=== PATIENT | female | born 1945 | race Caucasian/White ===

== ENCOUNTER 2020-07-14 11:47 | Observation (INO) | payer MEDICARE, OTHER, SELFPAY ==
[2020-07-14] VITALS (12 sets, daily range): BP systolic 158–188; BP diastolic 80–106; PULSE 64–98; RESP 14–18; TEMP 36.4–37.4; O2SAT 98–100; BMI 22.6; BMI 22.5
--- NOTE | 2020-07-14 12:06 | EKG12_ITS ---
Test Reason : CP Blood Pressure : / mmHG Vent. Rate : 086 BPM Atrial Rate : 086 BPM P-R Int : 150 ms QRS Dur : 068 ms QT Int : 360 ms P-R-T Axes : -04 066 047 degrees QTc Int : 430 ms Normal sinus rhythm Normal ECG Confirmed by RAMESH CORTES, TODD ([id number]), staff editor CAM NORWOOD ([id number]) on 07/17/2020 10:00:07 AM Referred By: RU Confirmed By:TODD CHANDLER MD
--- NOTE | 2020-07-14 12:07 | ED.VISSUMM ---
- ER Visit Summary Date of Service: 07/14/20 Chief Complaint: [Racing heart, exertional dyspnea] History of Present Illness: The patient is a 74 F [presents to the emergency department with symptoms for several weeks. Patient has noticed that she is unable to work like she used to and gets short of breath with activity. Patient has had some chest discomfort and pressure associated with this. 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 Patient has history of hypertension. She complains of feeling lightheaded when she stands up from stooping. Patient feels like her heart races at times but has not taken her pulse. She denies recent travel or surgery. Patient had her Covid vaccine 3 weeks ago. Patient does feel anxious at times. She denies fever or recent illness.] Physical Examination: [HEENT-PERRLA, EOMI. Cranial nerves II through XII grossly intact. TMs clear. Mucous membranes moist. No adenopathy. Cardiovascular-regular rate and rhythm without murmur or ectopy Lungs-clear to auscultation, chest wall stable without crepitus or subcu emphysema Abdomen-normoactive bowel sounds, soft, nontender, no rebound or rigidity, no peritoneal signs. Extremities-intact ?4, normal range of motion, normal pulses, atraumatic] Test Results: [EKG obtained arrival shows sinus rhythm with a ventricular rate of 86 bpm with no acute ST segment changes. CBC with differential was normal. Chemistries unremarkable. BUN 34 and creatinine 1.5. Troponin is less than 0.015. D-dimer was 0.81. CT of the chest showed no evidence of PE or dissection however she had some incidental pleural thickening of the right lower lobe.] Emergency Department Course and Treatment: [IV line established on arrival. Patient was given 2 baby aspirin.] Treatment Plan: [Admit] Disposition: [Admit] Impression: [Chest pain-rule out acute coronary syndrome Exertional dyspnea] This note was generated with [employer] software. It may contain incorrect words, spelling, and punctuation that were not noted in review of the chart prior to signing ED Disposition - Plan for ED Patient: Referrals: Care Physician,No Primary [NON-STAFF] -
[2020-07-14 12:17] LABS: Absolute Lymphocyte Count 1.34 X10^3/uL (0.83-4.51); Absolute Neutrophil Count 5.7 X10^3/uL (2.0-7.7); Basophil# 0.04 X10^3/uL; Basophil% 0.5 % (0-1); Eosinophil# 0.09 X10^3/uL; Eosinophils% 1.2 % (0-5); Hematocrit 39.8 % (37-47); Hemoglobin 13.2 g/dL (12.0-15.0); Lymphocyte # 1.34 X10^3/ul (4.0); Lymphocyte % 17.4 % (19-41); Mean Corp Hgb Conc 33.2 g/dL (32-36); Mean Corpuscular Hgb 32.2 pg (27.0-32.0); Mean Corpuscular Volume 97.1 fL (81-99); Mean Platelet Vol. 8.8 fl (6.2-12.0); Monocyte% 6.5 % (0-10); NRBC Flagged by Analyzer 0 % (0-5); Neutrophil # 5.71 X10^3/uL (2.7-7.7); Neutrophil % 74.1 % (47-70); Platelet Count 319 K/mm3 (150-450); RBC Distribution Width CV 13.5 % (11.6-14.6); RBC Distribution Width SD 48.3 fl (35.1-43.9); White Blood Count 7.7 K/mm3 (4.4-11.0)
[2020-07-14] MEDS: 0.9% Normal Saline 1,000 ML 150 ML IV ×3 (12:24→21:10)
[2020-07-14] MEDS: Aspirin 81 MG TAB.CHEW 162 MG PO (12:24)
[2020-07-14 12:33] LABS: D-Dimer Quantitative (DVT/PE) 0.81 FEU/ug/m (0.27-0.49)
--- NOTE | 2020-07-14 12:33 | CT_ITS ---
STUDY: CTA CHEST REASON FOR EXAM: Female, 74 years old. Dyspnea. RADIATION DOSAGE (If Supplied By Facility): CTDIvol = ( 4.7 ) mGy, DLP = ( 163.75 ) mGycm TECHNIQUE: The examination was performed with the intravenous administration of 100 mL of ISOVUE-370. Post-processing of the angiographic images was performed, with multiplanar reformation and MIP (maximum intensity projection) reconstruction. Individualized dose optimization techniques were used for this CT. COMPARISON: None. FINDINGS: Normal enhancement of the main pulmonary artery and right and left pulmonary arteries. Normal enhancement of the bilateral peripheral pulmonary arteries. There is no demonstrated pulmonary embolism. Normal thoracic aorta and visualized great vessels. There is no demonstrated aortic dissection. Normal heart and pericardium. Normal mediastinum. Normal hilar regions. Normal visualized trachea and bronchi. The lungs are well expanded. Minimal subsegmental atelectases in the lateral segment of right middle lobe. No suspicious pulmonary nodules or infiltrates. Small posterior pleural thickening (series 2, image 97; series 602, image 95). Normal chest wall structures. No acute osseous abnormality. Normal visualized upper abdomen. CT/CTA Chest W/WO Contrast IMPRESSION: 1. No CTA evidence of pulmonary thromboemboli, thoracic aortic aneurysm or dissection. 2. Minimal subsegmental atelectases in the lateral segment of the right middle lobe. 3. Small focal posterior pleural thickening in the posterior aspect of the right lower lobe (series 2, image 97; series 602, image 95). Electronically Signed: Jean Verduzco MD at 13:35 EDT , Service support ,
[2020-07-14 12:36] LABS: Anion Gap 9 (5-15); BUN 34 mg/dL (7-18); BUN/Creat Ratio 22.7 RATIO (10-20); Calcium,Total 9.2 mg/dL (8.5-10.1); Chloride 102 mmol/L (98-107); EST Glomerular Filtration Rate 36 mL/min (>60); Est Glom Filt Rate - Afr Amer 44 mL/min (>60); Estimated Creatinine Clearance 32.48 ml/min; Glucose 163 mg/dL (74-106); Potassium 4.1 mmol/L (3.5-5.1); Sodium Level 137 mmol/L (136-145)
--- NOTE | 2020-07-14 13:54 | ECHOCS_ITS ---
Reason For Study: Dyspnea/SOB Procedure This was a 2D Doppler, Color Flow transthoracic echocardiogram. Contrast injection was performed. Exam performed in department. Left Ventricle Normal LV size. Left ventricular systolic function is normal. The estimated ejection fraction is 70 %. Stage 1 diastolic dysfunction. No regional wall motion abnormalities noted. Right Ventricle Normal RV size. Normal systolic function. Atria Normal left atrium. Normal right atrium. Mitral Valve Normal mitral valve. Tricuspid Valve Normal tricuspid valve. Mild tricuspid valve insufficiency. Pulmonary artery systolic pressure is 36 mmHg. Aortic Valve Trisinus/trileaflet aortic valve. Pulmonic Valve Normal pulmonic valve. Great Vessels Normal aortic root. The pulmonary artery is normal size. Normal inferior vena cava. Pericardium/Pleural No pericardial effusion. Medication Diluted definity 2ml given slow IV push to enhance endocardial definition. MMode/2D Measurements & Calculations LVIDd: 4.1 cm IVSd: 0.81 cm Ao root diam: 2.8 cm LVIDs: 2.0 cm LVPWd: 0.99 cm RVDd: 2.9 cm FS: 52.0 % LAV(MOD-bp): 32.4 ml LVAd ap4: 17.7 cm2 SV(MOD-sp4): 25.9 ml LAV(MOD-bp) Indexed: 18.4 ml/m2 EDV(MOD-sp4): 37.4 ml LAV(MOD-sp2): 30.4 ml EDV(sp4-el): 38.2 ml LAV(MOD-sp4): 32.6 ml LVAs ap4: 8.4 cm2 ESV(MOD-sp4): 11.4 ml ESV(sp4-el): 10.5 ml EF(MOD-sp4): 69.4 % EF(sp4-el): 72.4 % SV(sp4-el): 27.7 ml LA A4 area: 14.0 cm2 LA dimension(2D): 3.2 cm RA A4 area: 9.5 cm2 Doppler Measurements & Calculations MV E max mike: 100.8 cm/sec Lat Peak E' Mike: 8.4 cm/sec Med Peak E' Mike: 5.0 cm/sec MV A max mike: 102.3 cm/sec E/E' lat: 12.0 E/E' med: 20.0 MV E/A: 0.99 Ao V2 max: 146.1 cm/sec LV V1 max: 141.5 cm/sec PA V2 max: 91.3 cm/sec Ao max P.5 mmHg LV V1 max P.0 mmHg Ao V2 mean: 104.5 cm/sec Ao mean P.7 mmHg Ao V2 VTI: 32.6 cm TR max mike: 283.6 cm/sec TR max P.2 mmHg Interpretation Summary Normal LV size. Left ventricular systolic function is normal. The estimated ejection fraction is 70 %. Stage 1 diastolic dysfunction. Contrast injection was performed. Ordering Physician: Christo Mercado Referring Physician: Teo Sagastume Performed By: Sandra Martínez, YENNY, RVT
--- NOTE | 2020-07-14 13:54 | NURSING ---
DR LEATHA MARCUS
--- NOTE | 2020-07-14 13:55 | EKG12_ITS ---
Test Reason : Blood Pressure : / mmHG Vent. Rate : 083 BPM Atrial Rate : 083 BPM P-R Int : 142 ms QRS Dur : 072 ms QT Int : 374 ms P-R-T Axes : 009 067 047 degrees QTc Int : 439 ms Normal sinus rhythm Normal ECG No previous ECGs available Confirmed by RAMESH CORTES, TODD ([id number]), website/blog editor CAM NORWOOD ([id number]) on 07/17/2020 10:22:27 AM Referred By: HARPAL Confirmed By:TODD CHANDLER MD
--- NOTE | 2020-07-14 14:01 | PCM.HP.STD ---
Problem List (1) Chest pain Status: Acute (2) Essential (primary) hypertension Status: Chronic History of Present Illness Date of Admission: 07/14/20 Chief Complaint: Chest discomfort The patient is a 74 year old F with past medical history segment for essential hypertension who presented with chest discomfort. Patient reports days of intermittent chest discomfort with associated palpitations. Chest discomfort was located in the retrosternal region. Patient denied any radiation. Denied any association with activity nor rest. Patient stated she felt anxious as well. Presented to the emergency department as a result. Patient was found to have a slightly elevated D-dimer CTA of the chest obtained was negative for PE subsequently admitted to a monitored bed for further inpatient evaluation and management Past Medical History Past Medical History (Chronic Problems): Chronic Problems (Last Updated 05/07/17 @ 09:21 by Vianca Longo) Essential (primary) hypertension (Chronic) Medical History: Medical History (Last Reviewed 07/14/20 @ 14:[address] Christo Mercado MD) C. difficile diarrhea A04.72 Dermatitis L30.9 Allergies Penicillins Allergy (Verified 07/14/20 11:50) Swelling Home Medications: Ambulatory Orders Medication Instructions Recorded multivitamin 1 cap PO QDAY 05/07/17 Lisinopril 40 mg PO DAILY 07/14/20 hydroCHLOROthiazide 12.5 mg PO DAILY 07/14/20 [Hydrochlorothiazide] Surgical History: Surgical History (Last Reviewed 07/14/20 @ 14:[address] Christo Mercado MD) History of colonoscopy Onset Date: ~11/20/14 Z98.890 History of tubal ligation Z98.51 Smoking Status: Never smoker - *Family History Maternal Family History: Family History (Last Reviewed 07/14/20 @ 14:[address] Christo Mercado MD) Father Heart disease Grandmother CVA (cerebral vascular accident) Grandfather CVA (cerebral vascular accident) Review of Systems Constitutional: Denies: Anorexia, Chills, Fever, Night Sweats, Weight Change HEENT: Denies: Head Aches, Sinus Congestion, Sinus Drainage Cardiovascular: Reports: Chest Pressure, Palpitations. Denies: Chest Pain, Orthopnea, Paroxysmal Noc. Dyspnea Respiratory: Denies: Cough, Shortness of breath at rest, Shortness of breath upon exertion, Sputum production Gastrointestinal: Denies: Abdominal Pain, Hematemesis, Hematochezia, Nausea, Melena, Vomiting Genitourinary: Denies: Dysuria, Frequency, Hematuria, Urgency Musculoskeletal: Denies: Joint Pain, Joint Tenderness Skin: Denies: Rash Neurological: Denies: Focal weakness, Numbness, Tingling Psychiatric: Reports: Anxiety. Denies: Homicidal Ideations, Suicidal Ideations Hematologic/ Lymphatic: Denies: Easy Bruising, Easy Bleeding VTE Information - Inpt Only VTE Present on Admission: No VTE Mechan Device Prophylaxis: None VTE Pharm Prophylaxis ordered?: Yes Objective: GENERAL: cooperative HEENT: Atraumatic; EYES; Anicteric, Normal Conjunctiva NECK; supple, normal thyroid, RESPIRATORY: Diminished to auscultation CARDIOVASCULAR: Regular S1 S2, GI: soft, normoactive bowel sounds, : No Renal angle tenderness; EXTREMITIES: No edema, no clubbing, MUSCULOSKELETAL: no muscle waisting NEURO: Awake; no lateralizing signs. SKIN: No Rash PSYCH; Flat affect - Physical Exam Vitals/I&O's: Vital Signs Temp Pulse Resp BP Pulse Ox 97.5 F L 88 17 174/80 H 100 07/14/20 11:47 07/14/20 13:00 07/14/20 13:00 07/14/20 13:00 07/14/20 13:00 Oxygen Delivery Method Room Air Weight: 65.6 kg Body Mass Index (BMI) 22.6 Laboratory Results 07/14/20 12:10: WBC 7.7, RBC 4.10 L, Hgb 13.2, Hct 39.8, MCV 97.1, MCH 32.2 H, MCHC 33.2, RDW Std Deviation 48.3 H, RDW Coeff of Peri 13.5, Plt Count 319, MPV 8.8, Immature Gran % (Auto) 0.300, Neut % (Auto) 74.1 H, Lymph % (Auto) 17.4 L, [place] % (Auto) 6.5, Eos % (Auto) 1.2, Baso % (Auto) 0.5, Absolute Neuts (auto) 5.7, Absolute Lymphs (auto) 1.34, Nucleated RBC % 0 07/14/20 12:10: D-Dimer Quant (PE/DVT) 0.81 H* 07/14/20 12:10: Sodium 137, Potassium 4.1, Chloride 102, Carbon Dioxide 26.0, Anion Gap 9, BUN 34 H, Creatinine 1.50 H, Estim Creat Clear Calc 32.48, Est GFR (MDRD) Af Amer 44 L, Est GFR (MDRD) Non-Af 36 L, BUN/Creatinine Ratio 22.7 H, Glucose 163 H, Calcium 9.2, Troponin I < 0.015 Current Medications Acetaminophen (Acetaminophen 325 Mg Tablet) 650 mg PO Q6H PRN PRN PRN Reason: Pain Score 1-10/Temp > 100.7 F Al Hydroxide/Mg Hydroxide (Mag Hydrox/Al Hydrox/Simeth 30 Ml Udc) 30 ml PO Q6H PRN PRN PRN Reason: Gastric Burning Albuterol Sulfate (Albuterol 2.5 Mg/3 Ml Vial.Neb.) 2.5 mg INHALATION Q2H PRN PRN PRN Reason: SOB/Wheezing Aspirin (Aspirin E.C. 81 Mg Tablet) 81 mg PO DAILY@0800 [facility] Enoxaparin Sodium (Enoxaparin 40 Mg/0.4 Ml Syringe) 40 mg SC DAILY [facility] Hydrochlorothiazide (Hydrochlorothiazide 12.5mg) 12.5 mg PO DAILY [facility] Sodium Chloride () 1,000 mls @ 150 mls/hr IV .Q6H40M [facility] Last Admin: 07/14/20 12:24 Dose: 150 mls/hr Documented by: Lisinopril (Lisinopril 40 Mg Tablet) 40 mg PO DAILY [facility] Melatonin (Melatonin 3 Mg Tablet) 3 mg PO QHS PRN PRN PRN Reason: INSOMNIA Nitroglycerin (Nitroglycerin (Inpatient Use) 0.4 Mg Tab.Subl) 0.4 mg SL Q5M PRN PRN Reason: CARDIAC/CHEST PAIN Oxycodone HCl (Oxycodone 5 Mg Tablet) 5 mg PO Q4H PRN PRN PRN Reason: Pain Score 4-5 Senna/Docusate Sodium (Senna/Docusate Sodium 1 Tablet) 2 tablet PO BID PRN PRN PRN Reason: Constipation Assessment/Plan All Active Problems (Last Updated 05/07/17 @ 09:21 by Vianca Longo) Chest pain (Acute) Patient is a 74-year-old lady presenting with chest discomfort 1. Chest discomfort ?Admitted to monitored bed. Patient initial set of cardiac enzymes and EKG so far unremarkable. Subsequent serial enzymes ordered and if PA is ruled out patient can undergo a treadmill nuclear stress test. Also did order a 2D echo 2. Essential hypertension -patient's blood pressure not well controlled ?Systolic blood pressure was around 160 on admission did continue with home meds and added as needed hydralazine 3. Palpitations ?EKG demonstrated sinus tachycardia, patient had elevated D-dimer CTA of the chest was negative for PE 4. DVT prophylaxis ?Lovenox OBSV E&M: 14599 Initial observation care L3
--- NOTE | 2020-07-14 14:04 | NURSING ---
NO OLD EKGS
--- NOTE | 2020-07-14 14:05 | NURSING ---
121 KITTOE CP, EXERTIONAL DYSPNEA OBS
[2020-07-14] MEDS: Metoprolol Tartrate 25 MG Tablet PO (18:22)
[2020-07-14] MEDS: hydrALAZINE 20 MG/ML Vial 10 MG IV (21:10)
[2020-07-15] VITALS (7 sets, daily range): BP systolic 140–153; BP diastolic 70–80; PULSE 70–87; RESP 16–18; TEMP 35.9–36.8; O2SAT 98–100
[2020-07-15 06:01] LABS: Absolute Lymphocyte Count 1.62 X10^3/uL (0.83-4.51); Absolute Neutrophil Count 4.7 X10^3/uL (2.0-7.7); Basophil# 0.04 X10^3/uL; Basophil% 0.6 % (0-1); Eosinophil# 0.11 X10^3/uL; Eosinophils% 1.6 % (0-5); Hematocrit 38.2 % (37-47); Hemoglobin 12.4 g/dL (12.0-15.0); Lymphocyte # 1.62 X10^3/ul (4.0); Lymphocyte % 23.4 % (19-41); Mean Corp Hgb Conc 32.5 g/dL (32-36); Mean Corpuscular Hgb 31.6 pg (27.0-32.0); Mean Corpuscular Volume 97.2 fL (81-99); Mean Platelet Vol. 8.8 fl (6.2-12.0); Monocyte% 5.8 % (0-10); NRBC Flagged by Analyzer 0 % (0-5); Neutrophil # 4.74 X10^3/uL (2.7-7.7); Neutrophil % 68.5 % (47-70); Platelet Count 304 K/mm3 (150-450); RBC Distribution Width CV 13.6 % (11.6-14.6); RBC Distribution Width SD 48.3 fl (35.1-43.9); Red Blood Count 3.93 M/mm3 (4.2-5.4); White Blood Count 6.9 K/mm3 (4.4-11.0)
[2020-07-15] MEDS: Lisinopril 40 MG Tablet PO (06:16)
[2020-07-15 06:34] LABS: Anion Gap 4 (5-15); BUN 23 mg/dL (7-18); BUN/Creat Ratio 21.9 RATIO (10-20); Calcium,Total 9.1 mg/dL (8.5-10.1); Chloride 108 mmol/L (98-107); Creatinine, Serum 1.05 mg/dL (0.55-1.02); EST Glomerular Filtration Rate 55 mL/min (>60); Est Glom Filt Rate - Afr Amer 66 mL/min (>60); Glucose 114 mg/dL (74-106); Magnesium 2.3 mg/dL (1.6-2.6); Potassium 4.2 mmol/L (3.5-5.1); Sodium Level 140 mmol/L (136-145); Thyroid Stim Hormone (TSH) 2.84 uIU/mL (0.358-3.74)
[2020-07-15] MEDS: Aspirin E.C. 81 MG Tablet PO (08:23)
--- NOTE | 2020-07-15 10:58 | STRESSREP ---
Stress Test Report Exercise myocardial perfusion stress test. 74-year-old lady with a history of chest pain. Stress protocol: Resting EKG demonstrates normal sinus rhythm with a rate of 86 bpm normal intervals are noted resting blood pressure is 156/90 mmHg. The patient exercised according to regular Korey protocol for a total duration of 4 minutes. The maximum heart rate attained was 139 bpm which was 92% of maximum predicted heart rate the maximum workload was 5.7 metabolic equivalents. At rest there were no ST or T wave changes noted suggest ischemia peak exercise upsloping ST changes were noted which did not meet the criteria for ischemia. The peak blood pressure was 162/88 mmHg the test was terminated due to fatigue. Rate-pressure product was 20,500. Myocardial perfusion protocol. 11.6 mCi of technetium 99m sestamibi was injected at rest. Patient exercised according to regular Korey protocol. At peak exercise 33.3 mCi of technetium 99m sestamibi was injected stress images were obtained stress and rest images were reconstructed and compared in the short axis vertical long horizontal long axis. Gated images were also obtained Perfusion SPECT analysis: Review of the stress images demonstrate normal uptake of tracer noted in all areas of the myocardium the resting images similarly demonstrate normal uptake of tracer noted in all areas of the myocardium. No reversibility is noted suggest ischemia no previous infarct is noted. Gated SPECT analysis: The gated ejection fraction is 90%. Conclusion: Normal exercise myocardial perfusion stress test at a low to moderate workload. Preserved ejection fraction.
[2020-07-15] MEDS: hydroCHLOROthiazide 25 MG Tablet PO (11:15)
[2020-07-15] MEDS: Metoprolol Tartrate 25 MG Tablet PO (11:15)
--- NOTE | 2020-07-15 12:26 | DCINST_ITS ---
- Discharge Diagnoses Current Active Problems: Current Active and Chronic Problems (Last Reviewed 07/14/20 @ 14:[address] Christo Mercado MD) Essential (primary) hypertension (Chronic) Chest pain (Acute) You will use the following diet at home:: No restrictions - drink more fluids Your food should be the consistency of: Regular Your liquids should be the consistency of: Regular/Thin Additional Instructions: Check blood pressure daily and keep record. Allergies/Adverse Reactions: Allergies Penicillins Allergy (Verified 07/14/20 11:50) Swelling Medications to take at Discharge multivitamin 1 cap PO QDAY 05/07/17 Lisinopril 40 mg PO DAILY 07/14/20 hydroCHLOROthiazide [Hydrochlorothiazide] 12.5 mg PO DAILY 07/14/20 Albuterol IH (ProAir) [Proair Hfa] 1 - 2 puff INHALATION Q4H PRN PRN #1 inhaler 07/15/20 The following prescriptions were given: Albuterol IH (ProAir) [Proair Hfa] 1 - 2 puff INHALATION Q4H PRN PRN #1 inhaler PRN Reason: Shortness Of Breath Transmission Status: Pending to [facility] Primary Care Physician: Care Physician,No Primary [NON-STAFF] - Test Results: Test results from this visit will be discussed in further detail at your follow- up appointment, if applicable. Please Follow Up With: Teo Sagastume MD When: 1-2 weeks Please Follow Up With: Korey Eubanks MD - Pulmonology When: 2-4 weeks Proposed Discharge Date: 07/15/20
--- NOTE | 2020-07-15 12:28 | PCM.DC.SUM ---
Discharge Date and Diagnosis - Problem List Patient Problems: Active and Suspected Problems (Last Reviewed 07/14/20 @ 14:[address] Christo Mercado MD) Chest pain (Acute) Date of Admission: 07/14/20 Date of Discharge: 07/15/20 - Primary Discharge Diagnosis Acute Problems: Active Problems (Last Reviewed 07/14/20 @ 14:[address] Christo Mercado MD) Chest pain (Acute) - Secondary Discharge Diagnosis Chronic Problems: Chronic Problems (Last Reviewed 07/14/20 @ 14:[address] Christo Mercado MD) Essential (primary) hypertension (Chronic) Hospital Course and Treatment Imaging Results: 07/15/20 05:55 Nuclear Stress Test - Treadmil [NM] AM (NON MEDS) Operations: None Procedures: Stress test Summary of Care Provided: The patient is a 74 year old F dyspnea on exertion. Patient also noting dizziness particular when she bends over and stands up. Patient had elevated creatinine at 1.5 which did improve to 1.05. Patient underwent a CT angiogram of the chest as well as a stress test which were both negative. In regards to patient's dyspnea on exertion told her it is unclear as to what is causing it but I did have concern for may be some underlying undiagnosed asthma. Patient states that she does not have nocturnal symptoms. Patient would receive a prescription for an albuterol metered-dose inhaler if she were to have dyspnea on exertion again but also advised that she follow-up pulmonology for formal evaluation with pulmonary function test as outpatient. On regards the patient's blood pressure it has been elevated, however am not going to change anything in regards to her medications. Patient will continue with same dosing of HCTZ as well as lisinopril. Patient was having palpitations but when she initially presented did not have been started on beta-blockers. Would hold off on those. Patient does have some underlying asthma. [] Patient Problems: Active and Suspected Problems (Last Reviewed 07/14/20 @ 14:[address] Christo Mercado MD) Chest pain (Acute) - Physical Exam Vitals/I&O's: Vital Signs Temp Pulse Resp BP Pulse Ox 36.8 C 87 18 153/70 H 100 07/15/20 11:11 07/15/20 11:15 07/15/20 11:11 07/15/20 11:15 07/15/20 11:11 Oxygen Delivery Method Room Air Weight: 65.317 kg Body Mass Index (BMI) 22.5 Intake and Output for Last 24 Hours 07/13/20 07/14/20 07/15/20 22:59 23:59 23:59 Intake Total 500 / 500 Balance 500 / 500 General: Alert, No apparent distress HEENT: Atraumatic, Normocephalic Lungs: Clear to auscultation, Normal air movement, No rhonchi, No wheeze Cardiovascular: Regular rate, Regular Rhythm, Normal S1, Normal S2, No murmurs Laboratory Results 07/14/20 12:10: D-Dimer Quant (PE/DVT) 0.81 H* 07/14/20 12:10: Sodium 137, Potassium 4.1, Chloride 102, Carbon Dioxide 26.0, Anion Gap 9, BUN 34 H, Creatinine 1.50 H, Estim Creat Clear Calc 32.48, Est GFR (MDRD) Af Amer 44 L, Est GFR (MDRD) Non-Af 36 L, BUN/Creatinine Ratio 22.7 H, Glucose 163 H, Calcium 9.2, Troponin I < 0.015 07/14/20 14:40: Troponin I < 0.015 07/14/20 18:32: Troponin I < 0.015 07/15/20 05:50: WBC 6.9, RBC 3.93 L, Hgb 12.4, Hct 38.2, MCV 97.2, MCH 31.6, MCHC 32.5, RDW Std Deviation 48.3 H, RDW Coeff of Peri 13.6, Plt Count 304, MPV 8.8, Immature Gran % (Auto) 0.100, Neut % (Auto) 68.5, Lymph % (Auto) 23.4, [place] % (Auto) 5.8, Eos % (Auto) 1.6, Baso % (Auto) 0.6, Absolute Neuts (auto) 4.7, Absolute Lymphs (auto) 1.62, Nucleated RBC % 0 07/15/20 05:50: Sodium 140, Potassium 4.2, Chloride 108 H, Carbon Dioxide 28.0, Anion Gap 4 L, BUN 23 H, Creatinine 1.05 H, Estim Creat Clear Calc 46.40, Est GFR (MDRD) Af Amer 66, Est GFR (MDRD) Non-Af 55 L, BUN/Creatinine Ratio 21.9 H, Glucose 114 H, Calcium 9.1, Magnesium 2.3, TSH 2.84 Current Medications Acetaminophen (Acetaminophen 325 Mg Tablet) 650 mg PO Q6H PRN PRN PRN Reason: Pain Score 1-10/Temp > 100.7 F Al Hydroxide/Mg Hydroxide (Mag Hydrox/Al Hydrox/Simeth 30 Ml Udc) 30 ml PO Q6H PRN PRN PRN Reason: Gastric Burning Albuterol Sulfate (Albuterol 2.5 Mg/3 Ml Vial.Neb.) 2.5 mg INHALATION Q2H PRN PRN PRN Reason: SOB/Wheezing Aspirin (Aspirin E.C. 81 Mg Tablet) 81 mg PO DAILY@0800 [facility] Last Admin: 07/15/20 08:23 Dose: 81 mg Documented by: Enoxaparin Sodium (Enoxaparin 40 Mg/0.4 Ml Syringe) 40 mg SC DAILY [facility] Last Admin: 07/15/20 11:16 Dose: Not Given Documented by: Hydralazine HCl (Hydralazine 20 Mg/Ml Vial) 10 mg IV Q4H PRN PRN PRN Reason: SBP >160 Last Admin: 07/14/20 21:10 Dose: 10 mg Documented by: Hydrochlorothiazide (Hydrochlorothiazide 25 Mg Tablet) 25 mg PO DAILY [facility] Last Admin: 07/15/20 11:15 Dose: 25 mg Documented by: Lisinopril (Lisinopril 40 Mg Tablet) 40 mg PO DAILY [facility] Last Admin: 07/15/20 06:16 Dose: 40 mg Documented by: Melatonin (Melatonin 3 Mg Tablet) 3 mg PO QHS PRN PRN PRN Reason: INSOMNIA Metoprolol Tartrate (Metoprolol Tartrate 25 Mg Tablet) 25 mg PO BID [facility] Last Admin: 07/15/20 11:15 Dose: 25 mg Documented by: Nitroglycerin (Nitroglycerin (Inpatient Use) 0.4 Mg Tab.Subl) 0.4 mg SL Q5M PRN PRN Reason: CARDIAC/CHEST PAIN Oxycodone HCl (Oxycodone 5 Mg Tablet) 5 mg PO Q4H PRN PRN PRN Reason: Pain Score 4-5 Senna/Docusate Sodium (Senna/Docusate Sodium 1 Tablet) 2 tablet PO BID PRN PRN PRN Reason: Constipation Sodium Chloride (0.9% Saline Lock 10 Ml Syringe) 10 - 40 ml IV UD PRN PRN Reason: SALINE FLUSH Discharge Diet: No Restrictions Home Medications: Medications to take at Discharge multivitamin 1 cap PO QDAY 05/07/17 Lisinopril 40 mg PO DAILY 07/14/20 hydroCHLOROthiazide [Hydrochlorothiazide] 12.5 mg PO DAILY 07/14/20 Albuterol IH (ProAir) [Proair Hfa] 1 - 2 puff INHALATION Q4H PRN PRN #1 inhaler 07/15/20 Following Prescriptions Were Given to Patient: Albuterol IH (ProAir) [Proair Hfa] 1 - 2 puff INHALATION Q4H PRN PRN #1 inhaler PRN Reason: Shortness Of Breath Transmission Status: Pending to [facility] Primary Care Physician: Care Physician,No Primary [NON-STAFF] - Please Follow Up With: Teo Sagastume MD When: 1-2 weeks Please Follow Up With: Korey Eubanks MD - Pulmonology When: 2-4 weeks Disposition: Home Minutes spent on discharge:: 32 Patient Condition:: Good Medical Necessity - Tobacco Use Smoking Status: Smoker, status unknown Meaningful Use Info Meaningful Use Diagnoses (Choose all that apply): None applicable OBSV E&M: 75196 Observation care discharge
--- NOTE | 2020-07-15 13:39 | PHA.DC.MC ---
Pharmacy Service has performed discharge medication reconciliation and counseling for this patient. 1. ALBUTEROL INHALER 1-2 PUFFS Q4H PRN SOB The patient's discharge medication list was reviewed for discrepancies and discrepancies were resolved. Home Medications multivitamin 1 cap PO QDAY 05/07/17 Lisinopril 40 mg PO DAILY 07/14/20 hydroCHLOROthiazide [Hydrochlorothiazide] 12.5 mg PO DAILY 07/14/20 Albuterol IH (ProAir) [Proair Hfa] 1 - 2 puff INHALATION Q4H PRN PRN #1 inhaler 07/15/20 The patient was counseled on the following discharge medications and changes in medications for homegoing were reviewed. The Reason for Use, instructions for use, and potential side effects were reviewed for all new medications. The patient's questions regarding all of their medications were answered. The patient was able to verbally demonstrate an understanding of their discharge medications.
--- NOTE | 2020-07-15 13:51 | NURSING ---
pt did not want to have her bp taken at dc.
== END 2020-07-15 12:28 | disposition home or self-care (01) ==
LOC: ED 13:14 → PCU 14:24
PROVIDERS: Admitting Provider Internal Medicine; Emergency Provider Emergency Medicine; PCP Family Medicine
DX: R07.89 Other chest pain (principal); I10 Essential (primary) hypertension; R06.09 Other forms of dyspnea; R00.0 Tachycardia, unspecified; R06.02 Shortness of breath; R42 Dizziness and giddiness; R00.2 Palpitations; Z79.899 Other long term (current) drug therapy
CPT/HCPCS: 36415; 71275; 78452; 80048; 83735; 84443; 84484; 85025; 85379; 93005; 93017; 93306; 96360; 96361; 96374; 99218; 99285; A9500; J7030; Q9957; Q9967; A4216; C8929; G0378

== ENCOUNTER 2020-07-25 12:32 | Emergency (ER) | payer MEDICARE, OTHER, SELFPAY ==
[2020-07-14 14:40] VITALS: BMI 22.5
[2020-07-25 12:33] VITALS: BP 170/113; PULSE 100; RESP 18; TEMP 36.7; O2SAT 100; BMI 22.4
[2020-07-25 13:32] LABS: Absolute Lymphocyte Count 1.07 X10^3/uL (0.83-4.51); Absolute Neutrophil Count 7.2 X10^3/uL (2.0-7.7); Basophil# 0.04 X10^3/uL; Basophil% 0.5 % (0-1); Eosinophil# 0.03 X10^3/uL; Eosinophils% 0.3 % (0-5); Hematocrit 40.2 % (37-47); Hemoglobin 13.5 g/dL (12.0-15.0); Lymphocyte # 1.07 X10^3/ul (4.0); Lymphocyte % 12.2 % (19-41); Mean Corp Hgb Conc 33.6 g/dL (32-36); Mean Corpuscular Hgb 31.8 pg (27.0-32.0); Mean Corpuscular Volume 94.8 fL (81-99); Mean Platelet Vol. 8.8 fl (6.2-12.0); Monocyte# 0.38 X10^3/uL; Monocyte% 4.3 % (0-10); NRBC Flagged by Analyzer 0 % (0-5); Neutrophil # 7.23 X10^3/uL (2.7-7.7); Neutrophil % 82.5 % (47-70); Platelet Count 404 K/mm3 (150-450); RBC Distribution Width CV 12.7 % (11.6-14.6); RBC Distribution Width SD 44.3 fl (35.1-43.9); Red Blood Count 4.24 M/mm3 (4.2-5.4); White Blood Count 8.8 K/mm3 (4.4-11.0)
[2020-07-25 13:39] LABS: Prothrombin Time (Protime)PT. 12.1 SECONDS (11.7-14.9)
[2020-07-25 13:40] LABS: Partial Thromboplast Time 24.1 Seconds (24.1-36.2)
--- NOTE | 2020-07-25 13:44 | ED.DCSUM_ITS ---
History of Present Illness Chief Complaint: GI Bleed Informant: Patient Narrative: 74-year-old female presents with black stools. Patient states she has had diarrhea for 2 years. She has not had a colonoscopy. She was recently admitted for chest pain had a negative stress test and echocardiogram. On Wednesday patient had some Pepto-Bismol Wednesday had black stools Wednesday she tells me her stool is normal but she again had black stools today and she also had Pepto-Bismol yesterday. She tells me she called her doctor and was sent to emergency. Patient denies any syncope or near syncope. She denies any prior history of GI bleeds. - Past Medical History (1) Essential (primary) hypertension Status: Chronic Past Medical History - Allergies and Home Meds Allergies/Adverse Reactions: Allergies Penicillins Allergy (Verified 07/25/20 12:34) Swelling Primary Care Physician: Teo Sagastume MD [Primary Care Provider] - Surgical History: noncontributory Lives: Spouse/ Significant Other Smoking Status: Smoker, status unknown Drugs: None Review of Systems General: Denies: Chills, Fever, Sweats Eyes: Denies: Visual changes - bilaterally, Diplopia ENT: Denies: Rhinorrhea, Sore throat Cardiovascular: Reports: Chest pain. Denies: Palpitations Respiratory: Denies: Dyspnea, Cough, Dyspnea on exertion Gastrointestinal: Reports: Diarrhea. Denies: Abdominal pain, Nausea, Vomiting, Melena, Hematochezia Genitourinary: Denies: Dysuria, Hematuria, Frequency Musculoskeletal: Denies: Back pain, Extremity Pain Skin: Denies: Rash, Wounds Neurological: Denies: Headache, Weakness, Numbness Physical Exam Vital Signs/Narrative: Vital Signs Temp Pulse Resp BP Pulse Ox 07/25/20 12:33 98.1 F 100 18 170/113 H 100 Inital Vital Signs reviewed: Yes General: Well nourished, Well developed, No Acute Distress Head: Normocephalic, Atraumatic Eyes: Perrl, EOMI ENT: Moist mucous membranes, No rhinorrhea Neck: Supple, Nontender Cardiovascular: Regular rate, Regular rhythm, No murmurs Respiratory: No distress, CTA bilaterally, Chest nontender Abdomen: Soft, Nontender, Nondistended, Normal bowel sounds Back: Nontender, Normal Inspection Extremities: Nontender, No edema Skin: Normal color, No rash Neurological: Alert, Oriented x3, Cranial nerves II-XII grossly intact, Normal Strength, Normal Sensation Psychological: Normal affect, Normal Mood Diagnostic/Tx/Re-eval Laboratory Last Values WBC 8.8 K/mm3 (4.4-11.0) 07/25/20 13:20 RBC 4.24 M/mm3 (4.2-5.4) 07/25/20 13:20 Hgb 13.5 g/dL (12.0-15.0) 07/25/20 13:20 Hct 40.2 % (37-47) 07/25/20 13:20 MCV 94.8 fL (81-99) 07/25/20 13:20 MCH 31.8 pg (27.0-32.0) 07/25/20 13:20 MCHC 33.6 g/dL (32-36) 07/25/20 13:20 RDW Std Deviation 44.3 fl (35.1-43.9) H 07/25/20 13:20 RDW Coeff of Peri 12.7 % (11.6-14.6) 07/25/20 13:20 Plt Count 404 K/mm3 (150-450) 07/25/20 13:20 MPV 8.8 fl (6.2-12.0) 07/25/20 13:20 Immature Gran % (Auto) 0.200 % (0.0-0.9) 07/25/20 13:20 Neut % (Auto) 82.5 % (47-70) H 07/25/20 13:20 Lymph % (Auto) 12.2 % (19-41) L 07/25/20 13:20 [place] % (Auto) 4.3 % (0-10) 07/25/20 13:20 Eos % (Auto) 0.3 % (0-5) 07/25/20 13:20 Baso % (Auto) 0.5 % (0-1) 07/25/20 13:20 Absolute Neuts (auto) 7.2 X10^3/uL (2.0-7.7) 07/25/20 13:20 Absolute Lymphs (auto) 1.07 X10^3/uL (0.83-4.51) 07/25/20 13:20 Nucleated RBC % 0 % (0-5) 07/25/20 13:20 PT 12.1 SECONDS (11.7-14.9) 07/25/20 13:20 INR 1.0 07/25/20 13:20 APTT 24.1 Seconds (24.1-36.2) 07/25/20 13:20 Sodium 136 mmol/L (136-145) 07/25/20 13:20 Potassium 4.0 mmol/L (3.5-5.1) 07/25/20 13:20 Chloride 99 mmol/L (98-107) 07/25/20 13:20 Carbon Dioxide 26.0 mmol/L (21.0-32.0) 07/25/20 13:20 Anion Gap 11 (5-15) 07/25/20 13:20 BUN 35 mg/dL (7-18) H 07/25/20 13:20 Creatinine 1.61 mg/dL (0.55-1.02) H 07/25/20 13:20 Estim Creat Clear Calc 30.26 ml/min 07/25/20 13:20 Est GFR (MDRD) Af Amer 40 mL/min (>60) L 07/25/20 13:20 Est GFR (MDRD) Non-Af 33 mL/min (>60) L 07/25/20 13:20 BUN/Creatinine Ratio 21.7 RATIO (10-20) H 07/25/20 13:20 Glucose 136 mg/dL (74-106) H 07/25/20 13:20 Calcium 9.3 mg/dL (8.5-10.1) 07/25/20 13:20 Total Bilirubin 0.30 mg/dL (0.20-1.00) 07/25/20 13:20 AST 21 U/L (15-37) 07/25/20 13:20 ALT 17 U/L (13-56) 07/25/20 13:20 Alkaline Phosphatase 74 U/L (45-117) 07/25/20 13:20 Total Protein 7.9 g/dL (6.4-8.2) 07/25/20 13:20 Albumin 4.1 g/dL (3.2-5.0) 07/25/20 13:20 Globulin 3.8 g/dL (2.2-4.2) 07/25/20 13:20 Albumin/Globulin Ratio 1.1 RATIO (0.9-2.4) 07/25/20 13:20 Lipase 214 U/L (73-393) 07/25/20 13:20 - Medical Decision Making Patient's Hemoccult is negative. Her hemoglobin is stable. Stable vital signs. She has chronic diarrhea and I think it turned black due to her use of Pepto- Bismol. Follow-up with primary care. Would recommend her seeing gastroenterology for EGD and colonoscopy in the future. ED Disposition - Plan for ED Patient: Disposition: Home or Assisted Living Diagnosis: Diarrhea Instructions: ED Diarrhea, Unknown Cause Referrals: Teo Sagastume MD [Primary Care Provider] - 5-7 Days
[2020-07-25 14:07] LABS: ALB/GLOB Ratio 1.1 RATIO (0.9-2.4); AST(SGOT) 21 U/L (15-37); Alanine Aminotransfer ALT/SGPT 17 U/L (13-56); Albumin, Serum 4.1 g/dL (3.2-5.0); Alkaline Phosphatase 74 U/L (45-117); Anion Gap 11 (5-15); BUN 35 mg/dL (7-18); BUN/Creat Ratio 21.7 RATIO (10-20); Calcium,Total 9.3 mg/dL (8.5-10.1); Chloride 99 mmol/L (98-107); Creatinine, Serum 1.61 mg/dL (0.55-1.02); EST Glomerular Filtration Rate 33 mL/min (>60); Est Glom Filt Rate - Afr Amer 40 mL/min (>60); Estimated Creatinine Clearance 30.26 ml/min; Globulin 3.8 g/dL (2.2-4.2); Glucose 136 mg/dL (74-106); Lipase 214 U/L (73-393); Protein, Total 7.9 g/dL (6.4-8.2); Sodium Level 136 mmol/L (136-145)
== END 2020-07-25 15:21 | disposition home or self-care (01) ==
PROVIDERS: Emergency Provider Emergency Medicine; PCP Family Medicine
DX: R19.7 Diarrhea, unspecified (principal); I10 Essential (primary) hypertension; Z79.899 Other long term (current) drug therapy
CPT/HCPCS: 80053; 82274; 83690; 85025; 85610; 85730; 99283

== ENCOUNTER → 2020-11-29 14:07 | Outpatient (CLI) | payer MEDICARE, OTHER, SELFPAY ==
[2020-10-30 08:37] VITALS: BMI 22.1
[2020-11-29 15:23] LABS: Anion Gap 5 (5-15); BUN 28 mg/dL (7-18); BUN/Creat Ratio 23.5 RATIO (10-20); Calcium,Total 8.3 mg/dL (8.5-10.1); Chloride 108 mmol/L (98-107); Creatinine, Serum 1.19 mg/dL (0.55-1.02); EST Glomerular Filtration Rate 47 mL/min (>60); Est Glom Filt Rate - Afr Amer 57 mL/min (>60); Glucose 112 mg/dL (74-106); Potassium 4.2 mmol/L (3.5-5.1); Sodium Level 142 mmol/L (136-145)
== END ==
PROVIDERS: PCP Family Medicine; Referring Provider Internal Medicine Cardiovascular Disease; Visit Provider Internal Medicine Cardiovascular Disease
DX: Z01.810 Encounter for preprocedural cardiovascular examination (principal)
CPT/HCPCS: 36415; 80048

== ENCOUNTER 2021-08-13 14:01 | Outpatient (CLI) | payer MEDICARE, OTHER, SELFPAY ==
[2021-08-13 15:32] LABS: CRP 4.06 mg/L (0.0-3.0)
[2021-08-15 17:10] LABS: Endomysial Antibody IgA Negative (Negative)
[2021-08-15 21:11] LABS: Immunoglobulin A 121 mg/dL (64-422); t-Transglutaminase IgA <2 U/mL (0-3)
== END 2021-08-13 23:59 | disposition home or self-care (01) ==
LOC: MTLAB 14:03
PROVIDERS: PCP Family Medicine; Referring Provider Internal Medicine Gastroenterology; Visit Provider Internal Medicine Gastroenterology
DX: R19.7 Diarrhea, unspecified (principal)
CPT/HCPCS: 36415; 82784; 83516; 86140; 86255

== ENCOUNTER → 2022-06-02 | Outpatient (CLI) | payer MEDICARE, OTHER, SELFPAY ==
[2022-06-02 12:57] LABS: Anion Gap 6 (5-15); BUN 29 mg/dL (7-18); BUN/Creat Ratio 26.4 RATIO (10-20); Chloride 107 mmol/L (98-107); Cholesterol 276 mg/dL (200); EST Glomerular Filtration Rate 51 mL/min (>60); Est Glom Filt Rate - Afr Amer 62 mL/min (>60); Glucose 110 mg/dL (74-106); High Density Lipoprotein 90 mg/dL; Potassium 4.4 mmol/L (3.5-5.1); Sodium Level 141 mmol/L (136-145); Triglycerides 133 mg/dL; Very Low Density Lipoprotein 27 mg/dL (5-40)
== END | disposition home or self-care (01) ==
LOC: LAB 11:02
PROVIDERS: PCP Family Medicine; Visit Provider Internal Medicine Cardiovascular Disease
DX: E78.5 Hyperlipidemia, unspecified (principal); I10 Essential (primary) hypertension
CPT/HCPCS: 36415; 80048; 80061

== ENCOUNTER → 2024-10-16 | Outpatient (CLI) | payer MEDICARE, SELFPAY ==
[2024-10-16 10:33] LABS: Erythrocyte Sedimentation Rate 4 mm/hr (0-30)
[2024-10-16 10:37] LABS: Absolute Lymphocyte Count 1.11 X10^3/uL (0.83-4.51); Absolute Neutrophil Count 4.3 X10^3/uL (2.0-7.7); Basophil# 0.04 X10^3/uL; Basophil% 0.7 % (0-1); Eosinophil# 0.15 X10^3/uL; Eosinophils% 2.5 % (0-5); Hematocrit 37.2 % (37-47); Hemoglobin 12.6 g/dL (12.0-15.0); Lymphocyte # 1.11 X10^3/ul (0.83-4.51); Lymphocyte % 18.7 % (19-41); Mean Corp Hgb Conc 33.9 g/dL (32-36); Mean Corpuscular Hgb 32.3 pg (27.0-32.0); Mean Corpuscular Volume 95.4 fL (81-99); Mean Platelet Vol. 9.3 fl (6.2-12.0); Monocyte# 0.38 X10^3/uL; Monocyte% 6.4 % (0-10); NRBC Flagged by Analyzer 0 % (0-5); Neutrophil # 4.25 X10^3/uL (2.7-7.7); Neutrophil % 71.5 % (47-70); Platelet Count 276 K/mm3 (150-450); RBC Distribution Width CV 12.7 % (11.6-14.6); RBC Distribution Width SD 44.7 fl (35.1-43.9); White Blood Count 5.9 K/mm3 (4.4-11.0)
--- OUTSIDE RECORDS SUMMARY | 2024-10-16 21:40 | XMS RPT_ITS | CCD ---
Author Organization [facility] CliniSyfl Care Team Providers Care Exhibits Curator Name Role Phone Dr. Teo Sagastume Primary Care Provider Tanika, Dr. Bruce Referring Provider Steven ROJO, HUGOC Haley Attending Provider Teo Sagastume MD Primary Care Provider Teo Sagastume MD Primary Care Provider Teo Sagastume MD Primary Care Provider Dr. Teo Sagastume Primary Care Provider Tanika, Dr. Bruce Referring Provider Dr. Ildefonso Pulido Attending Provider Teo Sagastume MD Primary Care Provider Elvira AGRICULTURAL ENGINEER.Raisa CARO Unavailable Juve AGRICULTURAL ENGINEER.GORDO, Anneliese Lowe Unavailable [phone] Teo Sagastume Referring Unavailable Teo Sagastume Primary Care Unavailable Ildefonso Pulido Attending Unavailable TEO SAGASTUME Referring Unavailable TEO SAGASTUME Primary Care Unavailable TEO SAGASTUME Attending Unavailable TEO SAGASTUME Primary Care Unavailable OCTOBER, HANNAH Attending Unavailable TEO SAGASTUME Primary Care Unavailable TEO SAGASTUME Referring Unavailable TEO SAGASTUME Primary Care Unavailable ANNELIESE AN Attending Unavailable TEO SAGASTUME Primary Care Unavailable Dr. Teo Sagastume MD Primary Care Provider Dr. Teo Sagastume MD Referring Provider Dr. Ildefonso Pulido MD Attending Provider Sofia Chu Attending Provider Allergies Allergy Classification Reported Allergen(s) Allergy Type Date of Onset Reaction(s) Facility (1 source) Lisinopril Drug Allergy 2 [facility] Work Phone: (20 sources) Penicillins; Translations: [Penicillins] Allergy to substance 6 Swelling [facility] Work Phone: (20 sources) POISON VICENTA EXTRACT Drug Allergy 6 [facility] Work Phone: (1 source) poison vicenta extract Drug allergy (disorder) 5 [facility] Repository (1 source) POISON VICENTA; Translations: [POISON VICENTA] Propensity to adverse reactions (disorder) 6 [facility] Repository Medications Current Medications Medication Drug Class(es) Dates Sig (Normalized) Sig (Original) amLODIPine 10 mg oral tablet (20 sources) Dihydropyridine Calcium Channel Kaya Start: 05-27-2021 End: 06-15-2024 take 1 tablet by mouth once daily Amlodipine 10 mg tablet Active 10 mg PO DAILY June 15, 2024 10:25am Start: 10-31-2020 End: 07-04-2025 take 1 tablet by mouth once daily Amlodipine 5 mg tablet Discontinued 5 mg PO DAILY April 17, 2021 5:08pm May 27, 2021 3:56pm Comment on above: Take 5 mg by mouth o nce daily. fluorouracil 50 mg/ml topical cream (5 sources) Nucleoside Metabolic Inhibitor Start: 07-28-2024 Fluorouracil (EFUDEX) 5 % cream Indications: Actinic keratosis Apply to nose twice daily for 2 weeks 40 g 07/28/2024 Active Vitamin B Complex (8 sources) vitamin B comple x (B COMPLEX ORAL) Take by mouth. Active Vitamin B Complex tablet (1 source) Start: 07-25-2024 Vitamin B Complex tablet Active 1 {tbl} PO daily July 25, 2024 12:00am Completed/Discontinued Medications Medication Drug Class(es) Dates Sig (Normalized) Sig (Original) [id number] 200 actuat albuterol 0.09 mg/actuat metered dose inhaler (3 sources) beta2-Adrenergic Agonist Start: 07-15-2020 End: 10-23-2020 Albuterol Sulfate 1 PUFF inhaler Discontinued 1 - 2 NMA INHALATION EVERY 4 HOURS NEEDED as needed for Shortness Of Breath July 15, 2020 12:00am October 23, 2020 2:42pm Start: 07-15-2020 End: 10-23-2020 take 1 puff(s) by inhalation every four hours as needed Albuterol Sulfate Discontinued 1 - 2 PUFF INHALATION EVERY 4 HOURS NEEDED July 15, 2020 12:25pm October 23, 2020 2:42pm ascorbic acid 500 mg oral tablet (2 sources) Vitamin C Start: 06-02-2022 End: 06-01-2023 take 1 tablet by mouth once daily as needed Ascorbic Acid (Vitamin C) 500 mg tablet Discontinued 500 mg PO DAILY as needed June 02, 2022 1:00am June 01, 2023 11:10am aspirin 81 mg delayed release oral tablet (4 sources) Platelet Aggregation Inhibitor, Nonsteroidal Anti-inflammatory Drug Start: 10-23-2020 End: 05-27-2021 Aspirin (Adult Low Dose Aspirin) 81 mg tablet,delayed release (DR/EC) Discontinued 81 mg PO DAILY October 23, 2020 12:00am May 27, 2021 3:27pm End: 10-17-2021 BABY ASPIRIN ORAL Take by [facility] once daily. Not routine 0 10/17/2021 Discontinued (Course of therapy completed) Comment on above: Take by mouth once d aily. Not routine budesonide 3 mg delayed release oral capsule (6 sources) Corticosteroid Start : 09-16 take 1 capsule by mouth every twenty-four hours budesonide, enteric coated (ENTOCORT EC) 3 mg 24 hr capsule take 3 capsules by mouth TOGETHER once daily for 8 to 10 WEEKS 0 09/16/2021 Active Comment on above: take 3 capsules by m out TOGETHER once daily for 8 to 10 WEEKS carBAMazepine 200 mg oral tablet (3 sources) Mood Stabilizer Start : 01-29 End: 05-07 Carbamazepine 200 MG tablet Discontinued 200 mg PO 3 TIMES DAILY WITH MEALS January 30, 2016 12:00am May 07, 2017 10:30am Take one half tablet 3 times a day for 3 days then increase to 1 tablet 3 times a day dicyclomine hydrochloride 10 mg oral capsule (3 sources) Anticholinergic Start : 10-23 End: 10-30 take 1 capsule by mouth at bedtime Dicyclomine 10 mg capsule Discontinued 10 mg PO before meals and at bedtime October 23, 2020 12:00am October 30, 2020 9:03am hydroCHLOROthiazide 12.5 mg oral capsule (3 sources) Thiazide Diuretic Start : 07-14 End: 10-23 take 1 capsule by mouth once daily Hydrochlorothiazide 12.5 MG capsule Discontinued 12.5 mg PO DAILY July 14, 2020 1:00am October 23, 2020 2:46pm lactobacillus rhamnosus gg [id number] unt oral capsule (3 sources) Start : 10-30 End: 06-01 Lactobacillus Rhamnosus Gg (Probiotic Digestive Care) 20 billion cell capsule Discontinued NMA PO October 30, 2020 12:00am June 01, 2023 11:10am lisinopril 20 mg oral tablet (20 sources) Angiotensin Converting Enzyme Inhibitor Start : 10-31 End: 07-04 take 1 tablet by mouth once daily Lisinopril 20 mg tablet Discontinued 20 mg PO DAILY September 24, 2023 10:10am June 15, 2024 10:26am Start: 07-14-2020 End: 10-31-2020 take 1 tablet by mouth once daily Lisinopril 40 MG tablet Discontinued 40 mg PO DAILY July 14, 2020 1:00am October 31, 2020 10:26am Comment on above: Take 1 tablet by bree th once daily. multivitamin capsule (2 sources) Start: 05-07-2017 End: 10-23-2020 take 1 capsule by mouth once daily multivitamin capsule Discontinued 1 CAP PO daily May 07, 2017 10:28am October 23, 2020 2:43pm Start: 05-07-2017 End: 10-23-2020 take 1 capsule by mouth once daily multivitamin capsule Discontinued 1 CAP PO daily May 07, 2017 12:00am October 23, 2020 1:43pm Multivitamin capsule (1 source) Start: 05-07-2017 End: 10-23-2020 Multivitamin capsule Discont inued 1 NMA PO daily May 07, 2017 1:00am Iveth 23rd, 2021 2:43pm psyllium 400 mg oral capsule (3 sources) Start: 07-08-2021 End: 06-01-2023 Psyllium Husk 0.4 gram capsu le Discontinued 0.4 g PO DAILY July 08, 2021 1:00am June 01, 2023 11:10am Psyllium Seed (With Dextrose ) (2 sources) Start: 10-30-2020 End: 05-27-2021 Psyllium Seed (With Dextrose ) Discontinued PO October 30, 2020 9:05am May 27, 2021 3:43pm Start: 10-30-2020 End: 05-27-2021 Psyllium Seed (With Dextrose ) Discontinued PO October 29, 2020 11:00pm May 27, 2021 2:43pm Psyllium Seed (With Dextrose) powder (1 source) Start: 10-30-2020 End: 05-27-2021 Psyllium Seed (With Dextrose) powder Discontinued PO October 30, 2020 12:00am May 27, 2021 3:43pm sertraline 50 mg oral tablet (20 sources) Serotonin Reuptake Inhibitor Start: 12-24-2022 End: 07-04-2024 sertraline (ZOLOFT) 50 mg tablet Indications: Anxiety Every other day for one week and then stop. 3 tablet 12/24/2022 07/04/2024 Discontinued (Discontinued by another Health Care Provider) Start: 06-02-2022 End: 06-01-2023 Sertraline 50 mg tablet Disc ontinued 25 mg PO DAILY June 02, 2022 11:29am June 01, 2023 11:10am Start: 06-02-2022 take 25 mg by mouth once daily Sertraline Active 25 MG PO DAILY June 02, 2022 10:29am Start: 10-23-2020 End: 10-17-2022 take 1 tablet by mouth once daily Sertraline 50 mg tablet Discontinued 50 mg PO DAILY October 23, 2020 12:00am June 02, 2022 11:29am Comment on above: Take 1 tablet by bree th once daily. Every other day for one week and then stop. Problems Active Problems Problem Classification Problem Date Documented Da te Episodic/Chronic Anxiety disorders (20 sources) Anxiety; Translations: [Anxiety disorder, unspecified] Onset: 06-16-202 1 Chronic Cardiac dysrhythmias (20 sources) Paroxysmal supraventricular tachycardia; Translations: [Supraventricular tachycardia] Onset: 3 Chronic Chronic kidney disease (20 sources) Chronic kidney disease stage 3; Translations: [Stage 3 chronic kidney disease] Onset: 1 Chronic Chronic kidney disease (1 source) Chronic kidney disease; Translations: [Stage 3 chronic kidney disease, unspecified whether stage 3a or 3b CKD (HCC)] Onset: 1 Disorders of lipid metabolism (20 sources) Hyperlipidemia; Translations: [Hyperlipidemia, unspecified] Onset: 9 Chronic Essential hypertension (20 sources) Essential hypertension; Translations: [Essential (primary) hypertension] Onset: 9 Chronic Neoplasms of unspecified nature or uncertain behavior (1 source) Neoplasm of uncertain behavior of skin; Translations: [Neoplasm of uncertain behavior of skin] 07-28-2024 Episodic Noninfectious gastroenteritis (18 sources) Colitis; Translations: [Noninfective gastroenteritis and colitis, unspecified] Onset: 3 Episodic Nonspecific chest pain (16 sources) Chest pain; Translations: [Chest pain, unspecified] Onset: 3 Resolved: 3 10-23-2020 Episodic Other and unspecified benign neoplasm (1 source) Skin lesion; Translations: [Hemangioma of skin and subcutaneous tissue] 07-28-2024 Episodic Other and unspecified benign neoplasm (1 source) Multiple benign melanocytic nevi ; Translations: [Melanocytic nevi, unspecified] 07-28-2024 Episodic Other diseases of bladder and urethra (1 source) Urethral diverticulum; Translations: [Urethral diverticulum] Episodic Other female genital disorders (1 source) Burning sensation of vagina; Translations: [Unspecified condition associated with female genital organs and menstrual cycle] Episodic Other gastrointestinal disorders (17 sources) Diarrhea; Translations: [Diarrhea, unspecified] Onset: 2 Resolved: 3 07-26-2020 Episodic Other gastrointestinal disorders (2 sources) Urgent desire for stool; Translations: [Fecal urgency] 10-16-2024 Episodic Other screening for suspected conditions (not mental disorders or infectious disease) (7 sources) Patient encounter status; Translations: [Encounter for screening mammogram for malignant neoplasm of breast] Onset: Episodic Other skin disorders (1 source) Actinic keratosis; Translations: [Actinic keratosis] 07-28-2024 Episodic Other skin disorders (1 source) Lentiginosis; Translations: [Other melanin hyperpigmentation] 07-28-2024 Episodic Other skin disorders (1 source) Seborrheic keratosis; Translations: [Other seborrheic keratosis] 07-28-2024 Episodic Other skin disorders (1 source) Asteatosis cutis; Translations: [Xerosis cutis] 07-28-2024 Episodic Past or Other Problems Problem Classification Problem Date Documented Da te Episodic/Chronic Diabetes mellitus without complication (20 sources) Hyperglycemia; Translations: [Hyperglycemia, unspecified] Onset: 01-10-2019 Episodic Unclassified (2 sources) Patient encounter status 06-29-2024 Results Test Name Value Interpretation Reference Range Facility [facility] 08-22-2024 CNPN Telephone (DERMIN) JENNIFER VASQUEZ ([id number]) 1945 F Date Time Provider Department 08/22/24October, HANNAH Ingram DERMVIVI During your visit today, we recorded the following information about you: Amber Mccullough 08/22/2024 9:08 AM Signed Pts done with applying efudex cream to her nose the area is scabby pt asking how to care for it now # [phone] Kerrie Bolaños RN 08/22/2024 11:08 AM Signed Called and spoke with patient. She has used the cream for 3 weeks before stopping. Advised patient to just apply Vaseline or Aquaphor to area until healed and not to pick at any scabs. Patient verbalizes understanding and has no further questions. Kerrie Bolaños RN Allergies As of Date: 08/22/2024 Noted Allergy Reaction PENICILLINS 08/19/2005 POISON VICENTA 08/20/2005 2 - Rash Date Reviewed: 07/28/2024 Reviewed by: Gabby Dailey LPN - Fully Assessed Reason for Visit: Patient Question [2787] Prescriptions as of 08/22/2024 - Fluorouracil (EFUDEX) 5 % cream Apply to nose twice daily for 2 weeks - vitamin B complex (B COMPLEX ORAL) Take by mouth. - amLODIPine (NORVASC) 5 mg tablet Take 1 tablet by mouth once daily. - lisinopril (ZESTRIL) 20 mg tablet Take 1 tablet by mouth once daily. Problem List As Of Date 08/22/2024 Noted Resolved Hyperglycemia [R73.9] 01/10/2019 Hyperlipidemia, mixed [E78.2] 01/10/2019 Essential hypertension [I10] 01/10/2019 Stage 3 chronic kidney disease (HCC) [N18.30] 10/16/2020 Anxiety [F41.9] 10/16/2020 Chest pain [R07.9] 12/18/2022 12/18/2022 Diagnosed: 12/18/2022 Diarrhea [R19.7] 08/19/2021 12/18/2022 Diagnosed: 12/18/2022 Paroxysmal supraventricular tachycardia (HCC) [*06/25/2022 Diagnosed: 12/18/2022 Colitis [K52.9] 12/18/2022 Encounter Status:Closed by KERRIE BOLAÑOS on 08/22/24 [facility] CNOVon 07-28-2024 CNOV Office Visit (DERMIN ) JENNIFER VASQUEZ ([id number]) 1945 F Date Time Provider Department 07/28/24 11:30 AM HANNAH LAZARO During your visit today, we recorded the following information about you: Hannah Lazaro APRN.CNP 07/28/2024 12:23 PM Signed NEW PATIENT Chief Complaint: full body skin check History of Present Ilness: Jennifer Vasquez is a 78 year old female presents today for a full body skin check Location: nose Duration: months Symptoms: dry Inciting factors: none Current treatment: none Previous treatment: none No other concerns today /planning or : no Pertinent Past Medical History: -Personal history of skin cancer: No -Personal history of skin disease: No -History of organ transplant/immunosupp ressed: No -History of atypical moles: No -Pacemaker or defibrillator: No Specialty Problems None Pertinent Family medical history: History of melanoma: No Review of Systems: Constitutional: Denies fever, chills, night sweats, unintentional weight loss. Skin per HPI. No other new/concerning skin growth. Physical Exam: General: well appearing, of stated age, in no acute distress Neurology: alert and oriented times three Psychiatry: normal affect and speech Hester skin type: II A skin exam was done of the scalp, face including eyelids and lips, ears, neck, chest, back, abdomen, bilateral upper extremities including digits, bilateral lower extremities and digits, buttocks, nails, except genitals Skin exam normal with the exception of: Scaling of the extremities [employer] scaly papules of the nose Few scattered brown stuck on papules and plaques on the head, trunk and extremities Regular and symmetric brown macules and papules on the head, trunk and extremities Scattered reticulated light richardson macules in sun distribution Scattered small lovett red papules throughout 0.2 x 0.2 CM brown irregular macule of the left 3rd toe Assessment and Plan: 1. Skin Neoplasm- UNIVERSAL PROTOCOL / SAFETY CHECKLIST Procedure to be Performed: Shave biopsy of lesion Sign In: A Moment of CARE was completed. Personnel directly involved with the procedure wore the appropriate PPE (Personal Protective Equipment). Patient/Surrogate Stated/Verified: PATIENT VERIFIED(optional for EMERGENT procedures): Patient name, Date of , Relevant allergies, and The intended procedure Time Out Communication: Intended patient and procedure match the source documents. Consent documented and matches the intended procedure. Sign Out: SIGN OUT (optional for EMERGENT procedures): All specimen containers correctly labeled. Post-procedure follow-up management communicated and Plan of Care Visit completed when applicable. Photo taken: Yes SHAVE BIOPSY OF LESION TO ESTABLISH AND CONFIRM DIAGNOSIS: Site: left 3rd toe Rule out: ATN Risks, benefits, alternatives and personnel required for shave biopsy reviewed with patient. Patient and provider agree as to site(s) to be biopsied. Patient verbalizes understanding and wishes to proceed.Site(s) prepped with alcohol and anesthetized with 1% lidocaine with epinephrine. Shave biopsy of lesion(s) performed to the level of the dermis/epidermis The following was sent for histologic evaluation: EBL: scant Hemostasis with aluminum chloride and direct pressure, and a bandage is applied Written and verbal wound care instructions provided to patient, understanding verbalized. 2. Lovett angiomas Reassurance on benign nature of lesions and recommend routine self-examinations. Recommend observation and encouraged to notify office of changes. 3. Solar lentigines, Multiple benign nevi, Seborrheic Keratoses, Reassurance on benign nature of lesions and recommend routine self-examinations. Recommend observation and encouraged to notify office of changes. 4. Actinic keratoses - Premalignant nature and relationship to sun exposure were discussed with the patient - Discussed the chronicity of actinic keratoses Efudex: - Apply efudex 5% twice per day for 2 weeks to the nose. Advised to stop if/when when open sores develop. - Patient aware to expect redness, irritation, crusting, oozing, and an open sore to develop. Will call if severe pain or other symptoms occur. - Patient will return to clinic in 3 months for re-evaluation of the sites. - Recommend sun protection with spf 30 or higher, sun protective clothing such as wide brimmed hats and long sleeves. Recommend avoiding midday sun (10 am- 3 pm). 5. Xerosis cutis - Recommend liberal use of emollients (Aquaphor, Hydrolatum, Vaseline, Eucerin) multiple times throughout the day. - Recommend a mild soap and avoidance of antibacterial soaps, which may be too irritating. - Recommend lukewarm showers, 5 minutes or less. - The patient should also use fragr (more content not included)... Normal [facility] Pathology biopsy report Luther (Tiss)on 07-28-2024 AP DISCLAIMER Normal [facility] Comment on above: Order Comment: Speci men Type: TISSUE SPECIMENOrdering Facility: [facility] Address: [address] [place] [address] Result Comment: Katherine edmonds Developed Test (LDT) Disclaimer: Performance characteristics of immunohistochemical, immunofluorescent, and chromogenic in-situ hybridization tests have been determined by the performing laboratory within [facility]'s [facility] Pathology and Laboratory Medicine Department ([facility], [facility], [facility], [facility], [facility], [facility], or [facility]) in a manner consistent with CLIA requirements. One or more of these tests may not have been cleared or approved by the FDA. RT[facility]PLM is regulated under CLIA as qualified to perform high-complexity testing. These tests are used for clinical purposes. These should not be regarded as investigational or for research. Positive and negative controls stain appropriately. Performed By: #### 6 6121-5 ####[facility] LABIA [id number] [place] [address] [place] CASE REPORT Normal [facility] Comment on above: Order Comment: Speci men Type: TISSUE SPECIMENOrdering Facility: [facility] Address: [address] [place] [address] Result Comment: Surg [facility] Pathology Report Case: [id number] Authorizing Provider: Hannah Lazaro APRN.RADIO OPERATOR GROUND Collected: 07/28/2024 11:44 AM Ordering Location: Dermatology Received: 07/28/2024 01:25 PM Pathologist: Emile Rossi MD, PhD Specimen: Skin, Shave Biopsy, A) left 3rd dorsal toe Performed By: #### 6 6121-5 ####[facility] LABIA [id number] [place] [address] [place] CLINICAL HISTORY r/o ATN Normal [facility] Comment on above: Order Comment: Speci men Type: TISSUE SPECIMENOrdering Facility: [facility] Address: [address] [place] [address] Performed By: #### 6 6121-5 ####[facility] LABCLIA [id number] [place] [address] [place] FINAL DIAGNOSIS Normal [facility] Comment on above: Order Comment: Speci men Type: TISSUE SPECIMENOrdering Facility: [facility] Address: [address] [place] [address] Result Comment: A. Gabriel kin, left third dorsal toe, shave biopsy: - Compound nevus. AF/SA/mm/08/01/2024 at 1609 EDT Performed By: #### 6 6121-5 ####[facility] LABCLIA [id number] [place] [address] [place] FINAL PERFORMING LAB Normal [facility] Comment on above: Order Comment: Speci men Type: TISSUE SPECIMENOrdering Facility: [facility] Address: [address] [place] [address] Result Comment: Diag nostic interpretation performed at: [facility], [address] [place] [address] CLIA# [id number] Rn Examiner: Ash Lima MD Performed By: #### 6 6121-5 ####[facility] LABCLIA [id number] [address] [place] GROSS DESCRIPTION Normal [facility] Comment on above: Order Comment: Speci men Type: TISSUE SPECIMENOrdering Facility: [facility] Address: [address] [place] [address] Result Comment: A. S kin, Shave Biopsy Received in formalin is a 0.5 x 0.5 x 0.1 cm shave of skin. On the skin surface there is a 0.3 cm richardson-brown and slightly elevated area. The specimen is bisected. Totally submitted in one cassette. DL July 28, 2024 7:38 PM Gross examination performed at [facility], [address] [place] [address] Performed By: #### 6 6121-5 ####[facility] LABCLIA [id number] [place] [address] [place] Cardiology Visit Reporton Cardiology Visit Report [facility] [address] [place], [place] [address] [place] [address] OFFICE VISIT Date of Service: 07/25/24 MR#: [id number] Acct: [id number] Name: JENNIFER VASQUEZ Rep #: [id number] : 1945 Provider: Dr. Ildefonso Pulido MD Age/Sex: 78/F Location: [facility] Status: Signed HPI HPI History of Present Illness Details: This is a 78-year-old lady who presents to the office today for a cardiovascular visit. She has a history of hypertension, hyperlipidemia, palpitations. In 2020 she presented to the emergency room with dyspnea on exertion as well as chest discomfort. She was evaluated in the hospital troponins were negative she had a stress test which was also noted to be negative. An echocardiogram performed demonstrated preserved ejection fraction of 70%, stage I diastolic dysfunction, no wall motion abnormalities were noted. A CT scan demonstrated no evidence of pulmonary emboli. From a cardiac standpoint, the patient is doing well. She denies any palpitations, chest pain, pressure or heaviness. She denies SOB, Orthopnea, and PND. She does not have bleeding issues; no blood in urine, stool or nosebleeds. She denies any decrease in energy level, myalgias, or claudication. She does not have edema, or sudden weight gain. She denies dizziness, lightheadedness, syncopal or near syncopal episodes, and headaches. Intake Vital Signs 06/01/23 10:08 07/25/24 08:55 Height 5 ft 7 in 5 ft 7 in Weight: 136 lb BMI 21.2 BP 124/75 H Blood Pressure Location Lt brachial Position Sitting Respiration 16 Pulse 76 Pulse Source Monitor Intake Visit Reasons: 1 Y FU Web Marketing Intern Required: No Accompanied by: Self Is patient in pain?: No Allergies poison vicenta extract Allergy (Unknown, Verified 07/25/24 08:56) unknown Penicillins Allergy (Verified 07/25/24 08:56) Swelling Medications ???Medication ???Instructions ???Recorded ???Confirmed ???Type amlodipine 10 mg tablet 10 mg PO DAILY #90 TABLETS 5 07/25/24 Rx lisinopril 20 mg tablet 20 mg PO DAILY dose has been 06/1507/25/24 Rx decreased #90 tabs vitamin B complex 1 tab PO QDAY 07/25/24 07/25/24 Hi story Have you fallen in the past year?: No PFSH Medical History Preop cardiovascular exam Paroxysmal SVT (supraventricular tachycardia) Irritable bowel syndrome with diarrhea CKD (chronic kidney disease) stage 3, GFR 30-59 ml/min Hyperglycemia Anxiety Hyperlipidemia Essential (primary) hypertension Dermatitis Surgical History History of tonsillectomy History of colonoscopy (11/20/14) History of tubal ligation Family History Father Heart disease Grandmother CVA (cerebral vascular accident) Grandfather CVA (cerebral vascular accident) Mother Heart disease Social History Smoking Status: Former smoker how long ago did patient quit smokin years ago alcohol intake: current alcohol intake frequency: a few times a week Alcohol type: wine and hard liquor substance use type: does not use caffeine: Yes Type: coffee Number of servings: 2 ROS Const Const: Negative for fatigue, weakness, headache(s), daytime sleepiness or difficulty sleeping ENT ENT: Negative for headache(s), dizziness or Nosebleed/epistaxis Cardio Chest Pain: No Palpitations: No Edema: Left Resp Respiratory: Negative for SOB with activity, SOB at rest, SOB orthopnea SOB lying down or Cough GI GI: Negative nausea, vomiting or heartburn Neuro Neuro: Negative for dizziness, lightheadedness, near syncope, headache(s) or weakness Endo Endo: Negative for fatigue Cardiology Exam Const Appearance: cooperative and no acute distress Orientation: alert and oriented x3 Head Head: normal to inspection Ears: hearing grossly normal bilaterally Nose: external nose normal Face and Sinus: face symmetric Eyes General: appearance normal, both eyes and all related structures Eyelids: eyelids normal Conjunctivae: conjunctivae normal Pupils: PERRL and pupil size EOM: EOM intact bilaterally Neck Neck: normal visual inspection Carotids: Negative bruit Chest Chest inspection: normal inspection of the chest and normal respiratory effort Auscultation: Bilateral: Clear to Auscultation Cardio Palpation: normal PMI Rate: regular rate Rhythm: regular rhythm Heart sounds: S1 normal and S2 normal; Negative rub, gallop or murmur GI GI: normal to inspection and soft Neuro General: patient alert, patient oriented x3 and CN's II-XI intact bilaterally Skin Skin: no rashes or lesions noted Extremities Pulses: Normal: Right Posterior Tibial Pulse, L (more content not included)... Normal [facility] DBT Breast - bilateral scree chaitanya 07-06-2024 IMPRESSION: There is no mammographic evidence of malignancy in either breast. Routine screening mammogram is recommended. Annual mammogram will be due in 1 year. BI-RADS Category 1: Negative RISK: Based on the Tyrer-Cuzick (TC) risk assessment model, this patient has a 1.3% lifetime risk of developing breast cancer, meaning they are at average risk for developing breast cancer. However, this is only an estimate based on available history provided on the patient's questionnaire. We encourage all patients to talk with their providers about these results, further recommendations for managing breast health, and appropriate supplemental screening options if the patient has dense breast tissue. Interpreting Radiologist: Adeline Mcneil M.D. Electronically signed on: 07/06/2024 [employer] Supervisor: SAQIB [employer]cridenise Date/Time: Jul 06 2024 7:21A Dictated by: ADELINE MCNEIL MD This examination was interpreted and the report reviewed and electronically signed by: ADELINE MCNEIL MD on Jul 06 2024 1:46PM [facility] DIVISION OF RADIOLOGY * * *Final Report* * * DATE OF EXAM: Jul 06 2024 8:09AM [facility] 0582 - RADHA SCREENING W MICA / PROCEDURE REASON: Encounter for screening mammogram for malignant neoplasm of breast * * * * Physician Interpretation * * * * RESULT: [facility] [address] [place] [address] #[id number] - [facility] SCREENING W MICA HISTORY: 78 year-old patient seen for screening. Patient is asymptomatic in both breasts. Patient states no personal history of breast cancer. COMPARISON STUDIES: The present examination has been compared to prior imaging studies dated 01/24/2019 (mammogram), 03/07/2019 (mammogram), 09/10/2020 (mammogram) and 12/08/2021 (mammogram). MAMMOGRAM TECHNIQUE: The study was acquired using full field digital technology and interpreted from soft copy. Digital Breast Tomosynthesis (DBT) images were obtained and used to assist in the interpretation of this examination. MAMMOGRAM FINDINGS: There are scattered areas of fibroglandular density. No suspicious masses, calcifications or other abnormalities are seen in either breast. There are no significant interval changes. DIVISION OF RADIOLOGY Provider, [facility] - 07/06/2024 * * *Final Report* * * DATE OF EXAM: Jul 06 2024 8:09AM [facility] [id number] - [facility] SCREENING W MICA / PROCEDURE REASON: Encounter for screening mammogram for malignant neoplasm of breast * * * * Physician Interpretation * * * * RESULT: [place] [address] #[id number] - [facility] SCREENING W MICA HISTORY: 78 year-old patient seen for screening. Patient is asymptomatic in both breasts. Patient states no personal history of breast cancer. COMPARISON STUDIES: The present examination has been compared to prior imaging studies dated 01/24/2019 (mammogram), 03/07/2019 (mammogram), 09/10/2020 (mammogram) and 12/08/2021 (mammogram). MAMMOGRAM TECHNIQUE: The study was acquired using full field digital technology and interpreted from soft copy. Digital Breast Tomosynthesis (DBT) images were obtained and used to assist in the interpretation of this examination. MAMMOGRAM FINDINGS: There are scattered areas of fibroglandular density. No suspicious masses, calcifications or other abnormalities are seen in either breast. There are no significant interval changes. IMPRESSION IMPRESSION: There is no mammographic evidence of malignancy in either breast. Routine screening mammogram is recommended. Annual mammogram will be due in 1 year. BI-RADS Category 1: Negative RISK: Based on the Tyrer-Cuzick (TC) risk assessment model, this patient has a 1.3% lifetime risk of developing breast cancer, meaning they are at average risk for developing breast cancer. However, this is only an estimate based on available history provided on the patient's questionnaire. We encourage all patients to talk with their providers about these results, further recommendations for managing breast health, and appropriate supplemental screening options if the patient has dense breast tissue. Interpreting Radiologist: Adeline Mcneil M.D. Electronically signed on: 07/06/2024 [employer] Supervisor: SAQIB Transcribe Date/Time: Jul 06 2024 7:21A Dictated by: ADELINE MCNEIL MD This examination was interpreted and the report reviewed and electronically signed by: ADELINE MCNEIL MD on Jul 06 2024 1:46PM EST [facility] Radiology Study observation (narrative) [facility] DBT Breast - bilateral scree ningOrdered By: [facility] Provider on 07-06-2024 [facility] RADHA SCREENING W TOMOon 07-06 RADHA SCREENING W MICA * * *Final Report* * * DATE OF EXAM: Jul 06 2024 8:09AM [facility] 0582 - RADHA SCREENING W MICA / PROCEDURE REASON: Encounter for screening mammogram for malignant neoplasm of breast * * * * Physician Interpretation * * * * RESULT: [place] [address] #[id number] - [facility] SCREENING W MICA HISTORY: 78 year-old patient seen for screening. Patient is asymptomatic in both breasts. Patient states no personal history of breast cancer. COMPARISON STUDIES: The present examination has been compared to prior imaging studies dated 01/24/2019 (mammogram), 03/07/2019 (mammogram), 09/10/2020 (mammogram) and 12/08/2021 (mammogram). MAMMOGRAM TECHNIQUE: The study was acquired using full field digital technology and interpreted from soft copy. Digital Breast Tomosynthesis (DBT) images were obtained and used to assist in the interpretation of this examination. MAMMOGRAM FINDINGS: There are scattered areas of fibroglandular density. No suspicious masses, calcifications or other abnormalities are seen in either breast. There are no significant interval changes. IMPRESSION: There is no mammographic evidence of malignancy in either breast. Routine screening mammogram is recommended. Annual mammogram will be due in 1 year. BI-RADS Category 1: Negative RISK: Based on the Tyrer-Cuzick (TC) risk assessment model, this patient has a 1.3% lifetime risk of developing breast cancer, meaning they are at average risk for developing breast cancer. However, this is only an estimate based on available history provided on the patient's questionnaire. We encourage all patients to talk with their providers about these results, further recommendations for managing breast health, and appropriate supplemental screening options if the patient has dense breast tissue. Interpreting Radiologist: Adeline Mcneil M.D. Electronically signed on: 07/06/2024 [employer] Supervisor: SAQIB Transcribe Date/Time: Jul 06 2024 7:21A Dictated by: ADELINE MCNEIL MD This examination was interpreted and the report reviewed and electronically signed by: ADELINE MCNEIL MD on Jul 06 2024 1:46PM EST [id number] Normal [facility] CNOVon 07-04-2024 CNOV Office Visit (FAMPWS ) JENNIFER VASQUEZ ([id number]) 1945 F Date Time Provider Department 07/04/24 10:20 AM ANNELIESE AN FAMPWS During your visit today, we recorded the following information about you: Temperature Pulse Blood pressure Weight 97.1 degrees 78/minute 120/60 61.7 kg Anneliese An APRN.[facility] 07/04/2024 11:06 AM Signed This is a 78 year old female who presents today with: Patient presents with: 6 Month Exam HISTORY OF PRESENT ILLNESS: Jennifer Pugh Ricki is a 78 year old female. Patient presents with: 6 Month Exam Diarrhea with very fibrous foods. PAST MEDICAL HISTORY: PAST MEDICAL HISTORY Diagnosis Date C. difficile colitis 2018 resolved PMH - PAST MEDICAL HISTORY OF dermatitis PAST SURGICAL HISTORY Procedure Laterality Date LIG/TRNSXJ FLP TUBE ABDL/VAG APPR UNI/BI TONSILLECTOMY PRIMARY/SECONDARY ALLERGIES Penicillins and Poison Vicenta MEDICATIONS Current Outpatient Medications Medication Sig vitamin B complex (B COMPLEX ORAL) Take by mouth. amLODIPine (NORVASC) 5 mg tablet Take 5 mg by mouth once daily. lisinopril (ZESTRIL, PRINIVIL) 20 mg tablet Take 1 tablet by mouth once daily. sertraline (ZOLOFT) 50 mg tablet Every other day for one week and then stop. No current facility-administered medications for this visit. FAMILY HISTORY Problem Relation Age of Onset Heart Mother Heart Father Stroke Maternal Grandmother Stroke Maternal Grandfather Social History Tobacco Use Smoking status: Former Smokeless tobacco: Never Tobacco comments: 35 YRS AGO, QUIT Substance Use Topics Alcohol use: Yes Comment: occasionally Drug use: No REVIEW OF SYSTEMS GENERAL: + weight loss- not eating as much, no malaise- sleeping ok, no fevers/chills HEENT: Negative for frequent or significant headaches, No changes in hearing or vision. NECK: Negative for lumps, goiter, pain and significant neck swelling RESPIRATORY: Negative for cough, hemoptysis, wheezing, dyspnea or shortness of breath CARDIOVASCULAR: Negative for chest pain, + leg swelling left leg from lymphedema, no orthopnea, + palpitations with anxiety GI: No nausea, vomiting, + diarrhea/ no constipation. No hematochezia/melena. No heartburn or reflux symptoms. : No history of dysuria, frequency or incontinence MUSCULOSKELETAL: Negative for joint pain or swelling. SKIN: Negative for lesions, rash, and itching ENDOCRINE: Negative for cold or heat intolerance, polyuria, polydipsia and goiter NEURO: No history of headaches, syncope, paralysis, seizures or tremors MOOD: Negative for depression, anxiety, or suicidal ideation. 124/70 sitting, 120/60 standing EXAM: BP 130/78 Pulse 78 Temp 36.2 ?C (97.1 ?F) (Left Tympanic) Wt 61.7 kg (136 lb) SpO2 98% BMI 21.35 kg/m? PHYSICAL EXAM: Physical Exam Vitals reviewed. Constitutional: Appearance: Normal appearance. HENT: Head: Normocephalic. Cardiovascular: Rate and Rhythm: Normal rate and regular rhythm. Pulses: Normal pulses. Heart sounds: Normal heart sounds. Pulmonary: Effort: Pulmonary effort is normal. Breath sounds: Normal breath sounds. Abdominal: General: Bowel sounds are normal. Palpations: Abdomen is soft. Tenderness: There is no abdominal tenderness. There is no guarding or rebound. Musculoskeletal: Right lower leg: No edema. Left lower leg: Edema present. Comments: Left leg with lymphedema- very well maintained Skin: General: Skin is warm and dry. Neurological: Mental Status: She is alert and oriented to person, place, and time. Psychiatric: Mood and Affect: Mood normal. Behavior: Behavior normal. LABS: ASSESSMENT/PLAN: 1. Hypertension, essential - ICD9: 401.9, ICD10: I10 - Controlled - Recommend home blood pressure monitoring, to bring results to next visit - Encouraged sodium restriction, DASH or Mediterranean diet - Recommend regular aerobic exercise - AMLODIPINE 5 MG TABLET renewed - LISINOPRIL 20 MG TABLET renewed Discussed treatment plan and patient voices understanding. Patient's questions answered appropriately. Medications and potential side effects were discussed and patient voices understanding. Return to the office as scheduled or as needed for worsening/no improvement. NINFA Fuentes Jacqueline A, APRN.CNP 07/04/2024 11:03 AM Signed 1) No change in medications 2) Labs before next appt. Allergies As of Date: 07/04/2024 Noted Allergy Reaction PENICILLINS 08/19/2005 POISON VICENTA 08/20/2005 2 - Rash Date Reviewed: 07/04/2024 Reviewed by: Tana Garsia MA - Fully Assessed Reason for Visit: 6 Month Exam [189] Primary Visit Diagnosis:Dyslipidemi a [E78.5] Other Visit Diagnoses:Hypertensio n, essential [I10] Screening for diabetes mellitus [Z13.1] Wellness examination [Z00.00] Stage 3a chronic kidney disease (HCC) [N18.3 (more content not included)... Normal [facility] 11-25-2023 GORDON Telephone (FAMEdwardWS) JENNIFER VASQUEZ ([id number]) 1945 F Date Time Provider Department 11/25/23 TEO SAGASTUMEWS During your visit today, we recorded the following information about you: Teo Sagastume MD 11/25/2023 8:19 AM Signed Let her know her kidney function is actually a little better. Her ldl or bad cholesterol is much higher. Based on new guidelines, the recommendation would be to consider a statin drug to lower heart disease and stroke risk. I don't think she wants meds but check if willing to consider. If not watch diet and will follow next time. Aby Gonzalez LPN 11/25/2023 9:37 AM Signed Patient notified of results, verbalizes understanding of instructions. Aby Gonzalez LPN Allergies As of Date: 11/25/2023 Noted Allergy Reaction PENICILLINS 08/19/2005 POISON VICENTA 08/20/2005 2 - Rash Date Reviewed: 11/24/2023 Reviewed by: Cecilia Walker LPN - Fully Assessed Reason for Visit: Results [95] Prescriptions as of 11/25/2023 - sertraline (ZOLOFT) 50 mg tablet Every other day for one week and then stop. - amLODIPine (NORVASC) 5 mg tablet Take 5 mg by mouth once daily. - lisinopril (ZESTRIL, PRINIVIL) 20 mg tablet Take 1 tablet by mouth once daily. Problem List As Of Date 11/25/2023 Noted Resolved Hyperglycemia [R73.9] 01/10/2019 Hyperlipidemia, mixed [E78.2] 01/10/2019 Essential hypertension [I10] 01/10/2019 Stage 3 chronic kidney disease (HCC) [N18.30] 10/16/2020 Anxiety [F41.9] 10/16/2020 Chest pain [R07.9] 12/18/2022 12/18/2022 Diarrhea [R19.7] 08/19/2021 12/18/2022 Paroxysmal supraventricular tachycardia (HCC) [*06/25/2022 Colitis [K52.9] 12/18/2022 Encounter Status:Closed by AYB GONZALEZ on 11/25/[address] [facility] CBC W Auto Differential pane l (Bld)on 11-24-2023 Basophils (Bld) [#/Vol] 0.03 10*3/uL Normal <0.[address] [facility] Comment on above: Order Comment: Speci men Type: BLOOD SPECIMENOrdering Facility: [facility] Address: [address] [place] [address] Performed By: #### 5 7021-8 ####[facility] LABCLIA [id number] [place] [address] [place] Basophils/100 WBC (Bld) 0.6 % Normal [facility] Comment on above: Order Comment: Speci men Type: BLOOD SPECIMENOrdering Facility: [facility] Address: [address] [place] [address] Performed By: #### 5 7021-8 ####[facility] LABCLIA [id number] [place] [address] [place] Differential cell count method Nom (Bld) Auto Normal [facility] Comment on above: Order Comment: Speci men Type: BLOOD SPECIMENOrdering Facility: [facility] Address: [address] [place] [address] Performed By: #### 5 7021-8 ####[facility] LABCLIA [id number] [place] [address] [place] Eosinophils (Bld) [#/Vol] 0.18 10*3/uL Normal <0.[address] [facility] Comment on above: Order Comment: Speci men Type: BLOOD SPECIMENOrdering Facility: [facility] Address: [address] [place] [address] Performed By: #### 5 7021-8 ####[facility] LABCLIA [id number] [place] [address] [place] Eosinophils/100 WBC (Bld) 3.4 % Normal [facility] Comment on above: Order Comment: Speci men Type: BLOOD SPECIMENOrdering Facility: [facility] Address: [address] [place] [address] Performed By: #### 5 7021-8 ####[facility] LABCLIA [id number] [place] [address] [place] Erythrocyte distribution width (RBC) [Ratio] 12.2 % Normal 11.5-15.[address] [facility] Comment on above: Order Comment: Speci men Type: BLOOD SPECIMENOrdering Facility: [facility] Address: [address] [place] [address] Performed By: #### 5 7021-8 ####[facility] LABIA [id number] [place] [address] [place] Hematocrit (Bld) [Volume fraction] 38.7 % Normal 36.0-46.[address] [facility] Comment on above: Order Comment: Speci men Type: BLOOD SPECIMENOrdering Facility: [facility] Address: [address] [place] [address] Performed By: #### 5 7021-8 ####[facility] LABIA [id number] [place] [address] [place] Hemoglobin (Bld) [Mass/Vol] 12.9 g/dL Normal 11.5-15.[address] [facility] Comment on above: Order Comment: Speci men Type: BLOOD SPECIMENOrdering Facility: [facility] Address: [address] [place] [address] Performed By: #### 5 7021-8 ####[facility] LABIA [id number] [place] [address] [place] Immature granulocytes (Bld) [#/Vol] 10*3/uL Normal <0.[address] [facility] Comment on above: Order Comment: Speci men Type: BLOOD SPECIMENOrdering Facility: [facility] Address: [address] [place] [address] Performed By: #### 5 7021-8 ####[facility] LABCLIA [id number] [place] [address] [place] Immature granulocytes/100 WBC (Bld) 0.2 % Normal [facility] Comment on above: Order Comment: Speci men Type: BLOOD SPECIMENOrdering Facility: [facility] Address: [address] [place] [address] Performed By: #### 5 7021-8 ####[facility] LABCLIA [id number] [place] [address] [place] Lymphocytes (Bld) [#/Vol] 1.55 10*3/uL Normal 1.00-4.[address] [facility] Comment on above: Order Comment: Speci men Type: BLOOD SPECIMENOrdering Facility: [facility] Address: [address] [place] [address] Performed By: #### 5 7021-8 ####[facility] LABCLIA [id number] [place] [address] [place] Lymphocytes/100 WBC (Bld) 29.5 % Normal [facility] Comment on above: Order Comment: Speci men Type: BLOOD SPECIMENOrdering Facility: [facility] Address: [address] [place] [address] Performed By: #### 5 7021-8 ####[facility] LABCLIA [id number] [place] [address] [place] MCH (RBC) [Entitic mass] 32.7 pg Normal 26.0-34.[address] [facility] Comment on above: Order Comment: Speci men Type: BLOOD SPECIMENOrdering Facility: [facility] Address: [address] [place] [address] Performed By: #### 5 7021-8 ####[facility] LABIA [id number] [place] [address] [place] MCHC (RBC) [Mass/Vol] 33.3 g/dL Normal 30.5-36.0 [facility] Comment on above: Order Comment: Speci men Type: BLOOD SPECIMENOrdering Facility: [facility] Address: [address] [place] [address] Performed By: #### 5 7021-8 ####[facility] LABCLIA [id number] [place] [address] [place] MCV (RBC) [Entitic vol] 98.0 fL Normal 80.0-100.0 C [facility] Comment on above: Order Comment: Speci men Type: BLOOD SPECIMENOrdering Facility: [facility] Address: [address] [place] [address] Performed By: #### 5 7021-8 ####[facility] LABIA [id number] [place] [address] [place] Monocytes (Bld) [#/Vol] 0.31 10*3/uL Normal <0.[address] [facility] Comment on above: Order Comment: Speci men Type: BLOOD SPECIMENOrdering Facility: [facility] Address: [address] [place] [address] Performed By: #### 5 7021-8 ####[facility] LABIA [id number] [place] [address] [place] Monocytes/100 WBC (Bld) 5.9 % Normal C [facility] Comment on above: Order Comment: Speci men Type: BLOOD SPECIMENOrdering Facility: [facility] Address: [address] [place] [address] Performed By: #### 5 7021-8 ####[facility] LABIA [id number] [place] [address] [place] Neutrophils (Bld) [#/Vol] 3.18 10*3/uL Normal 1.45-7.[address] [facility] Comment on above: Order Comment: Speci men Type: BLOOD SPECIMENOrdering Facility: [facility] Address: [address] [place] [address] Performed By: #### 5 7021-8 ####[facility] LABIA [id number] [place] [address] [place] Neutrophils/100 WBC (Bld) 60.4 % Normal [facility] Comment on above: Order Comment: Speci men Type: BLOOD SPECIMENOrdering Facility: [facility] Address: [address] [place] [address] Performed By: #### 5 7021-8 ####[facility] LABIA [id number] [place] [address] [place] Nucleated RBC (Bld) [#/Vol] 10*3/uL Normal <0.[address] [facility] Comment on above: Order Comment: Speci men Type: BLOOD SPECIMENOrdering Facility: [facility] Address: [address] [place] [address] Performed By: #### 5 7021-8 ####[facility] LABIA [id number] [place] [address] [place] Nucleated RBC/100 WBC (Bld) [Ratio] 0.0 /100 WBC Normal [facility] Comment on above: Order Comment: Speci men Type: BLOOD SPECIMENOrdering Facility: [facility] Address: [address] [place] [address] Performed By: #### 5 7021-8 ####[facility] LABIA [id number] [place] [address] [place] Platelet mean volume (Bld) [Entitic vol] 9.5 fL Normal 9.0-12.[address] [facility] Comment on above: Order Comment: Speci men Type: BLOOD SPECIMENOrdering Facility: [facility] Address: [address] [place] [address] Performed By: #### 5 7021-8 ####[facility] LABIA [id number] [place] [address] [place] Platelets (Bld) [#/Vol] 307 10*3/uL Normal 150-[address] [facility] Comment on above: Order Comment: Speci men Type: BLOOD SPECIMENOrdering Facility: [facility] Address: [address] [place] [address] Performed By: #### 5 7021-8 ####[facility] LABCLIA [id number] [address] [address] [place] RBC (Bld) [#/Vol] 3.95 10*6/uL Normal 3.90-5.20 [facility] Comment on above: Order Comment: Speci men Type: BLOOD SPECIMENOrdering Facility: [facility] Address: [address] [place] [address] Performed By: #### 5 7021-8 ####[facility] LABCLIA [id number] [place] [id number] [place] WBC (Bld) [#/Vol] 5.26 10*3/uL Normal 3.70-11.00 [facility] Comment on above: Order Comment: Speci men Type: BLOOD SPECIMENOrdering Facility: [facility] Address: [address] [place] [address] Performed By: #### 5 7021-8 ####[facility] LABIA [id number] [place] [id number] [facility] CNOVon 11-24-2023 CNOV Office Visit (FAMPWS ) RICKI,JENNIFER Pugh ([id number]) 1945 F Date Time Provider Department 11/24/23 8:00 AM TEO SAGASTUME FAMPWS During your visit today, we recorded the following information about you: Pulse Blood pressure Weight Height 67/minute 118/82 63 kg 1.7 m Teo Sagastume MD 11/24/2023 8:42 AM Signed Jennifer Vasquez is a 78 year old female here for a Medicare wellness visit. Medicare Health Risk Assessment General Health Very good. Exercise: Minutes/Day 120 minutes. Exercise: Days/Week Mows grass, yoga, very active. Alcohol: Daily Use yes Alcohol: Drinks/Day 1 glass of wine. Alcohol: 6 or more drinks no Feel off balance no Concerns: Teeth/Dentures no Concerns: Sexual function three months ago. Troubled by feelings no Frequency: Eating healthy diet yes ADLs requiring help none Safety precautions in home/vehicle none Smoke, vape, chews tobacco no Difficulty hearing no Difficulty seeing no Current Providers Specialists: I have reviewed specialist-related care of the patient in the medical record. Outside specialists seen: eye , Dr Pulido-cardiology. Medical/Family history review Reviewed and updated problem list, medical/surgical/fami ly/social history, medications, and allergies. Opioid use review Opioid Medications (last 90 days) No data to display Anxiety/Depression screening . Recommendation: no further intervention at this time Cognitive screening Mini Cog Score: 5 Cognitive screening reviewed and No further action needed (score 3-5). Functional Observation Was the patient's Timed Up AND Go test unsteady or ? 12 seconds? No Advance Care Planning Surrogate decision maker and/or advance care plan documented Children are her surrogates. REVIEW OF SYSTEMS GENERAL: No weight loss, malaise or fevers HEENT: Negative for frequent or significant headaches, No changes in hearing or vision, no nose bleeds or other nasal problems RESPIRATORY: Negative for cough, hemoptysis, wheezing, COPD, dyspnea or shortness of breath CARDIOVASCULAR: no chest pain, has chronic edema since young that is worse in humid and hot environments. GI: No nausea, vomiting, or diarrhea : No history of dysuria, frequency or incontinence BUTTON CUTTER: Negative for abnormal vaginal bleeding, abnormal vaginal discharge SKIN: Negative for lesions, rash, and itching HEMATOLOGY/LYMPHOLOGY : Negative for prolonged bleeding, bruising easily or swollen nodes NEURO: No history of headaches, syncope, paralysis, seizures or tremors Measurements BP 118/82 Pulse 67 Ht 5' 6.929 (1.70m) Wt 139 lb (63.1kg) SpO2 97% BMI 21.82 kg/(m2). PHYSICAL EXAM: GEN: pleasant, no acute distress, alert HEENT: PERRL, EOMI, MMM NECK: supple, no lymphadenopathy, no thyromegaly HEART: regular rate, regular rhythm, no murmurs LUNGS: clear to auscultation, no wheezes or crackles, no increased WOB ABD: soft, non-distended, no masses palpated, non-tender EXT: no clubbing, no cyanosis, no edema Vision Screening: Follows with optometry/ophthalmolo gy Assessment/Plan Medicare annual wellness visit, subsequent (Z.) - Counseled on healthy diet and regular exercise - Personalized prevention plan provided Teo Sagastume MD Allergies As of Date: 11/24/2023 Noted Allergy Reaction PENICILLINS 08/19/2005 POISON VICENTA 08/20/2005 2 - Rash Date Reviewed: 11/24/2023 Reviewed by: Cecilia Walker LPN - Fully Assessed Reason for Visit: Medicare Wellness Exam [4060] Primary Visit Diagnosis:Medicare annual wellness visit, subsequent [Z00.] Other Visit Diagnoses:Paroxysmal supraventricular tachycardia (HCC) [I47.10] Stage 3 chronic kidney disease, unspecified whether stage 3a or 3b CKD (HCC) [N18.30] Hyperlipidemia, mixed [E78.2] Essential hypertension [I10] Colitis [K52.9] Hyperglycemia [R73.9] Anxiety [F41.9] Screening for depression [Z13.31] Order(s):DEPRESSION SCREENING [6950205] Order #: [id number]: 1 ADVANCE CARE PLAN DISCUSSION [6032171] Order #: [id number]: 1 COMPLETE BLOOD COUNT AND DIFFERENTIAL [SQCBCDIF] Order #: [id number] FUTURE COMPREHENSIVE METABOLIC PANEL [SQCMP] Order #: [id number] FUTURE LIPID PANEL BASIC [SQLIPB] Order #: [id number] FUTURE Prescriptions as of 11/24/2023 - sertraline (ZOLOFT) 50 mg tablet Every other day for one week and then stop. - amLODIPine (NORVASC) 5 mg tablet Take 5 mg by mouth once daily. - lisinopril (ZESTRIL, PRINIVIL) 20 mg tablet Take 1 tablet by mouth once daily. Problem List As Of Date 11/24/2023 Noted Resolved Hyperglycemia [R73.9] 01/10/2019 Hyperlipidemia, mixed [E78.2] 01/10/2019 Essential hypertension [I10] 01/10/2019 Stage 3 chronic kidney disease (HCC) [N18.30] 10/16/2020 Anxiety [F41.9] 10/16/2020 Chest pain [R07.9] 12/18/2022 12/18/2022 Diarrhea [R19.7] 08/19/2021 12/18/2022 Paroxysmal supraventricular (more content not included)... Normal [facility] Comprehensive metabolic 2000 panelon 11-24-2023 Albumin [Mass/Vol] 4.5 g/dL Normal 3.9-4.9 [facility] Comment on above: Order Comment: Speci men Type: BLOOD SPECIMENOrdering Facility: [facility] Address: [address] [place] [address] Performed By: #### 2 4331-1, 75923-4 ####[facility] LABIA [id number] [place] [address] [place] ALP [Catalytic activity/Vol] 62 U/L Normal 34-[address] [facility] Comment on above: Order Comment: Speci men Type: BLOOD SPECIMENOrdering Facility: [facility] Address: [address] [place] [address] Performed By: #### 2 4331-1, 34851-0 ####[facility] LABIA [id number] [place] [address] [place] ALT [Catalytic activity/Vol] 9 U/L Normal 7-[address] [facility] Comment on above: Order Comment: Speci men Type: BLOOD SPECIMENOrdering Facility: [facility] Address: [address] [place] [address] Performed By: #### 2 4331-1, 24640-0 ####[facility] LABIA [id number] [place] [address] [place] Anion gap [Moles/Vol] 11 mmol/L Normal 8-15 [facility] Comment on above: Order Comment: Speci men Type: BLOOD SPECIMENOrdering Facility: [facility] Address: [address] [place] [id number] Performed By: #### 2 4331-1, 10565-4 ####[facility] LABCLIA [id number] [place] [id number] [place] AST [Catalytic activity/Vol] 16 U/L Normal 13-[address] [facility] Comment on above: Order Comment: Speci men Type: BLOOD SPECIMENOrdering Facility: [facility] Address: [address] [place] [address] Performed By: #### 2 4331-1, ####[facility] LABCLIA [id number] [place] [address] [place] Bilirubin [Mass/Vol] 0.6 mg/dL Normal 0.2-1.[address] [facility] Comment on above: Order Comment: Speci men Type: BLOOD SPECIMENOrdering Facility: [facility] Address: [address] [place] [address] Performed By: #### 2 4331-, ####[facility] LABIA [id number] [place] [address] [place] Calcium [Mass/Vol] 9.3 mg/dL Normal 8.5-10.2 [facility] Comment on above: Order Comment: Speci men Type: BLOOD SPECIMENOrdering Facility: [facility] Address: [address] [place] [address] Performed By: #### 2 4331-1, ####[facility] LABIA [id number] [place] [id number] [place] Chloride [Moles/Vol] 104 mmol/L Normal 98-[address] [facility] Comment on above: Order Comment: Speci men Type: BLOOD SPECIMENOrdering Facility: [facility] Address: [address] [place] [address] Performed By: #### 2 4331-1, 35761-7 ####[facility] LABIA [id number] [place] [id number] [place] CO2 [Moles/Vol] 26 mmol/L Normal 22-[address] [facility] Comment on above: Order Comment: Speci men Type: BLOOD SPECIMENOrdering Facility: [facility] Address: [address] [place] [address] Performed By: #### 2 4331-1, 35389-9 ####[facility] LABCLIA [id number] [place] [address] [place] Creatinine [Mass/Vol] 1.07 mg/dL High 0.58-0.96 [facility] Comment on above: Order Comment: Speci men Type: BLOOD SPECIMENOrdering Facility: [facility] Address: [address] [place] [address] Performed By: #### 2 4331-1, ####[facility] LABCLIA [id number] [address] STATES OF [facility] Creatinine and Glomerular filtration rate.predicted panel (S/P/Bld) 54 mL/min/1.73m??? Low >=[address] [facility] Comment on above: Order Comment: Speci men Type: BLOOD SPECIMENOrdering Facility: [facility] Address: [address] [place] [address] Result Comment: Katie mated Glomerular Filtration Rate (eGFR) is calculated using the 2020 CKD-EPI creatinine equation. This equation utilizes serum creatinine, sex, and age as parameters. The creatinine assay has traceable calibration to isotope dilution-mass spectrometry. Refer to KDIGO guidelines for clinical interpretation. In patients with unstable renal function, e.g. those with acute kidney injury, the eGFR may not accurately reflect actual GFR. Performed By: #### 2 4331-1, 54070-7 ####[facility] LABCLIA [id number] [place] [address] [place] Glucose [Mass/Vol] 98 mg/dL Normal 74-99 [facility] Comment on above: Order Comment: Speci men Type: BLOOD SPECIMENOrdering Facility: [facility] Address: [address] [place] [address] Result Comment: The [place] Diabetes Association (ADA) provides guidance for cutoff values for fasting glucose and random glucose. The ADA defines fasting as no caloric intake for at least 8 hours. Fasting plasma glucose results between 100 to 125 mg/dL indicate increased risk for diabetes (prediabetes). Fasting plasma glucose results greater than or equal to 126 mg/dL meet the criteria for diagnosis of diabetes. In the absence of unequivocal hyperglycemia, results should be confirmed by repeat testing. In a patient with classic symptoms of hyperglycemia or hyperglycemic crisis, random plasma glucose results greater than or equal to 200 mg/dL meet the criteria for diagnosis of diabetes. Reference: Standards of Medical Care in Diabetes 2016, [place] Diabetes Association. Diabetes Care. 2016.39(Suppl 1). Performed By: #### 2 4331-1, 59911-4 ####[facility] LABCLIA [id number] [place] [address] [place] Potassium [Moles/Vol] 4.6 mmol/L Normal 3.7-5.1 [facility] Comment on above: Order Comment: Speci men Type: BLOOD SPECIMENOrdering Facility: [facility] Address: [address] [place] [address] Performed By: #### 2 4331-1, 45110-3 ####[facility] LABIA [id number] [place] [address] [place] Protein [Mass/Vol] 6.7 g/dL Normal 6.3-8.0 [facility] Comment on above: Order Comment: Speci men Type: BLOOD SPECIMENOrdering Facility: [facility] Address: [address] [place] [address] Performed By: #### 2 4331-1, 11111-5 ####[facility] LABIA [id number] [place] [address] [place] Sodium [Moles/Vol] 141 mmol/L Normal 136-144 [facility] Comment on above: Order Comment: Speci men Type: BLOOD SPECIMENOrdering Facility: [facility] Address: [address] [place] [address] Performed By: #### 2 4331-1, 62649-6 ####[facility] LABCLIA [id number] [place] [address] [place] Urea nitrogen [Mass/Vol] 25 mg/dL High 7-[address] [facility] Comment on above: Order Comment: Speci men Type: BLOOD SPECIMENOrdering Facility: [facility] Address: [address] [place] [address] Performed By: #### 2 4331-1, 71192-9 ####[facility] LABCLIA [id number] [place] [address] [place] Lipid 1996 panelon 4 Cholesterol [Mass/Vol] 269 mg/dL High <200 [facility] Comment on above: Order Comment: Speci men Type: BLOOD SPECIMENOrdering Facility: [facility] Address: [address] [place] [address] Result Comment: <200 mg/dL, Desirable 200-239 mg/dL, Borderline high >239 mg/dL, High Performed By: #### 2 4331-1, 67201-0 ####[facility] LABCLIA [id number] [place] [address] [place] Cholesterol in HDL [Mass/Vol] 76 mg/dL Normal >[address] [facility] Comment on above: Order Comment: Speci men Type: BLOOD SPECIMENOrdering Facility: [facility] Address: [address] [place] [address] Result Comment: 40-5 9 mg/dL, Acceptable >59 mg/dL, High: Negative risk factor for coronary heart disease <40 mg/dL, Low: Positive risk factor for coronary heart disease Performed By: #### 2 4331-1, 45722-4 ####[facility] LABCLIA [id number] [place] [id number] [place] Cholesterol in LDL [Mass/Vol] 172 mg/dL High <[address] [facility] Comment on above: Order Comment: Speci men Type: BLOOD SPECIMENOrdering Facility: [facility] Address: [address] [place] [address] Result Comment: <100 mg/dL, Optimal 100-129 mg/dL, Near optimal/above optimal 130-159 mg/dL, Borderline high 160-189 mg/dL, High >189 mg/dL, Very high Secondary prevention optimal LDL Cholesterol levels are recommended to be < 70 mg/dL Performed By: #### 2 433-1, ####[facility] LABCLIA [id number] [place] [address] [place] Cholesterol in LDL/Cholesterol in HDL [Mass ratio] 2.26 {ratio} Normal <2.[address] [facility] Comment on above: Order Comment: Speci men Type: BLOOD SPECIMENOrdering Facility: [facility] Address: [address] [place] [address] Result Comment: Refe rence: 1. National Cholesterol Education Program ATP III Guideline At-A-Glance Quick Desk Reference: National Heart, Lung, and Blood [place]. National Institutes of Health. 2001: NIH Publication No. 01-3305. 2. An International Atherosclerosis Society position paper: global recommendations for the management of dyslipidemia: executive summary, Atherosclerosis. 2014: 232(2):410-413. Performed By: #### 2 433-, ####[facility] LABIA [id number] [place] [address] [place] Cholesterol in VLDL [Mass/Vol] 21 mg/dL Normal <[address] [facility] Comment on above: Order Comment: Speci men Type: BLOOD SPECIMENOrdering Facility: [facility] Address: [address] [place] [address] Performed By: #### 2 4331-, ####[facility] LABCLIA [id number] [place] [address] [place] Cholesterol non HDL [Mass/Vol] 193 mg/dL High <[address] [facility] Comment on above: Order Comment: Speci men Type: BLOOD SPECIMENOrdering Facility: [facility] Address: [address] [place] [address] Result Comment: <130 mg/dL, Optimal 130-159 mg/dL, Near optimal/above optimal 160-189 mg/dL, Borderline high 190-219 mg/dL, High >219 mg/dL, Very high Secondary prevention optimal non HDL Cholesterol levels are recommended to be <100 mg/dL Performed By: #### 2 4331-1, 46334-7 ####[facility] LABCLIA [id number] [place] [address] [place] Cholesterol.total/Bibiana sterol in HDL [Mass ratio] 3.54 {ratio} Normal <5.[address] [facility] Comment on above: Order Comment: Speci men Type: BLOOD SPECIMENOrdering Facility: [facility] Address: [address] [place] [address] Performed By: #### 2 4331-1, 15648-8 ####[facility] LABCLIA [id number] [place] [address] [place] FASTING TIME 11 hrs Normal [facility] Comment on above: Order Comment: Speci men Type: BLOOD SPECIMENOrdering Facility: [facility] Address: [address] [place] [address] Performed By: #### 2 4331-1, 68089-2 ####[facility] LABCLIA [id number] [place] [address] [place] Triglyceride [Mass/Vol] 105 mg/dL Normal <150 [facility] Comment on above: Order Comment: Speci men Type: BLOOD SPECIMENOrdering Facility: [facility] Address: [address] [place] [address] Result Comment: <150 mg/dL, Normal 150-199 mg/dL, Borderline high 200-499 mg/dL, High >499 mg/dL, Very high Performed By: #### 2 4331-1, 84295-7 ####[facility] LABCLIA [id number] [place] [address] [place] Basophil percentageOrdered B y: Dr. Pulido on 06-02-2022 Chloride [Moles/Vol] 107 mmol/L 98-107 [facility] Cholesterol [Mass/Vol] 276 mg/dL <200 [facility] Comment on above: <200 mg/dL Desirable 200-240 mg/dL Borderline >240 mg/dL High Risk Glucose [Mass/Vol] 110 mg/dL 74-106 [facility] Comment on above: Fasting Glucose resu lt from 100 to 125 mg/dL suggests IMPAIRED HOMEOSTASIS per A.D.A. criteria. Potassium [Moles/Vol] 4.4 mmol/L 3.5-5.1 [facility] Sodium [Moles/Vol] 141 mmol/L 136-145 [facility] Triglyceride [Mass/Vol] 133 mg/dL <[address] [facility] Comment on above: The drugs N-Acetylcy steine and Metamizole may falsely depress this assay.Serum Triglycerides Reference Interval Normal <150 mg/dL Borderline high 150 - 199 mg/dL High 200 - 499 mg/dL Very High > or = 500 mg/dL CREATININE SERUMon Creatinine Serum - Intl 1.10 [facility] LIPID PANEL (OUTSIDE)on 05-05 VLDL Cholesterol 27 [facility] - Chemistry and C hemistry - challengeOrdered By: Dr. Pulido on 06-02-2022 CO2 [Moles/Vol] 28.0 mmol/L 21.0-32.0 [facility] Urea nitrogen/Creatinine [Mass ratio] 26.4 mg/mg 10-20 [facility] No Panel InformationOrdered By: Dr. Pulido on 06-02-2022 Estimated GFR (MDRD) Amer 62 mL/min >60 [facility] Comment on above: GFR Calc Estimated GFR (MDRD) Non-Af Amer 51 mL/min >60 [facility] Comment on above: Non- GFR Calc Serum or plasma calcium sonu urement (mass/volume)Ordered By: Dr. Pulido on 06-02-2022 Calcium [Mass/Vol] 9.0 mg/dL 8.5-10.1 [facility] Serum or plasma cholesterol in HDL measurement (mass/volume)Ordered By: Dr. Pulido on 06-02-2022 Cholesterol in HDL [Mass/Vol] 90 mg/dL >40 [facility] Comment on above: The drugs N-Acetylcy steine and Metamizole may falsely depress this assay. Reference Range HDL <40 mg/dL Low HDL Cholesterol HDL >or= 60 mg/dL High HDL Cholesterol Serum or plasma cholesterol in VLDL measurement (mass/volume)Ordered By: Dr. Pulido on 06-02-2022 Cholesterol in VLDL [Mass/Vol] 27 mg/dL 5-40 [facility] Serum or plasma creatinine m easurement (mass/volume)Ordered By: Dr. Pulido on 06-02-2022 Creatinine [Mass/Vol] 1.10 mg/dL 0.55-1.02 [facility] Comment on above: The validity of the calculated GFR & GFRAA in patients over 70 years has not been determined. Clinical correlation is essential. Serum or plasma low density lipoprotein (LDL) cholesterol measurement (mass/volume)Ordered By: Dr. Pulido on 06-02-2022 Cholesterol in LDL [Mass/Vol] 159 mg/dL 0-130 [facility] Serum or plasma urea nitroge n measurement (mass/volume)Ordered By: Dr. Pulido on 06-02-2022 Urea nitrogen [Mass/Vol] 29 mg/dL 7-18 [facility] Thin prep Papanicolaou smear with manual screeningOrdered By: Dr. Pulido on 06-02-2022 Thin prep Papanicolaou smear with manual screening 6 5-15 [facility] RADHA SCREENINGon 12-08-2021 [facility] No Panel Informationon 08-13 Endomysial IgA Antibody Negative Negative [facility] Work Phone: Serum or plasma C reactive p rotein measurement (mass/volume)on 08-13-2021 CRP [Mass/Vol] 4.06 mg/L 0.0-3.0 [facility] Work Phone: Comment on above: C-Reactive Protein ( CRP) provides useful information for thediagnosis, therapy and monitoring of inflammatory processesand associated diseases. For the evaluation of Relative Riskfor Cardiovascular Disease, a High Sensitivity CRP (HSCRP)should be ordered. Serum or plasma IgA measurem ent (mass/volume)on 08-13-2021 IgA [Mass/Vol] 121 mg/dL [facility] Work Phone: Comment on above: Performed at: [address] [id number] Director: Bassam Chan PhD, Phone: [phone] Serum tissue transglutaminas e IgA antibody assay (units/volume)on 08-13-2021 tTG IgA Qn (S) <2 U/mL [facility] Work Phone: Comment on above: Negative 0 - 3 Weak Positive 4 - 10 Positive >10 Tissue Transglutaminase (tTG) has been identified as the endomysial antigen. Studies have demonstr- ated that endomysial IgA antibodies have over 99% specificity for gluten sensitive enteropathy. Vital Signs Date Time Vital Sign Value Performing Clinician Facility 07-25-2024 08:55-0400 Body height 170.[address] Teo Sagastume MD Work Phone: [phone] [place] [address] 07-25-2024 08:55-0400 Body mass index (BMI) [Ratio] 21.2 kg/m2 Dr. Teo Sagastume MD Work Phone: [phone] [place] [address] 07-25-2024 08:55-0400 Body weight 61.[address] Teo Sagastume MD Work Phone: [phone] [place] [address] 07-25-2024 08:55-0400 Diastolic blood pressure 75 mm[Hg] Dr. Teo Sagastume MD Work Phone: [phone] [place] [address] 07-25-2024 08:55-0400 Heart rate 76 /min Dr. Teo Sagastume MD Work Phone: [phone] [place] [address] 07-25-2024 08:55-0400 Respiratory rate 16 /min Dr. Teo Sagastume MD Work Phone: [phone] [place] [address] 07-25-2024 08:55-0400 Systolic blood pressure 124 mm[Hg] Dr. Teo Sagastume MD Work Phone: [facility] 07-04-2024 10:55-0500 Diastolic blood pressure 60 mm[Hg] Anneliese Suppan AGRICULTURAL ENGINEER.[employer]IO [employer]PERATOR [employer]OUND Work Phone: [facility] 07-04-2024 10:55-0500 Systolic blood pressure 120 mm[Hg] Anneliese Suppan AGRICULTURAL ENGINEER.RADIO OPERATOR [employer]OUND Work Phone: [facility] 07-04-2024 10:18-0500 Body mass index (BMI) [Ratio] 21.35 kg/m2 Anneliese Suppan AGRICULTURAL ENGINEER.RADIO OPERATOR [employer]OUND Work Phone: [facility] 07-04-2024 10:18-0500 Body temperature 97.11 [degF] Anneliese Suppan AGRICULTURAL ENGINEER.RADIO OPERATOR [employer]OUND Work Phone: [facility] 07-04-2024 10:18-0500 Body weight 61.69 kg Anneliese Suppan AGRICULTURAL ENGINEER.RADIO OPERATOR [employer]OUND Work Phone: [facility] 07-04-2024 10:18-0500 Heart rate 78 /min Anneliese Suppan AGRICULTURAL ENGINEER.RADIO OPERATOR [employer]OUND Work Phone: [facility] 07-04-2024 10:18-0500 SaO2% (BldA) [Mass fraction] 98 % Anneliese Suppan AGRICULTURAL ENGINEER.RADIO OPERATOR [employer]OUND Work Phone: [facility] 11-24-2023 08:00-0400 Body height 170 cm Teo Sagastume MD Work Phone: [facility] 11-24-2023 08:00-0400 Body mass index (BMI) [Ratio] 21.82 kg/m2 Teo Sagastume MD Work Phone: [facility] 11-24-2023 08:00-0400 Body weight 63.05 kg Teo Sagastume MD Work Phone: [facility] 11-24-2023 08:00-0400 Diastolic blood pressure 82 mm[Hg] Teo Sagastume MD Work Phone: [facility] 11-24-2023 08:00-0400 Heart rate 67 /min Teo Sagastume MD Work Phone: [facility] 11-24-2023 08:00-0400 SaO2% (BldA) [Mass fraction] 97 % Teo Sagastume MD Work Phone: [facility] 11-24-2023 08:00-0400 Systolic blood pressure 118 mm[Hg] Teo Sagastume MD Work Phone: [facility] 06-02-2022 10:23-0500 Body height 170.[address] Teo Sagastume Work Phone: [facility] 06-02-2022 10:23-0500 Body mass index (BMI) [Ratio] 22.4 kg/m2 Dr. Teo Sagastume Work Phone: [facility] 06-02-2022 10:23-0500 Body weight 64.[address] Teo Sagastume Work Phone: [facility] 06-02-2022 10:23-0500 Diastolic blood pressure 72 mm[Hg] Dr. Teo Sagastume Work Phone: [facility] 06-02-2022 10:23-0500 Heart rate 76 /min Dr. Teo Sagastume Work Phone: [facility] 06-02-2022 10:23-0500 Respiratory rate 16 /min Dr. Teo Sagastume Work Phone: [facility] 06-02-2022 10:23-0500 Systolic blood pressure 115 mm[Hg] Dr. Teo Sagastume Work Phone: [facility] 12-31-2021 10:10-0400 Body weight 65.77 kg Beatrice Townsend MD Work Phone: [facility] 12-31-2021 10:10-0400 Diastolic blood pressure 68 mm[Hg] Beatrice Townsend MD Work Phone: [facility] 12-31-2021 10:10-0400 Systolic blood pressure 116 mm[Hg] Beatrice Townsend MD Work Phone: [facility] 10-17-2021 09:48-0400 Body weight 64.86 kg Teo Sagastume MD Work Phone: [facility] 10-17-2021 09:48-0400 Diastolic blood pressure 62 mm[Hg] Teo Sagastume MD Work Phone: [facility] 10-17-2021 09:48-0400 Heart rate 72 /min Teo Sagastume MD Work Phone: [facility] 10-17-2021 09:48-0400 Systolic blood pressure 122 mm[Hg] Teo Sagastume MD Work Phone: [facility] 07-08-2021 07:53-0500 Body height 170.[address] Teo Sagastume Work Phone: [facility] Work Phone: 07-08-2021 07:53-0500 Body mass index (BMI) [Ratio] 22.4 kg/m2 Dr. Teo Sagastume Work Phone: [facility] Work Phone: 07-08-2021 07:53-0500 Body weight 64.[address] Teo Sagastume Work Phone: [facility] Work Phone: 07-08-2021 07:53-0500 Diastolic blood pressure 70 mm[Hg] Dr. Teo Sagastume Work Phone: [facility] Work Phone: 07-08-2021 07:53-0500 Heart rate 82 /min Dr. Teo Sagastume Work Phone: [facility] Work Phone: 07-08-2021 07:53-0500 Respiratory rate 18 /min Dr. Teo Sagastume Work Phone: [facility] Work Phone: 07-08-2021 07:53-0500 SaO2% (BldA) [Mass fraction] 100 % Dr. Teo Sagastume Work Phone: [facility] Work Phone: 07-08-2021 07:53-0500 Systolic blood pressure 129 mm[Hg] Dr. Teo Sagastume Work Phone: [facility] Work Phone: 05-27-2021 07:56-0500 Body weight 65.[address] Teo Sagastume Work Phone: [facility] Work Phone: 05-27-2021 07:56-0500 Diastolic blood pressure 88 mm[Hg] Dr. Teo Sagastume Work Phone: [facility] Work Phone: 05-27-2021 07:56-0500 Heart rate 74 /min Dr. Teo Sagastume Work Phone: [facility] Work Phone: 05-27-2021 07:56-0500 Respiratory rate 18 /min Dr. Teo Sagastume Work Phone: [facility] Work Phone: 05-27-2021 07:56-0500 SaO2% (BldA) [Mass fraction] 99 % Dr. Teo Sagastume Work Phone: [facility] Work Phone: 05-27-2021 07:56-0500 Systolic blood pressure 140 mm[Hg] Dr. Teo Sagastume Work Phone: [facility] Work Phone: 10-30-2020 08:37-0400 Body mass index (BMI) [Ratio] 22.1 kg/m2 Dr. Teo Sagastume Work Phone: [facility] Work Phone: Encounters Encounter Date Encounter Type Care Provider Facility Start: 10-16-2024 End: 10-16-[address] Teo Sagastume MD Work Phone: [facility] Work Phone: Start: 10-16-2024 End: 10-16-2024 Patient encounter procedure Sofia MORALES -[facility] Work Phone: Start: 09-12-2024 End: 09-12-2024 ambulatory Gerard Kate RN Work Phone: [employer] Comment on above: Primary Care Coordin ator- Other Start: 09-11-2024 End: 09-11-2024 ambulatory Kori Kimball RN Work Phone: [employer]enger [employer] Representative Management Comment on above: Initial enrollment o [facility] for Chronic Disease Management Start: 08-22-2024 End: 08-22-2024 Telephone encounter Hannah Nataly October.RADIO OPERATOR [employer]OUND Work Phone: Dermatology Comment on above: Patient Question Start: 08-02-2024 End: 10-02-2024 Follow-up encounter Hannah Nataly October.RADIO OPERATOR [employer]OUND Work Phone: Dermatology Start: 07-28-2024 End: 07-28-2024 ambulatory HANNAH Nataly OCTOBER Facility:[facility] Start: 07-28-2024 End: 07-28-2024 Patient encounter procedure Hannah Nataly October.RADIO OPERATOR GROUND Work Phone: Dermatology Comment on above: Neoplasm of uncertai n behavior of skin (Primary Dx); Actinic keratosis; Lentigines; Angioma of skin; Multiple benign nevi; Seborrheic keratoses; Xerosis cutis Start: 07-25-2024 End: 07-25-[address] Ildefonso Pulido MD -[facility] Work Phone: Start: 07-25-2024 End: 07-25-2024 ambulatory Teo Sagastume Facility:[facility] Start: 07-06-2024 End: 09-05-2024 Follow-up encounter Teo Sagastume MD Work Phone: Pulmonology [facility] Start: 07-06-2024 End: 07-06-2024 ambulatory TEO SAGASTUME Facility:[facility] Start: 07-06-2024 End: 07-06-2024 Subsequent hospital visit by physician Screen Mammo Pending Sale To [facility] Comment on above: Encounter for screen ing mammogram for malignant neoplasm of breast [Z12.31] Start: 07-04-2024 End: 07-04-2024 ambulatory ANNELIESE AN Facility:[facility] Start: 07-04-2024 End: 07-04-2024 Office outpatient visit 15 minutes Anneliese An APRN.GORDO Work Phone: [facility] Comment on above: Dyslipidemia (Primar y Dx); Hypertension, essential; Screening for diabetes mellitus; Wellness examination; Stage 3a chronic kidney disease (HCC) Start: 07-04-2024 End: 07-04-2024 Patient encounter status Anneliese An APRN.RADIO OPERATOR [employer] Work Phone: [facility] Start: 06-29-2024 End: 06-29-2024 [facility]ulatory [facility] Start: 06-29-2024 End: 06-29-2024 Patient encounter procedure Josh Sebastian [facility] Comment on above: Population Health Na vigation Outreach ([employer] High Risk - Attempt 1) Start: 12-13-2023 ambulatory Chrissy Rivera WILFRID [employer] [facility] Start: 12-13-2023 Patient encounter procedure [facility]issy Rivera [facility] Comment on above: Population Health Na vigation Outreach ([employer],BudChari ) Start: 11-25-2023 Telephone encounter Teo Sagastume MD Work Phone: [facility] Comment on above: Results Start: 11-24-2023 End: 11-24-2023 ambulatory TEO SAGASTUME Facility:[facility] Start: 11-24-2023 End: 11-24-2023 Patient encounter procedure Teo Sagastume MD Work Phone: [facility] Comment on above: Medicare annual [facility] visit, subsequent (Primary Dx); Paroxysmal supraventricular tachycardia (HCC); Stage 3 chronic kidney disease, unspecified whether stage 3a or 3b CKD (HCC); Hyperlipidemia, mixed; Essential hypertension; Colitis; Hyperglycemia; Anxiety; Screening for depression Start: 11-10-2023 ambulatory Chrissyvicki Halljulio c YUEN Daniel [employer] [facility] Start: 11-10-2023 Patient encounter procedure [facility]issy Rivera [facility] Comment on above: Population Health Na vigation Outreach ([employer],[place] ) Start: 02-04-2023 ambulatory Elba L Schjuana lorna MA [facility] [place] Comment on above: Population Health Na vigation Outreach (ACO BP AND DM) Start: 12-24-2022 Telephone encounter Teo Sagastume MD Work Phone: [facility] Comment on above: Medication Problem ( Needs updated dosage) Start: 09-29-2022 ambulatory Elba rothman MA [facility] Comment on above: Population Health Na vigation Outreach (ACO CHARI PCSA) Start: 08-24-2022 ambulatory Elba rothman MA [facility] Comment on above: Population Health Na vigation Outreach (ACO CHARI PCSA) Start: 06-03-2022 Chart abstracting Teo Singh MD Work Phone: [facility] Start: 06-02-2022 End: 06-02-[address] Teo Sagastume Work Phone: [facility] Work Phone: Start: 06-02-2022 End: 06-02-[address] Teo Sagastume Work Phone: [facility] Start: 12-31-2021 End: 12-31-2021 Patient encounter procedure Beatrice Townsend MD Work Phone: OB/Gynecology Comment on above: Vaginal burning (Swathi mateo Dx); Urethral diverticulum Start: 12-08-2021 End: 12-08-2021 Subsequent hospital visit by physician Screen Mammo Pending Sale To [facility] Comment on above: Encounter for screen ing mammogram for breast cancer [Z12.31] Start: 10-17-2021 End: 10-17-2021 Patient encounter procedure Teo Sagastume MD Work Phone: [facility] Comment on above: Hyperlipidemia, mixe d (Primary Dx); Essential hypertension; Stage 3 chronic kidney disease, unspecified whether stage 3a or 3b CKD (HCC); Hyperglycemia; Anxiety; Colitis Start: 10-15-2021 ambulatory Teo Sagasutme MD Work Phone: Internal Medicine [facility] Start: 08-13-2021 End: 08-13-[address] Teo Sagastume Work Phone: [facility] Start: 07-08-2021 End: 07-08-[address] Teo Sagastume Work Phone: [facility] Start: 05-27-2021 End: 05-27-[address] Teo Sagastume Work Phone: [facility] Start: 10-30-[address] Bismark Sagastume Work Phone: [facility] Procedures Date Procedure Procedure Detail Performing Clinician Start: 07-06-2024 Screening digital br east tomosynthesis bi Teo Sagastume MD Work Phone: Start: 11-24-2023 Adult depression scr eening assessment Teo Sagastume MD Work Phone: Start: 06-02-2022 Creatinine [Mass/vol ume] in Serum or Plasma [facility] Provider Start: 06-02-2022 Lipid panel [facility] Provid er Start: 12-08-2021 Screening mammograph y bi 2-view breast inc cad Bulk Order Provider Start: 09-09-2021 Colonoscopy Teo Singh MD Work Phone: Start: 09-10-2020 Mammography Toe Singh MD Work Phone: Start: 07-18-2020 Adult depression scr eening assessment Teo Sagastume MD Work Phone: Plan of Treatment Date Care Activity Detail Author Start: 09-10-2031 Colonoscopy COLONOSCOPY [facility] Start: 09-10-2031 COLORECTAL CANCER SCREENING COLORECTAL CANCER SCREENING [facility] Start: 06-02-2027 LIPID SCREEN LIPID SCREEN [facility] Start: 11-23-2026 Diabetes Screening Diabetes Screenin [facility] Start: 12-18-2025 DIABETES SCREEN DIABETES SCREEN [facility] Start: 12-18-2025 Diabetes Screening Diabetes Screenin [facility] Start: 07-12-2025 LIPID SCREEN LIPID SCREEN [facility] Start: 07-04-2025 Annual PCP Team Video Poker Floorman cuong Disease Visit Annual PCP Team Chronic Disease Visit [facility] Start: 07-04-2025 BP Controlled (<130/80) BP Controlle d (<130/80) [facility] Start: 01-04-2025 End: 04-05-2025 CBC panel - Blood by Automated count COMPLETE BLOOD COUNT Lab Routine Wellness examination Expected: 01/04/2025, Expires: 04/05/2025 [facility] Work Phone: Comment on above: Expected: 01/04/2025 , Expires: 04/05/2025 Start: 01-04-2025 End: 04-05-2025 Cobalamin (Vitamin B12) [Mass/volume] in Serum or Plasma VITAMIN B12 Lab Routine Wellness examination Expected: 01/04/2025, Expires: 04/05/2025 [facility] Comment on above: Expected: 01/04/2025 , Expires: 04/05/2025 Start: 01-04-2025 End: 04-05-2025 Comprehensive metabolic 2000 panel - Serum or Plasma COMPREHENSIVE METABOLIC PANEL Lab Routine Stage 3a chronic kidney disease (HCC) Expected: 01/04/2025, Expires: 04/05/2025 [facility] Comment on above: Expected: 01/04/2025 , Expires: 04/05/2025 Start: 01-04-2025 End: 04-05-2025 Hemoglobin A1c in Blood HEMOGLOBIN A1C Lab Routine Screening for diabetes mellitus Expected: 01/04/2025, Expires: 04/05/2025 [facility] Comment on above: Expected: 01/04/2025 , Expires: 04/05/2025 Start: 01-04-2025 End: 04-05-2025 LIPID PANEL, NONFASTING LIPID PANEL, NONFASTING Lab Routine Dyslipidemia Expected: 01/04/2025, Expires: 04/05/2025 [facility] Comment on above: Expected: 01/04/2025 , Expires: 04/05/2025 Start: 01-04-2025 End: 04-05-2025 Magnesium [Mass/volume] in Serum or Plasma MAGNESIUM Lab Routine Hypertension, essential Expected: 01/04/2025, Expires: 04/05/2025 [facility] Comment on above: Expected: 01/04/2025 , Expires: 04/05/2025 Start: 01-04-2025 End: 01-04-2025 Patient encounter procedure 01/04/2025 8:00 AM EDT Office Visit [facility] [place] [address] [place], [place] [id number] Anneliese An APRN.RADIO OPERATOR GROUND [address] [place] [address] Annual Wellness [facility] Comment on above: Annual Wellness Start: 01-01-2025 Influenza vaccination Influenz a Vaccine (Season Ended) [facility] Start: 11-23-2024 Annual PCP Team Video Poker Floorman cuong Disease Visit Annual PCP Team Chronic Disease Visit [facility] Start: 11-23-2024 BP Controlled (<130/80) BP Controlle d (<130/80) [facility] Start: 11-23-2024 Complete blood count Hemoglobin/Ronaldo tocrit [facility] Start: 11-23-2024 Covid-19 Vaccine ( season) Covid-19 Vaccine () [facility] Comment on above: Postponed from 05/28 (Declined at this time) Start: 11-23-2024 Creatinine measurement Serum Creatin ine [facility] Start: 11-23-2024 Depression Screening Depression Scre ening [facility] Start: 11-23-2024 RSV Vaccine (1 - 1-d ose 60+ series) RSV Vaccine (1 - 1-dose 60+ series) [facility] Comment on above: Postponed from 09/20 (Declined at this time) Start: 11-23-2024 RSV Vaccine (1 - 1-d ose 75+ series) RSV Vaccine (1 - 1-dose 75+ series) [facility] Comment on above: Postponed from 09/20 (Declined at this time) Start: 10-30-2024 Influenza vaccination Influenza Vacc ine (#1) [facility] Comment on above: Postponed from 01/01 (Declined at this time) Start: 10-27-2024 End: 10-27-2024 Patient encounter procedure 10/27/2024 8:30 AM EDT Office Visit Dermatology [address] [place] [address] October, Hannah Ingram APRN.RADIO OPERATOR [employer]OUND [address] [facility] [place] [address] 3 mo followup Dermatology Comment on above: 3 mo followup Start: 07-28-2024 End: 07-28-2024 Patient encounter procedure 07/28/2024 11:30 AM EDT Office Visit Dermatology [address] [facility] [place] [address] October, Hannah Ingram APRN.RADIO OPERATOR GROUND [address] [facility] [place] [address] [facility] Comment on above: [facility] Start: 07-19-2024 Covid-19 Vaccine ( season) Covid-19 Vaccine () [facility] Start: 07-06-2024 End: 07-06-2024 Patient encounter procedure 07/06/2024 7:30 AM EST Appointment Mammogram [address] [place] [address] Encounter for screening mammogram for malignant neoplasm of breast [Z12.31] Mammogram Comment on above: Encounter for screen ing mammogram for malignant neoplasm of breast [Z12.31] Start: 07-04-2024 End: 07-04-2024 Patient encounter procedure 07/04/2024 8:40 AM EST Office Visit Family [facility] [address] [place] [address] Anneliese An APRN.RADIO OPERATOR [employer]OUND [address] [facility] [place] [address] Return in about 6 months (around 05/26/2024) [facility] Comment on above: Return in about 6 mo nths (around 05/26/2024) Start: 05-03-2024 Advance Directive Discussion Advance Directive Discussion [facility] Start: 01-02-2024 Covid-19 Vaccine ( season) Covid-19 Vaccine () [facility] Start: 01-02-2024 Influenza vaccination Influenza Vacc ine (#1) [facility] Start: 12-19-2023 ANNUAL PCP TEAM SHEET METAL ASSEMBLER CUONG DISEASE VISIT ANNUAL PCP TEAM CHRONIC DISEASE VISIT [facility] Start: 12-19-2023 BP CONTROLLED (<130/80) BP CONTROLLE D (<130/80) [facility] Start: 12-19-2023 Complete blood count Hemoglobin/Ronaldo tocrit [facility] Start: 12-19-2023 COVID-19 VACCINE (6 - Moderna series) COVID-19 VACCINE (6 - Moderna series) [facility] Comment on above: Postponed from 03/14 (Declined at this time) Start: 12-19-2023 Creatinine measurement Serum Creatin ine [facility] Start: 12-19-2023 HEMOGLOBIN/HEMATOCRIT HEMOGLOBIN/HEM ATOCRIT [facility] Start: 12-19-2023 SERUM CREATININE SERUM CREATININE Cl [facility] Start: 12-19-2023 Urine microalbumin profile [facility] Comment on above: Postponed from 10/13 (Declined at this time) Start: 11-24-2023 End: 02-23-2024 CBC W Auto Differential panel - Blood [facility] Work Phone: Comment on above: Expected: 11/24/2023 , Expires: 02/23/2024 Start: 11-24-2023 End: 02-23-2024 Comprehensive metabolic 2000 panel - Serum or Plasma [facility] Comment on above: Expected: 11/24/2023 , Expires: 02/23/2024 Start: 11-24-2023 End: 02-23-2024 Lipid 1996 panel - Serum or Plasma [facility] Comment on above: Expected: 11/24/2023 , Expires: 02/23/2024 Start: 11-24-2023 End: 11-24-2023 Patient encounter procedure 11/24/2023 8:00 AM EDT Office Visit [facility] [address] [place] [address] Teo Sagastume MD [address] [place] [address] MEDICARE WELLNESS Z00.00 [facility] Comment on above: MEDICARE WELLNESS Z0 0.00 Start: 08-08-2023 DIABETES SCREEN DIABETES SCREEN [facility] Start: 06-02-2023 SERUM CREATININE SERUM CREATININE Cl [facility] Start: 05-03-2023 Advance Directive Discussion Advance Directive Discussion [facility] Start: 05-03-2023 Behavioral Health Screening Behavioral Health Screening [facility] Start: 01-19-2023 SHINGRIX VACCINE (2 of 2) SHINGRIX VACCINE (2 of 2) [facility] Start: 01-01-2023 Covid-19 Vaccine ( season) Covid-19 Vaccine ( season) [facility] Start: 01-01-2023 Influenza vaccination C [facility] Start: 12-31-2022 BP CONTROLLED (<130/80) BP CONTROLLE D (<130/80) [facility] Start: 10-17-2022 ANNUAL PCP TEAM SHEET METAL ASSEMBLER CUONG DISEASE VISIT ANNUAL PCP TEAM CHRONIC DISEASE VISIT [facility] Start: 10-17-2022 BP CONTROLLED (<130/80) BP CONTROLLE D (<130/80) [facility] Start: 05-03-2022 ADVANCE DIRECTIVE DISCUSSION ADVANCE DIRECTIVE DISCUSSION [facility] Start: 05-03-2022 DEPRESSION ASSESSMENT DEPRESSION ASS ESSMENT [facility] Start: 03-14-2022 COVID-19 VACCINE (6 - Booster for Moderna series) COVID-19 VACCINE (6 - Booster for Moderna series) [facility] Start: 01-01-2022 Influenza vaccination INFLUENZA (#1) [facility] Start: 10-17-2021 End: 10-17-2022 CBC W Auto Differential panel - Blood CBC + DIFF Lab Routine Essential hypertension Expected: 10/17/2021, Expires: 10/17/2022 [facility] Work Phone: Comment on above: Expected: 10/17/2021 , Expires: 10/17/2022 Start: 10-17-2021 End: 10-17-2022 Comprehensive metabolic 2000 panel - Serum or Plasma COMP METABOLIC PANEL Lab Routine Essential hypertension Expected: 10/17/2021, Expires: 10/17/2022 [facility] Work Phone: Comment on above: Expected: 10/17/2021 , Expires: 10/17/2022 Start: 10-17-2021 End: 12-17-2021 Hemoglobin A1c in Blood HGB A1C Lab Routine Hyperglycemia Expected: 10/17/2021, Expires: 12/17/2021 [facility] Work Phone: Comment on above: Expected: 10/17/2021 , Expires: 12/17/2021 Start: 10-17-2021 End: 10-17-2022 Lipid 1996 panel - Serum or Plasma LIPID PANEL BASIC Lab Routine Essential hypertension Expected: 10/17/2021, Expires: 10/17/2022 [facility] Work Phone: Comment on above: Expected: 10/17/2021 , Expires: 10/17/2022 Start: 09-14-2021 HEMOGLOBIN/HEMATOCRIT HEMOGLOBIN/HEM ATOCRIT [facility] Start: 09-10-2021 Mammography MAMMOGRAM [facility] Start: 08-07-2021 SERUM CREATININE SERUM CREATININE Cl [facility] Start: 07-18-2021 Adult depression screening assessment DEPRESSION SCREENING [facility] Start: 05-03-2021 ADVANCE DIRECTIVE DISCUSSION ADVANCE DIRECTIVE DISCUSSION [facility] Start: 10-13-2017 Urine microalbumin profile [facility] Start: 09-21-2011 PNEUMOCOCCAL: 65+ (1 - PCV) PNEUMOCOCCAL: 65+ (1 - PCV) [facility] Start: 2006 RSV Vaccine (1 - 1-d ose 60+ series) RSV Vaccine (1 - 1-dose 60+ series) [facility] Start: 1996 SHINGRIX VACCINE (1 of 2) SHINGRIX VACCINE (1 of 2) [facility] Start: 09-21-1991 COLOGUARD (FIT-DNA) COLOGUARD (FIT-D NA) [facility] Start: 09-21-[address] [facility] Start: 09-21-1991 FECAL OCCULT BLOOD FECAL OCCULT BLOO D [facility] Start: 09-21-1991 [facility]OSCOPY [facility] Start: 1964 BP Controlled (<130/80) BP Controlle d (<130/80) [facility] Start: 1964 Depression Screening Depression Scre ening [facility] BACTERIAL VAGINOSIS AMPLIFICATION BACTERIAL VAGINOSIS AMPLIFICATION Lab Routine Vaginal burning Ordered: 12/31/2021 [facility] Work Phone: Comment on above: Ordered: 12/31/2021 C reactive protein [Mass/volume] in Serum or Plasma [facility] LOLI / TRICHOMONA S AMPLIFICATION LOLI / TRICHOMONAS AMPLIFICATION Microbiology Routine Vaginal burning Ordered: 12/31/2021 [facility] Work Phone: Comment on above: Ordered: 12/31/2021 CBC W Auto Different ial panel - Blood [facility] Celiac disease screen [facility] Clostridioides diffi cile DNA [Presence] in Unspecified specimen by BRIANNA with probe detection [facility] Comprehensive metabo lic 2000 panel - Serum or Plasma [facility] End: 07-29-2025 DBT Breast - bilateral screening RADHA SCREENING W [facility] Radiology Routine Encounter for screening mammogram for malignant neoplasm of breast 1 Occurrences starting 06/29/2024 until 07/29/2025 [facility] Work Phone: Comment on above: 1 Occurrences starti ng 06/29/2024 until 07/29/2025 Elastase.pancreatic [Presence] in Stool [facility] Erythrocyte sedimentation rate [facility] Giardia lamblia Ag [Presence] in Stool by Immunoassay [facility] Immunoglobulin measurement [facility] Lactate dehydrogenas e measurement [facility] Lactoferrin [Presenc e] in Stool by Immunoassay [facility] Nucleic acid assay [facility] Protein measurement [facility] End: 11-14-2022 Screening mammography bi 2-view breast inc cad RADHA SCREENING Radiology Routine Encounter for screening mammogram for breast cancer 1 Occurrences starting 10/15/2021 until 11/14/2022 [facility] Work Phone: Comment on above: 1 Occurrences starti ng 10/15/2021 until 11/14/2022 Thyroid stimulating hormone measurement [facility] Tissue Pathology bio psy report SURGICAL PATHOLOGY Lab Routine Neoplasm of uncertain behavior of skin 07/28/2024 11:44 AM EDT [facility] Work Phone: [facility] Immunizations Immunization Date Immunization Notes Care Provider Raheem higuera 02-10-2023 zoster vaccine recombinant Chrissy Rivera MA [facility] 12-18-2022 pneumococcal (PCV20) vaccine, 20 valent (PREVNAR 20) Teo Sagastume MD Work Phone: [facility] 11-24-2022 zoster vaccine recombinant Teo Sagastume MD Work Phone: [facility] 03-17-2022 influenza (HD-IIV4) vaccine, age 65+ yr, high dose, quadrivalent, PF (FLUZONE HIGH-DOSE) Teo Sagastume MD Work Phone: [facility] 03-17-2022 influenza virus vacc ine, unspecified formulation Elba Coughlin MA [facility] 03-16-2022 influenza, high dose seasonal, preservative-free Teo Sagastume MD Work Phone: [facility] 01-17-2022 COVID-19 original vaccine, age 12+ yr, monovalent (Colibria-BIONTECH - KEY TOP) Teo Sagastume MD Work Phone: [facility] 01-17-2022 COVID-19 vaccine, ag e 12+ yr, bivalent (Colibria-BIONTECH) Teo Sagastume MD Work Phone: [facility] 09-18-2021 COVID-19 vaccine, booster dose (MODERNA) Teo Sagastume MD Work Phone: [facility] 04-18-2021 influenza, high-dose , quadrivalent vaccine (FLUZONE HIGH DOSE QUADRIVALENT) Teo Sagastume MD Work Phone: [facility] 07-25-2020 COVID-19 vaccine, fu ll dose (MODERNA) Teo Sagastume MD Work Phone: [facility] 06-27-2020 COVID-19 vaccine, fu ll dose (MODERNA) Teo Sagastume MD Work Phone: [facility] 02-19-2020 Influenza, injectabl e, Madin [place] Canine Kidney, preservative free, quadrivalent Teo Sagastume MD Work Phone: [facility] 10-12-2017 tetanus and diphther ia toxoids, adsorbed, preservative free, for adult use (5 Lf of tetanus toxoid and 2 Lf of diphtheria toxoid) Teo Sagastume MD Work Phone: [facility] 10-12-2017 yellow fever vaccine Teo Sagastume MD Work Phone: [facility] Payers Date Payer Category Payer Self-pay [id number] 2024 Medicare (Managed Care) MMO MEDADVANTAGE HMO [id number] 2024 Unknown [id number] 2022 Medicare [id number] 2011 Medicare MEDICARE MEDICAR E A AND B [id number] 2011-Present [phone] [address] [address] [place] [address] Medicare [id number] 2011 Medicare [id number] 1997 Unknown MMO MMO TRADITIO NAL [id number] 1997-Present [phone] [address] [place] [address] Indemnity [id number] 1997 Unknown [id number] Medicare [id number] Unknown [id number] Unknown [id number] Social History Date Type Detail Facility Start: 07-08-2021 End: 06-02-2022 Tobacco smoking status MTIS Unknown if ever smoked [facility] Start: 07-25-2020 None [facility] Start: 07-25-2020 Spouse/ Significant Other [facility] Start: 1945 Sex Assigned At Female [facility] Start: 05-03-2017 End: 06-01-2023 Tobacco smoking status NHIS Ex-smoker [facility] Start: 04-18-2021 End: 07-04-2024 Alcohol intake Current drinker of alcohol (finding) [facility] Start: 07-18-2020 History SDOH Alcohol Frequency 5 [facility] Start: 07-18-2020 History SDOH Alcohol Std Drinks 1 [facility] Start: 07-18-2020 History SDOH Social Connections Membership 2 [facility] Start: 07-18-2020 History SDOH Social Connections Living 3 [facility] Start: 07-18-2020 History SDOH Physical Activity DPW 7 [facility] Start: 07-18-2020 History SDOH Physical Activity MPS 4 [facility] Start: 07-18-2020 Education 18 [facility] Start: 1945 Sex Assigned At Not on file [facility] Start: 10-07-2021 End: 12-08-2021 Exposure to SARS-CoV-2 (event) Not sure [facility] History of tobacco use Current smoker [facility] Start: 05-03-2017 End: 12-31-2021 Tobacco use and exposure Smokeless tobacco non-user [facility] Start: 12-31-2021 Tobacco Comment 35 YRS AGO, QUIT [facility] Start: 07-18-2020 End: 12-18-2022 History of Social function [facility] Start: 07-18-2020 End: 12-18-2022 Social connection and isolation panel [facility] Do you belong to any clubs or organizations such as nondenominational groups, unions, fraternal or athletic groups, or school groups? No [facility] Are you now , , , , never or living with a partner? [facility] How often to you hav e a drink containing alcohol? 4 or more times a week [facility] How many standard dr inks containing alcohol do you have on a typical day? 1 or 2 [facility] How often do you hav e 6 or more drinks on 1 occasion? Never [facility] How hard is it for y ou to pay for the very basics like food, housing, medical care, and heating Not hard at all [facility] Do you feel stress - tense, restless, nervous, or anxious, or unable to sleep at night because your mind is troubled all the time - these days [OSQ] Rather much [facility] (I/We) worried whe er (my/our) food would run out before (I/we) got money to buy more. Never true [facility] Clinical Notes 10-17-2021 to 09-12-2024 Gerard Kate RN - 09/12/2024 1:38 PM EDTTelephone Encounter - Kerrie Bolaños RN - 08/22/2024 11:08 AM EDTTelephone Encounter - Kerrie Bolaños RN - 08/22/2024 11:08 AM EDT Note Date & Type Note Facility 09-12-2024 Note HNO ID: [id number] Author: GERARD KATE RN Service: ? Author Type: Registered Nurse Type: Progress Notes Filed: 09/12/2024 13:41 Note Text: Value Based Care Coordination Chart Review Provider Action / FYI: Upon review of patient chart, the patient is excluded from Chronic Disease Management Patient is not a candidate for CDM at this time and placed in the following status: Declined Action taken: No action needed . Gerard Kate RN September 12, 2024 1:[address] [facility] 09-12-2024 History of Presen t illness Narrative Value Based Care Coordination Chart Review Provider Action / FYI: Upon review of patient chart, the patient is excluded from Chronic Disease Management Patient is not a candidate for CDM at this time and placed in the following status: Declined Action taken: No action needed . Gerard Kate RN September 12, 2024 1:38 PM documented in this encounter [facility] 09-12-2024 Note Patient Outreach (AM [facility]) JENNIFER VASQUEZ ([id number]) 1945 F Date Time Provider Department 09/12/24 GERARD KATE During your visit today, we recorded the following information about you: Gerard Kate RN 09/12/2024 1:41 PM Signed Value Based Care Coordination Chart Review Provider Action / FYI: Upon review of patient chart, the patient is excluded from Chronic Disease Management Patient is not a candidate for CDM at this time and placed in the following status: Declined Action taken: No action needed . 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 - amLODIPine (NORVASC) 5 mg tablet Take 1 tablet by mouth once daily. - lisinopril (ZESTRIL) 20 mg tablet Take 1 tablet by mouth once daily. Problem List As Of Date 09/12/2024 Noted Resolved Hyperglycemia [R73.9] 01/10/2019 Hyperlipidemia, mixed [E78.2] 01/10/2019 Essential hypertension [I10] 01/10/2019 Stage 3 chronic kidney disease (HCC) [N18.30] 10/16/2020 Anxiety [F41.9] 10/16/2020 Chest pain [R07.9] 12/18/2022 12/18/2022 Diagnosed: 12/18/2022 Diarrhea [R19.7] 08/19/2021 12/18/2022 Diagnosed: 12/18/2022 Paroxysmal supraventricular tachycardia (HCC) [*06/25/2022 Diagnosed: 12/18/2022 Colitis [K52.9] 12/18/2022 Encounter Status:Closed by GERARD KATE on 09/12/[address] [facility] 09-11-2024 Note Patient Outreach (AM [facility]) JENNIFER VASQUEZ ([id number]) 1945 F Date Time Provider Department 09/11/24 KORI KIMBALL During your visit today, we recorded the following information about you: Allergies As of Date: 09/11/2024 Noted Allergy Reaction PENICILLINS 08/19/2005 POISON VICENTA 08/20/2005 2 - Rash Date Reviewed: 07/28/2024 Reviewed by: Gabby Dailey LPN - Fully Assessed Prescriptions as of 09/11/2024 - Fluorouracil (EFUDEX) 5 % cream Apply to nose twice daily for 2 weeks - vitamin B complex (B COMPLEX ORAL) Take by mouth. - amLODIPine (NORVASC) 5 mg tablet Take 1 tablet by mouth once daily. - lisinopril (ZESTRIL) 20 mg tablet Take 1 tablet by mouth once daily. Problem List As Of Date 09/11/2024 Noted Resolved Hyperglycemia [R73.9] 01/10/2019 Hyperlipidemia, mixed [E78.2] 01/10/2019 Essential hypertension [I10] 01/10/2019 Stage 3 chronic kidney disease (HCC) [N18.30] 10/16/2020 Anxiety [F41.9] 10/16/2020 Chest pain [R07.9] 12/18/2022 12/18/2022 Diagnosed: 12/18/2022 Diarrhea [R19.7] 08/19/2021 12/18/2022 Diagnosed: 12/18/2022 Paroxysmal supraventricular tachycardia (HCC) [*06/25/2022 Diagnosed: 12/18/2022 Colitis [K52.9] 12/18/2022 Encounter Status:Closed by KORI KIMBALL on 09/11/[address] [facility] 08-22-2024 Telephone encounter Note Called and spoke with patient. She has used the cream for 3 weeks before stopping. Advised patient to just apply Vaseline or Aquaphor to area until healed and not to pick at any scabs. Patient verbalizes understanding and has no further questions. Kerrie Bolaños RN [facility] 08-22-2024 Miscellaneous Notes Called and spoke with patient. She has used the cream for 3 weeks before stopping. Advised patient to just apply Vaseline or Aquaphor to area until healed and not to pick at any scabs. Patient verbalizes understanding and has no further questions. Kerrie Bolaños RN Pts done with applying efudex cream to her nose the area is scabby pt asking how to care for it now documented in this encounter [facility] 08-22-2024 Telephone encounter Note Pts done with applying efudex cream to her nose the area is scabby pt asking how to care for it now [facility] 07-28-2024 Hannah Mckeon APRN.GORDO - 07/28/2024 11:44 AM EDT Images from the original note were not included. Efudex (5-Fluorouracil) Cream General Information Efudex is used as treatment to selectively destroy pre-cancerous lesions (sun-damaged cells) in the skin while retaining the normal healthy skin cells. Efudex will cause inflammation in the skin. This can include redness, soreness, oozing, crusting and scabs. After completion of treatment, this type of reaction should resolve over a few weeks. If you have severe sun-damage, additional courses of treatment may be required in the future. Efudex Application Instructions: 1) Cleanse affected area with gentle cleanser (Neutrogena or Cetaphil) 2) Dry with a clean towel 3) Apply a thin layer of Efudex cream to the entire treatment area of nose 4) Wash hands thoroughly after application 5) After 20 minutes, you may apply moisturizers and/or make up as part of your usual skin routine Repeat this twice daily (Morning and at Night) for 2-4 weeks, as tolerated. Helpful Tips: You may discontinue use of the medication for a day or two off if the area becomes too painful. Once the skin settles, pelase continue twice daily application in order to complete the course of treatment. You may use Vaseline/Aquaphor as needed during the day for sores or scaly skin. Efudex makes your skin more sensitive to the sun and may cause a blistering, painful reaction if it becomes exposed to sun. AVOID SUN EXPOSURE on the treated areas by limiting sun exposure, wearing protective clothing, and frequent use of sunscreens. If you experience a severe reaction, there is a risk of prolonged inflammation and delayed healing. There is also a small risk of changes in skin pigmentation and scarring. If you have concerns about the severity of the treatment site reaction or if you are unsure if you should continue treatment, please contact the office at [phone]. Care of Dry Skin -Avoid long hot showers and baths -Avoid scrubbing at the skin with a brush or washcloth -Use Dove unscented bar soap to wash -Do not aggressively dry the skin with a towel -Do not use any exfoliating products on the skin -After bathing apply unscented emollient cream while still damp -Apply moisturizing cream twice daily -Avoid products with fragrance -Sleep with a humidifier -Keep nails cut short -Use laundry detergent for sensitive skin and unscented fabric softener (All Free and Clear) -Recommended products: Aveeno, Cetaphil, CeraVe, VaniCream, Eucerin, Neutrogena Other recommendations: -Bathe daily with a mild cleanser such as Dove sensitive skin, Cerave or Cetaphil, Eucerin Calming Body wash -Wash with lukewarm water. Avoid hot or cold water. Reduce bathing time to 5-10 minutes. Avoid washcloths, sponges, brushes. -Within minutes after bathing pat skin with towel (so it is only partially dry), apply a moisturizer from head to toe, liberally. Thick creams and ointments are better than lotions. Good choices include Cerave, Cetaphil, Eucerin Eczema Care, plain Vaseline and Aquaphor. Apply twice daily or as needed for dryness. -Avoid cleansers, lotions, laundry detergent and other products containing fragrance. Look for products which are hypoallergenic, for sensitive skin, and fragrance free -A humidifier may help moisten dry skin documented in this encounter [facility] 07-28-2024 Note HNO ID: [id number] Author: HANNAH LAZARO APRN.CNP Service: ? Author Type: Nurse Practitioner Type: Progress Notes Filed: 07/28/2024 12:23 Note Text: NEW PATIENT Chief Complaint: full body skin check History of Present Ilness: Jennifer Vasquez is a 78 year old female presents today for a full body skin check Location: nose Duration: months Symptoms: dry Inciting factors: none Current treatment: none Previous treatment: none No other concerns today /planning or : no Pertinent Past Medical History: -Personal history of skin cancer: No -Personal history of skin disease: No -History of organ transplant/immunosuppressed: No -History of atypical moles: No -Pacemaker or defibrillator: No Specialty Problems None Pertinent Family medical history: History of melanoma: No Review of Systems: Constitutional: Denies fever, chills, night sweats, unintentional weight loss. Skin per HPI. No other new/concerning skin growth. Physical Exam: General: well appearing, of stated age, in no acute distress Neurology: alert and oriented times three Psychiatry: normal affect and speech Hester skin type: II A skin exam was done of the scalp, face including eyelids and lips, ears, neck, chest, back, abdomen, bilateral upper extremities including digits, bilateral lower extremities and digits, buttocks, nails, except genitals Skin exam normal with the exception of: Scaling of the extremities [employer] scaly papules of the nose Few scattered brown stuck on papules and plaques on the head, trunk and extremities Regular and symmetric brown macules and papules on the head, trunk and extremities Scattered reticulated light richardson macules in sun distribution Scattered small lovett red papules throughout 0.2 x 0.2 CM brown irregular macule of the left 3rd toe Assessment and Plan: 1. Skin Neoplasm- UNIVERSAL PROTOCOL / SAFETY CHECKLIST Procedure to be Performed: Shave biopsy of lesion Sign In: A Moment of CARE was completed. Personnel directly involved with the procedure wore the appropriate PPE (Personal Protective Equipment). Patient/Surrogate Stated/Verified: PATIENT VERIFIED(optional for EMERGENT procedures): Patient name, Date of , Relevant allergies, and The intended procedure Time Out Communication: Intended patient and procedure match the source documents. Consent documented and matches the intended procedure. Sign Out: SIGN OUT (optional for EMERGENT procedures): All specimen containers correctly labeled. Post-procedure follow-up management communicated and Plan of Care Visit completed when applicable. Photo taken: Yes SHAVE BIOPSY OF LESION TO ESTABLISH AND CONFIRM DIAGNOSIS: Site: left 3rd toe Rule out: ATN Risks, benefits, alternatives and personnel required for shave biopsy reviewed with patient. Patient and provider agree as to site(s) to be biopsied. Patient verbalizes understanding and wishes to proceed.Site(s) prepped with alcohol and anesthetized with 1% lidocaine with epinephrine. Shave biopsy of lesion(s) performed to the level of the dermis/epidermis The following was sent for histologic evaluation: EBL: scant Hemostasis with aluminum chloride and direct pressure, and a bandage is applied Written and verbal wound care instructions provided to patient, understanding verbalized. 2. Lovett angiomas Reassurance on benign nature of lesions and recommend routine self-examinations. Recommend observation and encouraged to notify office of changes. 3. Solar lentigines, Multiple benign nevi, Seborrheic Keratoses, Reassurance on benign nature of lesions and recommend routine self-examinations. Recommend observation and encouraged to notify office of changes. 4. Actinic keratoses - Premalignant nature and relationship to sun exposure were discussed with the patient - Discussed the chronicity of actinic keratoses Efudex: - Apply efudex 5% twice per day for 2 weeks to the nose. Advised to stop if/when when open sores develop. - Patient aware to expect redness, irritation, crusting, oozing, and an open sore to develop. Will call if severe pain or other symptoms occur. - Patient will return to clinic in 3 months for re-evaluation of the sites. - Recommend sun protection with spf 30 or higher, sun protective clothing such as wide brimmed hats and long sleeves. Recommend avoiding midday sun (10 am- 3 pm). 5. Xerosis cutis - Recommend liberal use of emollients (Aquaphor, Hydrolatum, Vaseline, Eucerin) multiple times throughout the day. - Recommend a mild soap and avoidance of antibacterial soaps, which may be too irritating. - Recommend lukewarm showers, 5 minutes or less. - The patient should also use fragrance-free, color-free laundry detergents and avoid dryer sheets, which can be irritating. Sunscreen (SPF 30 or higher). Sun protective clothing can be used in lieu of sunscreen but must (more content not included)... [facility] 07-28-2024 History of Presen t illness Narrative NEW PATIENT Chief Complaint: full body skin check History of Present Ilness: Jennifer Vasquez is a 78 year old female presents today for a full body skin check Location: nose Duration: months Symptoms: dry Inciting factors: none Current treatment: none Previous treatment: none No other concerns today /planning or : no Pertinent Past Medical History: -Personal history of skin cancer: No -Personal history of skin disease: No -History of organ transplant/immunosuppressed: No -History of atypical moles: No -Pacemaker or defibrillator: No Specialty Problems None Pertinent Family medical history: History of melanoma: No Review of Systems: Constitutional: Denies fever, chills, night sweats, unintentional weight loss. Skin per HPI. No other new/concerning skin growth. Physical Exam: General: well appearing, of stated age, in no acute distress Neurology: alert and oriented times three Psychiatry: normal affect and speech Hester skin type: II A skin exam was done of the scalp, face including eyelids and lips, ears, neck, chest, back, abdomen, bilateral upper extremities including digits, bilateral lower extremities and digits, buttocks, nails, except genitals Skin exam normal with the exception of: Scaling of the extremities [employer] scaly papules of the nose Few scattered brown stuck on papules and plaques on the head, trunk and extremities Regular and symmetric brown macules and papules on the head, trunk and extremities Scattered reticulated light rihcardson macules in sun distribution Scattered small lovett red papules throughout 0.2 x 0.2 CM brown irregular macule of the left 3rd toe Assessment and Plan: 1. Skin Neoplasm- UNIVERSAL PROTOCOL / SAFETY CHECKLIST Procedure to be Performed: Shave biopsy of lesion Sign In: A Moment of CARE was completed. Personnel directly involved with the procedure wore the appropriate PPE (Personal Protective Equipment). Patient/Surrogate Stated/Verified: PATIENT VERIFIED(optional for EMERGENT procedures): Patient name, Date of , Relevant allergies, and The intended procedure Time Out Communication: Intended patient and procedure match the source documents. Consent documented and matches the intended procedure. Sign Out: SIGN OUT (optional for EMERGENT procedures): All specimen containers correctly labeled. Post-procedure follow-up management communicated and Plan of Care Visit completed when applicable. Photo taken: Yes SHAVE BIOPSY OF LESION TO ESTABLISH AND CONFIRM DIAGNOSIS: Site: left 3rd toe Rule out: ATN Risks, benefits, alternatives and personnel required for shave biopsy reviewed with patient. Patient and provider agree as to site(s) to be biopsied. Patient verbalizes understanding and wishes to proceed.Site(s) prepped with alcohol and anesthetized with 1% lidocaine with epinephrine. Shave biopsy of lesion(s) performed to the level of the dermis/epidermis The following was sent for histologic evaluation: EBL: scant Hemostasis with aluminum chloride and direct pressure, and a bandage is applied Written and verbal wound care instructions provided to patient, understanding verbalized. 2. Lovett angiomas Reassurance on benign nature of lesions and recommend routine self-examinations. Recommend observation and encouraged to notify office of changes. 3. Solar lentigines, Multiple benign nevi, Seborrheic Keratoses, Reassurance on benign nature of lesions and recommend routine self-examinations. Recommend observation and encouraged to notify office of changes. 4. Actinic keratoses - Premalignant nature and relationship to sun exposure were discussed with the patient - Discussed the chronicity of actinic keratoses Efudex: - Apply efudex 5% twice per day for 2 weeks to the nose. Advised to stop if/when when open sores develop. - Patient aware to expect redness, irritation, crusting, oozing, and an open sore to develop. Will call if severe pain or other symptoms occur. - Patient will return to clinic in 3 months for re-evaluation of the sites. - Recommend sun protection with spf 30 or higher, sun protective clothing such as wide brimmed hats and long sleeves. Recommend avoiding midday sun (10 am- 3 pm). 5. Xerosis cutis - Recommend liberal use of emollients (Aquaphor, Hydrolatum, Vaseline, Eucerin) multiple times throughout the day. - Recommend a mild soap and avoidance of antibacterial soaps, which may be too irritating. - Recommend lukewarm showers, 5 minutes or less. - The patient should also use fragrance-free, color-free laundry detergents and avoid dryer sheets, which can be irritating. Sunscreen (SPF 30 or higher). Sun protective clothing can be used in lieu of sunscreen but must be worn the entire time you are exposed to the sun's rays The ABCDEs of melanoma were reviewed with the patient and the importance of routine self-examination of moles was emphasized. Should any areas change in size, shape or color, bleed or become tender, the patient will contact the office for evaluation sooner than their interval appointment. Patient verbalizes understanding and agrees with treatment plan. Follow up: 3 months or sooner if something concerning arises. The documentation for this note was completed by Gabby Dailey LPN acting as scribe for Hannah Lazaro APRN.CNP. July 28, 2024 11:17 AM. Gabby Dailey LPN I agree with the Chief Complaint, ROS, and Past Histories independently gathered by the clinical office support associate and the remaining scribed note accurately describes my personal service to the patient. Hannah Lazaro APRN.CNP documented in this encounter [facility] 07-25-2024 Evaluation note Diagnosis Onset Date Resolution Essential (primary) hypertension chronic July 25, 2024 8:50am Hyperlipidemia chronic July 8:50am Paroxysmal SVT (supraventricular tachycardia) chronic July 25, 2024 8:50am Diarrhea acute October 16 8:27am Rectal urgency acute October 16, 2024 8:27am Non-specific colitis noneactive October 16, 2024 8:27am [email or web address] Work Phone: [phone]) 133-229603-06-2025 History of Present illness Narrative* Trevin Gonzalez Mammo Tech - 07/06/2024 7:30 AM EST Radiology Service Progress Note PATIENT NAME: Jennifer Vasquez DATE OF SERVICE: July 06, 2024 TIME: 7:23 AM PATIENT IDENTITY VERIFICATION COMPLETED USING TWO (2) IDENTIFIERS: Name and Date of confirmedby patient verbally. FALL SCREENING: Has the patient had 2 falls in the last year or 1 fall with injury or currently using an Ambulatory Assistive Device (Walker, Cane, Wheelchair, Crutches, etc.)? No PATIENT GENDER DATA: Assigned female at . status: : No status:NO. PATIENT RELEVANT IMPLANT DATA REVIEWED: Not Applicable PATIENT PRESENTS WITH AN IMPLANTABLE OR ATTACHED MINER ASSISTANT: No RADIOLOGY DEPARTMENT: Mammography PERIPHERAL IV DATA: Not applicable SIGNED BY: Mere Rios July 06, 2024 7:23 AM documented in [facility]-2025 NoteHNO ID: [id number] Author: TREVIN GONZALEZ Mammo Tech Service: ? Author Type: Biotechnician Type: Progress Notes Filed: 07/06/2024 07:23 Note Text: Radiology Service Progress Note PATIENT NAME: Jennifer Vasquez DATE OF SERVICE: July 06, 2024 TIME: 7:23 AM PATIENT IDENTITY VERIFICATION COMPLETED USING TWO (2) IDENTIFIERS: Name and Date of confirmed by patient verbally. FALL SCREENING: Has the patient had 2 falls in the last year or 1 fall with injury or currently using an Ambulatory Assistive Device (Walker, Cane, Wheelchair, Crutches, etc.)? No PATIENT GENDER DATA: Assigned female at . status: : No status: NO. PATIENT RELEVANT IMPLANT DATA REVIEWED: Not Applicable PATIENT PRESENTS WITH AN IMPLANTABLE OR ATTACHED MINER ASSISTANT: No RADIOLOGY DEPARTMENT: Mammography PERIPHERAL IV DATA: Not applicable SIGNED BY: Trevin Gonzalez [employer] July 06, 2024 7:23 [facility]03-04-2025 Instructions* Patient Instructions* Anneliese An APRN.CNP - 07/04/2024 11:03 AM EST 1) No change in medications 2) Labs before next appt. documented in this [facility]-2025 NoteHNO ID: [id number] Author: ANNELIESE AN APRN.CNP Service: ? Author Type: Nurse Practitioner Type: Progress Notes Filed: 07/04/2024 11:06 Note Text: This is a 78 year old female who presents today with: Patient presents with: 6 Month Exam HISTORY OF PRESENT ILLNESS: Jennifer Vasquez is a 78 year old female. Patient presents with: 6 Month Exam Diarrhea with very fibrous foods. PAST MEDICAL HISTORY: PAST MEDICAL HISTORY Diagnosis Date C. difficile colitis 2018 resolved PMH - PAST MEDICAL HISTORY OF dermatitis PAST SURGICAL HISTORY Procedure Laterality Date LIG/TRNSXJ FLP TUBE ABDL/VAG APPR UNI/BI TONSILLECTOMY PRIMARY/SECONDARY ALLERGIES Penicillins and Poison Vicenta MEDICATIONS Current Outpatient Medications Medication Sig vitamin B complex (B COMPLEX ORAL) Take by mouth. amLODIPine (NORVASC) 5 mg tablet Take 5 mg by mouth once daily. lisinopril (ZESTRIL, PRINIVIL) 20 mg tablet Take 1 tablet by mouth once daily. sertraline (ZOLOFT) 50 mg tablet Every other day for one week and then stop. No current facility-administered medications for this visit. FAMILY HISTORY Problem Relation Age of Onset Heart Mother Heart Father Stroke Maternal Grandmother Stroke Maternal Grandfather Social History Tobacco Use Smoking status: Former Smokeless tobacco: Never Tobacco comments: 35 YRS AGO, QUIT Substance Use Topics Alcohol use: Yes Comment: occasionally Drug use: No REVIEW OF SYSTEMS GENERAL: + weight loss- not eating as much, no malaise- sleeping ok, no fevers/chills HEENT: Negative for frequent or significant headaches, No changes in hearing or vision. NECK: Negative for lumps, goiter, pain and significant neck swelling RESPIRATORY: Negative for cough, hemoptysis, wheezing, dyspnea or shortness of breath CARDIOVASCULAR: Negative for chest pain, + leg swelling left leg from lymphedema, no orthopnea, + palpitations with anxiety GI: No nausea, vomiting, + diarrhea/ no constipation. No hematochezia/melena. No heartburn or reflux symptoms. : No history of dysuria, frequency or incontinence MUSCULOSKELETAL: Negative for joint pain or swelling. SKIN: Negative for lesions, rash, and itching ENDOCRINE: Negative for cold or heat intolerance, polyuria, polydipsia and goiter NEURO: No history of headaches, syncope, paralysis, seizures or tremors MOOD: Negative for depression, anxiety, or suicidal ideation. 124/70 sitting, 120/60 standing EXAM: BP 130/78 Pulse 78 Temp 36.2 ?C (97.1 ?F) (Left Tympanic) Wt 61.7 kg (136 lb) SpO2 98% BMI 21.35 kg/m? PHYSICAL EXAM: Physical Exam Vitals reviewed. Constitutional: Appearance: Normal appearance. HENT: Head: Normocephalic. Cardiovascular: Rate and Rhythm: Normal rate and regular rhythm. Pulses: Normal pulses. Heart sounds: Normal heart sounds. Pulmonary: Effort: Pulmonary effort is normal. Breath sounds: Normal breath sounds. Abdominal: General: Bowel sounds are normal. Palpations: Abdomen is soft. Tenderness: There is no abdominal tenderness. There is no guarding or rebound. Musculoskeletal: Right lower leg: No edema. Left lower leg: Edema present. Comments: Left leg with lymphedema- very well maintained Skin: General: Skin is warm and dry. Neurological: Mental Status: She is alert and oriented to person, place, and time. Psychiatric: Mood and Affect: Mood normal. Behavior: Behavior normal. LABS: ASSESSMENT/PLAN: 1. Hypertension, essential - ICD9: 401.9, ICD10: I10 - Controlled - Recommend home blood pressure monitoring, to bring results to next visit - Encouraged sodium restriction, DASH or Mediterranean diet - Recommend regular aerobic exercise - AMLODIPINE 5 MG TABLET renewed - LISINOPRIL 20 MG TABLET renewed Discussed treatment plan and patient voices understanding. Patient's questions answered appropriately. Medications and potential side effects were discussed and patient voices understanding. Return to the office as scheduled or as needed for worsening/no improvement. Anneliese An APRN.[facility]PM[facility] History of Present illness Narrative* Anneliese An APRN.GORDO - 07/04/2024 10:40 AM EST This is a 78 year old female who presents today with: Patient presents with: 6 Month Exam HISTORY OF PRESENT ILLNESS: Jennifer Vasquez is a 78 year old female. Patient presents with: 6 Month Exam Diarrhea with very fibrous foods. PAST MEDICAL HISTORY: PAST MEDICAL HISTORY Diagnosis Date C. difficile colitis 2018 resolved PMH - PAST MEDICAL HISTORY OF dermatitis PAST SURGICAL HISTORY Procedure Laterality Date LIG/TRNSXJ FLP TUBE ABDL/VAG APPR UNI/BI TONSILLECTOMY PRIMARY/SECONDARY <AGE 12 ALLERGIES Penicillins and Poison Vicenta MEDICATIONS Current Outpatient Medications Medication Sig vitamin B complex (B COMPLEX ORAL) Take by mouth. amLODIPine (NORVASC) 5 mg tablet Take 5 mg by mouth once daily. lisinopril (ZESTRIL, PRINIVIL) 20 mg tablet Take 1 tablet by mouth once daily. sertraline (ZOLOFT) 50 mg tablet Every other day for one week and then stop. No current facility-administered medications for this visit. FAMILY HISTORY Problem Relation Age of Onset Heart Mother Heart Father Stroke Maternal Grandmother Stroke Maternal Grandfather Social History Tobacco Use Smoking status: Former Smokeless tobacco: Never Tobacco comments: 35 YRS AGO, QUIT Substance Use Topics Alcohol use: Yes Comment: occasionally Drug use: No REVIEW OF SYSTEMS GENERAL: + weight loss- not eating as much, no malaise- sleeping ok, no fevers/chills HEENT: Negative for frequent or significant headaches, No changes in hearing or vision. NECK: Negative for lumps, goiter, pain and significant neck swelling RESPIRATORY: Negative for cough, hemoptysis, wheezing, dyspnea or shortness of breath CARDIOVASCULAR: Negative for chest pain, + leg swelling left leg from lymphedema, no orthopnea, + palpitations with anxiety GI: No nausea, vomiting, + diarrhea/ no constipation. No hematochezia/melena. No heartburn or reflux symptoms. : No history of dysuria, frequency or incontinence MUSCULOSKELETAL: Negative for joint pain or swelling. SKIN: Negative for lesions, rash, and itching ENDOCRINE: Negative for cold or heat intolerance, polyuria, polydipsia and goiter NEURO: No history of headaches, syncope, paralysis, seizures or tremors MOOD: Negative for depression, anxiety, or suicidal ideation. 124/70 sitting, 120/60 standing EXAM: BP 130/78 Pulse 78 Temp 36.2 C (97.1 F) (Left Tympanic) Wt 61.7 kg (136 lb) SpO2 98% BMI 21.35 kg/m PHYSICAL EXAM: Physical Exam Vitals reviewed. Constitutional: Appearance: Normal appearance. HENT: Head: Normocephalic. Cardiovascular: Rate and Rhythm: Normal rate and regular rhythm. Pulses: Normal pulses. Heart sounds: Normal heart sounds. Pulmonary: Effort: Pulmonary effort is normal. Breath sounds: Normal breath sounds. Abdominal: General: Bowel sounds are normal. Palpations: Abdomen is soft. Tenderness: There is no abdominal tenderness. There is no guarding or rebound. Musculoskeletal: Right lower leg: No edema. Left lower leg: Edema present. Comments: Left leg with lymphedema- very well maintained Skin: General: Skin is warm and dry. Neurological: Mental Status: She is alert and oriented to person, place, and time. Psychiatric: Mood and Affect: Mood normal. Behavior: Behavior normal. LABS: ASSESSMENT/PLAN: 1. Hypertension, essential - ICD9: 401.9, ICD10: I10 - Controlled - Recommend home blood pressure monitoring, to bring results to next visit - Encouraged sodium restriction, DASH or Mediterranean diet - Recommend regular aerobic exercise - AMLODIPINE 5 MG TABLET renewed - LISINOPRIL 20 MG TABLET renewed Discussed treatment plan and patient voices understanding. Patient's questions answered appropriately. Medications and potential side effects were discussed and patient voices understanding. Return to the office as scheduled or as needed for worsening/no improvement. Anneliese An APRN.GORDO documented in [facility] encounter[facility]02-[facility]-2025 NoteHNO ID: [id number] Author: JOSH SEBASTIAN MA Service: ? Author Type: Telegraphic Typewriter Operator Chief Type: Progress Notes Filed: 06/29/2024 12:19 Note Text: POPULATION HEALTH NAVIGATION OUTREACH Action/FYI Patient is on [employer] High Risk list for below and needs appointment to address: DTaP,Tdap,Td Vaccine(1 - Tdap) Influenza Vaccine(1) Covid-19 Vaccine( season) Advance Directive Discussion Hemoglobin A1C (%) Date Value 08/07/2020 6.1 Patient due for: Medicare Annual Wellness Visit - last 10/2024 Follow up Appointment - Return in about 6 months (around 05/26/2024). Flu Vaccine MyChart Active: Yes Spoke to patient. Scheduled 07/04 with PCP for follow up Noted to address due care gaps AWV scheduled 01/2025 with PCP team. Noted upcoming appointment to address due care gaps. Patient requested mammogram, Scheduled 07/06/24 at [place]. Patient under new insurance for 2024 Reason for Outreach Care Gap/HCC or Scheduling Wellness Visits Care Gaps due: Medicare Annual Wellness Visit Follow-up Appointment Flu Vaccine Patient Contacted: Spoke to patient/parent/or legal guardian Patient identified by name and : Yes Care Gap/HCC/Scheduling Wellness actions taken: Patient scheduled/pended orders: Medicare Annual Wellness Visit Follow-up Appointment Breast Cancer Screening 07/04/2024 in [facility] with ANNELIESE AN - Return in about 6 months (around 05/26/2024) 07/06/2024 in [facility] with SCREEN M[facility]MO [facility] - Encounter for screening mammogram for malignant neoplasm of breast [Z12.31] 07/28/2024 in [facility] with HANNAH LAZARO G - fbsc 01/04/2025 in [facility] with ANNELIESE AN - Annual Wellness, Please address due care gap Navigation Signature: Josh Sebastian MA June 29, 2024 11:00 [facility]02-27-2025 History of Present illness Narrative* Josh Sebastian MA - 06/29/2024 10:59 AM EST POPULATION HEALTH NAVIGATION OUTREACH Action/FYI Patient is on [employer] High Risk list for below and needs appointment to address: DTaP,Tdap,Td Vaccine(1 - Tdap) Influenza Vaccine(1) Covid-19 Vaccine( season) Advance Directive Discussion Hemoglobin A1C (%) Date Value 08/07/2020 6.1 Patient due for: Medicare Annual Wellness Visit - last 10/2024 Follow up Appointment - Return in about 6 months (around 05/26/2024). Flu Vaccine MyChart Active: Yes Spoke to patient. Scheduled 07/04 with PCP for follow up Noted to address due care gaps AWV scheduled 01/2025 with PCP team. Noted upcoming appointment to address due care gaps. Patient requested mammogram, Scheduled 07/06/24 at [place]. Patient under new insurance for 2024 Reason for Outreach Care Gap/HCC or Scheduling Wellness Visits Care Gaps due: Medicare Annual Wellness Visit Follow-up Appointment Flu Vaccine Patient Contacted: Spoke to patient/parent/or legal guardian Patient identified by name and : Yes Care Gap/HCC/Scheduling Wellness actions taken: Patient scheduled/pended orders: Medicare Annual Wellness Visit Follow-up Appointment Breast Cancer Screening 07/04/2024 in [facility] with ANNELIESE AN - Return in about 6 months (around 05/26/2024) 07/06/2024 in [facility] with SCREEN MAMMO [facility] - Encounter for screening mammogram formalignant neoplasm of breast [Z12.31] 07/28/2024 in [facility] [place] [facility] [place] [facility] with ANNELIESE AN - Annual Wellness, Please address due care gap Navigation Signature: Josh Sebastian MA June 29, 2024 11:00 AM documented in this encounterMer[facility]02-[facility] NotePatient Outreach (NETNAV) JENNIFER VASQUEZ ([id number]) 1945 F Date Time Provider Department 06/29/24 JOSH SEBASTIAN During your visit today, we recorded the following information about you: Josh Sebastian MA 06/29/2024 12:19 PM Signed POPULATION HEALTH NAVIGATION OUTREACH Action/FYI Patient is on [employer] High Risk list for below and needs appointment to address: DTaP,Tdap,Td Vaccine(1 - Tdap) Influenza Vaccine(1) Covid-19 Vaccine( season) Advance Directive Discussion Hemoglobin A1C (%) Date Value 08/07/2020 6.1 Patient due for: Medicare Annual Wellness Visit - last 10/2024 Follow up Appointment - Return in about 6 months (around 05/26/2024). Flu Vaccine MyChart Active: Yes Spoke to patient. Scheduled 07/04 with PCP for follow up Noted to address due care gaps AWV scheduled 01/2025 with PCP team. Noted upcoming appointment to address due care gaps. Patient requested mammogram, Scheduled 07/06/24 at [place]. Patient under new insurance for 2024 Reason for Outreach Care Gap/HCC or Scheduling Wellness Visits Care Gaps due: Medicare Annual Wellness Visit Follow-up Appointment Flu Vaccine Patient Contacted: Spoke to patient/parent/or legal guardian Patient identified by name and : Yes Care Gap/HCC/Scheduling Wellness actions taken: Patient scheduled/pended orders: Medicare Annual Wellness Visit Follow-up Appointment Breast Cancer Screening 07/04/2024 in [facility] with ANNELIESE AN - Return in about 6 months (around 05/26/2024) 07/06/2024 in [facility] with SCREEN MAMMO [facility] - Encounter for screening mammogram for malignant neoplasm of breast [Z12.31] 07/28/2024 in [facility] [place] [facility] [place] [facility] with ANNELIESE AN - Annual Wellness, Please address due care gap Navigation Signature: Josh Sebastian MA June 29, 2024 11:00 AM Allergies As of Date: 06/29/2024 Noted Allergy Reaction PENICILLINS 08/19/2005 POISON VICENTA 08/20/2005 2 - Rash Date Reviewed: 11/24/2023 Reviewed by: Cecilia Walker LPN - Fully Assessed Reason for Visit: Population Health Navigation Outreach [3910] Cmt: Akiko High Risk - Attempt 1 Primary Visit Diagnosis:Encounter for screening mammogram for malignant neoplasm of breast [Z12.31] Order(s):RADHA SCREENING W [facility]ICA [[id number]] Order #: [id number] FUTURE Prescriptions as of 06/29/2024 - sertraline (ZOLOFT) 50 mg tablet Every other day for one week and then stop. - amLODIPine (NORVASC) 5 mg tablet Take 5 mg by mouth once daily. - lisinopril (ZESTRIL, PRINIVIL) 20 mg tablet Take 1 tablet by mouth once daily. Problem List As Of Date 06/29/2024 Noted Resolved Hyperglycemia [R73.9] 01/10/2019 Hyperlipidemia, mixed [E78.2] 01/10/2019 Essential hypertension [I10] 01/10/2019 Stage 3 chronic kidney disease (HCC) [N18.30] 10/16/2020 Anxiety [F41.9] 10/16/2020 Chest pain [R07.9] 12/18/2022 12/18/2022 Diagnosed: 12/18/2022 Diarrhea [R19.7] 08/19/2021 12/18/2022 Diagnosed: 12/18/2022 Paroxysmal supraventricular tachycardia (HCC) [*06/25/2022 Diagnosed: 12/18/2022 Colitis [K52.9] 12/18/2022 Encounter Status:Closed by JOSH SEBASTIAN on 06/29/24[facility]08-12-[facility]24 NoteHNO ID: [id number] Author: CHRISSY RIVERA MA Service: ? Author Type: Telegraphic Typewriter Operator Chief Type: Progress Notes Filed: 12/13/2023 10:21 Note Text: POPULATION HEALTH NAVIGATION OUTREACH Action/Bud Montano [place] Discuss/Due for: Follow Up Return in about 6 months (around 05/26/2024). HCC Score: .1963 Outcome: 1st attempt - Left Message 2nd attempt - MyChart message sent Reason for Outreach Care Gap/HCC or Scheduling Wellness Visits Care Gaps due: Follow-up Appointment Patient Contacted: Unable or unnecessary to reach patient: Left message MyChart message sent HCC related Navigation Signature: Chrissy Rivera MA December 13, 2023 8:04 [facility]08-12-2024 History of Present illness Narrative* Chrissy Rivera MA - 12/13/2023 8:03 AM EDT POPULATION HEALTH NAVIGATION OUTREACH Action/Bud Montano [place] Discuss/Due for: Follow Up Return in about 6 months (around 05/26/2024). HCC Score: .1963 Outcome: 1st attempt - Left Message 2nd attempt - MyChart message sent Reason for Outreach Care Gap/HCC or Scheduling Wellness Visits Care Gaps due: Follow-up Appointment Patient Contacted: Unable or unnecessary to reach patient: Left message MyChart message sent HCC related Navigation Signature: Chrissy Rivera MA December 13, 2023 8:04 AM documented in this encounterMercy [facility]08-12-2024 NotePatient Outreach (NETNAV) JENNIFER VASQUEZ ([id number]) 1945 F Date Time Provider Department 12/13/23 CHRISSY RIVERA NETNAV During your visit today, we recorded the following information about you: Chrissy Rivera MA 12/13/2023 10:21 AM Signed POPULATION HEALTH NAVIGATION OUTREACH Action/Bud Montano [place] Discuss/Due for: Follow Up Return in about 6 months (around 05/26/2024). HCC Score: .1963 Outcome: 1st attempt - Left Message 2nd attempt - MyChart message sent Reason for Outreach Care Gap/HCC or Scheduling Wellness Visits Care Gaps due: Follow-up Appointment Patient Contacted: Unable or unnecessary to reach patient: Left message MyChart message sent HCC related Navigation Signature: Chrissy Rivera MA December 13, 2023 8:04 AM Allergies As of Date: 12/13/2023 Noted Allergy Reaction PENICILLINS 08/19/2005 POISON VICENTA 08/20/2005 2 - Rash Date Reviewed: 11/24/2023 Reviewed by: Cecilia Walker LPN - Fully Assessed Reason for Visit: Population Health Navigation Outreach [3910] Cmt: Bud Wharton [place] Prescriptions as of 12/13/2023 - sertraline (ZOLOFT) 50 mg tablet Every other day for one week and then stop. - amLODIPine (NORVASC) 5 mg tablet Take 5 mg by mouth once daily. - lisinopril (ZESTRIL, PRINIVIL) 20 mg tablet Take 1 tablet by mouth once daily. Problem List As Of Date 12/13/2023 Noted Resolved Hyperglycemia [R73.9] 01/10/2019 Hyperlipidemia, mixed [E78.2] 01/10/2019 Essential hypertension [I10] 01/10/2019 Stage 3 chronic kidney disease (HCC) [N18.30] 10/16/2020 Anxiety [F41.9] 10/16/2020 Chest pain [R07.9] 12/18/2022 12/18/2022 Diarrhea [R19.7] 08/19/2021 12/18/2022 Paroxysmal supraventricular tachycardia (HCC) [*06/25/2022 Colitis [K52.9] 12/18/2022 Encounter Status:Closed by CHRISSY RIVERA on 12/13/23[facility] 11-25-[facility]23 Telephone encounter Note* Telephone Encounter - Aby Gonzalez LPN - 11/25/2023 9:37 AM EDT Patient notified of results, verbalizes understanding of instructions. Aby Gonzalez LPN [facility]07-25-[facility] Miscellaneous Notes* Telephone Encounter - Aby Gonzalez LPN - 11/25/2023 9:37 AM EDT Patient notified of results, verbalizes understanding of instructions. Aby Gonzalez LPN * Telephone Encounter - Teo Sagastume MD - 11/25/2023 8:17 AM EDT Let her know her kidney function is actually a little better. Her ldl or bad cholesterol is much higher. Based on new guidelines, the recommendation would be to consider a statin drug to lower heart disease and stroke risk. I don't think she wants meds but check if willing to consider. If not watch diet and will follow next time. documented in this encounterMer[facility]07-25-2024 Telephone encounter Note * Telephone Encounter - Teo Sagastume MD - 11/25/2023 8:17 AM EDT Let her know her kidney function is actually a little better. Her ldl or bad cholesterol is much higher. Based on new guidelines, the recommendation would be to consider a statin drug to lower heart disease and stroke risk. I don't think she wants meds but check if willing to consider. If not watch diet and will follow next time. [facility]-24-2024 NoteHNO ID: [id number] Author: TEO SAGASTUME MD Service: ? Author Type: Physician Type: Progress Notes Filed: 11/24/2023 08:42 Note Text: Jennifer Vasquez is a 78 year old female here for a Medicare wellness visit. Medicare Health Risk Assessment General Health Very good. Exercise: Minutes/Day 120 minutes. Exercise: Days/Week Mows grass, yoga, very active. Alcohol: Daily Use yes Alcohol: Drinks/Day 1 glass of wine. Alcohol: 6 or more drinks no Feel off balance no Concerns: Teeth/Dentures no Concerns: Sexual function three months ago. Troubled by feelings no Frequency: Eating healthy diet yes ADLs requiring help none Safety precautions in home/vehicle none Smoke, vape, chews tobacco no Difficulty hearing no Difficulty seeing no Current Providers Specialists: I have reviewed specialist-related care of the patient in the medical record. Outside specialists seen: eye , Dr Pulido-cardiology. Medical/Family history review Reviewed and updated problem list, medical/surgical/family/social history, medications, and allergies. Opioid use review Opioid Medications (last 90 days) No data to display Anxiety/Depression screening . Recommendation: no further intervention at this time Cognitive screening Mini Cog Score: 5 Cognitive screening reviewed and No further action needed (score 3-5). Functional Observation Was the patient's Timed Up AND Go test unsteady or ? 12 seconds? No Advance Care Planning Surrogate decision maker and/or advance care plan documented Children are her surrogates. REVIEW OF SYSTEMS GENERAL: No weight loss, malaise or fevers HEENT: Negative for frequent or significant headaches, No changes in hearing or vision, no nose bleeds or other nasal problems RESPIRATORY: Negative for cough, hemoptysis, wheezing, COPD, dyspnea or shortness of breath CARDIOVASCULAR: no chest pain, has chronic edema since young that is worse in humid and hot environments. GI: No nausea, vomiting, or diarrhea : No history of dysuria, frequency or incontinence BUTTON CUTTER: Negative for abnormal vaginal bleeding, abnormal vaginal discharge SKIN: Negative for lesions, rash, and itching HEMATOLOGY/LYMPHOLOGY: Negative for prolonged bleeding, bruising easily or swollen nodes NEURO: No history of headaches, syncope, paralysis, seizures or tremors Measurements BP 118/82 Pulse 67 Ht 5' 6.929 (1.70m) Wt 139 lb (63.1kg) SpO2 97% BMI 21.82 kg/(m2). PHYSICAL EXAM: GEN: pleasant, no acute distress, alert HEENT: PERRL, EOMI, MMM NECK: supple, no lymphadenopathy, no thyromegaly HEART: regular rate, regular rhythm, no murmurs LUNGS: clear to auscultation, no wheezes or crackles, no increased WOB ABD: soft, non-distended, no masses palpated, non-tender EXT: no clubbing, no cyanosis, no edema Vision Screening: Follows with optometry/ophthalmology Assessment/Plan Medicare annual wellness visit, subsequent (Z00.00) - Counseled on healthy diet and regular exercise - Personalized prevention plan provided Teo Sagastume [facility]07-24-2024 History of Present illness Narrative* Toe Sagastume MD - 11/24/2023 8:13 AM EDT Images from the original note were not included. Jennifer Vasquez is a 78 year old female here for a Medicare wellness visit. Medicare Health Risk Assessment General Health Very good. Exercise: Minutes/Day 120 minutes. Exercise: Days/Week Mows grass, yoga, very active. Alcohol: Daily Use yes Alcohol: Drinks/Day 1 glass of wine. Alcohol: 6 or more drinks no Feel off balance no Concerns: Teeth/Dentures no Concerns: Sexual function three months ago. Troubled by feelings no Frequency: Eating healthy diet yes ADLs requiring help none Safety precautions in home/vehicle none Smoke, vape, chews tobacco no Difficulty hearing no Difficulty seeing no Current Providers Specialists: I have reviewed specialist-related care of the patient in the medical record. Outside specialists seen: eye , Dr Pulido-cardiology. Medical/Family history review Reviewed and updated problem list, medical/surgical/family/social history, medications, and allergies. Opioid use review Opioid Medications (last 90 days) No data to display Anxiety/Depression screening . Recommendation: no further intervention at this time Cognitive screening Mini Cog Score: 5 Cognitive screening reviewed and No further action needed (score 3-5). Functional Observation Was the patient's Timed Up & Go test unsteady or ? 12 seconds? No Advance Care Planning Surrogate decision maker and/or advance care plan documented Children are her surrogates. REVIEW OF SYSTEMS GENERAL: No weight loss, malaise or fevers HEENT: Negative for frequent or significant headaches, No changes in hearing or vision, no nose bleeds or other nasal problems RESPIRATORY: Negative for cough, hemoptysis, wheezing, COPD, dyspnea or shortness of breath CARDIOVASCULAR: no chest pain, has chronic edema since young that is worse in humid and hot environments. GI: No nausea, vomiting, or diarrhea : No history of dysuria, frequency or incontinence BUTTON CUTTER: Negative for abnormal vaginal bleeding, abnormal vaginal discharge SKIN: Negative for lesions, rash, and itching HEMATOLOGY/LYMPHOLOGY: Negative for prolonged bleeding, bruising easily or swollen nodes NEURO: No history of headaches, syncope, paralysis, seizures or tremors Measurements BP 118/82 Pulse 67 Ht 5' 6.929 (1.70m) Wt 139 lb (63.1kg) SpO2 97% BMI 21.82 kg/(m^2). PHYSICAL EXAM: GEN: pleasant, no acute distress, alert HEENT: PERRL, EOMI, MMM NECK: supple, no lymphadenopathy, no thyromegaly HEART: regular rate, regular rhythm, no murmurs LUNGS: clear to auscultation, no wheezes or crackles, no increased WOB ABD: soft, non-distended, no masses palpated, non-tender EXT: no clubbing, no cyanosis, no edema Vision Screening: Follows with optometry/ophthalmology Assessment/Plan Medicare annual wellness visit, subsequent (Z00.) - Counseled on healthy diet and regular exercise - Personalized prevention plan provided Teo Sagastume MD [facility] NoteHNO ID: [id number] Author: CHRISSY RIVERA MA Service: ? Author Type: Telegraphic Typewriter Operator Chief Type: Progress Notes Filed: 11/10/2023 12:36 Note Text: POPULATION HEALTH NAVIGATION OUTREACH Action/Bud Montano [place] Discuss/Due for: Medicare Wellness HCC Score: .1963 Outcome: 1st attempt - Spoke to patient Scheduled Medicare Wellness Reason for Outreach Care Gap/HCC or Scheduling Wellness Visits Care Gaps due: Medicare Annual Wellness Visit Patient Contacted: Spoke to patient/parent/or legal guardian Patient identified by name and : Yes Care Gap/HCC/Scheduling Wellness actions taken: Patient scheduled/pended labs: Medicare Annual Wellness Visit 11/24/2023 in [facility] with TEO SAGASTUME - MEDICARE WELLNESS Z00., HCC GAP CLOSURE HCC related Navigation Signature: Chrissy Rivera MA November 10, 2023 8:59 [facility]07-10-2024 History of Present illness Narrative* Chrissy Rivera MA - 11/10/2023 8:58 AM EDT POPULATION HEALTH NAVIGATION OUTREACH Action/Bud Montano [place] Discuss/Due for: Medicare Wellness HCC Score: .1963 Outcome: 1st attempt - Spoke to patient Scheduled Medicare Wellness Reason for Outreach Care Gap/HCC or Scheduling Wellness Visits Care Gaps due: Medicare Annual Wellness Visit Patient Contacted: Spoke to patient/parent/or legal guardian Patient identified by name and : Yes Care Gap/HCC/Scheduling Wellness actions taken: Patient scheduled/pended labs: Medicare Annual Wellness Visit 11/24/2023 in [facility] with TEO SAGASTUME - MEDICARE WELLNESS Z00.00, HCC GAP CLOSURE HCC related Navigation Signature: Chrissy Rivera MA November 10, 2023 8:59 AM documented in this encounterMer[facility]07-10-2024 NotePatient Outreach (NETNAV) JENNIFER VASQUEZ ([id number]) 1945 F Date Time Provider Department 11/10/23 CHRISSY RIVERA During your visit today, we recorded the following information about you: Chrissy Rivera MA 11/10/2023 12:36 PM Signed POPULATION HEALTH NAVIGATION OUTREACH Action/Bud Montano [place] Discuss/Due for: Medicare Wellness HCC Score: .1963 Outcome: 1st attempt - Spoke to patient Scheduled Medicare Wellness Reason for Outreach Care Gap/HCC or Scheduling Wellness Visits Care Gaps due: Medicare Annual Wellness Visit Patient Contacted: Spoke to patient/parent/or legal guardian Patient identified by name and : Yes Care Gap/HCC/Scheduling Wellness actions taken: Patient scheduled/pended labs: Medicare Annual Wellness Visit 11/24/2023 in [facility] with TEO SAGASTUME - MEDICARE WELLNESS Z00.00, HCC GAP CLOSURE HCC related Navigation Signature: Chrissy Rivera MA November 10, 2023 8:59 AM Allergies As of Date: 11/10/2023 Noted Allergy Reaction PENICILLINS 08/19/2005 POISON VICENTA 08/20/2005 2 - Rash Date Reviewed: 12/18/2022 Reviewed by: Emily Cody MA - Fully Assessed Reason for Visit: Population Health Navigation Outreach [3910] Cmt: Bud Wharton [place] Prescriptions as of 11/10/2023 - sertraline (ZOLOFT) 50 mg tablet Every other day for one week and then stop. - amLODIPine (NORVASC) 5 mg tablet Take 5 mg by mouth once daily. - lisinopril (ZESTRIL, PRINIVIL) 20 mg tablet Take 1 tablet by mouth once daily. Problem List As Of Date 11/10/2023 Noted Resolved Hyperglycemia [R73.9] 01/10/2019 Hyperlipidemia, mixed [E78.2] 01/10/2019 Essential hypertension [I10] 01/10/2019 Stage 3 chronic kidney disease (HCC) [N18.30] 10/16/2020 Anxiety [F41.9] 10/16/2020 Chest pain [R07.9] 12/18/2022 12/18/2022 Diarrhea [R19.7] 08/19/2021 12/18/2022 Paroxysmal supraventricular tachycardia (HCC) [*06/25/2022 Colitis [K52.9] 12/18/2022 Encounter Status:Closed by CHRISSY RIVERA on 11/10/23[facility] 02-04-2023 History of Present illness Narrative* Elba Coughlin MA - 02/04/2023 7:25 AM EDT POPULATION HEALTH NAVIGATION OUTREACH Action/ Patient declined ANNUAL MEDICARE WELLNESS Influenza Vaccine(1) due on 01/01/2023 Patient Identified by Name and : YES, via phone Outreach Outcome/Action Spoke to patient / parent / legal guardian: Patient declined Did you use a PCP flex slot to schedule this appointment? No Reason for Outreach Care Gap or Scheduling/Wellness visits Payer: Payor: [employer] MEDICARE / Plan: [employer] MEDICARE HMO / Product Type: HMO / Care Gap Reviewed:: Annual Wellness visit Flu Vaccine Reminder: Reminder note to check Health Maintenance for items below Health Maintenance items due: Influenza Vaccine(1) due on 01/01/2023 Shingrix Vaccine(2 of 2) due on 01/19/2023 Navigation Signature: Elba Coughlin MA February 04, 2023 7:25 AM documented in this encounterMercy [facility]08-24-2023 Miscellaneous Notes* Telephone Encounter - Cecilia Walker LPN - 12/24/2022 3:12 PM EDT I called her and she said she has none. She wanted some sent to the pharmacy. * Telephone Encounter - Teo Sagastume MD - 12/24/2022 3:03 PM EDT I am confused. She had told me she had some at home and wanted to stop. She was already taking 25 mg a day. I told her to take 25 every other day for a week and stop. Is she still wanting to continue on meds?? * Telephone Encounter - Cecilia Walker LPN - 12/24/2022 2:58 PM EDT Call to patient and she is still taking the 25mg daily. Note mentions wanted to stop medication butaurelia says that is over time. Eventually she plans to go to every other day. * Telephone Encounter - [place] Carmen Castro - 12/24/2022 2:46 PM EDT Jennifer Keaton Ricki is calling Teo Sagastume MD today to request Medication that was not sent to [facility]. She stated at her last office visit they discussed decreasing the dosage: Disp Refills Start End sertraline (ZOLOFT) 50 mg tablet (Discontinued) 90 tablet 3 10/17/2021 12/18/2022 Sig: Take 1 tablet by mouth once daily. Patient taking differently: Take 50 mg by mouth once daily. Taking 1/2 tablet daily Sent to pharmacy as: sertraline (ZOLOFT) 50 mg tablet Class: Normal Route: ORAL Order: [id number] E-Prescribing Status: Receipt confirmed by pharmacy (10/17/2021 10:08 AM EDT) Patient is requesting this is sent to [facility] [place]. Patient has been identified by name and birthdate. Duration of symptoms: N/A Person calling: self Call patient at: on cell [phone] (home) [phone] (cell) Was an appointment scheduled: No Closing statement: Results or non-symptom based questions: [facility] for [facility], your call will be returned within the next business day. Carmen Meléndez Pss documented in this encounterMercy [facility]08-18-2023 History of Past illness Narrative* Problem Noted Date Diagnosed Date Resolved Date Chest pain 12/18/2022 12/18/2022 12/18/2022 Diarrhea 08/19/2021 12/18/2022 12/18/2022 documented as of this encounter (statuses as of 12/25/2022) [facility] History of Past illness Narrative* Problem Noted Date Diagnosed Date Resolved Date Chest pain 12/18/2022 12/18/2022 12/18/2022 Diarrhea 08/19/2021 12/18/2022 12/18/2022 documented as of this encounter (statuses as of 02/06/2023) [facility] History of Present illness Narrative* Elba Coughlin MA - 09/29/2022 10:34 AM EDT POPULATION HEALTH NAVIGATION OUTREACH Action/FYI [facility] MYCHART MESSAGE SENT ANNUAL MEDICARE WELLNESS EXAM ADVANCE DIRECTIVE DISCUSSION Patient Identified by Name and : NO Outreach Outcome/Action Unable to reach patient: Left message MyChart message sent Did you use a PCP flex slot to schedule this appointment? No Reason for Outreach Care Gap or Scheduling/Wellness visits Payer: Payor: MMO / Plan: MMO MEDICARE SUPPLEMENT / Product Type: Indemnity / Care Gap Reviewed:: Annual Wellness visit Reminder: Reminder note to check Health Maintenance for items below Health Maintenance items due: SHINGRIX VACCINE(1 of 2) Never done PNEUMOCOCCAL: 65+(1 - PCV) Never done DTAP,TDAP,TD(1 - Tdap) due on 10/13/2017 HEMOGLOBIN/HEMATOCRIT due on 09/14/2021 COVID-19 VACCINE(6 - Booster for Moderna series) due on 03/14/2022 ADVANCE DIRECTIVE DISCUSSION Never done DEPRESSION ASSESSMENT Never done Navigation Signature: Elba Coughlin MA September 29, 2022 10:34 AM documented in this encounterMercy [facility] Hospital04-24-2023 History of Present illness Narrative* Elba Coughlin MA - 08/24/2022 7:32 AM EDT POPULATION HEALTH NAVIGATION OUTREACH Action/FYI [facility] message sent ANNUAL MEDICARE WELLNESS EXAM Patient Identified by Name and : NO Outreach Outcome/Action Unable to reach patient: Left message ParentingInformerhart message sent Did you use a PCP flex slot to schedule this appointment? N/A Reason for Outreach Care Gap or Scheduling/Wellness visits Payer: Payor: MMO / Plan: MMO MEDICARE SUPPLEMENT / Product Type: Indemnity / Care Gap Reviewed:: Annual Wellness visit Reminder: Reminder note to check Health Maintenance for items below Health Maintenance items due: SHINGRIX VACCINE(1 of 2) Never done PNEUMOCOCCAL: 65+(1 - PCV) Never done DTAP,TDAP,TD(1 - Tdap) due on 10/13/2017 HEMOGLOBIN/HEMATOCRIT due on 09/14/2021 ADVANCE DIRECTIVE DISCUSSION Never done DEPRESSION ASSESSMENT Never done Navigation Signature: Elba Coughlin MA August 24, 2022 7:32 AM documented in this encounterMercy [facility] Hospital08-31-2022 History of Present illness Narrative* Beatrice Townsend MD - 12/31/2021 10:09 AM EDT Jennifer Vasquez is a 76 year old female who presents for problem visit for possible yeast infection. HPI: Patient notes intermittent vaginal burning like sensation for the past month. Denies any discharge or odors. Denies any sexual activity, and or change in detergents. Denies any over the counter treatment. Pt reports had this years ago and it was a yeast infection. Reports strained muscle in left groin. No bloating, changes with BMs- but recently had colitis and was placed on abx. Pt denies dysuria or other urinary concerns. OB History T2 L2 SAB0 IAB0 Ectopic0 Multiple0 Live Births0 Patient Safety Officer History LMP: Postmenopausal Age at Menarche: Age at First : Age at Menopause: Patient Safety Officer History Comments: Sexual Activity: Not Currently; No partner data on record; bps Contraception: No contraception data on record PAST MEDICAL HISTORY Diagnosis Date C. difficile colitis 2018 resolved PMH - PAST MEDICAL HISTORY OF dermatitis PAST SURGICAL HISTORY Procedure Laterality Date LIG/TRNSXJ FLP TUBE ABDL/VAG APPR UNI/BI TONSILLECTOMY PRIMARY/SECONDARY <AGE 12 FAMILY HISTORY Problem Relation Age of Onset Heart Mother Heart Father Stroke Maternal Grandmother Stroke Maternal Grandfather Social History Tobacco Use Smoking status: Former Smokeless tobacco: Never Tobacco comments: 35 YRS AGO, QUIT Substance Use Topics Alcohol use: Yes Comment: occasionally Drug use: No Current Outpatient Medications Medication Sig sertraline (ZOLOFT) 50 mg tablet Take 1 tablet by mouth once daily. amLODIPine (NORVASC) 5 mg tablet Take 5 mg by mouth once daily. lisinopril (ZESTRIL, PRINIVIL) 20 mg tablet Take 1 tablet by mouth once daily. budesonide, enteric coated (ENTOCORT EC) 3 mg 24 hr capsule take 3 capsules by mouth TOGETHER once daily for 8 to 10 WEEKS (Patient not taking: Reported on 12/31/2021) No current facility-administered medications for this visit. Allergies As of Date: 12/31/2021 Allergen Noted Reaction PENICILLINS 08/19/2005 POISON VICENTA 08/20/2005 Rash Fully Assessed 12/31/2021 REVIEW OF SYSTEMS Abdomen: No abdominal pain, nausea, vomiting, diarrhea, or constipation. No bloating, early satiety, indigestion, or increased flatulence. Bladder: No dysuria, gross hematuria, urinary frequency, urinary urgency, or incontinence. Breast: No breast lumps, nipple d/c, overlying skin changes, redness or skin retraction. Expanded ROS: N/A Allergies and current medication updated:Yes EXAM: Wt 145 lb (65.8kg) GENERAL: pleasant, female in no apparent distress HEENT: Normocephalic, atraumatic, mucus membranes moist, and no lesions NECK: full range of motion DERMATOLOGY: Normal, without lesions, non-icteric, and non-hirsute ABDOMEN: soft, non-tender, and no masses PELVIC: external genitalia normal, normal Bartholin's glands, urethra, [place]'s glands, no vulvar lesions, no cervical lesions, good vaginal support, physiologic discharge present, normal appearing perineal body and perianal region, urethral diverticulum noted- beefy red appearance. BIMANUAL: uterus normal size, shape and consistency, no adnexal masses, and non-tender NEURO: alert and oriented x3,exam grossly non-focal EXTREMITIES: normal ASSESSMENT AND PLAN: Encounter Diagnosis ICD-10-CM 1. Vaginal burning N94.9 LOLI / TRICHOMONAS AMPLIFICATION BACTERIAL VAGINOSIS AMPLIFICATION 2. 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 Discussed findings with the patient. Will await culture results. Recommendation for vaginal probiotic. Suggestions were given to the patient and written down for her. Discussed the urethral diverticulum at this point she is asymptomatic so no further intervention is needed. We discussed that this could cause changes with urinary habits or possibly some bleeding as it is appearing to be a little beefy red at this time. If any changes I would recommend that she see urology. Will notify patientof results when available. I spent a total of 30 minutes on the date of the service which included preparing to see the patient, [id number] patient care, completing clinical documentation, obtaining and/or reviewing separately obtained history, performing a medically appropriate examination, and counseling and educating the patient/family/caregiver Beatrice Kenney MD Teacher Instrumental offered: Patient declines. documented in this encounterMercy [facility]08-08-2022 History of Present illness Narrative* Mandy Gordon, RT(R) - 12/08/2021 11:30 AM EDT Radiology Service Progress Note PATIENT NAME: Jennifer Vasquez DATE OF SERVICE: December 08, 2021 TIME: 11:32 AM PATIENT IDENTITY VERIFICATION COMPLETED USING TWO (2) IDENTIFIERS: Name and Date of confirmedby patient verbally. FALL SCREENING: Has the patient had 2 falls in the last year or 1 fall with injury or currently using an Ambulatory Assistive Device (Walker, Cane, Wheelchair, Crutches, etc.)? No PATIENT GENDER DATA: Female. status: : No status: NO. PATIENT RELEVANT IMPLANT DATA REVIEWED: Not Applicable RADIOLOGY DEPARTMENT: Mammography PERIPHERAL IV DATA: Not applicable SIGNED BY: RT Alcon(R) December 08, 2021 11:32 AM documented in this encounterMercy [facility] Hospital06-17-2022 History of Present illness Narrative* Teo Sagastume MD - 10/17/2021 9:54 AM EDT Patient presents with: 6 Month Exam HPI: Patient presents today for office visit for follow up. GASTROENTEROLOGY: Dr Bailey did another colonoscopy and found colitis. Added enterocort and is now doing better. Will be trying for eight weeks. Feeling great. Sleeps well. zoloft is not causing her any issues. Feels very well on meds. No side effects. Her bp is well controlled. Has continued to follow with cardiology given her issues before. No chest pain or shortness of breath. No dizziness. No edema that is new. Has some chronic left foot edema. MEDICATIONS: Current Outpatient Medications Medication Sig budesonide, enteric coated (ENTOCORT EC) 3 mg 24 hr capsule take 3 capsules by mouth TOGETHER once daily for 8 to 10 WEEKS sertraline (ZOLOFT) 50 mg tablet Take 1 tablet by mouth once daily. amLODIPine (NORVASC) 5 mg tablet Take 5 mg by mouth once daily. lisinopril (ZESTRIL, PRINIVIL) 20 mg tablet Take 1 tablet by mouth once daily. No current facility-administered medications for this visit. ALLERGIES: ALLERGIES Allergen Reactions Penicillins Poison Vicenta Rash PAST MEDICAL HISTORY Diagnosis Date C. difficile colitis 2018 resolved PMH - PAST MEDICAL HISTORY OF dermatitis PAST SURGICAL HISTORY Procedure Laterality Date LIGATE FALLOPIAN TUBE REMOVAL OF TONSILS,<12 Y/O FAMILY HISTORY Problem Relation Age of Onset Heart Mother Heart Father Stroke Maternal Grandmother Stroke Maternal Grandfather Social History Tobacco Use Smoking status: Former Smoker Smokeless tobacco: Never Used Tobacco comment: 35 YRS AGO, QUIT Substance Use Topics Alcohol use: Yes Comment: occasionally Drug use: No Reviewed current medications, allergies, past medical history, surgical history, family history andsocial history today. REVIEW OF SYSTEMS All other reviewed and negative other than HPI. VITALS: BP 122/62 Pulse 72 Wt 64.9 kg (143 lb) BMI 22.18 kg/m Last 4 Encounter Wt Readings: Date: Wt: 10/17/2021 64.9 kg (143 lb) 04/18/2021 65.3 kg (144 lb) 10/16/2020 63 kg (139 lb) 07/09/2020 65.7 kg (144 lb 12.8 oz) PHYSICAL EXAMINATION: General appearance: Well appearing, alert, in no acute distress, well-hydrated, well nourished. Skin: Skin color, texture, turgor normal, no suspicious rashes or lesions Head: Normocephalic, no masses, lesions, tenderness or abnormalities Neck: Supple, no adenopathy; thyroid symmetric, normal size, no bruits Lungs: Lungs clear to auscultation. No wheezing, rhonchi, rales Heart: RRR without murmur, gallop, or rubs. No ectopy Abdomen: Normal abdominal exam, Abdomen soft, non-tender. Bowel sounds normal. No masses, organomegaly Extremities: No deformities, edema, skin discoloration, clubbing or cyanosis. Good capillary refill. Musculoskeletal: No joint swelling, deformity, or tenderness Peripheral pulses: Normal Neuro: Negative. ASSESSMENT/PLAN: 1. Hyperlipidemia, mixed - ICD9: 272.2, ICD10: E78.2 (primary diagnosis) - good control - will follow labs. 2. Essential hypertension - ICD9: 401.9, ICD10: I10 - good control - Continue current medication(s) - Goal of BP <130/80 - CBC + DIFF - COMP METABOLIC PANEL - LIPID PANEL BASIC 3. Stage 3 chronic kidney disease, unspecified whether stage 3a or 3b CKD (HCC) - ICD9: 585.3, ICD10: N18.30 - Follow labs. 4. Hyperglycemia - ICD9: 790.29, ICD10: R73.9 - HGB A1C 5. Anxiety - ICD9: 300.00, ICD10: F41.9 - will follow progress 6. Colitis - ICD9: 558.9, ICD10: K52.9 - Follow with gi. Teo Sagastume RTO in six months and prn. [facility]City [facility]* Diagnosis Onset Date Resolution Status Paroxysmal SVT (supraventricular tachycardia) acute Essential (primary) hypertension chronic Hyperlipidemia chronic Paroxysmal SVT (supraventricular tachycardia) acute Essential (primary) hypertension chronic Hyperlipidemia [facility] Work Phone: Evaluation note* Diagnosis Hyperlipidemia, mixed- Primary Mixed hyperlipidemia Essential hypertension Unspecified essential hypertension Stage 3 chronic kidney disease, unspecified whether stage 3a or 3b CKD (HCC) Hyperglycemia Other abnormal glucose Anxiety Anxiety state, unspecified Colitis Other and unspecified noninfectious gastroenteritis and colitis [facility]* Diagnosis Encounter for screening mammogram for breast cancer [facility]* Diagnosis Encounter for screening mammogram for breast cancer [facility]* Diagnosis Vaginal burning- Primary Other specified symptom associated with female genital organs Urethral diverticulum [facility]* Diagnosis Onset Date Resolution Status CKD (chronic kidney disease) stage 3, GFR 30-59 ml/min chronic Essential (primary) hypertension chronic Paroxysmal SVT (supraventricular tachycardia) [facility] Work Phone: evaluation note* Diagnosis Anxiety Anxiety state, unspecified [facility]* Diagnosis Medicare annual wellness visit, subsequent- Primary Routine general medical examination at a health care facility Paroxysmal supraventricular tachycardia (HCC) Paroxysmal supraventricular tachycardia Stage 3 chronic kidney disease, unspecified whether stage 3a or 3b CKD (HCC) Hyperlipidemia, mixed Mixed hyperlipidemia Essential hypertension Unspecified essential hypertension Colitis Other and unspecified noninfectious gastroenteritis and colitis Hyperglycemia Other abnormal glucose Anxiety Anxiety state, unspecified Screening for depression [facility] Diagnosis Encounter for screening mammogram for malignant neoplasm of breast- Primary Other [facility] Dyslipidemia- Primary Other and unspecified hyperlipidemia Hypertension, essential Unspecified essential hypertension Screening for diabetes mellitus Wellness examination Stage 3a chronic kidney disease (HCC) [facility]* Diagnosis Encounter for screening mammogram for malignant neoplasm of breast Other screening [facility] Diagnosis Neoplasm of uncertain behavior of skin- Primary Actinic keratosis Lentigines Other dyschromia Angioma of skin Hemangioma of skin and subcutaneous tissue Multiple benign nevi Benign neoplasm of skin, site unspecified Seborrheic keratoses Other seborrheic keratosis Xerosis cutis Other specified disease of sebaceous glands documented in this encounter [facility] for referral (narrative)* Diagnostic Procedure Only (Routine) - Pending Review Specialty Diagnoses / Procedures Referred By Stephen vance Referred To Contact [facility] Diagnoses Encounter for screening mammogram for breast cancer Procedures RADHA SCREENING SCREENING MAMMOGRAPHY BI 2-VIEW BREAST INC Teo Max MD [address] [place] [address] [facility] [address] [place] [address] Referral ID Status Reason Start Date Expiration Date Visits Requested Visits Authorized [id number] Pending Review Auto-Generat ed Referral 10/15/2021 11/14/2022 [address] [facility] for referral (narrative)* Diagnostic Procedure Only (Routine) - Closed Specialty Diagnoses / Procedures Referred By Stephen vance Referred To Contact [facility] Diagnoses Encounter for screening mammogram for breast cancer Procedures RADHA SCREENING SCREENING MAMMOGRAPHY BI 2-VIEW BREAST INC Teo Max MD [address] [place] [address] [facility] [address] [place] [address] Referral ID Status Reason Start Date Expiration Date V isits Requested Visits Authorized [id number] Closed Auto-Generate d Referral 10/15/2021 11/14/2022 [address] [facility] for referral (narrative)No reason for referral information [facility] Work Phone: Reason for visit Narrative* Diagnostic Procedure Only (Routine) - Closed Specialty Diagnoses / Procedures Referred By Setphen vance Referred To Contact [facility] Diagnoses Encounter for screening mammogram for breast cancer Procedures RADHA SCREENING SCREENING MAMMOGRAPHY BI 2-VIEW BREAST INC Teo Max MD [address] [place] [address] [facility] [address] [place] [address] Referral ID Status Reason Start Date Expiration Date V isits Requested Visits Authorized [id number] Closed Auto-Generate d Referral 10/15/2021 11/14/2022 1 1 [facility] N[facility] Diagnostic Procedure Only (Routine) - Closed Specialty Diagnoses / Procedures Referred By Stephen vance Referred To Contact [facility] Diagnoses Encounter for screening mammogram for malignant neoplasm of breast Procedures RADHA SCREENING W MICA SCREENING DIGITAL BREAST TOMOSYNTHESIS BI SCREENING MAMMOGRAPHY BI 2-VIEW BREAST INC Teo Max MD [address] [place] [address] Phone: tel: fax: [facility] [address] [place] [address] Referral ID Status Reason Start Date Expiration Date V isits Requested Visits Authorized [id number] Closed Auto-Generate d Referral 06/29/2024 07/29/2025 1 1 [facility] Chief Complaint and Reason for Visit Chief Complaint 6-7 M FU (MOVED FROM [facility]) 6 wk FU SEE ORDER Reason for Visit Paroxysmal SVT (supr aventricular tachycardia) Essential (primary) hypertension Hyperlipidemia Paroxysmal SVT (supraventricular tachycardia) Essential (primary) hypertension Hyperlipidemia Chief Complaint 1 Y FU E ORDER Reason for Visit CKD (chronic kidney disease) stage 3, GFR 30-59 ml/min Essential (primary) hypertension Paroxysmal SVT (supraventricular tachycardia) Chief Complaint Admit Date 1 Y FU July 25, 2024 8:5 0am Colitis October 16, 2024 8:27 am Reason for Visit Admit Date Essential (primary) hypertension July 022024 8:50am Hyperlipidemia July 25, 2024 8:5 0am Paroxysmal SVT (supraventricular tachyca rdia) July 25, 2024 8:50am Diarrhea October 16, 2024 8:27 am Rectal urgency October 16, 2024 8:27 am 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, 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 Family History Relationship Condition Age at Onset Recorded Date/T nimesh father Cardiac disease Unknown grandmother Cerebrovascular accident (CVA) Unknown grandfather Cerebrovascular accident (CVA) Unknown mother Cardiac disease Unknown Advance Directives Advance Directive Response Recorded Date/ Time Living Will No July 25, 2020 1:37pm Power of Actuarial Technician No July 25 1:37pm Advance Directive Response Recorded Date/ Time Living Will No July 25, 2020 12:37pm Power of Actuarial Technician No July 25 12:37pm Advance Directive Response Recorded Date/ Time Living Will No July 25, 2020 1:37pm Do you have a Healthcare Power of Actuarial Technician? No July 25, 2020 1:37pm Summary Purpose Additional Source Comments Goals (unrecognized section and content) Goals may be documented in a n alternate sectionGoals may be documented in an alternate sectionGoals may be documented in an alternate section Source Comments (unrecognize d section and content) In the event this informatio n is protected by the Federal Confidentiality of Alcohol and Drug Abuse Patient Records regulations: The Federal rules restrict any use of the information to criminally investigate or prosecute any alcohol or drug abuse patient.[facility] the event this information is protected by the Federal Confidentiality of Alcohol and Drug Abuse Patient Records regulations: The Federal rules restrict any use of the information to criminally investigate or prosecute any alcohol or drug abuse patient.[facility] HospitalIn the event this information is protected by the Federal Confidentiality of Alcohol and Drug Abuse Patient Records regulations: The Federal rules restrict any use of the information to criminally investigate or prosecute any alcohol or drug abuse patient.[facility] HospitalIn the event this information is protected by the Federal Confidentiality of Alcohol and Drug Abuse Patient Records regulations: The Federal rules restrict any use of the information to criminally investigate or prosecute any alcohol or drug abuse patient.[facility] HospitalIn the event this information is protected by the Federal Confidentiality of Alcohol and Drug Abuse Patient Records regulations: The Federal rules restrict any use of the information to criminally investigate or prosecute any alcohol or drug abuse patient.[facility] HospitalIn the event this information is protected by the Federal Confidentiality of Alcohol and Drug Abuse Patient Records regulations: The Federal rules restrict any use of the information to criminally investigate or prosecute any alcohol or drug abuse patient.[facility] HospitalIn the event this information is protected by the Federal Confidentiality of Alcohol and Drug Abuse Patient Records regulations: The Federal rules restrict any use of the information to criminally investigate or prosecute any alcohol or drug abuse patient.[facility] HospitalIn the event this information is protected by the Federal Confidentiality of Alcohol and Drug Abuse Patient Records regulations: The Federal rules restrict any use of the information to criminally investigate or prosecute any alcohol or drug abuse patient.[facility] HospitalIn the event this information is protected by the Federal Confidentiality of Alcohol and Drug Abuse Patient Records regulations: The Federal rules restrict any use of the information to criminally investigate or prosecute any alcohol or drug abuse patient.[facility] HospitalIn the event this information is protected by the Federal Confidentiality of Alcohol and Drug Abuse Patient Records regulations: The Federal rules restrict any use of the information to criminally investigate or prosecute any alcohol or drug abuse patient.[facility] HospitalIn the event this information is protected by the Federal Confidentiality of Alcohol and Drug Abuse Patient Records regulations: The Federal rules restrict any use of the information to criminally investigate or prosecute any alcohol or drug abuse patient.[facility] HospitalIn the event this information is protected by the Federal Confidentiality of Alcohol and Drug Abuse Patient Records regulations: The Federal rules restrict any use of the information to criminally investigate or prosecute any alcohol or drug abuse patient.[facility] HospitalIn the event this information is protected by the Federal Confidentiality of Alcohol and Drug Abuse Patient Records regulations: The Federal rules restrict any use of the information to criminally investigate or prosecute any alcohol or drug abuse patient.[facility] HospitalIn the event this information is protected by the Federal Confidentiality of Alcohol and Drug Abuse Patient Records regulations: The Federal rules restrict any use of the information to criminally investigate or prosecute any alcohol or drug abuse patient.[facility] HospitalIn the event this information is protected by the Federal Confidentiality of Alcohol and Drug Abuse Patient Records regulations: The Federal rules restrict any use of the information to criminally investigate or prosecute any alcohol or drug abuse patient.[facility] HospitalIn the event this information is protected by the Federal Confidentiality of Alcohol and Drug Abuse Patient Records regulations: The Federal rules restrict any use of the information to criminally investigate or prosecute any alcohol or drug abuse patient.[facility] HospitalIn the event this information is protected by the Federal Confidentiality of Alcohol and Drug Abuse Patient Records regulations: The Federal rules restrict any use of the information to criminally investigate or prosecute any alcohol or drug abuse patient.[facility] HospitalIn the event this information is protected by the Federal Confidentiality of Alcohol and Drug Abuse Patient Records regulations: The Federal rules restrict any use of the information to criminally investigate or prosecute any alcohol or drug abuse patient.[facility] HospitalIn the event this information is protected by the Federal Confidentiality of Alcohol and Drug Abuse Patient Records regulations: The Federal rules restrict any use of the information to criminally investigate or prosecute any alcohol or drug abuse patient.[facility] HospitalIn the event this information is protected by the Federal Confidentiality of Alcohol and Drug Abuse Patient Records regulations: The Federal rules restrict any use of the information to criminally investigate or prosecute any alcohol or drug abuse patient.[facility] HospitalIn the event this information is protected by the Federal Confidentiality of Alcohol and Drug Abuse Patient Records regulations: The Federal rules restrict any use of the information to criminally investigate or prosecute any alcohol or drug abuse patient.[facility] HospitalIn the event this information is protected by the Federal Confidentiality of Alcohol and Drug Abuse Patient Records regulations: The Federal rules restrict any use of the information to criminally investigate or prosecute any alcohol or drug abuse patient.[facility] Reason for Visit (unrecogniz ed section and content) Reason Comments 6 Month Exam Reason Comments Vaginal Infection Reason Onset Date Comments Population Health Navigation Outreach 08/24/2022 [facility]SA Reason Onset Date Comments Population Health Navigation Outreach 09/29/2022 [facility]SA Reason Comments Medication Problem Needs updated dosage Reason Onset Date Comments Population Health Navigation Outreach 02/04/2023 [facility] BP AND DM Reason Onset Date Comments Population Health Navigation Outreach 11/10/2023 [employer],Chari Reason Comments Medicare Wellness Exam Reason Comments Results Reason Onset Date Comments Population Health Navigation Outreach 12/13/2023 [employer],Workbench,Chari Reason Onset Date Comments Population Health Navigation Outreach 06/29/2024 [employer] High Risk - Attempt 1 Reason Comments Full Body Skin Check Reason Comments Patient Question Reason Onset Date Comments Shake Feeder- Other 09/12/2024 Care Teams (unrecognized sec tion and content) Exhibits Curator Relationship Specialty Start Date End Date Teo Sagastume MD [address], [place] [id number] PCP - General Family Practice 06/01/17 Exhibits Curator Relationship Specialty Start Date End Date Teo Sagastume MD [address] [place], [place] [id number] PCP - General Family Practice 06/01/17 Exhibits Curator Relationship Specialty Start Date End Date Teo Sagastume MD [address], [place] [id number] PCP - General Family Practice 06/01/17 Exhibits Curator Relationship Specialty Start Date End Date Teo Sagastume MD [address] [place], [place] [id number] PCP - General Family Practice 06/01/17 Exhibits Curator Relationship Specialty Start Date End Date Teo Sagastume MD [address] [place], [place] [address] PCP - General Family Medicine 06/01/17 Team Status: Active Member Role Status Dates No Primary Care Physician Family Provider Active Dr. Teo Sagastume MD Primary Care Provider Active Team Status: Inactive Member Role Status Dates Dr. Teo Sagastume MD Primary Care Provider, Referring Provider Active Dr. Ildefonso Pulido MD Attending Provider Active Team Status: Inactive Member Role Status Dates Dr. Teo Sagastume MD Primary Care Provider Active Dr. Ildefonso Pulido MD Attending Provider Active Exhibits Curator Relationship Specialty Start Date End Date Teo Sagastume MD [address] [place] [address] PCP - General Family Medicine 06/01/17 Exhibits Curator Relationship Specialty Start Date End Date Teo Sagastume MD [address] [place] [address] PCP - General Family Medicine 06/01/17 Exhibits Curator Relationship Specialty Start Date End Date Teo Sagastume MD [address] [place] [address] PCP - General Family Medicine 06/01/17 Exhibits Curator Relationship Specialty Start Date End Date Teo Sagastume MD [address] [place] [address] PCP - General Family Medicine 06/01/17 Exhibits Curator Relationship Specialty Start Date End Date Teo Sagastume MD [address] [place] [address] PCP - General Family Medicine 06/01/17 Exhibits Curator Relationship Specialty Start Date End Date Teo Sagastume MD [address] [facility] [place] [address] PCP - General Family Medicine 06/01/17 Exhibits Curator Relationship Specialty Start Date End Date Teo Sagastume MD [address] [place] [address] PCP - General Family Medicine 06/01/17 Raisa Felix APRN.RADIO OPERATOR GROUND [address] [place] [address] Senior Process Analyst Family Medicine 04/10/24 Anneliese An APRN.RADIO OPERATOR GROUND [address] [place] [address] Senior Process Analyst Family Medicine 04/10/24 Exhibits Curator Relationship Specialty Start Date End Date Teo Sagastume MD [address] [place] [address] PCP - General Family Medicine 06/01/17 Raisa Felix APRN.RADIO OPERATOR GROUND [address] [place] [address] Senior Process Analyst Family Medicine 04/10/24 Anneliese An APRN.RADIO OPERATOR GROUND [address] [place] [address] Senior Process Analyst Family Medicine 04/10/24 Exhibits Curator Relationship Specialty Start Date End Date Teo Sagastume MD [address] [place] [address] PCP - General Family Medicine 06/01/17 Raisa Felix APRN.RADIO OPERATOR GROUND [address] [place] [address] Senior Process Analyst Family [facility] 04/10/24 Anneliese An APRN.RADIO OPERATOR GROUND [address] [place] [place] [address] Counts Include [facility] 04/10/24 Exhibits Curator Relationship Specialty Start Date End Date Teo Sagastume MD [address] [facility] [place] [address] PCP - General Family Medicine 06/01/17 Raisa Felix APRN.RADIO OPERATOR GROUND [address] [place] [address] Counts Include 234 [facility] 04/10/24 Anneliese An AGRICULTURAL ENGINEER.RADIO OPERATOR GROUND [address] [facility] [place] [address] Counts Include 234 [facility] 04/10/24 Exhibits Curator Relationship Specialty Start Date End Date Teo Sagastume MD [address] [facility] [place] [address] PCP - General Family Medicine 06/01/17 Raisa Felix APRN.RADIO OPERATOR GROUND [address] [place] [address] Counts Include 234 [facility] 04/10/24 Anneliese An AGRICULTURAL ENGINEER.RADIO OPERATOR GROUND [address] [facility] [place] [address] [facility] Medicine 04/10/24 Exhibits Curator Relationship Specialty Start Date End Date Teo Sagastume MD [address] [facility] [place] [address] [phone] PCP - General Family Medicine 06/01/17 Raisa Felix AGRICULTURAL ENGINEER.RADIO OPERATOR GROUND [address] [place] [address] [facility] 04/10/24 Anneliese An AGRICULTURAL ENGINEER.RADIO OPERATOR GROUND [address] [facility] [place] [address] Counts Include 234 [facility] 04/10/24 Exhibits Curator Relationship Specialty Start Date End Date Teo Sagastume MD [address] [facility] [place] [address] PCP - General Family Medicine 06/01/17 Raisa Felix APRN.RADIO OPERATOR GROUND [address] [place] [address] Counts Include 234 [facility] 04/10/24 Anneliese An AGRICULTURAL ENGINEER.RADIO OPERATOR GROUND [address] [facility] [place] [address] Counts Include 234 [facility] 04/10/24 Exhibits Curator Relationship Specialty Start Date End Date Teo Sagastume MD [address] [facility] [place] [address] PCP - General Family Medicine 06/01/17 Raisa Felix AGRICULTURAL ENGINEER.RADIO OPERATOR GROUND [address] [place] [address] Counts Include 234 [facility] 04/10/24 Anneliese An AGRICULTURAL ENGINEER.RADIO OPERATOR GROUND [address] [facility] [place] [address] Counts Include 234 [facility] 04/10/24 Team Status: Inactive Member Role Status Dates Dr. Teo Sagastume MD Primary Care Provider Active Start: July 25, 2024 End: July 25, 2024 Dr. Teo Sagastume MD Referring Provider Active Start: July 25, 2024 End: July 25, 2024 Dr. Ildefonso Pulido MD Attending Provider Active S tart: July 25, 2024 End: July 25, 2024 Team Status: Inactive Member Role Status Dates Dr. Teo Sagastume MD Primary Care Provider Active Start: October 16, 2024 End: October 16, 2024 Dr. Teo Sagastume MD Referring Provider Active Start: October 16, 2024 End: October 16, 2024 CARMEN Raymond Attending Provider Active S tart: October 16, 2024 End: October 16, 2024 INFORMATION SOURCE (unrecogn ized section and content) DATE CREATED AUTHOR 07/26/2024 [facility] DATE CREATED AUTHOR AUTHOR'S BRANDONIZ ATION 09/13/[address] [facility] FOR RECORDS PERTAINING TO PATIENTS WHO ARE OR HAVE BEEN ENROLLED IN A CHEMICAL DEPENDENCY/SUBSTANCEABUSE PROGRAM, SOME INFORMATION MAY BE OMITTED. This clinical summary was aggregated from multiple sources. Caution should be exercised in using it in the provision of clinical care. This summary normalizes information from multiple sources, and as a consequence, information in this document may materially change the coding, format and clinical context of patient data. In addition, data may be omitted in some cases. CLINICAL DECISIONS SHOULD BE BASED ON THE PRIMARY CLINICAL RECORDS. [facility] [employer] [facility] provides no warranty or guarantee of the accuracy or completeness of information in this document.
[2024-10-17 16:01] LABS: ALB/GLOB Ratio 1.7 RATIO (0.9-2.4); AST(SGOT) 23 U/L (<=31); Alanine Aminotransfer ALT/SGPT 11 U/L (<=34); Albumin, Serum 4.4 g/dL (3.4-4.8); Alkaline Phosphatase 65 U/L (35-104); Anion Gap 11 (5-15); BUN 24 mg/dL (4-19); BUN/Creat Ratio 25.1 RATIO (10-20); Calcium,Total 9.4 mg/dL (7.6-11.0); Carbon Dioxide 23.9 mmol/L (21.0-32.0); Chloride 106 mmol/L (98-108); Creatinine, Serum 0.97 mg/dL (0.70-1.20); EST Glomerular Filtration Rate 60 (>60); Globulin 2.6 g/dL (2.2-4.2); Glucose 109 mg/dL (70-99); Potassium 4.3 mmol/L (3.3-5.1); Protein, Total 6.9 g/dL (5.9-8.4); Sodium Level 141 mmol/L (133-145); Total Bilirubin 0.39 mg/dL (0.00-1.30)
[2024-10-17 16:02] LABS: CRP < 3.00 mg/L (0.0-3.0); LDH 245 U/L (84-246)
[2024-10-19 15:09] LABS: ACCA 12 units (0-90); ALCA 17 units (0-60); AMCA 24 units (0-100); Cytoplasmic Ab (C-ANCA) <1:20 titer (Neg:<1:20); Endomysial Antibody IgA Negative (Negative); Immunoglobulin A 126 mg/dL (64-422); Immunoglobulin E 45 IU/mL (6-495); Immunoglobulin G 832 mg/dL (586-1602); Immunoglobulin M 52 mg/dL (26-217); Perinuclear Ab (P-ANCA) <1:20 titer (Neg:<1:20); gASCA 12 units (0-50); t-Transglutaminase IgA <2 U/mL (0-3)
[2024-10-19 17:07] LABS: Anti-Centromere B Ab <0.2 AI (0.0-0.9); Anti-Chromatin <0.2 AI (0.0-0.9); Anti-Jo <0.2 AI (0.0-0.9); Anti-Scleroderma-70 AB <0.2 AI (0.0-0.9); Anti-dsDNA Ab <1 IU/mL (0-9); Beef <0.10 kU/L (Class 0); Chocolate <0.10 kU/L (Class 0); Codfish <0.10 kU/L (Class 0); Corn <0.10 kU/L (Class 0); Egg, Whole <0.10 kU/L (Class 0); Milk (Cow) <0.10 kU/L (Class 0); Mussels <0.10 kU/L (Class 0); Peanut <0.10 kU/L (Class 0); Pork <0.10 kU/L (Class 0); RNP Ab <0.2 AI (0.0-0.9); SJOGREN'S Anti-SS-A test < 0.2 AI (0.0-0.9); SJOGREN'S Anti-SS-B test < 0.2 AI (0.0-0.9); Salmon <0.10 kU/L (Class 0); Shrimp <0.10 kU/L (Class 0); Smith Ab <0.2 AI (0.0-0.9); Soybean <0.10 kU/L (Class 0); Tuna <0.10 kU/L (Class 0); Wheat <0.10 kU/L (Class 0)
== END | disposition home or self-care (01) ==
PROVIDERS: PCP Family Medicine
DX: R15.2 Fecal urgency (principal); R19.7 Diarrhea, unspecified
CPT/HCPCS: 36415; 80053; 82784; 82785; 83516; 83615; 84443; 85025; 85652; 86003; 86005; 86036; 86037; 86140; 86225; 86235; 86255; 86671

== ENCOUNTER → 2024-10-17 | Outpatient (CLI) | payer MEDICARE, SELFPAY ==
[2024-10-19 07:07] LABS: Calprotectin, Stool 40 ug/g (0-120); Giardia Lamblia, Stool EIA Negative (Negative); Pancreatic Elastase, Fecal 368 (>200)
== END | disposition home or self-care (01) ==
LOC: LABSPEC 09:50
PROVIDERS: PCP Family Medicine
DX: K58.0 Irritable bowel syndrome with diarrhea (principal); R15.2 Fecal urgency
CPT/HCPCS: 82653; 83630; 83993; 87329; 87493

== ENCOUNTER 2024-12-04 05:48 | Day surgery (SDC) | payer MEDICARE, SELFPAY ==
--- NOTE | 2024-11-28 15:56 | PAT.ANESEVAL ---
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 When Was Last Pacemaker Check QUESTION #4 FULL TEXT: You/Your Family Experience fever (hyperthermia) with Anesthesia Last Oral Intake Last Oral intake: Last Oral Intake NPO since Meds taken in AM with sips of water? Meds patient instructed to take am of surgery PONV PONV - resource teacher: PONV - resource teacher Female Yes 11/28/24 14:07 HX of Motion Sickness No 11/28/24 14:07 HX of N/V After Surgery No 11/28/24 14:07 Non-Smoker Yes 11/28/24 14:07 Duration of Surgery greater No 11/28/24 14:07 than 60 minutes Number of Risk Factors 2 11/28/24 14:07 PONV Score Moderate Risk 11/28/24 14:07 Height & Weight Height & Weight: Anesthesia: Height & Weight Height 5 ft 7 in 07/25/24 08:55 Respiratory Assessment Respiratory Assessment - resource teacher: Respiratory Tract Infection Hx - resource teacher Hx Respiratory Tract Infection No 11/28/24 14:07 STOP Sleep Apnea STOP Sleep Apnea - resource teacher: STOP Sleep Apnea - resource teacher Hx Hypertension Yes: CONTROLLED ON MED 11/28/24 14:07 Hx Sleep Apnea No 11/28/24 14:07 CPAP BIPAP Do you snore loudly (louder No 11/28/24 14:07 than talking or can be heard Do you often feel tired/ No 11/28/24 14:07 fatigued/ sleepy during daytime? Has anyone observed you stop No 11/28/24 14:07 breathing during sleep? STOP Results Negative 11/28/24 14:07 QUESTION #5 FULL TEXT : Do you snore loudly (louder than talking or can be heard through closed doors)? 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 Specify any problems Hx of Preganancy in last 3 No 11/28/24 14:07 Months Nurse Filling Out Transfusion VCHRISTIN 11/28/24 14:07 & Questions: Date: 11/28/24 11/28/24 14:07 Time: 14:08 11/28/24 14:07 Patient unable to answer at this time (ie. confused, unrespo /Reproduction History /Reproductive History - resource teacher: /Reproductive Hx- resource teacher Hx Now No 11/28/24 14:07 Gestational Age (in weeks): EDC: Hx Hx Para Hx Section SAB No 11/28/24 14:07 [facility] Medical History (Updated 11/28/24 @ 14:07 by Rosa Sheikh) Wears glasses History of Clostridium difficile infection Post-menopausal Alcohol use History of renal disease Non-smoker Leg cramps Lymphedema History of Holter monitoring History of echocardiogram History of stress test Hypertension Cardiology follow-up encounter Preop cardiovascular exam Paroxysmal SVT (supraventricular tachycardia) Irritable bowel syndrome with diarrhea CKD (chronic kidney disease) stage 3, GFR 30-59 ml/min Hyperglycemia Anxiety Hyperlipidemia Essential (primary) hypertension Dermatitis Home Medications ?Medication ?Instructions ?Recorded ?Last Taken ?Type amlodipine 10 mg tablet 10 mg PO DAILY #90 TABLETS 06/15/24 Unknown Rx lisinopril 20 mg tablet 20 mg PO DAILY dose has been 06/15/24 Unknown Rx decreased #90 tabs vitamin B complex 1 tab PO QDAY 07/25/24 Unknown History Allergy/AdvReac Type Severity Reaction Status Date / Time poison geneva extract Allergy Unknown unknown Verified 11/28/24 13:58 Penicillins Allergy Swelling Verified 11/28/24 13:58 garlic AdvReac Severe Diarrhea Verified 11/28/24 13:58 Family History Father Heart disease Grandmother CVA (cerebral vascular accident) Grandfather CVA (cerebral vascular accident) Mother Heart disease Surgical History History of tonsillectomy History of colonoscopy (11/20/14) History of tubal ligation Social History Smoking Status: Never smoker how long ago did patient quit smokin years ago alcohol intake: current alcohol intake frequency: a few times a week Alcohol type: wine and hard liquor substance use type: does not use caffeine: Yes Type: coffee Number of servings: 2 Audit: Pertinent Findings Pertinent Findings EKG Perinent findings: July 14, 2020. Normal sinus rhythm. Stress test pertinent findings: July 15, 2020. EF of 90%. No ischemia. No previous infarct. Echo (EF%) pertinent findings: July 15, 2020. EF of 70%. PASP is 36 mmHg. No aortic valve stenosis noted. Consult pertinent findings: July 25, 2024. Dr. Pulido. 1. Hypertension?[id number]-[id number]-jylwdzikst at this time. Continue amlodipine and lisinopril. 2. Paroxysmal SVT?chronic-latest stress test from 07/15/2020 was negative for ischemia. Stable at this time. Denies any recent symptoms or events. Recommendation Anesthesia Recommendation Anesthesia recommendation: OPTIMIZED for anesthesia
[2024-12-04] VITALS (7 sets, daily range): BP systolic 99–136; BP diastolic 54–79; PULSE 69–79; RESP 16; TEMP 36.1–36.4; O2SAT 99–100; BMI 20.8
--- OUTSIDE RECORDS SUMMARY | 2024-12-04 05:51 | XMS RPT_ITS | CCD ---
Author Organization [facility] CliniSyme Care Team Providers Care Screw Supervisor Name Role Phone Dr. Teo Mendez Primary Care Provider Andrea, Dr. Bruce Referring Provider Steven ROJO, HUGOC Haley Attending Provider Teo Mendez MD Primary Care Provider Teo Mendez MD Primary Care Provider Teo Mendez MD Primary Care Provider Dr. Teo Mendez Primary Care Provider Dr. Teo Mendez Referring Provider Dr. Ildefonso Pulido Attending Provider Teo Mendez MD Primary Care Provider Elvira MERCHANDISING SPECIALIST.Raisa CARO Unavailable Juve MERCHANDISING SPECIALIST.IMPLEMENTATION ADVISORAnneliese Unavailable Dr. Teo Mendez MD Primary Care Provider Dr. Teo Mendez MD Referring Provider Dr. Ildefonso Pulido MD Attending Provider Sofia Chu Attending Provider [phone] Sofia Chu Referring Provider [phone] TEO MENDEZ Primary Care Unavailable OCTOBER, HANNAH Ingram Attending Unavailable SELF Referring Unavailable TEO MENDEZ Primary Care Unavailable OCTOBER, HANNAH Ingram Attending Unavailable TEO MENDEZ Referring Unavailable TEO MENDEZ Primary Care Unavailable TEO MENDEZ Primary Care Unavailable TEO MENDEZ Attending Unavailable TEO MENDEZ Referring Unavailable TEO MENDEZ Primary Care Unavailable ANNELIESE ROSAS Attending Unavailable TEO MENDEZ Primary Care Unavailable CharlackTeo Primary Care Unavailable Sofia Esposito Referring Unavailable Sofia Esposito Attending Unavailable CharlackToe Primary Care Unavailable Sofia Esposito Referring Unavailable Sofia Esposito Attending Unavailable Tahir Ceballos Attending Unavailable CharlackTeo Referring Unavailable Charlack Teo Primary Care Unavailable Ildefonso Pulido Attending Unavailable CharlackTeo Primary Care Unavailable CharlackTeo Referring Unavailable CharlackTeo Primary Care Unavailable Sofia Esposito Attending Unavailable CharlackTeo Referring Unavailable Allergies Allergy Classification Reported Allergen(s) Allergy Type Date of Onset Reaction(s) Facility (1 source) Lisinopril Drug Allergy 2 [facility] Work Phone: (20 sources) Penicillins; Translations: [PENICILLINS] Allergy to substance 6 [facility] Work Phone: (20 sources) POISON VICENTA EXTRACT Drug Allergy 6 [facility] Work Phone: (1 source) POISON VICENTA; Translations: [POISON VICENTA] Propensity to adverse reactions (disorder) [address] [place] [address] Repository (1 source) Garlic preparation Drug Allergy 5 [facility] Repository (1 source) poison vicenta extract Drug allergy (disorder) 5 [facility] Repository Medications Current Medications Medication Drug Class(es) Dates Sig (Normalized) Sig (Original) amLODIPine 5 mg oral tablet (20 sources) Dihydropyridine Calcium Channel Kaya Start: 05-27-2021 End: 06-15-2024 take 1 tablet by mouth once daily Amlodipine 10 mg tablet Discontinued 10 mg PO DAILY 90 October 04, 2023 8:22am June 15, 2024 10:26am Start: 10-31-2020 End: 07-04-2025 take 1 tablet by mouth once daily amLODIPine (NORVASC) 5 mg tablet Indications: Hypertension, essential Take 1 tablet by mouth once daily. 90 tablet 3 07/04/2024 07/04/2025 Active Comment on above: Take 5 mg by mouth o nce daily. fluorouracil 50 mg/ml topical cream (6 sources) Nucleoside Metabolic Inhibitor Start: 5 Fluorouracil (EFUDEX) 5 % cream Indications: Actinic keratosis Apply to nose twice daily for 2 weeks 40 g 07/28/2024 Active lisinopril 20 mg oral tablet (20 sources) Angiotensin Converting Enzyme Inhibitor Start: End: take 1 tablet by mouth once daily lisinopril (ZESTRIL) 20 mg tablet Indications: Hypertension, essential Take 1 tablet by mouth once daily. 90 tablet 3 07/04/2024 07/04/2025 Active Start: 07-14-2020 End: 10-31-2020 take 1 tablet by mouth once daily Lisinopril 40 MG tablet Discontinued 40 mg PO DAILY July 14, 2020 1:00am October 31, 2020 10:26am Comment on above: Take 1 tablet by bree th once daily. Vitamin B Complex (9 sources) vitamin B comple x (B COMPLEX ORAL) Take by mouth. Active Vitamin B Complex tablet (3 sources) Start: 07-25-2024 Vitamin B Complex tablet Active 1 {tbl} PO daily July 25, 2024 12:00am Completed/Discontinued Medications Medication Drug Class(es) Dates Sig (Normalized) Sig (Original) [id number] 200 actuat albuterol 0.09 mg/actuat metered dose inhaler (5 sources) beta2-Adrenergic Agonist Start: 07-15-2020 End: 10-23-2020 [...] 2:42pm ascorbic acid 500 mg oral tablet (4 sources) Vitamin C Start: 06-02-2022 End: 06-01-2023 take 1 tablet by mouth once daily as needed Ascorbic Acid (Vitamin C) 500 mg tablet Discontinued 500 mg PO DAILY as needed June 02, 2022 1:00am June 01, 2023 11:10am aspirin 81 mg delayed release oral tablet (6 sources) Platelet Aggregation Inhibitor, Nonsteroidal Anti-inflammatory Drug Start: 10-23-2020 End: 05-27-2021 Aspirin (Adult Low Dose Aspirin) 81 mg tablet,delayed release (DR/EC) Discontinued 81 mg PO DAILY October 23, 2020 12:00am May 27, 2021 3:27pm End: 10-17-2021 BABY ASPIRIN ORAL Take by mo ut once daily. Not routine 0 10/17/2021 Discontinued [...] on above: take 3 capsules by m outh TOGETHER once daily for 8 to 10 WEEKS carBAMazepine 200 mg oral tablet (5 sources) Mood Stabilizer Start : 01-29 End: 05-07 Carbamazepine 200 MG tablet Discontinued 200 mg PO 3 TIMES DAILY WITH MEALS 90 January 30, 2016 12:00am May 07, 2017 10:30am Take one half tablet 3 times a day for 3 days then increase to 1 tablet 3 times a day dicyclomine hydrochloride 10 mg oral capsule (5 sources) Anticholinergic Start : 10-23 End: 10-30 take 1 capsule by mouth at bedtime Dicyclomine 10 mg capsule Discontinued 10 mg PO before meals and at bedtime October 23, 2020 12:00am October 30, 2020 9:03am hydroCHLOROthiazide 12.5 mg oral capsule (5 sources) Thiazide Diuretic Start : 07-14 End: 10-23 take 1 capsule by mouth once daily Hydrochlorothiazide 12.5 MG capsule Discontinued 12.5 mg PO DAILY July 14, 2020 1:00am October 23, 2020 2:46pm lactobacillus rhamnosus gg [id number] unt oral capsule (5 sources) Start : 10-30 End: 06-01 Lactobacillus Rhamnosus Gg (Probiotic Digestive Care) 20 billion cell capsule Discontinued NMA PO October 30, 2020 12:00am June 01, 2023 11:10am multivitamin capsule (2 sources) Start : 05-07 End: 10-23 take 1 capsule by mouth once daily multivitamin capsule Discontinued 1 CAP PO daily May 07, 2017 10:28am October 23, 2020 2:43pm Start: 05-07-2017 End: 10-23-2020 take 1 capsule by mouth once daily multivitamin capsule Discontinued 1 CAP PO daily May 07, 2017 12:00am October 23, 2020 1:43pm Multivitamin capsule (3 sources) Start: 05-07-2017 End: 10-23-2020 Multivitamin capsule Discont inued 1 NMA PO daily May 07, 2017 1:00am October 23, 2020 2:43pm psyllium 400 mg oral capsule (5 sources) Start: 07-08-2021 End: 06-01-2023 Psyllium Husk [...] 2021 2:43pm Psyllium Seed (With Dextrose) powder (3 sources) Start: 10-30-2020 End: 05-27-2021 Psyllium Seed [...] sources) Anxiety; Translations: [Anxiety disorder, unspecified] Onset: 1 Chronic Cardiac dysrhythmias (20 sources) Paroxysmal [...] of uncertain behavior of skin] 07-28-2024 Episodic Other and unspecified benign neoplasm [...] and menstrual cycle] Episodic Other gastrointestinal disorders (1 source) Irritable bowel syndrome with diarrhea; Translations: [Irritable bowel syndrome with diarrhea] Onset: 5 Chronic Other gastrointestinal disorders (6 sources) Urgent desire for stool; Translations: [Fecal urgency] 10-16-2024 Episodic Other gastrointestinal disorders (1 source) Fecal urgency; Translations: [Fecal urgency] Onset: 5 Episodic Other gastrointestinal disorders (1 source) Diarrhea, unspecified; Translations: [Diarrhea, unspecified] Onset: 5 Episodic Other skin disorders (2 sources) Actinic keratosis; Translations: [Actinic keratosis] 07-28-2024 Episodic Other skin disorders (1 source) Lentiginosis; Translations: [Other melanin hyperpigmentation] 07-28-2024 Episodic Other skin disorders (1 source) Seborrheic keratosis; Translations: [Other seborrheic keratosis] 07-28-2024 Episodic Other skin disorders (1 source) Asteatosis cutis; Translations: [Xerosis cutis] 07-28-2024 Episodic Other skin disorders (1 source) Actinic keratosis; Translations: [Actinic keratosis] Onset: 5 Episodic Past or Other Problems Problem Classification Problem Date Documented Da te Episodic/Chronic Diabetes mellitus without complication (20 sources) Hyperglycemia; Translations: [Hyperglycemia, unspecified] Onset: 01-10-2019 Episodic Noninfectious gastroenteritis (20 sources) Colitis; Translations: [Noninfective gastroenteritis and colitis, unspecified] Onset: 12-18-2022 Episodic Nonspecific chest pain (19 sources) Chest pain; Translations: [Chest pain, unspecified] Onset: 12-18-2022 Resolved: 12-18-2022 10-23-2020 Episodic Other gastrointestinal disorders (20 sources) Diarrhea; Translations: [Diarrhea, unspecified] Onset: 08-19-2021 Resolved: 12-18-2022 07-26-2020 Episodic Other screening for suspected conditions (not mental disorders or infectious disease) (7 sources) Patient encounter status; Translations: [Encounter for screening mammogram for malignant neoplasm of breast] Onset: 07-06-2024 Episodic Unclassified (2 sources) Patient encounter status 06-29-2024 Results Test Name Value Interpretation Reference Range Facility /Keith 11-28-2024 /RODRIGUE [facility] [place] Medical Records Department [address] [place] [address] PAT - Anesthesia 11/28/24 1556 MR#: [id number] Acct: [id number] Name: JENNIFER ROBISON Rep #: [id number] : 1945 79 From: Venkat Romano MD PCP: Dr. Teo Mendez MD Status:PRE SDC Y Race: C Location: EN Pre-Assessment Diagnosis/Proposed Procedure Planned Operative Procedure(s): COLONOSCOPY Anesthesia History Anesthesia History - inspector balance bridge: Anesthesia History - inspector balance bridge Hx Hospitalization No 11/28/24 14:07 Any Problems With Anesthesia No 11/28/24 14:07 Cholinesterase deficiency No 11/28/24 14:07 You/Your Family Experience No 11/28/24 14:07 fever (hyperthermia) with Relationship Recent Exposure to Contagious Disease Does patient have nerve No 11/28/24 14:07 stimulator Patient instructed to have device shut off --Does patient have Pacemaker or ICD? When Was Last Pacemaker Check QUESTION #4 FULL TEXT: You/Your Family Experience fever (hyperthermia) with Anesthesia Last Oral Intake Last Oral intake: Last Oral Intake NPO since Meds taken in AM with sips of water? Meds patient instructed to take am of surgery PONV PONV - inspector balance bridge: PONV - inspector balance bridge Female Yes 11/28/24 14:07 HX of Motion Sickness No 11/28/24 14:07 HX of N/V After Surgery No 11/28/24 14:07 Non-Smoker Yes 11/28/24 14:07 Duration of Surgery greater No 11/28/24 14:07 than 60 minutes Number of Risk Factors 2 11/28/24 14:07 PONV Score Moderate Risk 11/28/24 14:07 Height Weight Height Weight: Anesthesia: Height Weight Height 5 ft 7 in 07/25/24 08:55 Respiratory Assessment Respiratory Assessment - inspector balance bridge: Respiratory Tract Infection Hx - inspector balance bridge Hx Respiratory Tract Infection No 11/28/24 14:07 STOP Sleep Apnea STOP Sleep Apnea - inspector balance bridge: STOP Sleep Apnea - inspector balance bridge Hx Hypertension Yes: CONTROLLED ON MED 11/28/24 14:07 Hx Sleep Apnea No 11/28/24 14:07 CPAP BIPAP Do you snore loudly (louder No 11/28/24 14:07 than talking or can be heard Do you often feel tired/ No 11/28/24 14:07 fatigued/ sleepy during daytime? Has anyone observed you stop No 11/28/24 14:07 breathing during sleep? STOP Results Negative 11/28/24 14:07 QUESTION #5 FULL TEXT : Do you snore loudly (louder than talking or can be heard through closed doors)? Tobacco Use History Tobacco Use History - inspector balance bridge: Tobacco Use History - inspector balance bridge Tobacco Use Smoking Status Never smoker 11/28/24 14:07 Hx Tobacco Use No 11/28/24 14:07 Years Smoking Packs Smoked per Day Smoking Cessation Date was within the last 15 years Hx Smoking Cessation Date Hx Smoking Cessation Counseling Hematologic Medial History Hematologic Hx - inspector balance bridge: Hematologic Medical Hx - mental health case manager Hx of Blood Transfusion No 11/28/24 14:07 Hx of Transfusion in last 3 No 11/28/24 14:07 Months Date of Last Transfusion (if within last 3 months) Ever experience any problems No 11/28/24 14:07 with transfusion(s)? Specify any problems Hx of Preganancy in last 3 No 11/28/24 14:07 Months Nurse Filling Out Transfusion VCHRISTIN 11/28/24 14:07 Questions: Date: 11/28/24 11/28/24 14:07 Time: 14:08 11/28/24 14:07 Patient unable to answer at this time (ie. confused, unrespo /Reproductio n History /Reproductiv e History - inspector balance bridge: /Reproductiv e Hx- inspector balance bridge Hx Now No 11/28/24 14:07 Gestational Age (in weeks): EDC: Hx Hx Para Hx Section SAB No 11/28/24 14:07 [facility] Medical History (Updated 11/28/24 @ 14:07 by Rosa Sheikh) Wears glasses History of Clostridium difficile infection Post-menopausal Alcohol use History of renal disease Non-smoker Leg cramps Lymphedema History of Holter monitoring History of echocardiogram History of stress test Hypertension Cardiology follow-up encounter Preop cardiovascular exam Paroxysmal SVT (supraventricular tachycardia) Irritable bowel syndrome with diarrhea CKD (chronic kidney disease) stage 3, GFR 30-59 ml/min Hyperglycemia Anxiety Hyperlipidemia Essential (primary) hypertension Dermatitis Home Medications ???Medication ???Instructions ???Recorded ???Last Taken ???Type amlodipine 10 mg tablet 10 mg PO DAILY #90 TABLETS 5 Unknown Rx lisinopril 20 mg tablet 20 mg PO DAILY dose has been 06/15 Unknown Rx decreased #90 tabs vitamin B complex 1 tab PO QDAY 07/25/24 Unknown His tory Allergy/AdvReac Type Severity Reaction Sta (more content not included)... Normal [facility] CNOVon 10-27-2024 CNOV Office Visit (DERMIN ) JENNIFER ROBISON ([id number]) 1945 F Date Time Provider Department 10/27/24 8:30 AM HANNAH LAZARO During your visit today, we recorded the following information about you: Hannah Lazaro APRN.CNP 10/27/2024 9:02 AM Signed EST PATIENT Last visit: 07/28/24OctoberHannah APRN.CNP Chief Complaint: Actinic keratoses History of Present Ilness: Jennifer Robison is a 79 year old female presents today for a actinic keratoses Follow up Actinic keratoses Location: None Treatment at last apt: Efudex 5% Using as prescribed: Yes Side effects from meds? No Overall Status: Healed No other concerns today /planning or : [...] A skin exam was done of the nose Skin exam normal with the exception of: Clear on exam today Assessment and Plan: 1.Actinic keratoses - resolved s/p efudex BID for 2 weeks - Premalignant nature and relationship to sun exposure were discussed with the patient - Discussed the chronicity of actinic keratoses Sunscreen (SPF 30 or higher). Sun protective [...] and agrees with treatment plan. Follow up: 1 year or sooner if something concerning arises. The documentation for this note was completed by Emilee Mai LPN acting as scribe for Hannah Lazaro APRN.GORDO. October 26, 2024 7:04 AM. Emilee Mai LPN I agree with the Chief Complaint, ROS, and Past Histories independently gathered by the clinical office support assistant and the remaining scribed note accurately describes my personal service to the patient. Hannah Lazaro APRN.IMPLEMENTATION ADVISOR Referring Provider: SELF [200] Allergies As of Date: 10/27/2024 Noted Allergy Reaction PENICILLINS 08/19/2005 POISON VICENTA 08/20/2005 2 - Rash Date Reviewed: 10/27/2024 Reviewed by: Bridger Erickson LPN - Fully Assessed Reason for Visit: Actinic Keratosis [3604] Primary Visit Diagnosis:Actinic keratosis [L57.0] Prescriptions as of 10/27/2024 - Fluorouracil (EFUDEX) 5 % cream Apply to nose twice daily for 2 weeks - vitamin B complex (B COMPLEX ORAL) Take by mouth. - amLODIPine (NORVASC) 5 mg tablet Take 1 tablet by mouth once daily. - lisinopril (ZESTRIL) 20 mg tablet Take 1 tablet by mouth once daily. Problem List As Of Date 10/27/2024 Noted Resolved Hyperglycemia [R73.9] 01/10/2019 Hyperlipidemia, mixed [E78.2] 01/10/2019 Essential hypertension [I10] 01/10/2019 Stage 3 chronic kidney disease (HCC) [N18.30] 10/16/2020 Anxiety [F41.9] 10/16/2020 Chest pain [R07.9] 12/18/2022 12/18/2022 Diagnosed: 12/18/2022 Diarrhea [R19.7] 08/19/2021 12/18/2022 Diagnosed: 12/18/2022 Paroxysmal supraventricular tachycardia (HCC) [*06/25/2022 Diagnosed: 12/18/2022 Colitis [K52.9] 12/18/2022 Encounter Status:Closed by HANNAH LAZARO on 10/27/24 Normal [facility] L3410.9992on 10-27-2024 [facility] Mis. Normal [facility] Comment on above: Order Comment: [id number] STOOL CULTURE Result Comment: BARBRA Cordero CULTURE Salmonella/Shigella Screen Final Report Result 1 No Salmonella or Shigella recovered. Campylobacter Culture Final Report Result 1 No Campylobacter species isolated. E. coli Shiga Toxin EIA Negative TESTING PERFORMED AT [facility]. ORIGINAL REPORT ON FILE IN LAB CONTAINS ADDITIONAL TEST SITE INFORMATION. Performed By: #### M 100.0605, L3410.9992, M100.6796, L7000.0750, L7000.0700, L7400.3300 #### [facility] [address] [place], [address] ZA Comprehensive Panelon ANTI-DNA (DS)AB <1 Normal 0-9 [facility] Comment on above: Result Comment: Nega tive <5 Equivocal 5 - 9 Positive >9 Performed By: #### L 3100.5440, L100.0100, L501.6710, L501.9520, L5500.0550, L101.9900, L500.4050, L504.2610, L3200.1100, L3300.1200, L3410.2400, L2100.0000 #### [facility] [address] [place], [place], [id number] ANTI-SS-A < 0.2 Normal 0.0-0.9 [facility] Comment on above: Performed By: #### L 3100.5440, L100.0100, L501.6710, L501.9520, L5500.0550, L101.9900, L500.4050, L504.2610, L3200.1100, L3300.1200, L3410.2400, L2100.0000 #### [facility] [address] [place], [place], [id number] ANTI-SS-B < 0.2 Normal 0.0-0.9 [facility] Comment on above: Performed By: #### L 3100.5440, L100.0100, L501.6710, L501.9520, L5500.0550, L101.9900, L500.4050, L504.2610, L3200.1100, L3300.1200, L3410.2400, L2100.0000 #### [facility] [address] [place], [place], [id number] ANCAon 10-19-2024 Atypical pANCA <1:20 Normal Neg:<1:20 [facility] Comment on above: Result Comment: The atypical pANCA pattern has been observed in a significant percentage of patients with ulcerative colitis, primary sclerosing cholangitis and autoimmune hepatitis. Performed at: [facility] [address] [id number] Can Filler: Bassam Chan PhD, Phone: [phone] Performed at: [facility] Lab[address] [id number] Can Filler: Jean Voss MD, Phone: [phone] Performed By: #### L 3100.5440, L100.0100, L501.6710, L501.9520, L5500.0550, L101.9900, L500.4050, L504.2610, L3200.1100, L3300.1200, L3410.2400, L2100.0000 ####[facility] [address] [place], [place], [phone]([phone] Cytoplasmic Ab <1:20 Normal Neg:<1:20 [facility] Comment on above: Performed By: #### L 3100.5440, L100.0100, L501.6710, L501.9520, L5500.0550, L101.9900, L500.4050, L504.2610, L3200.1100, L3300.1200, L3410.2400, L2100.0000 ####[facility] [address] [place], [address](019) Perinuclear Ab. <1:20 Normal Neg:<1:20 [facility] Comment on above: Result Comment: The presence of positive fluorescence exhibiting P-ANCA or C-ANCA patterns alone is not specific for the diagnosis of Adam's Granulomatosis (WG) or microscopic polyangiitis. Decisions about treatment should not be based solely on ANCA IFA results. The International ANCA Group Consensus recommends follow up testing of positive sera with both IA- 3 and MPO-ANCA enzyme immunoassays. As many as 5% serum samples are positive only by EIA. Ref. AM J Clin Pathol 1999;111:507-513. Performed By: #### L 3100.5440, L100.0100, L501.6710, L501.9520, L5500.0550, L101.9900, L500.4050, L504.2610, L3200.1100, L3300.1200, L3410.2400, L2100.0000 ####[facility] [address] [place], [place], [id number] Calprotectin, Stoolon [address] 40 ug/g Normal 0-120 [facility] Comment on above: Result Comment: Conc entration Interpretation Follow-Up < 5 - 50 ug/g Normal None >50 -120 ug/g Borderline Re-evaluate in 4-6 weeks >120 ug/g Abnormal Repeat as clinically indicated Performed at: [address] [id number] Can Filler: Jean Voss MD, Phone: [phone] Performed By: #### M 100.0605, L3410.9992, M100.6796, L7000.0750, L7000.0700, L7400.3300 #### [facility] [address] [place], [place], [id number] Celiac Disease Profileon ENDOMYSIAL IGA Negative Normal Negative [facility] Comment on above: Performed By: #### L 3100.5440, L100.0100, L501.6710, L501.9520, L5500.0550, L101.9900, L500.4050, L504.2610, L3200.1100, L3300.1200, L3410.2400, L2100.0000 ####[facility] [address] [place], [place], [id number] tTG IGA <2 Normal 0-3 [facility] Comment on above: Result Comment: Nega tive 0 - 3 Weak Positive 4 - 10 Positive >10 Tissue Transglutaminase (tTG) has been identified as the endomysial antigen. Studies have demonstr- ated that endomysial IgA antibodies have over 99% specificity for gluten sensitive enteropathy. Performed By: #### L 3100.5440, L100.0100, L501.6710, L501.9520, L5500.0550, L101.9900, L500.4050, L504.2610, L3200.1100, L3300.1200, L3410.2400, L2100.0000 ####[facility] [address] [place], [place], [phone] Giardia Lamblia, Stool EIAon 10-19-2024 Giardia Stool Negative Normal Negative [facility] Comment on above: Result Comment: Perf ormed at: - [facility] [address] [id number] Can Filler: Jean Voss MD, Phone: [phone] Performed at: - [facility] [place] [address] [place], [place] [id number] Can Filler: Bassam Chan PhD, Phone: [phone] Performed By: #### M 100.0605, L3410.9992, M100.6796, L7000.0750, L7000.0700, L7400.3300 #### [facility] [address] [place], [place], [address] [phone]) Immunoglobulins G/A/M/Arthur IMMUNOGLOB A QN 126 mg/dL Normal 64-422 [facility] Comment on above: Order Comment: NUNK Performed By: #### L 3100.5440, L100.0100, L501.6710, L501.9520, L5500.0550, L101.9900, L500.4050, L504.2610, L3200.1100, L3300.1200, L3410.2400, L2100.0000 ####[facility] [address] [place], [place], [address](010) IMMUNOGLOB E QN 45 IU/mL Normal 6-495 [facility] Comment on above: Order Comment: NUNK Performed By: #### L 3100.5440, L100.0100, L501.6710, L501.9520, L5500.0550, L101.9900, L500.4050, L504.2610, L3200.1100, L3300.1200, L3410.2400, L2100.0000 ####[facility] [address] [place], [place], [address](389) IMMUNOGLOB G QN 832 mg/dL Normal 586-1602 [facility] Comment on above: Order Comment: NUNK Performed By: #### L 3100.5440, L100.0100, L501.6710, L501.9520, L5500.0550, L101.9900, L500.4050, L504.2610, L3200.1100, L3300.1200, L3410.2400, L2100.0000 ####[facility] [address] [place], [address] IMMUNOGLOB M QN 52 mg/dL Normal 26-217 [facility] Comment on above: Order Comment: NUNK Performed By: #### L 3100.5440, L100.0100, L501.6710, L501.9520, L5500.0550, L101.9900, L500.4050, L504.2610, L3200.1100, L3300.1200, L3410.2400, L2100.0000 ####[facility] [address] [place], [place], [id number] L2100.0000on 10-19-2024 ACCA 12 units Normal 0-90 [facility] Comment on above: Result Comment: Nega tive: <80 Equivocal: 80-90 Positive: >90 Performed By: #### L 3100.5440, L100.0100, L501.6710, L501.9520, L5500.0550, L101.9900, L500.4050, L504.2610, L3200.1100, L3300.1200, L3410.2400, L2100.0000 ####[facility] [address] [place], [address] ALCA 17 units Normal 0-60 [facility] Comment on above: Result Comment: Nega tive:<55 Equivocal: 55-60 Positive: >60 Performed By: #### L 3100.5440, L100.0100, L501.6710, L501.9520, L5500.0550, L101.9900, L500.4050, L504.2610, L3200.1100, L3300.1200, L3410.2400, L2100.0000 ####[facility] [address] [place], [place], [phone] AMCA 24 units Normal 0-100 [facility] Comment on above: Result Comment: Nega tive: <90 Equivocal: 90-100 Positive: >100 This test was developed and its performance characteristics determined by [facility]. It has not been cleared or approved by the Food and Drug Administration. The FDA has determined that such clearance or approval is not necessary. Performed By: #### L 3100.5440, L100.0100, L501.6710, L501.9520, L5500.0550, L101.9900, L500.4050, L504.2610, L3200.1100, L3300.1200, L3410.2400, L2100.0000 ####[facility] [address] [place], [place], [phone] Atypical pANCA Negative Normal Negative [facility] Comment on above: Performed By: #### L 3100.5440, L100.0100, L501.6710, L501.9520, L5500.0550, L101.9900, L500.4050, L504.2610, L3200.1100, L3300.1200, L3410.2400, L2100.0000 ####[facility] [address] [place], [place], [phone] COMMENT Comment Normal . [facility] Comment on above: Result Comment: Fabi vangie is not suggestive of Inflammatory Bowel Disease Performed By: #### L 3100.5440, L100.0100, L501.6710, L501.9520, L5500.0550, L101.9900, L500.4050, L504.2610, L3200.1100, L3300.1200, L3410.2400, L2100.0000 ####[facility] [address] [place], [place], [phone] Gustabo 12 units Normal 0-50 [facility] Comment on above: Result Comment: Nega tive: <45 Equivocal: 45-50 Positive: >50 Performed By: #### L 3100.5440, L100.0100, L501.6710, L501.9520, L5500.0550, L101.9900, L500.4050, L504.2610, L3200.1100, L3300.1200, L3410.2400, L2100.0000 ####[facility] [address] [place], [place], [id number] L5500.0550on 10-19-2024 BEEF <0.10 Normal Class 0 [facility] Comment on above: Performed By: #### L 3100.5440, L100.0100, L501.6710, L501.9520, L5500.0550, L101.9900, L500.4050, L504.2610, L3200.1100, L3300.1200, L3410.2400, L2100.0000 ####[facility] [address] [place], [place], [address] CHOCOLATE <0.10 Normal Class 0 [facility] Comment on above: Performed By: #### L 3100.5440, L100.0100, L501.6710, L501.9520, L5500.0550, L101.9900, L500.4050, L504.2610, L3200.1100, L3300.1200, L3410.2400, L2100.0000 ####[facility] [address] [place], [place], [phone] CODFISH <0.10 Normal Class 0 [facility] Comment on above: Performed By: #### L 3100.5440, L100.0100, L501.6710, L501.9520, L5500.0550, L101.9900, L500.4050, L504.2610, L3200.1100, L3300.1200, L3410.2400, L2100.0000 ####[facility] [address] [place], [address] COMMENT Comment Normal . [facility] Comment on above: Result Comment: Melecio bowman of Specific IgE Class Description of Class ----- < 0.10 0 Negative 0.10 - 0.31 0/I Equivocal/Low 0.32 - 0.55 I Low 0.56 - 1.40 II Moderate 1.41 - 3.90 III High 3.91 - 19.00 IV Very High 19.01 - 100.00 V Very High >100.00 Very High Performed By: #### L 3100.5440, L100.0100, L501.6710, L501.9520, L5500.0550, L101.9900, L500.4050, L504.2610, L3200.1100, L3300.1200, L3410.2400, L2100.0000 ####[facility] [address] [place], [place], [phone] CORN <0.10 Normal Class 0 [facility] Comment on above: Performed By: #### L 3100.5440, L100.0100, L501.6710, L501.9520, L5500.0550, L101.9900, L500.4050, L504.2610, L3200.1100, L3300.1200, L3410.2400, L2100.0000 ####[facility] [address] [place], [place], [phone] EGG, WHOLE <0.10 Normal Class 0 [facility] Comment on above: Result Comment: Perf ormed at: [address] [id number] Can Filler: Bassam Chan PhD, Phone: [phone] Performed at: [facility] [address] [id number] Can Filler: Jean Voss MD, Phone: [phone] Performed By: #### L 3100.5440, L100.0100, L501.6710, L501.9520, L5500.0550, L101.9900, L500.4050, L504.2610, L3200.1100, L3300.1200, L3410.2400, L2100.0000 ####[facility] [address] [place], [place], [phone] MILK (COW) <0.10 Normal Class 0 [facility] Comment on above: Performed By: #### L 3100.5440, L100.0100, L501.6710, L501.9520, L5500.0550, L101.9900, L500.4050, L504.2610, L3200.1100, L3300.1200, L3410.2400, L2100.0000 ####[facility] [address] [place], [place], [phone](762) MUSSELS <0.10 Normal Class 0 [facility] Comment on above: Performed By: #### L 3100.5440, L100.0100, L501.6710, L501.9520, L5500.0550, L101.9900, L500.4050, L504.2610, L3200.1100, L3300.1200, L3410.2400, L2100.0000 ####[facility] [address] [place], [place], [phone] PEANUT <0.10 Normal Class 0 [facility] Comment on above: Performed By: #### L 3100.5440, L100.0100, L501.6710, L501.9520, L5500.0550, L101.9900, L500.4050, L504.2610, L3200.1100, L3300.1200, L3410.2400, L2100.0000 ####[facility] [address] [place], [place], [phone](455) PORK <0.10 Normal Class 0 [facility] Comment on above: Performed By: #### L 3100.5440, L100.0100, L501.6710, L501.9520, L5500.0550, L101.9900, L500.4050, L504.2610, L3200.1100, L3300.1200, L3410.2400, L2100.0000 ####[facility] [address] [place], [place], [phone] SALMON <0.10 Normal Class 0 [facility] Comment on above: Performed By: #### L 3100.5440, L100.0100, L501.6710, L501.9520, L5500.0550, L101.9900, L500.4050, L504.2610, L3200.1100, L3300.1200, L3410.2400, L2100.0000 ####[facility] [address] [place], [place], [phone] SHRIMP <0.10 Normal Class 0 [facility] Comment on above: Performed By: #### L 3100.5440, L100.0100, L501.6710, L501.9520, L5500.0550, L101.9900, L500.4050, L504.2610, L3200.1100, L3300.1200, L3410.2400, L2100.0000 ####[facility] [address] [place], [place], [phone] SOYBEAN <0.10 Normal Class 0 [facility] Comment on above: Performed By: #### L 3100.5440, L100.0100, L501.6710, L501.9520, L5500.0550, L101.9900, L500.4050, L504.2610, L3200.1100, L3300.1200, L3410.2400, L2100.0000 ####[facility] [address] [place], [place], [phone] TUNA <0.10 Normal Class 0 [facility] Comment on above: Performed By: #### L 3100.5440, L100.0100, L501.6710, L501.9520, L5500.0550, L101.9900, L500.4050, L504.2610, L3200.1100, L3300.1200, L3410.2400, L2100.0000 ####[facility] [address] [place], [address] WHEAT <0.10 Normal Class 0 [facility] Comment on above: Performed By: #### L 3100.5440, L100.0100, L501.6710, L501.9520, L5500.0550, L101.9900, L500.4050, L504.2610, L3200.1100, L3300.1200, L3410.2400, L2100.0000 ####[facility] [address] [place], [address] L7000.0750on 10-19-2024 P ELASTASE,FECA 368 Normal >200 [facility] Comment on above: Result Comment: Resu lt Units: ug Elast./g Severe Pancreatic Insufficiency: <100 Moderate Pancreatic Insufficiency: 100 - 200 Normal: >200 Performed By: #### M 100.0605, L3410.9992, M100.6796, L7000.0750, L7000.0700, L7400.3300 #### [facility] [address] [place], [place], [phone] CDIFF (PCR)on 10-17-2024 CDIFF A positive C. difficile molecular test does not differentiate between an active C. difficile infection and C. difficile colonization. Use clinical judgement and paired toxin/antigen testing to identify true infection and need for treatment. C diff DNA Spec Ql BRIANNA+probe Reference Range: Negative [employer] Gene[employer]pert: polymerase chain reaction (PCR) 027 027 NAP1-B1 Presumptive Negative *for epidemiolologic???use C. Diff PCR Negative- No toxigenic C. Diff Detected Normal [facility] Comment on above: Performed By: #### M 100.0605, L3410.9992, M100.6796, L7000.0750, L7000.0700, L7400.3300 #### [facility] [address] [place], [place], [phone] CRPon 10-17-2024 C-REACTIVE PROT < 3.00 Normal 0.0-3.0 [facility] Comment on above: Performed By: #### L 3100.5440, L100.0100, L501.6710, L501.9520, L5500.0550, L101.9900, L500.4050, L504.2610, L3200.1100, L3300.1200, L3410.2400, L2100.0000 ####[facility] [address] [place], [address] Calprotectin stoolOrdered By : Sofia Esposito on 10-17-2024 Calprotectin stool 40 ug/g 0-120 [facility] Comment on above: Concentration Interp retation Follow-Up< 5 - 50 ug/g Normal None>50 -120 ug/g Borderline Re-evaluate in 4-6 weeks >120 ug/g Abnormal Repeat as clinically indicatedPerformed at: - [facility] [id number] Director: Jean Voss MD, Phone: [phone] Clostridium difficile detect ion by polymerase chain reactionOrdered By: Sofia Esposito on 10-17-2024 C. difficile DNA BRIANNA+probe Ql (Unsp spec) [facility] Comprehensive Metabolic Prof ilon 10-17-2024 Albumin [Mass/Vol] 4.4 g/dL Normal 3.4-4.8 [facility] Comment on above: Order Comment: UNK Performed By: #### L 3100.5440, L100.0100, L501.6710, L501.9520, L5500.0550, L101.9900, L500.4050, L504.2610, L3200.1100, L3300.1200, L3410.2400, L2100.0000 ####[facility] [address] [place], [place], [phone] Albumin/Globulin [Mass ratio] 1.7 {ratio} Normal 0.9-2.4 [facility] Comment on above: Order Comment: UNK Performed By: #### L 3100.5440, L100.0100, L501.6710, L501.9520, L5500.0550, L101.9900, L500.4050, L504.2610, L3200.1100, L3300.1200, L3410.2400, L2100.0000 ####[facility] [address] [place], [address] ALK PHOS 65 U/L Normal 35-104 [facility] Comment on above: Order Comment: UNK Performed By: #### L 3100.5440, L100.0100, L501.6710, L501.9520, L5500.0550, L101.9900, L500.4050, L504.2610, L3200.1100, L3300.1200, L3410.2400, L2100.0000 ####[facility] [address] [place], [place], [phone] ALT [Catalytic activity/Vol] 11 U/L Normal <=34 [facility] Comment on above: Order Comment: UNK Performed By: #### L 3100.5440, L100.0100, L501.6710, L501.9520, L5500.0550, L101.9900, L500.4050, L504.2610, L3200.1100, L3300.1200, L3410.2400, L2100.0000 ####[facility] [address] [place], [place], [phone] AST [Catalytic activity/Vol] 23 U/L Normal <=31 [facility] Comment on above: Order Comment: UNK Performed By: #### L 3100.5440, L100.0100, L501.6710, L501.9520, L5500.0550, L101.9900, L500.4050, L504.2610, L3200.1100, L3300.1200, L3410.2400, L2100.0000 ####[facility] [address] [place], [address] Bilirubin [Mass/Vol] 0.39 mg/dL Normal 0.00-1.30 [facility] Comment on above: Order Comment: UNK Performed By: #### L 3100.5440, L100.0100, L501.6710, L501.9520, L5500.0550, L101.9900, L500.4050, L504.2610, L3200.1100, L3300.1200, L3410.2400, L2100.0000 ####[facility] [address] [place], [address] BUN/CRE 25.1 RATIO High 10-20 [facility] Comment on above: Order Comment: UNK Performed By: #### L 3100.5440, L100.0100, L501.6710, L501.9520, L5500.0550, L101.9900, L500.4050, L504.2610, L3200.1100, L3300.1200, L3410.2400, L2100.0000 ####[facility] [address] [place], [address] Calcium [Mass/Vol] 9.4 mg/dL Normal 7.6-11.0 [facility] Comment on above: Order Comment: UNK Performed By: #### L 3100.5440, L100.0100, L501.6710, L501.9520, L5500.0550, L101.9900, L500.4050, L504.2610, L3200.1100, L3300.1200, L3410.2400, L2100.0000 ####[facility] [address] [place], [address] Chloride [Moles/Vol] 106 mmol/L Normal 98-108 [facility] Comment on above: Order Comment: UNK Performed By: #### L 3100.5440, L100.0100, L501.6710, L501.9520, L5500.0550, L101.9900, L500.4050, L504.2610, L3200.1100, L3300.1200, L3410.2400, L2100.0000 ####[facility] [address] [place], [place], [phone] CO2 [Moles/Vol] 23.9 mmol/L Normal 21.0-32.0 [facility] Comment on above: Order Comment: UNK Performed By: #### L 3100.5440, L100.0100, L501.6710, L501.9520, L5500.0550, L101.9900, L500.4050, L504.2610, L3200.1100, L3300.1200, L3410.2400, L2100.0000 ####[facility] [address] [place], [place], [phone] Creatinine [Mass/Vol] 0.97 mg/dL Normal 0.70-1.20 [facility] Comment on above: Order Comment: UNK Performed By: #### L 3100.5440, L100.0100, L501.6710, L501.9520, L5500.0550, L101.9900, L500.4050, L504.2610, L3200.1100, L3300.1200, L3410.2400, L2100.0000 ####[facility] [address] [place], [place], [address] GAP 11 Normal 5-15 [facility] Comment on above: Order Comment: UNK Performed By: #### L 3100.5440, L100.0100, L501.6710, L501.9520, L5500.0550, L101.9900, L500.4050, L504.2610, L3200.1100, L3300.1200, L3410.2400, L2100.0000 ####[facility] [address] [place], [place], [phone] GFR/1.73 sq M.predicted among non-blacks MDRD (S/P/Bld) [Vol rate/Area] 60 mL/min/{1.73_m2} Normal >60 [facility] Comment on above: Order Comment: UNK Result Comment: mL/m in/1.73m2 CKD-EPI Creatinine Equation (2020) Performed By: #### L 3100.5440, L100.0100, L501.6710, L501.9520, L5500.0550, L101.9900, L500.4050, L504.2610, L3200.1100, L3300.1200, L3410.2400, L2100.0000 ####[facility] [address] [place], [place], [phone] Globulin (S) [Mass/Vol] 2.6 g/dL Normal 2.2-4.2 [facility] Comment on above: Order Comment: UNK Performed By: #### L 3100.5440, L100.0100, L501.6710, L501.9520, L5500.0550, L101.9900, L500.4050, L504.2610, L3200.1100, L3300.1200, L3410.2400, L2100.0000 ####[facility] [address] [place], [place], [phone] Glucose [Mass/Vol] 109 mg/dL High 70-99 [facility] Comment on above: Order Comment: UNK Performed By: #### L 3100.5440, L100.0100, L501.6710, L501.9520, L5500.0550, L101.9900, L500.4050, L504.2610, L3200.1100, L3300.1200, L3410.2400, L2100.0000 ####[facility] [address] [place], [place], [phone] Potassium [Moles/Vol] 4.3 mmol/L Normal 3.3-5.1 [facility] Comment on above: Order Comment: UNK Performed By: #### L 3100.5440, L100.0100, L501.6710, L501.9520, L5500.0550, L101.9900, L500.4050, L504.2610, L3200.1100, L3300.1200, L3410.2400, L2100.0000 ####[facility] [address] [place], [address] Sodium [Moles/Vol] 141 mmol/L Normal 133-145 [facility] Comment on above: Order Comment: UNK Performed By: #### L 3100.5440, L100.0100, L501.6710, L501.9520, L5500.0550, L101.9900, L500.4050, L504.2610, L3200.1100, L3300.1200, L3410.2400, L2100.0000 ####[facility] [address] [place], [place], [phone] T PROT 6.9 g/dL Normal 5.9-8.4 [facility] Comment on above: Order Comment: UNK Performed By: #### L 3100.5440, L100.0100, L501.6710, L501.9520, L5500.0550, L101.9900, L500.4050, L504.2610, L3200.1100, L3300.1200, L3410.2400, L2100.0000 ####[facility] [address] [place], [place], [phone] Urea nitrogen [Mass/Vol] 24 mg/dL High 4-19 [facility] Comment on above: Order Comment: UNK Performed By: #### L 3100.5440, L100.0100, L501.6710, L501.9520, L5500.0550, L101.9900, L500.4050, L504.2610, L3200.1100, L3300.1200, L3410.2400, L2100.0000 ####[facility] [address] [facility] [place], [address] Giardia lamblia ag stool EIA Ordered By: Sofia Esposito on 10-17-2024 G. lamblia Ag IA Ql (Stl) Negative Negative [facility] Comment on above: Performed at: - [facility] [address] [id number] Director: Jean Voss MD, Phone: [phone] at: [facility] [address] [id number] Director: Bassam Chan PhD, Phone: [phone] LDHon 10-17-2024 LDH 245 U/L Normal 84-246 [facility] Comment on above: Order Comment: UNK1 Performed By: #### L 3100.5440, L100.0100, L501.6710, L501.9520, L5500.0550, L101.9900, L500.4050, L504.2610, L3200.1100, L3300.1200, L3410.2400, L2100.0000 ####[facility] [address] [place], [place], [phone] Stool Lactoferrin/WBCon 10-01 WBCST Fecal WBC Lactoferri n Negative: No Fecal WBC Lactoferrin present Normal [facility] Comment on above: Performed By: #### M 100.0605, L3410.9992, M100.6796, L7000.0750, L7000.0700, L7400.3300 #### [facility] Laboratory [address] [place], [address] Stool lactoferrin detection by immunoassayOrdered By: Sofia Esposito on 10-17-2024 Lactoferrin IA Ql (Stl) [facility] Stool pancreatic elastase me asurement (mass/mass)Ordered By: Sofia Esposito on 10-17-2024 Elastase.pancreatic (Stl) [Mass/Mass] 368 >200 [facility] Comment on above: Result Units: ug Nancy st./g Severe Pancreatic Insufficiency: <100 Moderate Pancreatic Insufficiency: 100 - 200 Normal: >200 Thyroid Stim Hormone (TSH)on 10-17-2024 TSH 2.270 uIU/mL Normal 0.300-4.200 [facility] Comment on above: Performed By: #### L 3100.5440, L100.0100, L501.6710, L501.9520, L5500.0550, L101.9900, L500.4050, L504.2610, L3200.1100, L3300.1200, L3410.2400, L2100.0000 ####[facility] [address] [place], [address] Absolute lymphocyte countOrd ered By: Sofia Esposito on 10-16-2024 Lymphocytes Auto (Unsp spec) [#/Vol] 1.11 10*3/uL 0.83-4.51 [facility] Absolute neutrophil countOrd ered By: Sofia Esposito on 10-16-2024 Neutrophils (Bld) [#/Vol] 4.3 10*3/uL 2.0-7.7 [facility] Anion gap in Serum or Plasma Ordered By: Sofia Esposito on 10-16-2024 Anion gap [Moles/Vol] 11 mmol/L 5-15 [facility] Automated lymphocyte count a s percentage of total leukocytesOrdered By: Sofia Esposito on 10-16-2024 Lymphocytes/100 WBC Auto (Unsp spec) 18.7 % Low 19-41 [facility] BUN/creatinine ratioOrdered By: Sofia Esposito on 10-16-2024 Urea nitrogen/Creatinine [Mass ratio] 25.1 mg/mg High 10-20 [facility] Basophil percentageOrdered B y: Sofia Esposito on 10-16-2024 Basophils/100 WBC (Bld) 0.7 % 0-1 [facility] Bilirubin, totalOrdered By: Sofia Esposito on 10-16-2024 Bilirubin [Mass/Vol] 0.39 mg/dL 0.00-1.30 [facility] CBC W/Diff, Automatedon 10-01 Absolute Lymph 1.11 X10 3/uL Normal 0.83-4.51 [facility] Comment on above: Performed By: #### L 3100.5440, L100.0100, L501.6710, L501.9520, L5500.0550, L101.9900, L500.4050, L504.2610, L3200.1100, L3300.1200, L3410.2400, L2100.0000 ####[facility] [address] [place], [place], [phone] Absolute Neut 4.3 X10 3/uL Normal 2.0-7.7 [facility] Comment on above: Performed By: #### L 3100.5440, L100.0100, L501.6710, L501.9520, L5500.0550, L101.9900, L500.4050, L504.2610, L3200.1100, L3300.1200, L3410.2400, L2100.0000 ####[facility] [address] [place], [place], [phone] Basophils/100 WBC (Bld) 0.7 % Normal 0-1 [facility] Comment on above: Performed By: #### L 3100.5440, L100.0100, L501.6710, L501.9520, L5500.0550, L101.9900, L500.4050, L504.2610, L3200.1100, L3300.1200, L3410.2400, L2100.0000 ####[facility] [address] [place], [address] Eosinophils/100 WBC (Bld) 2.5 % Normal 0-5 [facility] Comment on above: Performed By: #### L 3100.5440, L100.0100, L501.6710, L501.9520, L5500.0550, L101.9900, L500.4050, L504.2610, L3200.1100, L3300.1200, L3410.2400, L2100.0000 ####[facility] [address] [place], [address] Erythrocyte distribution width (RBC) [Ratio] 12.7 % Normal 11.6-14.6 [facility] Comment on above: Performed By: #### L 3100.5440, L100.0100, L501.6710, L501.9520, L5500.0550, L101.9900, L500.4050, L504.2610, L3200.1100, L3300.1200, L3410.2400, L2100.0000 ####[facility] [address] [place], [place], [phone] Hematocrit (Bld) [Volume fraction] 37.2 % Normal 37-47 [facility] Comment on above: Performed By: #### L 3100.5440, L100.0100, L501.6710, L501.9520, L5500.0550, L101.9900, L500.4050, L504.2610, L3200.1100, L3300.1200, L3410.2400, L2100.0000 ####[facility] [id number] [place], [phone]) Hemoglobin (Bld) [Mass/Vol] 12.6 g/dL Normal 12.0-15. 0 [facility] Comment on above: Performed By: #### L 3100.5440, L100.0100, L501.6710, L501.9520, L5500.0550, L101.9900, L500.4050, L504.2610, L3200.1100, L3300.1200, L3410.2400, L2100.0000 ####[facility] [id number] [place], [address] IG% 0.200 Normal 0.0-0.9 [facility] Comment on above: Result Comment: IG% - Immature Granulocytes (promyelocytes, myelocytes and metamyelocytes) > 1% indicates that a LEFT SHIFT is Present. Performed By: #### L 3100.5440, L100.0100, L501.6710, L501.9520, L5500.0550, L101.9900, L500.4050, L504.2610, L3200.1100, L3300.1200, L3410.2400, L2100.0000 ####[facility] [id number] [place], [address] Lymphocytes/100 WBC (Bld) 18.7 % Low 19-41 [facility] Comment on above: Performed By: #### L 3100.5440, L100.0100, L501.6710, L501.9520, L5500.0550, L101.9900, L500.4050, L504.2610, L3200.1100, L3300.1200, L3410.2400, L2100.0000 ####[facility] [id number] [place], [address] MCH (RBC) [Entitic mass] 32.3 pg High 27.0-32.0 [facility] [facility] Comment on above: Performed By: #### L 3100.5440, L100.0100, L501.6710, L501.9520, L5500.0550, L101.9900, L500.4050, L504.2610, L3200.1100, L3300.1200, L3410.2400, L2100.0000 ####[facility] [address] [place], [address] MCHC (RBC) [Mass/Vol] 33.9 g/dL Normal 32-36 [facility] Comment on above: Performed By: #### L 3100.5440, L100.0100, L501.6710, L501.9520, L5500.0550, L101.9900, L500.4050, L504.2610, L3200.1100, L3300.1200, L3410.2400, L2100.0000 ####[facility] [address] [place], [address] MCV (RBC) [Entitic vol] 95.4 fL Normal 81-99 [facility] Comment on above: Performed By: #### L 3100.5440, L100.0100, L501.6710, L501.9520, L5500.0550, L101.9900, L500.4050, L504.2610, L3200.1100, L3300.1200, L3410.2400, L2100.0000 ####[facility] [address] [place], [address] Monocytes/100 WBC (Bld) 6.4 % Normal 0-10 [facility] Comment on above: Performed By: #### L 3100.5440, L100.0100, L501.6710, L501.9520, L5500.0550, L101.9900, L500.4050, L504.2610, L3200.1100, L3300.1200, L3410.2400, L2100.0000 ####[facility] [address] [place], [address] Neutrophils/100 WBC (Bld) 71.5 % High 47-70 [facility] Comment on above: Performed By: #### L 3100.5440, L100.0100, L501.6710, L501.9520, L5500.0550, L101.9900, L500.4050, L504.2610, L3200.1100, L3300.1200, L3410.2400, L2100.0000 ####[facility] [address] [place], [address] Nucleated RBC (Bld) [#/Vol] 0 10*3/uL Normal 0-5 [facility] Comment on above: Performed By: #### L 3100.5440, L100.0100, L501.6710, L501.9520, L5500.0550, L101.9900, L500.4050, L504.2610, L3200.1100, L3300.1200, L3410.2400, L2100.0000 ####[facility] [address] [place], [address] Platelet mean volume (Bld) [Entitic vol] 9.3 fL Normal 6.2-12.0 [facility] Comment on above: Performed By: #### L 3100.5440, L100.0100, L501.6710, L501.9520, L5500.0550, L101.9900, L500.4050, L504.2610, L3200.1100, L3300.1200, L3410.2400, L2100.0000 ####[facility] [address] [place], [address] Platelets (Bld) [#/Vol] 276 10*3/uL Normal 150-450 [facility] Comment on above: Performed By: #### L 3100.5440, L100.0100, L501.6710, L501.9520, L5500.0550, L101.9900, L500.4050, L504.2610, L3200.1100, L3300.1200, L3410.2400, L2100.0000 ####[facility] [address] [place], [address] RBC (Bld) [#/Vol] 3.90 10*6/uL Low 4.2-5.4 [facility] Comment on above: Performed By: #### L 3100.5440, L100.0100, L501.6710, L501.9520, L5500.0550, L101.9900, L500.4050, L504.2610, L3200.1100, L3300.1200, L3410.2400, L2100.0000 ####[facility] [address] [place], [address] RDW SD 44.7 fl High 35.1-43.9 [facility] Comment on above: Performed By: #### L 3100.5440, L100.0100, L501.6710, L501.9520, L5500.0550, L101.9900, L500.4050, L504.2610, L3200.1100, L3300.1200, L3410.2400, L2100.0000 ####[facility] [address] [place], [place], [id number] WBC (Bld) [#/Vol] 5.9 10*3/uL Normal 4.4-11.0 [facility] Comment on above: Performed By: #### L 3100.5440, L100.0100, L501.6710, L501.9520, L5500.0550, L101.9900, L500.4050, L504.2610, L3200.1100, L3300.1200, L3410.2400, L2100.0000 ####[facility] [address] [place], [place], [id number] Carbon dioxide, total [Moles /volume] in Central venous bloodOrdered By: Sofia Esposito on 10-16-2024 CO2 [Moles/Vol] 23.9 mmol/L 21.0-32.0 [facility] Chitobioside IgA antibody as sayOrdered By: Sofia Espsoito on 10-16-2024 Chitobioside IgA IA Qn 12 units 0-90 [facility] Comment on above: Negative: <80 Equivo amelia: 80-90 Positive: >90 Chloride assayOrdered By: Cedric Esposito on 10-16-2024 Chloride [Moles/Vol] 106 mmol/L 98-108 [facility] Eosinophil percentageOrdered By: Sofia Esposito on 10-16-2024 Eosinophils/100 WBC (Bld) 2.5 % 0-5 [facility] Erythrocyte Sed Rateon 10-16 SED RATE 4 mm/hr Normal 0-30 [facility] Comment on above: Performed By: #### L 3100.5440, L100.0100, L501.6710, L501.9520, L5500.0550, L101.9900, L500.4050, L504.2610, L3200.1100, L3300.1200, L3410.2400, L2100.0000 ####[facility] [address] [place], [address] Erythrocyte distribution wid th ratioOrdered By: Sofia Esposito on 10-16-2024 Erythrocyte distribution width (RBC) [Ratio] 12.7 % 11.6-14.6 [facility] Erythrocyte distribution wid th standard deviationOrdered By: Sofia Esposito on 10-16-2024 Erythrocyte distribution width (RBC) [Ratio] 44.7 fl High 35.1-43.9 [facility] Erythrocyte sedimentation ra teOrdered By: Sofia Esposito on 10-16-2024 ESR (Bld) [Velocity] 4 mm/h 0-30 [facility] Gastroenterology Visit Repor ton 10-16-2024 Gastroenterology Visit Report [facility] [address] [place] [address] OFFICE VISIT Date of Service: 10/16/24 MR#: [id number] Acct: [id number] Name: JENNIFER ROBISON Rep #: [id number] : 1945 Provider: CARMEN mars Age/Sex: 79/F Location: [facility] Status: Signed Intake Vital Signs 07/25/24 08:55 Height 5 ft 7 in Weight: 136 lb BMI 21.2 BP 124/75 H Blood Pressure Location Lt brachial Position Sitting Respiration 16 Pulse 76 Pulse Source Monitor Intake Visit Reasons: Colitis Allergies poison vicenta extract Allergy (Unknown, Verified 10/16/24 08:41) unknown Penicillins Allergy (Verified 10/16/24 08:41) Swelling Medications ???Medication ???Instructions ???Recorded ???Confirmed ???Type amlodipine 10 mg tablet 10 mg PO DAILY #90 TABLETS 5 10/16/24 Rx lisinopril 20 mg tablet 20 mg PO DAILY dose has been 06/1510/16/24 Rx decreased #90 tabs vitamin B complex 1 tab PO QDAY 07/25/24 10/16/24 Hi story Have you fallen in the [...] Yes Type: coffee Number of servings: 2 HPI HPI Details: JENNIFER ROBISON, is a 79 F who presents to the office today for establishment with [facility] regarding concerns of chronic diarrhea with urgency and occasional incontinence. She reports severe BM urgency in AM. Denies abdominal pain and cramping association. She does relate that increased amounts of stress makes everything worse. The diarrhea, urgency and causes incontinence. She states that her last colonoscopy was done in 2014 without any abnormalities. She takes Imodium for the loose stools and it works. She reports food intolerances to garlic and tomatoes as they give her excess gas. She drinks well water that is filtered inside of her house. She drinks 1 glass of alcohol, usually wine, at least 3 times a week. The only surgery she's ever had was to have her tonsils removed as a child. 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 She denies difficulty chewing and swallowing, cough, throat clearing, sinus drainage, heartburn, reflux, nausea, emesis, abdominal bloating, constipation, hematochezia, and melena. Upon questioning, her diarrhea is actually soft nonformed stool that plops into the toilet. ROS Const Constitutional: No chills, fatigue, fever(s) or weight change Eyes Eyes: No change in vision ENT ENT: No abnormal hearing or difficulty swallowing Resp Respiratory: No cough Cardio Cardiology: Positive for leg pain with exertion; No chest pain at rest or chest pain with exertion Gastro GI: Positive for diarrhea; No abdominal pain, belching, bloating, change in bowel habits, change in stool character, coffee ground emesis, constipation, cramping, heartburn, difficulty swallowing, feeling full early, excessive flatus, incontinent of stools, Vomiting blood/hematemesis, Blood in stool, loose stools, Black,tarry stools, nausea/dyspepsia, pain with swallowing, vomiting or other Musc Musculoskeletal: Positive for numbness, tingling and leg pain with exertion; No joint pain Skin Skin: No yellowing of the eye or itchy eyes Neuro Neurology: Positive for numbness and tingling; No abnormal hearing Psych Psychiatric: No anxiety and No depression Endo Endocrine: Positive for cold intolerance and heat intolerance; No fatigue or weight change Aller/Imm Allergy/Immunologic: Positive for food intolerance; No itchy eyes Ronaldo/Lymp Hematologic/Lymphatic : Positive for easy bruising; No easy bleeding Exam Const General: cooperative, healthy appearing, comfortable, no acute distress and well groomed Nutritional Appearance: average body habitus Orientation: alert and oriented x3 HENMT Head: normal to inspection Ears: hearing grossly normal jeovany (more content not included)... Normal [facility] Glomerular filtration rate ( GFR) estimation/1.73 sq m using serum, plasma, or whole bOrdered By: Sofia Esposito on 10-16-2024 GFR/1.73 sq M.predicted among non-blacks MDRD (S/P/Bld) [Vol rate/Area] 60 mL/min/{1.73_m2} >60 [facility] Comment on above: mL/min/1.73m2 CKD-EP I Creatinine Equation (2020) Hematocrit Auto (Bld) [Volum e fraction]Ordered By: Sofia Esposito on 10-16-2024 Hematocrit (Bld) [Volume fraction] 37.2 % 37-47 [facility] Hemoglobin measurementOrdere d By: Sofia Esposito on 10-16-2024 Hemoglobin (Bld) [Mass/Vol] 12.6 g/dL 12.0-15. 0 [facility] IgEOrdered By: Sofia Esposito on 10-16-2024 IgE 45 IU/mL 6-495 [facility] Immature granulocytes/100 WB C Auto (Bld)Ordered By: Sofia Esposito on 10-16-2024 Immature granulocytes/100 WBC (Bld) 0.200 % 0.0-0.9 [facility] Comment on above: IG% - Immature Granu locytes (promyelocytes, myelocytes and metamyelocytes) > 1% indicates that a LEFT SHIFT is Present. Laboratory - Chemistry and C hemistry - challengeOrdered By: Sofia Esposito on 10-16-2024 AST [Catalytic activity/Vol] 23 U/L <32 [facility] Laboratory - Miscellaneous t estsOrdered By: Sofia Esposito on 10-16-2024 Laboratory comment Luther (Report) Comment . [facility] Comment on above: Pattern is not sugge stive of Inflammatory Bowel Disease Service comment (Unsp spec) [Interp] Comment . [facility] Comment on above: Levels of Specific I gE Class Description of Class ----- < 0.10 0 Negative 0.10 - 0.31 0/I Equivocal/Low 0.32 - 0.55 I Low 0.56 - 1.40 II Moderate 1.41 - 3.90 III High 3.91 - 19.00 IV Very High 19.01 - 100.00 V Very High >100.00 Very High Lactate dehydrogenase (LDH) measurementOrdered By: Sofia Esposito on 10-16-2024 LDH [Catalytic activity/Vol] 245 U/L 84-246 [facility] Laminaribioside carbohydrate IgG antibody assayOrdered By: Sofia Esposito on 10-16-2024 Laminaribioside IgG IA Qn 17 units 0-60 [facility] Comment on above: Negative:<55 Equivoc al: 55-60 Positive: >60 MCV (mean corpuscular volume ) determinationOrdered By: Sofia Esposito on 10-16-2024 MCV (RBC) [Entitic vol] 95.4 fL 81-99 [facility] Mean corpuscular hemoglobin (MCH) determinationOrdered By: Sofia Esposito on 10-16-2024 MCH (RBC) [Entitic mass] 32.3 pg High 27.0-32.0 [facility] Mean corpuscular hemoglobin concentration (MCHC) determinationOrdered By: Sofia Esposito on 10-16-2024 MCHC (RBC) [Mass/Vol] 33.9 g/dL 32-36 [facility] Mean platelet volume determi nationOrdered By: Sofia Esposito on 10-16-2024 Platelet mean volume (Bld) [Entitic vol] 9.3 fL 6.2-12.0 [facility] Monocyte percentageOrdered B y: Sofia Esposito on 10-16-2024 Monocytes/100 WBC (Bld) 6.4 % 0-10 [facility] Neutrophil percentageOrdered By: Sofia Esposito on 10-16-2024 Neutrophils/100 WBC (Bld) 71.5 % High 47-70 [facility] Nucleated red blood cell per centageOrdered By: Sofia Esposito on 10-16-2024 Nucleated RBC/100 WBC (Bld) [Ratio] 0 % 0-5 [facility] Platelet countOrdered By: Cedric Esposito on 10-16-2024 Platelets (Bld) [#/Vol] 276 10*3/uL 150-450 [facility] Potassium measurement (mass/ volume)Ordered By: Sofia Esposito on 10-16-2024 Potassium (Unsp spec) [Mass/Vol] 4.3 mmol/L 3.3-5.1 [facility] RBC Auto (Bld) [#/Vol]Ordere d By: Sofia Esposito on 10-16-2024 RBC (Bld) [#/Vol] 3.90 10*6/uL Low 4.2-5.4 [facility] Serum DNA double strand anti body assay (units/volume)Ordered By: Sofia Esposito on 10-16-2024 DNA double strand Ab Qn (S) [IU]/mL 0-9 [facility] Comment on above: Negative <5 Equivoca l 5 - 9 Positive >9 Serum Scl-70 antibody assay (units/volume)Ordered By: Sofia sEposito on 10-16-2024 SCL-70 extractable nuclear Ab Qn (S) TNP [facility] Comment on above: Test not performed SCL-70 extractable nuclear Ab Qn (S) <0.2 AI 0.0-0.9 [facility] Comment on above: Previous reported re sult: TNP AIEdited by: EDUARDO on 10/19/24:1707 AMENDED REPORT 10/19/241706 ANTISCLER previously reported as: Test not performed Serum beef IgE antibody assa y (units/volume)Ordered By: Sofia Esposito on 10-16-2024 Beef IgE Qn (S) <0.10 kU/L Class 0 [facility] Serum classic neutrophil cyt oplasmic antibody assay (units/volume)Ordered By: Sofia Esposito on 10-16-2024 Neutrophil cytoplasmic Ab.classic Qn (S) <1:20 titer Neg:<1:20 [facility] Serum codfish IgE antibody a ssay (units/volume)Ordered By: Sofia Esposito on 10-16-2024 Codfish IgE Qn (S) <0.10 kU/L Class 0 [facility] Serum corn IgE antibody assa y (units/volume)Ordered By: Sofia Esposito on 10-16-2024 Ora IgE Qn (S) <0.10 kU/L Class 0 [facility] Serum cow milk IgE antibody assay (units/volume)Ordered By: Sofia Esposito on 10-16-2024 Cow milk IgE Qn (S) <0.10 kU/L Class 0 [facility] Serum creatinine measurement (mass/volume)Ordered By: Sofia Esposito on 10-16-2024 Creatinine [Mass/Vol] 0.97 mg/dL 0.70-1.20 [facility] Serum globulin measurementOr dered By: Sofia Esposito on 10-16-2024 Globulin (S) [Mass/Vol] 2.6 g/dL 2.2-4.2 [facility] Serum glucose measurement (m ass/volume)Ordered By: Sofia Esposito on 10-16-2024 Glucose [Mass/Vol] 109 mg/dL High 70-99 [facility] Serum or plasma C reactive p rotein measurement (mass/volume)Ordered By: Sofia Esposito on 10-16-2024 CRP [Mass/Vol] mg/L 0.0-3.0 [facility] Serum or plasma IgA measurem ent (mass/volume)Ordered By: Sofia Esposito on 10-16-2024 IgA [Mass/Vol] 126 mg/dL 64-422 [facility] Serum or plasma IgG measurem ent (mass/volume)Ordered By: Sofia Esposito on 10-16-2024 IgG [Mass/Vol] 832 mg/dL 586-1602 [facility] Serum or plasma alanine fragoso otransferase (ALT) measurementOrdered By: Sofia Esposito on 10-16-2024 ALT [Catalytic activity/Vol] 11 U/L <35 [facility] Serum or plasma albumin sonu urement (mass/volume)Ordered By: Sofia Esposito on 10-16-2024 Albumin [Mass/Vol] 4.4 g/dL 3.4-4.8 [facility] Serum or plasma albumin/glob ulin mass ratioOrdered By: Sofia Esposito on 10-16-2024 Albumin/Globulin [Mass ratio] 1.7 {ratio} 0.9-2.4 [facility] Serum or plasma alkaline carito sphatase measurementOrdered By: Sofia Esposito 10-16-2024 ALP [Catalytic activity/Vol] 65 U/L 35-104 [facility] Serum or plasma calcium sonu urement (mass/volume)Ordered By: Sofia Esposito 10-16-2024 Calcium [Mass/Vol] 9.4 mg/dL 7.6-11.0 [facility] Serum or plasma mannobioside IgG antibody assay by immunoassay (units/volume)Ordered By: Sofia Esposito on 10-16-2024 Mannobioside IgG IA Qn 24 units 0-100 [facility] Comment on above: Negative: <90 Equivo amelia: 90-100 Positive: >100 This test was developed and its performance characteristics determined by [employer]. It has not been cleared or approved by the Food and Drug Administration. The FDA has determined that such clearance or approval is not necessary. Serum or plasma urea nitroge n measurement (mass/volume)Ordered By: Sofia Esposito on 10-16-2024 Urea nitrogen [Mass/Vol] 24 mg/dL High 4-19 [facility] Serum peanut IgE antibody as say (units/volume)Ordered By: Sofia Esposito 10-16-2024 Peanut IgE Qn (S) <0.10 kU/L Class 0 [facility] Serum perinuclear neutrophil cytoplasmic antibody titer by immunofluorescenceOrdered By: Sofia Esposito 10-16-2024 Neutrophil cytoplasmic Ab.perinuclear IF (S) [Titer] <1:20 titer Neg:<1:20 [facility] Comment on above: The presence of posi tive fluorescence exhibiting P-ANCA orC-ANCA patterns alone is not specific for the diagnosis ofWegener's Granulomatosis (WG) or microscopic polyangiitis.Decisions about treatment should not be based solely onANCA IFA results. The International ANCA Group Consensusrecommends follow up testing of positive sera with both IA-3 and MPO-ANCA enzyme immunoassays. As many as 5% serumsamples are positive only by EIA. Ref. AM J Clin Syaupx4130;111:507-513. Serum pork IgE antibody assa y (units/volume)Ordered By: Sofia Esposito on 10-16-2024 Pork IgE Qn (S) <0.10 kU/L Class 0 [facility] Serum salmon IgE antibody as say (units/volume)Ordered By: Sofia Esposito on 10-16-2024 Mobile IgE Qn (S) <0.10 kU/L Class 0 [facility] Serum soybean IgE antibody a ssay (units/volume)Ordered By: Sofia Esposito on 10-16-2024 Soybean IgE Qn (S) <0.10 kU/L Class 0 [facility] Serum tissue transglutaminas e (tTG) IgA antibody assay (units/volume)Ordered By: Sofia Esposito on 10-16-2024 tTG IgA Qn (S) <2 U/mL 0-3 [facility] Comment on above: Negative 0 - 3 Weak Positive 4 - 10 Positive >10 Tissue Transglutaminase (tTG) has been identified as the endomysial antigen. Studies have demonstr- ated that endomysial IgA antibodies have over 99% specificity for gluten sensitive enteropathy. Serum tuna IgE antibody assa y (units/volume)Ordered By: Sofia Esposito on 10-16-2024 Tuna IgE Qn (S) <0.10 kU/L Class 0 [facility] Serum wheat IgE antibody ass ay (units/volume)Ordered By: Sofia Esposito on 10-16-2024 Wheat IgE Qn (S) <0.10 kU/L Class 0 [facility] Serum whole egg IgE antibody assay (units/volume)Ordered By: Sofia Esposito on 10-16-2024 Whole Egg IgE Qn (S) <0.10 kU/L Class 0 [facility] Comment on above: Performed at: - [address] [id number] Director: Bassam Chan PhD, Phone: [phone] at: [facility] [address] [id number] Director: Jean Voss MD, Phone: [phone] Sodium levelOrdered By: Judit lane Vaibhav on 10-16-2024 Sodium [Moles/Vol] 141 mmol/L 133-145 [facility] TSH DL <= 0.005 mIU/L QnOrde red By: Sofia Esposito on 10-16-2024 TSH Qn 2.270 uIU/mL 0.300-4.200 [facility] Total proteinOrdered By: Cedricchrissy batsheva Esposito on 10-16-2024 Protein [Mass/Vol] 6.9 g/dL 5.9-8.4 [facility] White blood cell (WBC) count Ordered By: Sofia Esposito on 10-16-2024 WBC (Bld) [#/Vol] 5.9 10*3/uL 4.4-11.0 [facility] CNPNon 08-22-2024 CNPN Telephone (DERMIN) JENNIFER ROBISON ([id number]) 1945 F Date Time Provider Department 08/22/24October, HANNAH PADILLA During your visit today, we recorded the following information about you: Amber Mccullough 08/22/2024 9:08 AM Signed Pts done with applying efudex cream to her nose the area is scabby pt asking how to care for it now Kerrie Bolaños, AKOSUA 08/22/2024 11:08 AM Signed Called and spoke [...] Fully Assessed Reason for Visit: Patient Question [0680] Prescriptions as of 08/22/2024 - Fluorouracil (EFUDEX) [...] Encounter Status:Closed by KERRIE BOLAÑOS on 08/22/24 [facility] CNOVon 07-28-2024 CNOV Office Visit (DERMIN ) JENNIFER ROBISON ([id number]) 1945 F Date Time Provider Department 07/28/24 11:30 AM HANNAH LAZARO DERMIN During your visit today, we recorded the following information about you: Hannah Lazaro APRN.CNP 07/28/2024 12:23 PM Signed NEW PATIENT Chief Complaint: full body skin check History of Present Ilness: Jennifer Robison is a 78 year old female presents [...] the exception of: Scaling of the extremities [place] scaly papules of the nose Few scattered brown stuck on papules and plaques on the head, trunk and extremities Regular and symmetric brown macules and papules on the head, trunk and extremities Scattered reticulated light richardson macules in sun distribution Scattered small [place] red papules throughout 0.2 x 0.2 CM [...] instructions provided to patient, understanding verbalized. 2. Venegas angiomas Reassurance on benign nature of lesions [...] use fragr (more content not included)... [facility] Pathology biopsy report Luther (Tiss)on 07-28-2024 AP DISCLAIMER Normal [facility] Comment on above: Order Comment: Speci men Type: TISSUE SPECIMENOrdering Facility: [facility] Address: [address] [place] [address] Result Comment: Katherine edmonds Developed Test (LDT) Disclaimer: Performance characteristics of immunohistochemical, immunofluorescent, and chromogenic in-situ hybridization tests have been determined by the performing laboratory within [facility] Pathology and Laboratory Medicine Department ([facility], [facility], [facility], [facility], [facility], [facility], or [facility]) in a manner consistent with CLIA requirements. One or more of these tests may not have been cleared or approved by the FDA. [facility] is regulated under CLIA as qualified to perform high-complexity testing. These tests are used for clinical purposes. These should not be regarded as investigational or for research. Positive and negative controls stain appropriately. Performed By: #### 6 6121-5 ####[facility] LABCLIA [id number] [place] [address] [place] CASE REPORT Normal [facility] Comment on above: Order Comment: Speci men Type: TISSUE SPECIMENOrdering Facility: [facility] Address: [address] [place] [address] Result Comment: Surg [facility] Pathology Report Case: [id number] Authorizing Provider: Hannah Lazaro APRN.IMPLEMENTATION ADVISOR Collected: 07/28/2024 11:44 AM Ordering Location: Dermatology Received: 07/28/2024 01:25 PM Pathologist: Emile Rossi MD, PhD Specimen: Skin, Shave Biopsy, A) left 3rd dorsal toe Performed By: #### 6 6121-5 ####[facility] LABCLIA [id number] [place] [address] [place] CLINICAL HISTORY r/o ATN Normal [facility] Comment on above: Order Comment: Speci men Type: TISSUE SPECIMENOrdering Facility: [facility] Address: [address] [place] [address] Performed By: #### 6 6121-5 ####[facility] - [facility] [id number] [address] [place] FINAL DIAGNOSIS Normal [facility] Comment on above: Order Comment: Speci men Type: TISSUE SPECIMENOrdering Facility: [facility] Address: [address] [place] [address] Result Comment: Chrissy. Gabriel yanez, left third dorsal toe, shave biopsy: - Compound nevus. AF/SA/mm/08/01/2024 at 1609 EDT Performed By: #### 6 6121-5 ####[facility] LABCLIA [id number] [place] [address] [place] FINAL PERFORMING LAB Normal [facility] Comment on above: Order Comment: Speci men Type: TISSUE SPECIMENOrdering Facility: [facility] Address: [address] [place] [address] Result Comment: Diag nostic interpretation performed at: [facility], [address] [place] [address] CLIA# [id number] Computer Programmer Chief: Ash Lima MD Performed By: #### 6 6121-5 ####[facility] LABCLIA [id number] [address] [place] GROSS DESCRIPTION Normal [facility] Comment on above: Order Comment: Speci men Type: TISSUE SPECIMENOrdering Facility: [facility] Address: [address] [place] [address] Result Comment: Chrissy. Gabriel yanez, Shave Biopsy Received in formalin is a 0.5 x 0.5 x 0.1 cm shave of skin. On the skin surface there is a 0.3 cm richardson-brown and slightly elevated area. The specimen is bisected. Totally submitted in one cassette. DL July 28, 2024 7:38 PM Gross examination performed at [facility], [address] [place], [place] [id number] Performed By: #### 6 6121-5 ####[facility] LABCLABEL [id number] MAR GARCIA [id number] [place], [place] [id number] [place] Cardiology Visit Reporton Cardiology Visit Report [facility] [address] [place] [address] OFFICE VISIT Date of Service: 07/25/24 MR#: [id number] Acct: [id number] Name: JENNIFER ROBISON Rep #: [id number] : 1945 Provider: Dr. 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 Normal [facility] DBT Breast - bilateral scree chaitanya 07-06-2024 [...] has dense breast tissue. Interpreting Radiologist: Adeline Hernandez M.D. Electronically signed on: 07/06/2024 Solar Sales Associate: SAQIB Transcribe Date/Time: Jul 06 2024 7:21A Dictated by: AEDLINE HERNANDEZ MD This examination was interpreted and the report reviewed and electronically signed by: ADELINE HERNANDEZ MD on Jul 06 2024 1:46PM [facility] DIVISION OF RADIOLOGY * * *Final Report* * * DATE OF EXAM: Jul 06 2024 8:09AM [facility] 0582 - RADHA SCREENING W MICA / PROCEDURE REASON: Encounter for screening mammogram for malignant neoplasm of breast * * * * Physician Interpretation * * * * RESULT: [address] [place] [address] #[id number] - RADHA SCREENING W MICA HISTORY: 78 [...] significant interval changes. DIVISION OF RADIOLOGY Provider, [facility] - 07/06/2024 * * *Final Report* * * DATE OF EXAM: Jul 06 2024 8:09AM [facility] 0582 - [facility] SCREENING W MICA / PROCEDURE REASON: Encounter for screening mammogram for malignant neoplasm of breast * * * * Physician Interpretation * * * * RESULT: [facility] [address] [id number] #[id number] - RADHA SCREENING W MCIA HISTORY: 78 year-old patient seen for screening. [...] has dense breast tissue. Interpreting Radiologist: Adeline Hernandez M.D. Electronically signed on: 07/06/2024 Solar Sales Associate: SAQIB Transcribe Date/Time: Jul 06 2024 7:21A Dictated by: ADELINE HERNANDEZ MD This examination was interpreted and the report reviewed and electronically signed by: ADELINE HERNANDEZ MD on Jul 06 2024 1:46PM EST [facility] Radiology Study observation (narrative) [facility] DBT Breast - bilateral scree ningOrdered By: [facility] Provider on 07-06-2024 [facility] RADHA SCREENING W TOMOon 07-06 RAD[facility] SCREENING W MICA * * *Final Report* * * DATE OF EXAM: Jul 06 2024 8:09AM [facility] 0582 - RADHA SCREENING W MICA / PROCEDURE REASON: Encounter for screening mammogram for malignant neoplasm of breast * * * * Physician Interpretation * * * * RESULT: [address] [address] [place] [address] #[id number] - RADHA SCREENING W MICA HISTORY: 78 [...] has dense breast tissue. Interpreting Radiologist: Adeline Hernandez M.D. Electronically signed on: 07/06/2024 Solar Sales Associate: SAQIB Transcribe Date/Time: Jul 06 2024 7:21A Dictated by: ADELINE HERNANDEZ MD This examination was interpreted and the report reviewed and electronically signed by: ADELINE HERNANDEZ MD on Jul 06 2024 1:46PM EST [id number] Normal [facility] CNOVon 07-04-2024 CNOV Office Visit (FAMPWS ) JENNIFER ROBISON ([id number]) 1945 F Date Time Provider Department 07/04/24 10:20 AM ANNELIESE ROSAS FAMPWS During your visit today, we recorded the following information about you: Temperature Pulse Blood pressure Weight 97.1 degrees 78/minute 120/60 61.7 kg Anneliese Rosas APRN.CNP 07/04/2024 11:06 AM Signed This is a 78 year old female who presents today with: Patient presents with: 6 Month Exam HISTORY OF PRESENT ILLNESS: Jennifer Robison is a 78 year old female. Patient [...] (HCC) [N18.3 (more content not included)... Normal [facility] [place] 11-25-2023 DERIK Telephone (FAMPWS) JENNIFER ROBISON ([id number]) 1945 F Date Time Provider Department 11/25/23 TEO MENDEZWS During your visit today, we recorded the following information about you: Teo Mendez MD 11/25/2023 8:19 AM Signed Let her [...] [*06/25/2022 Colitis [K52.9] 12/18/2022 Encounter Status:Closed by ABY GONZALEZ on 11/25/23 Normal [facility] CBC W Auto Differential pane l (Bld)on 11-24-2023 Basophils (Bld) [#/Vol] 0.03 10*3/uL Normal <0.11 [facility] Comment on above: Order Comment: Speci men Type: BLOOD SPECIMENOrdering Facility: [facility] Address: [address] [place] [address] Performed By: #### 5 7021-8 ####[facility]CLIA [id number] [place] [address] [place] Basophils/100 WBC (Bld) 0.6 % Normal [facility] Comment on above: Order Comment: Speci men Type: BLOOD SPECIMENOrdering Facility: [facility] Address: [address] [place] [address] Performed By: #### 5 7021-8 ####[facility] LABCLIA [id number] [place] [address] [place] Differential cell count method Nom (Bld) Auto Normal [facility] Comment on above: Order Comment: Speci men Type: BLOOD SPECIMENOrdering Facility: [facility] Address: [address] [place] [address] Performed By: #### 5 7021-8 ####[facility]CLIA [id number] [place] [address] [place] Eosinophils (Bld) [#/Vol] 0.18 10*3/uL Normal <0.46 [facility] Comment on above: Order Comment: Speci men Type: BLOOD SPECIMENOrdering Facility: [facility] Address: [address] [place] [address] Performed By: #### 5 7021-8 ####[facility]CLIA [id number] [place] [address] [place] Eosinophils/100 WBC (Bld) 3.4 % Normal [facility] Comment on above: Order Comment: Speci men Type: BLOOD SPECIMENOrdering Facility: [facility] Address: [address] [place] [address] Performed By: #### 5 7021-8 ####[facility]CLIA [id number] [place] [address] [place] Erythrocyte distribution width (RBC) [Ratio] 12.2 % Normal 11.5-15.0 [facility] Comment on above: Order Comment: Speci men Type: BLOOD SPECIMENOrdering Facility: [facility] Address: [address] [place] [address] Performed By: #### 5 7021-8 ####[facility] LABIA [id number] [place] [address] [place] Hematocrit (Bld) [Volume fraction] 38.7 % Normal 36.0-46.0 [facility] Comment on above: Order Comment: Speci men Type: BLOOD SPECIMENOrdering Facility: [facility] Address: [address] [place] [address] Performed By: #### 5 7021-8 ####[facility] LABIA [id number] [place] [address] [place] Hemoglobin (Bld) [Mass/Vol] 12.9 g/dL Normal 11.5-15. 5 [facility] Comment on above: Order Comment: Speci men Type: BLOOD SPECIMENOrdering Facility: [facility] Address: [address] [place] [address] Performed By: #### 5 7021-8 ####[facility] LABIA [id number] [place] [address] [place] Immature granulocytes (Bld) [#/Vol] 10*3/uL Normal <0.10 [facility] Comment on above: Order Comment: Speci men Type: BLOOD SPECIMENOrdering Facility: [facility] Address: [address] [place] [address] Performed By: #### 5 7021-8 ####[facility]CLIA [id number] [place] [address] [place] Immature granulocytes/100 WBC (Bld) 0.2 % Normal [facility] Comment on above: Order Comment: Speci men Type: BLOOD SPECIMENOrdering Facility: [facility] Address: [address] [place] [address] Performed By: #### 5 7021-8 ####[facility]CLIA [id number] [place] [address] [place] Lymphocytes (Bld) [#/Vol] 1.55 10*3/uL Normal 1.00-4.0 0 [facility] Comment on above: Order Comment: Speci men Type: BLOOD SPECIMENOrdering Facility: [facility] Address: [address] [place] [address] Performed By: #### 5 7021-8 ####[facility] LABCLIA [id number] [place] [address] [place] Lymphocytes/100 WBC (Bld) 29.5 % Normal [facility] Comment on above: Order Comment: Speci men Type: BLOOD SPECIMENOrdering Facility: [facility] Address: [address] [place] [address] Performed By: #### 5 7021-8 ####[facility] LABCLIA [id number] [place] [address] [place] MCH (RBC) [Entitic mass] 32.7 pg Normal 26.0-34.0 [facility] Comment on above: Order Comment: Speci men Type: BLOOD SPECIMENOrdering Facility: [facility] Address: [address] [place] [address] Performed By: #### 5 7021-8 ####[facility] LABCLIA [id number] [place] [address] [place] MCHC (RBC) [Mass/Vol] 33.3 g/dL Normal 30.5-36.0 [facility] Comment on above: Order Comment: Speci men Type: BLOOD SPECIMENOrdering Facility: [facility] Address: [address] [place] [address] Performed By: #### 5 7021-8 ####[facility] LABCLIA [id number] [place] [address] [place] MCV (RBC) [Entitic vol] 98.0 fL Normal 80.0-100.0 [facility] Comment on above: Order Comment: Speci men Type: BLOOD SPECIMENOrdering Facility: [facility] Address: [address] [place] [address] Performed By: #### 5 7021-8 ####[facility]CLIA [id number] [place] [address] [place] Monocytes (Bld) [#/Vol] 0.31 10*3/uL Normal <0.87 [facility] Comment on above: Order Comment: Speci men Type: BLOOD SPECIMENOrdering Facility: [facility] Address: [address] [place] [address] Performed By: #### 5 7021-8 ####[facility] LABCLIA [id number] [place] [address] [place] Monocytes/100 WBC (Bld) 5.9 % Normal [facility] Comment on above: Order Comment: Speci men Type: BLOOD SPECIMENOrdering Facility: [facility] Address: [address] [place] [address] Performed By: #### 5 7021-8 ####[facility] LABCLIA [id number] [place] [address] [place] Neutrophils (Bld) [#/Vol] 3.18 10*3/uL Normal 1.45-7.5 0 [facility] Comment on above: Order Comment: Speci men Type: BLOOD SPECIMENOrdering Facility: [facility] Address: [address] [place] [address] Performed By: #### 5 7021-8 ####[facility] LABCLIA [id number] [place] [address] [place] Neutrophils/100 WBC (Bld) 60.4 % Normal [facility] Comment on above: Order Comment: Speci men Type: BLOOD SPECIMENOrdering Facility: [facility] Address: [address] [place] [address] Performed By: #### 5 7021-8 ####[facility] LABIA [id number] [place] [address] [place] Nucleated RBC (Bld) [#/Vol] 10*3/uL Normal <0.01 [facility] Comment on above: Order Comment: Speci men Type: BLOOD SPECIMENOrdering Facility: [facility] Address: [address] [place] [address] Performed By: #### 5 7021-8 ####[facility] LABIA [id number] [place] [address] [place] Nucleated RBC/100 WBC (Bld) [Ratio] 0.0 /100 WBC Normal [facility] Comment on above: Order Comment: Speci men Type: BLOOD SPECIMENOrdering Facility: [facility] Address: [address] [place] [address] Performed By: #### 5 7021-8 ####[facility] LABCLIA [id number] [place] [address] [place] Platelet mean volume (Bld) [Entitic vol] 9.5 fL Normal 9.0-12.7 [facility] Comment on above: Order Comment: Speci men Type: BLOOD SPECIMENOrdering Facility: [facility] Address: [address] [place] [address] Performed By: #### 5 7021-8 ####[facility] LABCLIA [id number] [place] [address] [place] Platelets (Bld) [#/Vol] 307 10*3/uL Normal 150-400 [facility] Comment on above: Order Comment: Speci men Type: BLOOD SPECIMENOrdering Facility: [facility] Address: [address] [place] [address] Performed By: #### 5 7021-8 ####[facility] LABIA [id number] [place] [address] [place] RBC (Bld) [#/Vol] 3.95 10*6/uL Normal 3.90-5.20 [facility] Comment on above: Order Comment: Speci men Type: BLOOD SPECIMENOrdering Facility: [facility] Address: [address] [place] [address] Performed By: #### 5 7021-8 ####[facility] LABIA [id number] [place] [address] [place] WBC (Bld) [#/Vol] 5.26 10*3/uL Normal 3.70-11.00 [facility] Comment on above: Order Comment: Speci men Type: BLOOD SPECIMENOrdering Facility: [facility] Address: [address] [place] [address] Performed By: #### 5 7021-8 ####[facility] [id number] [place] [address] [place] CNOVon 11-24-2023 CNOV Office Visit (FAMPWS ) JENNIFER ROBISON ([id number]) 1945 F Date Time Provider Department 11/24/23 8:00 AM TEO MENDEZ During your visit today, we recorded the following information about you: Pulse Blood pressure Weight Height 67/minute 118/82 63 kg 1.7 m Teo Mendez MD 11/24/2023 8:42 AM Signed Jennifer Robison is a 78 year old female here [...] No history of dysuria, frequency or incontinence 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: Negative for abnormal vaginal bleeding, abnormal vaginal [...] gy Assessment/Plan Medicare annual wellness visit, subsequent () - Counseled on healthy diet and regular exercise - Personalized prevention plan provided Teo Mendez MD Allergies As of Date: 11/24/2023 Noted Allergy Reaction PENICILLINS 08/19/2005 POISON VICENTA 08/20/2005 2 - Rash Date Reviewed: 11/24/2023 Reviewed by: Cecilia Walker LPN - Fully Assessed Reason for Visit: Medicare Wellness Exam [4060] Primary Visit Diagnosis:Medicare annual wellness visit, subsequent [Z00] Other Visit Diagnoses:Paroxysmal supraventricular tachycardia (HCC) [I47.10] Stage 3 chronic kidney disease, unspecified whether stage 3a or 3b CKD (HCC) [N18.30] Hyperlipidemia, mixed [E78.2] Essential hypertension [I10] Colitis [K52.9] Hyperglycemia [R73.9] Anxiety [F41.9] Screening for depression [Z13.31] Order(s):DEPRESSION SCREENING [6715365] Order #: [id number]: 1 ADVANCE CARE PLAN DISCUSSION [6321677] Order #: [id number]: 1 COMPLETE BLOOD COUNT AND DIFFERENTIAL [SQCBCDIF] Order #: [id number] FUTURE COMPREHENSIVE METABOLIC PANEL [SQCMP] Order #: [id number] FUTURE LIPID PANEL BASIC [SQLIPB] Order #: [id number] FUTURE Prescriptions as of 11/24/2023 - sertraline [...] Paroxysmal supraventricular (more content not included)... Normal [facility] Comprehensive metabolic 2000 panelon 11-24-2023 Albumin [Mass/Vol] 4.5 g/dL Normal 3.9-4.9 [facility] Comment on above: Order Comment: Speci men Type: BLOOD SPECIMENOrdering Facility: [facility] Address: [address] [place] [address] Performed By: #### 2 4331-1, 08149-4 ####[facility] LABIA [id number] [place] [address] [place] ALP [Catalytic activity/Vol] 62 U/L Normal 34-123 [facility] Comment on above: Order Comment: Speci men Type: BLOOD SPECIMENOrdering Facility: [facility] Address: [address] [place] [address] Performed By: #### 2 4331-1, 88810-4 ####[facility] LABCLIA [id number] [place] [id number] [place] ALT [Catalytic activity/Vol] 9 U/L Normal 7-38 [facility] Comment on above: Order Comment: Speci men Type: BLOOD SPECIMENOrdering Facility: [facility] Address: [address] [place] [address] Performed By: #### 2 4331-1, 09734-4 ####[facility] LABCLIA [id number] [place] [id number] [place] Anion gap [Moles/Vol] 11 mmol/L Normal 8-15 [facility] Comment on above: Order Comment: Speci men Type: BLOOD SPECIMENOrdering Facility: [facility] Address: [address] [place] [address] Performed By: #### 2 4331-1, 32310-5 ####[facility] LABCLIA [id number] [place] [address] [place] AST [Catalytic activity/Vol] 16 U/L Normal 13-35 [facility] Comment on above: Order Comment: Speci men Type: BLOOD SPECIMENOrdering Facility: [facility] Address: [address] [place] [address] Performed By: #### 2 4331-1, 82475-9 ####[facility] LABCLIA [id number] [place] [address] [place] Bilirubin [Mass/Vol] 0.6 mg/dL Normal 0.2-1.3 [facility] Comment on above: Order Comment: Speci men Type: BLOOD SPECIMENOrdering Facility: [facility] Address: [address] [place] [address] Performed By: #### 2 4331-1, 39853-1 ####[facility] LABCLIA [id number] [place] [address] [place] Calcium [Mass/Vol] 9.3 mg/dL Normal 8.5-10.2 [facility] Comment on above: Order Comment: Speci men Type: BLOOD SPECIMENOrdering Facility: [facility] Address: [address] [place] [address] Performed By: #### 2 4331-1, 27119-8 ####[facility] LABCLIA [id number] [place] [address] [place] Chloride [Moles/Vol] 104 mmol/L Normal 98-107 [facility] Comment on above: Order Comment: Speci men Type: BLOOD SPECIMENOrdering Facility: [facility] Address: [address] [place] [address] Performed By: #### 2 4331-1, 52005-7 ####[facility] LABCLIA [id number] [place] [address] [place] CO2 [Moles/Vol] 26 mmol/L Normal 22-30 [facility] Comment on above: Order Comment: Speci men Type: BLOOD SPECIMENOrdering Facility: [facility] Address: [address] [place] [address] Performed By: #### 2 4331-1, 81875-9 ####[facility] LABIA [id number] [place] [address] [place] Creatinine [Mass/Vol] 1.07 mg/dL High 0.58-0.96 [facility] Comment on above: Order Comment: Speci men Type: BLOOD SPECIMENOrdering Facility: [facility] Address: [address] [place] [address] Performed By: #### 2 4331-1, 50001-6 ####[facility] LABIA [id number] [address] [place] Creatinine and Glomerular filtration rate.predicted panel (S/P/Bld) 54 mL/min/1.73m??? Low >=60 [facility] Comment on above: Order Comment: Speci men Type: BLOOD SPECIMENOrdering Facility: [facility] Address: [address] [place] [address] Result Comment: Katie mated Glomerular Filtration Rate [...] actual GFR. Performed By: #### 2 4331-1, 98976-4 ####[facility] LABCLIA [id number] [place] [address] [place] Glucose [Mass/Vol] 98 mg/dL Normal 74-99 [facility] Comment on above: Order Comment: Speci men Type: BLOOD SPECIMENOrdering Facility: [facility] Address: [address] [place] [address] Result Comment: The [place] [employer] (ADA) provides guidance for cutoff [...] Standards of Medical Care in Diabetes 2016, [place] [employer]. Diabetes Care. 2016.39(Suppl 1). Performed By: #### 2 4331-1, 67659-9 ####[facility] LABCLIA [id number] [place] [address] [place] Potassium [Moles/Vol] 4.6 mmol/L Normal 3.7-5.1 [facility] Comment on above: Order Comment: Speci men Type: BLOOD SPECIMENOrdering Facility: [facility] Address: [address] [place] [address] Performed By: #### 2 4331-1, 42557-6 ####[facility] LABCLIA [id number] [place] [address] [place] Protein [Mass/Vol] 6.7 g/dL Normal 6.3-8.0 [facility] Comment on above: Order Comment: Speci men Type: BLOOD SPECIMENOrdering Facility: [facility] Address: [address] [place] [address] Performed By: #### 2 4331-1, 38233-3 ####[facility] LABCLIA [id number] [place] [address] [place] Sodium [Moles/Vol] 141 mmol/L Normal 136-144 [facility] Comment on above: Order Comment: Speci men Type: BLOOD SPECIMENOrdering Facility: [facility] Address: [address] [place] [address] Performed By: #### 2 4331-1, 18865-4 ####[facility] LABCLIA [id number] [place] [address] [place] Urea nitrogen [Mass/Vol] 25 mg/dL High 7-21 [facility] Comment on above: Order Comment: Speci men Type: BLOOD SPECIMENOrdering Facility: [facility] Address: [address] [place] [address] Performed By: #### 2 4331-1, 16328-2 ####[facility] LABCLIA [id number] [place] [address] [place] Lipid 1996 panelon 4 Cholesterol [Mass/Vol] 269 mg/dL High <200 [facility] Comment on above: Order Comment: Speci men Type: BLOOD SPECIMENOrdering Facility: [facility] Address: [address] [place] [address] Result Comment: <200 mg/dL, Desirable 200-239 mg/dL, Borderline high >239 mg/dL, High Performed By: #### 2 4331-1, 29313-7 ####[facility] LABCLIA [id number] [place] [address] [place] Cholesterol in HDL [Mass/Vol] 76 mg/dL Normal >39 [facility] Comment on above: Order Comment: Speci men Type: BLOOD SPECIMENOrdering Facility: [facility] Address: [address] [place] [address] Result Comment: 40-5 9 mg/dL, Acceptable >59 mg/dL, High: Negative risk factor for coronary heart disease <40 mg/dL, Low: Positive risk factor for coronary heart disease Performed By: #### 2 4331-1, 08604-7 ####[facility] LABCLIA [id number] [place] [address] [place] Cholesterol in LDL [Mass/Vol] 172 mg/dL High <100 [facility] Comment on above: Order Comment: Speci men Type: BLOOD SPECIMENOrdering Facility: [facility] Address: [address] [place] [address] Result Comment: <100 mg/dL, Optimal 100-129 mg/dL, Near optimal/above optimal 130-159 mg/dL, Borderline high 160-189 mg/dL, High >189 mg/dL, Very high Secondary prevention optimal LDL Cholesterol levels are recommended to be < 70 mg/dL Performed By: #### 2 4331-1, ####[facility] LABCLIA [id number] [address] [place] Cholesterol in LDL/Cholesterol in HDL [Mass ratio] 2.26 {ratio} Normal <2.54 [facility] Comment on above: Order Comment: Speci men Type: BLOOD SPECIMENOrdering Facility: [facility] Address: [address] [place] [address] Result Comment: Kun tate: 1. National Cholesterol Education Program ATP III Guideline At-A-Glance Quick Desk Reference: National Heart, Lung, and Blood [place]. National Institutes of Health. 2001: NIH Publication No. 01-3305. 2. An International Atherosclerosis Society position paper: global recommendations for the management of dyslipidemia: executive summary, Atherosclerosis. 2014: 232(2):410-413. Performed By: #### 2 4331-1, 89949-0 ####[facility] LABCLIA [id number] [place] [address] [place] Cholesterol in VLDL [Mass/Vol] 21 mg/dL Normal <30 [facility] Comment on above: Order Comment: Speci men Type: BLOOD SPECIMENOrdering Facility: [facility] Address: [address] [place] [address] Performed By: #### 2 4331-1, ####[facility] LABCLIA [id number] [place] [address] [place] Cholesterol non HDL [Mass/Vol] 193 mg/dL High <130 [facility] Comment on above: Order Comment: Speci men Type: BLOOD SPECIMENOrdering Facility: [facility] Address: [address] [place] [address] Result Comment: <130 mg/dL, Optimal 130-159 mg/dL, Near optimal/above optimal 160-189 mg/dL, Borderline high 190-219 mg/dL, High >219 mg/dL, Very high Secondary prevention optimal non HDL Cholesterol levels are recommended to be <100 mg/dL Performed By: #### 2 4331-1, ####[facility] LABCLIA [id number] [place] [address] [place] Cholesterol.total/Cholester ol in HDL [Mass ratio] 3.54 {ratio} Normal <5.10 [facility] Comment on above: Order Comment: Speci men Type: BLOOD SPECIMENOrdering Facility: [facility] Address: [address] [place] [address] Performed By: #### 2 4331-1, ####[facility] LABCLIA [id number] [place] [address] [place] FASTING TIME 11 hrs Normal [facility] Comment on above: Order Comment: Speci men Type: BLOOD SPECIMENOrdering Facility: [facility] Address: [address] [id number] Performed By: #### 2 4331-1, ####[facility] LABCLIA [id number] [place] [address] [place] Triglyceride [Mass/Vol] 105 mg/dL Normal <150 [facility] Comment on above: Order Comment: Speci men Type: BLOOD SPECIMENOrdering Facility: [facility] Address: [address] [id number] Result Comment: <150 mg/dL, Normal 150-199 mg/dL, Borderline high 200-499 mg/dL, High >499 mg/dL, Very high Performed By: #### 2 4331-1, 06171-2 ####[facility] LABCLIA [id number] [address] [id number] [address] [place] Basophil percentageOrdered B y: Dr. Pulido on 06-02-2022 Chloride [Moles/Vol] 107 mmol/L 98-107 [facility] Cholesterol [Mass/Vol] 276 mg/dL <200 [facility] Comment on above: <200 mg/dL Desirable 200-240 mg/dL Borderline >240 mg/dL High Risk Glucose [Mass/Vol] 110 mg/dL 74-106 [facility] Comment on above: Fasting Glucose resu lt from 100 to 125 mg/dL suggests IMPAIRED HOMEOSTASIS per A.D.A. criteria. Potassium [Moles/Vol] 4.4 mmol/L 3.5-5.1 [facility] Sodium [Moles/Vol] 141 mmol/L 136-145 [facility] Triglyceride [Mass/Vol] 133 mg/dL <199 [facility] Comment on above: The drugs N-Acetylcy steine and Metamizole may falsely depress this assay.Serum Triglycerides Reference Interval Normal <150 mg/dL Borderline high 150 - 199 mg/dL High 200 - 499 mg/dL Very High > or = 500 mg/dL CREATININE SERUMon Creatinine Serum - Intl 1.10 [facility] LIPID PANEL (OUTSIDE)on 05-05 VLDL Cholesterol 27 [facility] - Chemistry and C hemistry - challengeOrdered By: Dr. Pulido on 06-02-2022 CO2 [Moles/Vol] 28.0 mmol/L 21.0-32.0 [facility] Urea nitrogen/Creatinine [Mass ratio] 26.4 mg/mg 10-20 [facility] No Panel InformationOrdered By: Dr. Pulido on 06-02-2022 Estimated GFR (MDRD) Amer 62 mL/min >60 [facility] Comment on above: GFR Calc Estimated GFR (MDRD) Non-Af Amer 51 mL/min >60 [facility] Comment on above: Non- GFR Calc Serum or plasma calcium sonu urement (mass/volume)Ordered By: Dr. Pulido on 06-02-2022 Calcium [Mass/Vol] 9.0 mg/dL 8.5-10.1 [facility] Serum or plasma cholesterol in HDL measurement (mass/volume)Ordered By: Dr. Pulido on 06-02-2022 Cholesterol in HDL [Mass/Vol] 90 mg/dL >40 [facility] Comment on above: The drugs N-Acetylcy steine and Metamizole may falsely depress this assay. Reference Range HDL <40 mg/dL Low HDL Cholesterol HDL >or= 60 mg/dL High HDL Cholesterol Serum or plasma cholesterol in VLDL measurement (mass/volume)Ordered By: Dr. Pulido on 06-02-2022 Cholesterol in VLDL [Mass/Vol] 27 mg/dL 5-40 [facility] Serum or plasma creatinine m easurement (mass/volume)Ordered By: Dr. Pulido on 06-02-2022 Creatinine [Mass/Vol] 1.10 mg/dL 0.55-1.02 [facility] Comment on above: The validity of the calculated GFR & GFRAA in patients over 70 years has not been determined. Clinical correlation is essential. Serum or plasma low density lipoprotein (LDL) cholesterol measurement (mass/volume)Ordered By: Dr. Pulido on 06-02-2022 Cholesterol in LDL [Mass/Vol] 159 mg/dL 0-130 [facility] Serum or plasma urea nitroge n measurement (mass/volume)Ordered By: Dr. Pulido on 06-02-2022 Urea nitrogen [Mass/Vol] 29 mg/dL 7-18 [facility] Thin prep Papanicolaou smear with manual screeningOrdered By: Dr. Pulido on 06-02-2022 Thin prep Papanicolaou smear with manual screening 6 5-15 [facility] RADHA SCREENINGon 12-08-2021 [facility] No Panel Informationon 08-13 Endomysial IgA Antibody Negative Negative [facility] Work Phone: Serum or plasma C reactive p rotein measurement (mass/volume)on 08-13-2021 CRP [Mass/Vol] 4.06 mg/L 0.0-3.0 [facility] Work Phone: Comment on above: C-Reactive Protein ( CRP) provides useful information for thediagnosis, therapy and monitoring of inflammatory processesand associated diseases. For the evaluation of Relative Riskfor Cardiovascular Disease, a High Sensitivity CRP (HSCRP)should be ordered. Serum or plasma IgA measurem ent (mass/volume)on 08-13-2021 IgA [Mass/Vol] 121 mg/dL [facility] Work Phone: Comment on above: Performed at: [address] [id number] Director: Bassam Chan PhD, Phone: [phone] Serum tissue transglutaminas e IgA antibody assay (units/volume)on 08-13-2021 tTG IgA Qn (S) <2 U/mL [facility] Work Phone: Comment on above: Negative 0 - 3 Weak Positive 4 - 10 Positive >10 Tissue Transglutaminase (tTG) has been identified as the endomysial antigen. Studies have demonstr- ated that endomysial IgA antibodies have over 99% specificity for gluten sensitive enteropathy. Vital Signs Date Time Vital Sign Value Performing Clinician Facility 07-25-2024 08:55-0400 Body height 170.[address] Teo Mendez MD Work Phone: [facility] 07-25-2024 08:55-0400 Body mass index (BMI) [Ratio] 21.2 kg/m2 Dr. Teo Mendez MD Work Phone: [facility] 07-25-2024 08:55-0400 Body weight 61.[address] Teo Mendez MD Work Phone: [facility] 07-25-2024 08:55-0400 Diastolic blood pressure 75 mm[Hg] Dr. Teo Mendez MD Work Phone: [facility] 07-25-2024 08:55-0400 Heart rate 76 /min Dr. Teo Mendez MD Work Phone: [facility] 07-25-2024 08:55-0400 Respiratory rate 16 /min Dr. Teo Mendez MD Work Phone: [facility] 07-25-2024 08:55-0400 Systolic blood pressure 124 mm[Hg] Dr. Teo Mendez MD Work Phone: [facility] 07-04-2024 10:55-0500 Diastolic blood pressure 60 mm[Hg] Anneliese Suppan MERCHANDISING SPECIALIST.IMPLEMENTATION ADVISOR Work Phone: [facility] 07-04-2024 10:55-0500 Systolic blood pressure 120 mm[Hg] Anneliese Suppan MERCHANDISING SPECIALIST.IMPLEMENTATION ADVISOR Work Phone: [facility] 07-04-2024 10:18-0500 Body mass index (BMI) [Ratio] 21.35 kg/m2 Anneliese Suppan MERCHANDISING SPECIALIST.IMPLEMENTATION ADVISOR Work Phone: [facility] 07-04-2024 10:18-0500 Body temperature 97.11 [degF] Anneliese Suppan MERCHANDISING SPECIALIST.IMPLEMENTATION ADVISOR Work Phone: [facility] 07-04-2024 10:18-0500 Body weight 61.69 kg Anneliese Suppan MERCHANDISING SPECIALIST.IMPLEMENTATION ADVISOR Work Phone: [facility] 07-04-2024 10:18-0500 Heart rate 78 /min Anneliese Suppan MERCHANDISING SPECIALIST.IMPLEMENTATION ADVISOR Work Phone: [facility] 07-04-2024 10:18-0500 SaO2% (BldA) [Mass fraction] 98 % Anneliese Suppan MERCHANDISING SPECIALIST.IMPLEMENTATION ADVISOR Work Phone: [facility] 11-24-2023 08:00-0400 Body height 170 cm Teo Mendez MD Work Phone: [facility] 11-24-2023 08:00-0400 Body mass index (BMI) [Ratio] 21.82 kg/m2 Teo Mendez MD Work Phone: [facility] 11-24-2023 08:00-0400 Body weight 63.05 kg Teo Mendez MD Work Phone: [facility] 11-24-2023 08:00-0400 Diastolic blood pressure 82 mm[Hg] Teo Mendez MD Work Phone: [facility] 11-24-2023 08:00-0400 Heart rate 67 /min Teo Mendez MD Work Phone: [facility] 11-24-2023 08:00-0400 SaO2% (BldA) [Mass fraction] 97 % Teo Mendez MD Work Phone: [facility] 11-24-2023 08:00-0400 Systolic blood pressure 118 mm[Hg] Teo Mendez MD Work Phone: [facility] 06-02-2022 10:23-0500 Body height 170.[address] Teo Mendez Work Phone: [facility] 06-02-2022 10:23-0500 Body mass index (BMI) [Ratio] 22.4 kg/m2 Dr. Teo Mendez Work Phone: [facility] 06-02-2022 10:23-0500 Body weight 64.[address] Teo Mendez Work Phone: [facility] 06-02-2022 10:23-0500 Diastolic blood pressure 72 mm[Hg] Dr. Teo Mendez Work Phone: [facility] 06-02-2022 10:23-0500 Heart rate 76 /min Dr. Teo Mendez Work Phone: [facility] 06-02-2022 10:23-0500 Respiratory rate 16 /min Dr. Teo Mendez Work Phone: [facility] 06-02-2022 10:23-0500 Systolic blood pressure 115 mm[Hg] Dr. Teo Mendez Work Phone: [facility] 12-31-2021 10:10-0400 Body weight 65.77 kg Beatrice Townsend MD Work Phone: [facility] 12-31-2021 10:10-0400 Diastolic blood pressure 68 mm[Hg] Beatrice Townsend MD Work Phone: [facility] 12-31-2021 10:10-0400 Systolic blood pressure 116 mm[Hg] Beatrice Townsend MD Work Phone: [facility] 10-17-2021 09:48-0400 Body weight 64.86 kg eTo Mendez MD Work Phone: [facility] 10-17-2021 09:48-0400 Diastolic blood pressure 62 mm[Hg] Teo Mendez MD Work Phone: [facility] 10-17-2021 09:48-0400 Heart rate 72 /min Teo Mendez MD Work Phone: [facility] 10-17-2021 09:48-0400 Systolic blood pressure 122 mm[Hg] Teo Mendez MD Work Phone: [facility] 07-08-2021 07:53-0500 Body height 170.[address] Teo Mendez Work Phone: [facility] Work Phone: 07-08-2021 07:53-0500 Body mass index (BMI) [Ratio] 22.4 kg/m2 Dr. Teo Mendez Work Phone: [facility] Work Phone: 07-08-2021 07:53-0500 Body weight 64.[address] Teo Mendez Work Phone: [facility] Work Phone: 07-08-2021 07:53-0500 Diastolic blood pressure 70 mm[Hg] Dr. Teo Mendez Work Phone: [facility] Work Phone: 07-08-2021 07:53-0500 Heart rate 82 /min Dr. Teo Mendez Work Phone: [facility] Work Phone: 07-08-2021 07:53-0500 Respiratory rate 18 /min Dr. Teo Mendez Work Phone: [facility] Work Phone: 07-08-2021 07:53-0500 SaO2% (BldA) [Mass fraction] 100 % Dr. Teo Mendez Work Phone: [facility] Work Phone: 07-08-2021 07:53-0500 Systolic blood pressure 129 mm[Hg] Dr. Teo Mendez Work Phone: [facility] Work Phone: 05-27-2021 07:56-0500 Body weight 65.[address] Teo Mendez Work Phone: [facility] Work Phone: 05-27-2021 07:56-0500 Diastolic blood pressure 88 mm[Hg] Dr. Teo Mendez Work Phone: [facility] Work Phone: 05-27-2021 07:56-0500 Heart rate 74 /min Dr. Teo Mendez Work Phone: [facility] Work Phone: 05-27-2021 07:56-0500 Respiratory rate 18 /min Dr. Teo Mendez Work Phone: [facility] Work Phone: 05-27-2021 07:56-0500 SaO2% (BldA) [Mass fraction] 99 % Dr. Teo Mendez Work Phone: [facility] Work Phone: 05-27-2021 07:56-0500 Systolic blood pressure 140 mm[Hg] Dr. Teo Mendez Work Phone: [facility] Work Phone: 10-30-2020 08:37-0400 Body mass index (BMI) [Ratio] 22.1 kg/m2 Dr. Teo Mendez Work Phone: [facility] Work Phone: Encounters Encounter Date Encounter Type Care Provider Facility Start: 12-04-2024 ambulatory Tahir Friend Facility :[facility] Start: 10-27-2024 End: 10-27-2024 ambulatory TEO Rodriguez ANDREA Facility:[facility] Start: 10-27-2024 End: 10-27-2024 Patient encounter procedure Hannah Nataly October.IMPLEMENTATION ADVISOR Work Phone: Dermatology Comment on above: Actinic keratosis (P rimary Dx) Start: 10-17-2024 End: 10-17-[address] Teo Mendez MD Work Phone: [facility] Work Phone: Start: 10-17-2024 End: 10-17-2024 Patient encounter procedure Sofia Esposito LUMBER CARRIER OPERATOR-C -Laboratory Specimen Work Phone: Start: 10-16-2024 End: 10-16-2024 Patient encounter procedure Sofia Esposito LUMBER CARRIER OPERATOR-C -[facility] Work Phone: Start: 10-16-2024 End: 10-17-[address] Teo Mendez MD Work Phone: [facility] Work Phone: Start: 10-16-2024 End: 10-16-2024 ambulatory [facility] Facility:[facility] Start: 09-12-2024 End: 09-12-2024 ambulatory Gerard Kate RN Work Phone: Assessment Director Management Comment on above: Primary Care Coordin ator- Other Start: 09-11-2024 End: 09-11-2024 ambulatory Kori Hernandez RN Work Phone: Assessment Director Management Comment on above: Initial enrollment o dutch for Chronic Disease Management Start: 08-22-2024 End: 08-22-2024 Telephone encounter Hannah Nataly October.IMPLEMENTATION ADVISOR Work Phone: Dermatology Comment on above: Patient Question Start: 08-02-2024 End: 10-02-2024 Follow-up encounter Hannah Nataly October.IMPLEMENTATION ADVISOR Work Phone: Dermatology Start: 07-28-2024 End: 07-28-2024 ambulatory TEO Rodriguez ANDREA Facility:[facility] Start: 07-28-2024 End: 07-28-2024 Patient encounter procedure Hannah Lazaro MERCHANDISING SPECIALIST.IMPLEMENTATION ADVISOR Work Phone: Dermatology Comment on above: Neoplasm of uncertai n behavior of skin (Primary Dx); Actinic keratosis; Lentigines; Angioma of skin; Multiple benign nevi; Seborrheic keratoses; Xerosis cutis Start: 07-25-2024 End: 07-25-[address] Ildefonso Pulido MD -[facility] Work Phone: Start: 07-25-2024 End: 07-25-2024 ambulatory Ildefonso Pulido Facility:[facility] Start: 07-06-2024 End: 09-05-2024 Follow-up encounter Teo Mendez MD Work Phone: Pulmonology [facility] Start: 07-06-2024 End: 07-06-2024 ambulatory TEO MENDEZ Facility:[facility] Start: 07-06-2024 End: 07-06-2024 Subsequent hospital visit by physician Screen Mammo [facility] Comment on above: Encounter for screen ing mammogram for malignant neoplasm of breast [Z12.31] Start: 07-04-2024 End: 07-04-2024 ambulatory ANNELIESE ROSAS Facility:[facility] Start: 07-04-2024 End: 07-04-2024 Office outpatient visit 15 minutes Anneliese Rosas MERCHANDISING SPECIALIST.IMPLEMENTATION ADVISOR Work Phone: [facility] Comment on above: Dyslipidemia (Primar y Dx); Hypertension, essential; Screening for diabetes mellitus; Wellness examination; Stage 3a chronic kidney disease (HCC) Start: 07-04-2024 End: 07-04-2024 Patient encounter status Anneliese Rosas MERCHANDISING SPECIALIST.IMPLEMENTATION ADVISOR Work Phone: [facility] Start: 06-29-2024 End: 06-29-2024 [facility] Start: 06-29-2024 End: 06-29-2024 [facility] Comment on above: Population Health Na vigation Outreach ([employer] High Risk - Attempt 1) Start: 12-13-2023 ambulatory [facility] Start: 12-13-2023 Patient encounter procedure Chrissy Rivera MA [facility] Comment on above: Population Health Na vigation Outreach ([employer] mar [place] ) Start: 11-25-2023 Telephone encounter Teo Mendez MD Work Phone: [facility] Comment on above: Results Start: 11-24-2023 End: 11-24-2023 ambulatory TEO MENDEZ Facility:[facility] Start: 11-24-2023 End: 11-24-2023 Patient encounter procedure Teo Mendez MD Work Phone: [facility] Comment on above: Medicare annual [facility] visit, subsequent (Primary Dx); Paroxysmal supraventricular tachycardia (HCC); Stage 3 chronic kidney disease, unspecified whether stage 3a or 3b CKD (HCC); Hyperlipidemia, mixed; Essential hypertension; Colitis; Hyperglycemia; Anxiety; Screening for depression Start: 11-10-2023 ambulatory Chrissy Rivera MA [facility] Start: 11-10-2023 Patient encounter procedure Chrissy Rivera MA [facility] Comment on above: Population Health Na vigation Outreach ([employer] [place] ) Start: 02-04-2023 ambulatory Elba Gil Jarrelllab ach MA [facility] Comment on above: Population Health Na vigation Outreach (ACO BP AND DM) Start: 12-24-2022 Telephone encounter Teo Mendez MD Work Phone: [facility] Comment on above: Medication Problem ( Needs updated dosage) Start: 09-29-2022 ambulatory Elba L Schlab ach MA [facility] Comment on above: Population Health Na vigation Outreach (ACO CHARI PCSA) Start: 08-24-2022 ambulatory Elba L Schlab ach MA [facility] Comment on above: Population Health Na vigation Outreach (ACO CHARI PCSA) Start: 06-03-2022 Chart abstracting Teo Singh MD Work Phone: [facility] Start: 06-02-2022 End: 06-02-[address] Teo Mendez Work Phone: [facility] Work Phone: Start: 06-02-2022 End: 06-02-[address] Teo Mendez Work Phone: [facility] Start: 12-31-2021 End: 12-31-2021 Patient encounter procedure Beatrice Townsend MD Work Phone: OB/Gynecology Comment on above: Vaginal burning (Swathi mateo Dx); Urethral diverticulum Start: 12-08-2021 End: 12-08-2021 Subsequent hospital visit by physician Screen Mammo [facility] Comment on above: Encounter for screen ing mammogram for breast cancer [Z12.31] Start: 10-17-2021 End: 10-17-2021 Patient encounter procedure Teo Mendez MD Work Phone: [facility] Comment on above: Hyperlipidemia, mixe d (Primary Dx); Essential hypertension; Stage 3 chronic kidney disease, unspecified whether stage 3a or 3b CKD (HCC); Hyperglycemia; Anxiety; Colitis Start: 10-15-2021 ambulatory Teo Mendez MD Work Phone: Internal Medicine [facility] Start: 08-13-2021 End: 08-13-[address] Teo Mendez Work Phone: [facility] Start: 07-08-2021 End: 07-08-[address] Teo Mendez Work Phone: [facility] Start: 05-27-2021 End: 05-27-[address] Teo Mendez Work Phone: [facility] Start: 10-30-[address] Bismark Mendez Work Phone: [facility] Procedures Date Procedure Procedure Detail Performing Clinician Start: 10-17-[address] e detection Dr. Teo Mendez MD Work Phone: Start: 10-17-[address] Teo Mendez MD Work Phone: Start: 10-17-[address] Teo Mendez MD Work Phone: Start: 10-16-[address] Manny Mendez MD Work Phone: Comment on above: *Additional results available. Contact laboratory/see report*The atypical pANCA pattern has been observed in asignificant percentage of patients with ulcerative colitis,primary sclerosing cholangitis and autoimmune hepatitis.Performed at: - [id number] [place], [place] [id number] Director: Bassam Chan PhD, Phone: [phone] at: - [facility] [id number] Director: Jean Voss MD, Phone: [phone] Start: 10-16-2024 Antibody to centrome re measurement Dr. Teo Mendez MD Work Phone: Comment on above: Test not performed Previous reported re sult: TNP AIEdited by: INFCE on 10/19/24:1707 AMENDED REPORT 10/19/241706 ANTI-CENT B previously reported as: Test not performed Start: 10-16-2024 Antibody to extracta ble nuclear antigen measurement Dr. Teo Mendez MD Work Phone: Comment on above: Test not performed Previous reported re sult: TNP AIEdited by: INFCE on 10/19/24:1707 AMENDED REPORT 10/19/241706 [facility] previously reported as: Test not performed Start: 10-16-2024 Antibody to CLARI-[address] Teo Mendez MD Work Phone: Comment on above: Test not performed Previous reported re sult: TNP AIEdited by: INFCE on 10/19/24:1707 AMENDED REPORT 10/19/241706 ANTI-CLARI previously reported as: Test not performed Start: 10-16-2024 Antibody to lupus La protein measurement Dr. Teo Mendez MD Work Phone: Start: 10-16-2024 Antibody to SS-A measurement Dr. Teo Mendez MD Work Phone: Start: 10-16-[address] Teo Mendez MD Work Phone: Comment on above: Test not performed Previous reported re sult: TNP AIEdited by: [employer] on 10/19/24:1707 AMENDED REPORT 10/19/241706 ANTICHROMATIN previously reported as: Test not performed Start: 10-16-[address] Robert Mendez MD Work Phone: Start: 10-16-2024 Endomysial antibody IgA level Dr. Teo Mendez MD Work Phone: Start: 10-16-[address] Elton Mendez MD Work Phone: Start: 10-16-[address] Teo Mendez MD Work Phone: Start: 10-16-2024 Measurement of funga l antibody Dr. Teo Mendez MD Work Phone: Comment on above: Negative: <45 Equivo amelia: 45-50 Positive: >50 Start: 10-16-2024 MINE MOTOR OPERATOR antibody measurement Dr. Teo Mendez MD Work Phone: Comment on above: Test not performed Previous reported re sult: TNP AIEdited by: EDUARDO on 10/19/24:1707 AMENDED REPORT 10/19/24 170 MINE MOTOR OPERATOR Ab previously reported as: Test not performed Start: 10-16-[address] Elton Mendez MD Work Phone: Start: 07-06-2024 Screening digital br east tomosynthesis bi Teo Mendez MD Work Phone: Start: 11-24-2023 Adult depression scr eening assessment Teo Mendez MD Work Phone: Start: 06-02-2022 Creatinine [Mass/vol ume] in Serum or Plasma [facility] Start: 06-02-2022 Lipid panel [facility] Provid er Start: 12-08-2021 Screening mammograph y bi 2-view breast inc cad Bulk Order Provider Start: 09-09-2021 Colonoscopy Teo Singh MD Work Phone: Start: 09-10-2020 Mammography Teo Singh MD Work Phone: Start: 07-18-2020 Adult depression scr eening assessment Teo Mendez MD Work Phone: Plan of Treatment Date Care Activity Detail Author Start: 09-10-2031 Colonoscopy COLONOSCOPY [facility] Start: 09-10-2031 COLORECTAL CANCER SCREENING COLORECTAL CANCER SCREENING [facility] Start: 06-02-2027 LIPID SCREEN LIPID SCREEN [facility] Start: 11-23-2026 Diabetes Screening Diabetes Screening [facility] Start: 12-18-2025 DIABETES SCREEN DIABETES SCREEN [facility] Start: 12-18-2025 Diabetes Screening Diabetes Screening [facility] Start: 07-12-2025 LIPID SCREEN LIPID SCREEN [facility] Start: 07-04-2025 Annual PCP Team Chronic Disease Visit Annual PCP Team Chronic Disease Visit [facility] Start: 07-04-2025 BP Controlled (<130/80) BP Controlled (<130/80) [facility] Start: 01-04-2025 End: 04-05-2025 CBC panel - Blood by Automated count COMPLETE BLOOD COUNT Lab Routine Wellness examination Expected: 01/04/2025, Expires: 04/05/2025 [facility] Work Phone: Comment on above: Expected: 01/04/2025, Expires: Start: 01-04-2025 End: 04-05-2025 Cobalamin (Vitamin B12) [Mass/volume] in Serum or Plasma VITAMIN B12 Lab Routine Wellness examination Expected: 01/04/2025, Expires: 04/05/2025 [facility] Comment on above: Expected: 01/04/2025, Expires: Start: 01-04-2025 End: 04-05-2025 Comprehensive metabolic 2000 panel - Serum or Plasma COMPREHENSIVE METABOLIC PANEL Lab Routine Stage 3a chronic kidney disease (HCC) Expected: 01/04/2025, Expires: 04/05/2025 [facility] Comment on above: Expected: 01/04/2025, Expires: Start: 01-04-2025 End: 04-05-2025 Hemoglobin A1c in Blood HEMOGLOBIN A1C Lab Routine Screening for diabetes mellitus Expected: 01/04/2025, Expires: 04/05/2025 [facility] Comment on above: Expected: 01/04/2025, Expires: Start: 01-04-2025 End: 04-05-2025 LIPID PANEL, NONFASTING LIPID PANEL, NONFASTING Lab Routine Dyslipidemia Expected: 01/04/2025, Expires: 04/05/2025 [facility] Comment on above: Expected: 01/04/2025, Expires: Start: 01-04-2025 End: 04-05-2025 Magnesium [Mass/volume] in Serum or Plasma MAGNESIUM Lab Routine Hypertension, essential Expected: 01/04/2025, Expires: 04/05/2025 [facility] Comment on above: Expected: 01/04/2025, Expires: Start: 01-04-2025 End: 01-04-2025 Patient encounter procedure 01/04/2025 8:00 AM EDT Office Visit Family [facility] [address] [place], [place] [id number] Anneliese Rosas MERCHANDISING SPECIALIST.IMPLEMENTATION ADVISOR [address] [place], [place] [id number] Annual Wellness [facility] [place] Comment on above: Annual Wellness Start: 01-01-2025 Influenza vaccination Influenza Vaccine (Season Ended) [facility] Start: 11-23-2024 Annual PCP Team Chronic Disease Visit Annual PCP Team Chronic Disease Visit [facility] Start: 11-23-2024 BP Controlled (<130/80) BP Controlled (<130/80) [facility] Start: 11-23-2024 Complete blood count Hemoglobin/Hematocrit [facility] Start: 11-23-2024 Covid-19 Vaccine ( season) Covid-19 Vaccine ( season) [facility] Comment on above: Postponed from 05/28/2023 (Declined at t his time) Start: 11-23-2024 Creatinine measurement Serum Creatinine [facility] Start: 11-23-2024 Depression Screening Depression Screening [facility] Start: 11-23-2024 RSV Vaccine (1 - 1-dose 60+ series) RSV Vaccine (1 - 1-dose 60+ series) [facility] Comment on above: Postponed from 2006 (Declined at t his time) Start: 11-23-2024 RSV Vaccine (1 - 1-dose 75+ series) RSV Vaccine (1 - 1-dose 75+ series) [facility] Comment on above: Postponed from 2021 (Declined at t his time) Start: 10-30-2024 Influenza vaccination [facility] Comment on above: Postponed from 01/02/2024 (Declined at t his time) Start: 10-27-2024 End: 10-27-2024 Patient encounter procedure 10/27/2024 8:30 AM EDT Office Visit Dermatology [address] [place] [address] October, Hannah Ingram APRN.IMPLEMENTATION ADVISOR [address] [place] [address] 3 mo followup Dermatology Comment on above: 3 mo followup Start: 10-17-2024 Procedure [facility] Start: 10-16-2024 Celiac disease screen [facility] Start: 10-16-[address] [facility] Start: 10-16-2024 [facility] Start: 07-28-2024 End: 07-28-2024 Patient encounter procedure 07/28/2024 11:30 AM EDT Office Visit Dermatology [address] [place] [address] October, Hannah Ingram APRN.IMPLEMENTATION ADVISOR [address] [place] [address] [facility] Dermatology Comment on above: [facility] Start: 07-19-2024 Covid-19 Vaccine ( season) Covid-19 Vaccine ( season) [facility] Start: 07-06-2024 End: 07-06-2024 Patient encounter procedure 07/06/2024 7:30 AM EST Appointment Mammogram [address] [place] [address] Encounter for screening mammogram for malignant neoplasm of breast [Z12.31] Mammogram Comment on above: Encounter for screening mammogram for ma lignant neoplasm of breast [Z12.31] Start: 07-04-2024 End: 07-04-2024 Patient encounter procedure 07/04/2024 8:40 AM EST Office Visit Family [facility] [address] [place] [address] Anneliese Rosas APRN.IMPLEMENTATION ADVISOR [address] [place] [address] Return in about 6 months (around 05/26/2024) [facility] Comment on above: Return in about 6 months (around 05/26/19) Start: 05-03-2024 Advance Directive Discussion Advance Directive Discussion [facility] Start: 05-03-2024 Medicare Advantage Annual Wellness Visit Medicare Advantage Annual Wellness Visit [facility] Start: 01-02-2024 Covid-19 Vaccine () Covid-19 Vaccine () [facility] Start: 01-02-2024 Influenza vaccination [facility] Start: 12-19-2023 ANNUAL PCP TEAM CHRONIC DISEASE VISIT ANNUAL PCP TEAM CHRONIC DISEASE VISIT [facility] Start: 12-19-2023 BP CONTROLLED (<130/80) BP CONTROLLED (<130/80) [facility] Start: 12-19-2023 Complete blood count Hemoglobin/Hematocrit [facility] Start: 12-19-2023 COVID-19 VACCINE (6 - Moderna series) COVID-19 VACCINE (6 - Moderna series) [facility] Comment on above: Postponed from 03/14/2022 (Declined at t his time) Start: 12-19-2023 Creatinine measurement Serum Creatinine [facility] Start: 12-19-2023 HEMOGLOBIN/HEMATOCRIT HEMOGLOBIN/HEMATOCRIT [facility] Start: 12-19-2023 SERUM CREATININE SERUM CREATININE [facility] Start: 12-19-2023 Urine microalbumin profile [facility] Comment on above: Postponed from 10/13/2017 (Declined at t his time) Start: 11-24-2023 End: 02-23-2024 CBC W Auto Differential panel - Blood [facility] Work Phone: Comment on above: Expected: 11/24/2023, Expires: Start: 11-24-2023 End: 02-23-2024 Comprehensive metabolic 2000 panel - Serum or Plasma [facility] Comment on above: Expected: 11/24/2023, Expires: Start: 11-24-2023 End: 02-23-2024 Lipid 1996 panel - Serum or Plasma [facility] Comment on above: Expected: 11/24/2023, Expires: Start: 11-24-2023 End: 11-24-2023 Patient encounter procedure 11/24/2023 8:00 AM EDT Office Visit Family Medicine [facility] [address] [address] Teo Mendez MD [address] [place] [address] MEDICARE WELLNESS Z00.00 [facility] Comment on above: MEDICARE WELLNESS Z00.00 Start: 08-08-2023 DIABETES SCREEN DIABETES SCREEN [facility] Start: 06-02-2023 SERUM CREATININE SERUM CREATININE [facility] Start: 05-03-2023 Advance Directive Discussion Advance Directive Discussion [facility] Start: 05-03-2023 Behavioral Health Screening Behavioral Health Screening [facility] Start: 01-19-2023 SHINGRIX VACCINE (2 of 2) SHINGRIX VACCINE (2 of 2) [facility] Start: 01-01-2023 Covid-19 Vaccine () Covid-19 Vaccine () [facility] Start: 01-01-2023 Influenza vaccination [facility] Start: 12-31-2022 BP CONTROLLED (<130/80) BP CONTROLLED (<130/80) [facility] Start: 10-17-2022 ANNUAL PCP TEAM CHRONIC DISEASE VISIT ANNUAL PCP TEAM CHRONIC DISEASE VISIT [facility] Start: 10-17-2022 BP CONTROLLED (<130/80) BP CONTROLLED (<130/80) [facility] Start: 05-03-2022 ADVANCE DIRECTIVE DISCUSSION ADVANCE DIRECTIVE DISCUSSION [facility] Start: 05-03-2022 DEPRESSION ASSESSMENT DEPRESSION ASSESSMENT [facility] Start: 03-14-2022 COVID-19 VACCINE (6 - Booster for Moderna series) COVID-19 VACCINE (6 - Booster for Moderna series) [facility] Start: 01-01-2022 Influenza vaccination INFLUENZA (#1) [facility] Start: 10-17-2021 End: 10-17-2022 CBC W Auto Differential panel - Blood CBC + DIFF Lab Routine Essential hypertension Expected: 10/17/2021, Expires: 10/17/2022 [facility] Work Phone: Comment on above: Expected: 10/17/2021, Expires: 3 Start: 10-17-2021 End: 10-17-2022 Comprehensive metabolic 2000 panel - Serum or Plasma COMP METABOLIC PANEL Lab Routine Essential hypertension Expected: 10/17/2021, Expires: 10/17/2022 [facility] Work Phone: Comment on above: Expected: 10/17/2021, Expires: 3 Start: 10-17-2021 End: 12-17-2021 Hemoglobin A1c in Blood HGB A1C Lab Routine Hyperglycemia Expected: 10/17/2021, Expires: 12/17/2021 [facility] Work Phone: Comment on above: Expected: 10/17/2021, Expires: 2 Start: 10-17-2021 End: 10-17-2022 Lipid 1996 panel - Serum or Plasma LIPID PANEL BASIC Lab Routine Essential hypertension Expected: 10/17/2021, Expires: 10/17/2022 [facility] Work Phone: Comment on above: Expected: 10/17/2021, Expires: 3 Start: 09-14-2021 HEMOGLOBIN/HEMATOCRIT HEMOGLOBIN/HEMATOCRIT [facility] Start: 09-10-2021 Mammography MAMMOGRAM [facility] Start: 08-07-2021 SERUM CREATININE SERUM CREATININE [facility] Start: 07-18-2021 Adult depression screening assessment DEPRESSION SCREENING [facility] Start: 05-03-2021 ADVANCE DIRECTIVE DISCUSSION ADVANCE DIRECTIVE DISCUSSION [facility] Start: 10-13-2017 [facility] Start: 09-21-2011 PNEUMOCOCCAL: 65+ (1 - PCV) PNEUMOCOCCAL: 65+ (1 - PCV) [facility] Start: 2006 RSV Vaccine (1 - 1-dose 60+ series) RSV Vaccine (1 - 1-dose 60+ series) [facility] Start: 1996 SHINGRIX VACCINE (1 of 2) SHINGRIX VACCINE (1 of 2) [facility] Start: 09-21-1991 COLOGUARD (FIT-DNA) COLOGUARD (FIT-DNA) [facility] Start: 09-21-[address] COLONOGRAPHY [facility] Start: 09-21-1991 FECAL OCCULT BLOOD FECAL OCCULT BLOOD [facility] Start: 09-21-1991 SIGMOIDOSCOPY SIGMOIDOSCOPY [facility] Start: 1964 BP Controlled (<130/80) BP Controlled (<130/80) [facility] Start: 1964 Depression Screening Depression Screening [facility] Antibody to lupus La protein measurement [facility] Antibody to SS-A measurement [facility] BACTERIAL VAGINOSIS AMPLIFICATION BACTERIAL VAGINOSIS AMPLIFICATION Lab Routine Vaginal burning Ordered: 12/31/2021 [facility] Work Phone: Comment on above: Ordered: 12/31/2021 Beef IgE Ab [Units/v olume] in Serum [facility] C reactive protein [Mass/volume] in Serum or Plasma [facility] LOLI / TRICHOMONA S AMPLIFICATION LOLI / TRICHOMONAS AMPLIFICATION Microbiology Routine Vaginal burning Ordered: 12/31/2021 [facility] Work Phone: Comment on above: Ordered: 12/31/2021 CBC W Auto Different ial panel - Blood [facility] Chitobioside IgA Ab [Units/volume] in Serum or Plasma by Immunoassay [facility] Chocolate IgE Ab [Units/volume] in Serum [facility] Clostridioides diffi cile DNA [Presence] in Unspecified specimen by BRIANNA with probe detection [facility] Codfish IgE Ab [Units/volume] in Serum [facility] Comprehensive metabo lic 2000 panel - Serum or Plasma [facility] Ora IgE Ab [Units/v olume] in Serum [facility] Cow milk IgE Ab [Units/volume] in Serum [facility] End: 07-29-2025 DBT Breast - bilateral screening RADHA SCREENING [facility] Radiology Routine Encounter for screening mammogram for malignant neoplasm of breast 1 Occurrences starting 06/29/2024 until 07/29/2025 [facility] Work Phone: Comment on above: 1 Occurrences starting 06/29/2024 until 07/29/2025 DNA double strand Ab [Units/volume] in Serum [facility] Elastase.pancreatic [Presence] in Stool [facility] Erythrocyte sediment ation rate [facility] Food RAST [facility] Giardia lamblia Ag [Presence] in Stool by Immunoassay [facility] IgA [Mass/volume] in Serum or Plasma [facility] IgE [Units/volume] i n Serum or Plasma [facility] IgG [Mass/volume] in Serum or Plasma [facility] IgM [Mass/volume] in Serum or Plasma [facility] Lactate dehydrogenas e measurement [facility] Lactoferrin [Presenc e] in Stool by Immunoassay [facility] Laminaribioside IgG Ab [Units/volume] in Serum or Plasma by Immunoassay [facility] Mannobioside IgG Ab [Units/volume] in Serum or Plasma by Immunoassay [facility] Measurement of funga l antibody [facility] Neutrophil cytoplasm ic Ab.classic [Units/volume] in Serum [facility] Neutrophil cytoplasm ic Ab.perinuclear.atypical [Titer] in Serum by Immunofluorescence [facility] Nucleic acid assay [facility] P-ANCA measurement [facility] Peanut IgE Ab [Units/volume] in Serum [facility] Pork IgE Ab [Units/v olume] in Serum [facility] Protein measurement [facility] Mobile IgE Ab [Units/volume] in Serum [facility] End: 11-14-2022 Screening mammography bi 2-view breast inc cad RADHA SCREENING Radiology Routine Encounter for screening mammogram for breast cancer 1 Occurrences starting 10/15/2021 until 11/14/2022 [facility] Work Phone: Comment on above: 1 Occurrences starting 10/15/2021 until 11/14/2022 Shrimp IgE Ab [Units/volume] in Serum [facility] Soybean IgE Ab [Units/volume] in Serum [facility] Thyroid stimulating hormone measurement [facility] Tissue Pathology bio psy report SURGICAL PATHOLOGY Lab Routine Neoplasm of uncertain behavior of skin 07/28/2024 11:44 AM EDT [facility] Work Phone: Tissue transglutamin ase IgA Ab [Units/volume] in Serum [facility] Tuna IgE Ab [Units/v olume] in Serum [facility] Wheat IgE Ab [Units/ volume] in Serum [facility] Whole Egg IgE Ab [Units/volume] in Serum [facility] Immunizations Immunization Date Immunization Notes Care Provider Raheem ayala 02-10-2023 zoster vaccine recombinant Chrissy Rivera MA [facility] 12-18-2022 pneumococcal (PCV20) vaccine, 20 valent (PREVNAR 20) Teo Mendez MD Work Phone: [facility] 11-24-2022 zoster vaccine recombinant Teo Mendez MD Work Phone: [facility] 03-17-2022 influenza (HD-IIV4) vaccine, age 65+ yr, high dose, quadrivalent, PF (FLUZONE HIGH-DOSE) Teo Mendez MD Work Phone: [facility] 03-17-2022 influenza virus vacc ine, unspecified formulation Elba Coughlin MA [facility] 03-16-2022 influenza, high dose seasonal, preservative-free Teo Mendez MD Work Phone: [facility] 01-17-2022 COVID-19 original vaccine, age 12+ yr, monovalent (PFIZER-BIONTECH - KEY TOP) Teo Mendez MD Work Phone: [facility] 01-17-2022 COVID-19 vaccine, ag e 12+ yr, bivalent (PFIZER-BIONTECH) Teo Mendez MD Work Phone: [facility] 09-18-2021 COVID-19 vaccine, booster dose (MODERNA) Teo Mendez MD Work Phone: [facility] 04-18-2021 influenza, high-dose , quadrivalent vaccine (FLUZONE HIGH DOSE QUADRIVALENT) Teo Mendez MD Work Phone: [facility] 07-25-2020 COVID-19 vaccine, fu ll dose (MODERNA) Teo Mendez MD Work Phone: [facility] 06-27-2020 COVID-19 vaccine, fu ll dose (MODERNA) Teo Mendez MD Work Phone: [facility] 02-19-2020 Influenza, injectabl e, [facility] [place] Canine Kidney, preservative free, quadrivalent Teo Mendez MD Work Phone: [facility] 10-12-2017 tetanus and diphther ia toxoids, adsorbed, preservative free, for adult use (5 Lf of tetanus toxoid and 2 Lf of diphtheria toxoid) Teo Mendez MD Work Phone: [facility] 10-12-2017 yellow fever vaccine Teo Mendez MD Work Phone: [facility] Payers Date Payer Category Payer Self-pay [id number] 2024 Medicare (Managed Care) MMO JASMIN DVANTAGE [id number] 2024 Unknown [id number] 2022 Private Health Insurance [id number] 2011 Medicare MEDICARE MEDICAR E A AND B [id number] 2011-Present [phone] [address] [address] [place] [address] Medicare [id number] 2011 Medicare [id number] 1997 Unknown MMO MMO TRADITIO NAL [id number] 1997-Present [phone] [address] [place] [address] Indemnity [id number] 1997 Unknown [id number] Medicare [id number] Unknown [id number] Unknown [id number] Unknown [id number] Unknown [id number] Unknown [id number] Unknown [id number] Social History Date Type Detail Facility Start: 07-08-2021 End: 06-02-2022 Tobacco smoking status ARIS Unknown if ever smoked [facility] Start: 07-25-2020 None [facility] Start: 07-25-2020 Spouse/ Significant Other [facility] Start: 1945 Sex Assigned At Female [facility] Start: 05-03-2017 End: 12-31-2021 Tobacco smoking status NHIS Ex-smoker [facility] Start: 04-18-2021 End: 07-04-2024 Alcohol intake Current drinker of alcohol (finding) [facility] Start: 07-18-2020 History SDOH Alcohol Frequency 5 [facility] Start: 07-18-2020 History SDOH Alcohol Std Drinks 1 [facility] Start: 07-18-2020 History SDOH Social Connections Membership 2 [facility] Start: 07-18-2020 History SDOH Social Connections Living 3 [facility] Start: 07-18-2020 History SDOH Physical Activity DPW 7 [facility] Start: 07-18-2020 History SDOH Physical Activity MPS 4 [facility] Start: 07-18-2020 Education 18 [facility] Start: 1945 Sex Assigned At Not on file [facility] Start: 10-07-2021 End: 12-08-2021 Exposure to SARS-CoV-2 (event) Not sure [facility] History of tobacco use Current smoker [facility] Start: 05-03-2017 End: 12-31-2021 Tobacco use and exposure Smokeless tobacco non-user [facility] Start: 12-31-2021 Tobacco Comment 35 YRS AGO, QUIT [facility] Start: 07-18-2020 End: 12-18-2022 History of Social function [facility] Start: 07-18-2020 End: 12-18-2022 Social connection and isolation panel [facility] Do you belong to any clubs or organizations such as faith groups, unions, fraternal or athletic groups, or school groups? No [facility] Are you now , , , , never or living with a partner? [facility] How often to you hav e a drink containing alcohol? 4 or more times a week [facility] How many standard dr inks containing alcohol do you have on a typical day? 1 or 2 [facility] How often do you hav e 6 or more drinks on 1 occasion? Never [facility] How hard is it for y ou to pay for the very basics like food, housing, medical care, and heating Not hard at all [facility] Do you feel stress - tense, restless, nervous, or anxious, or unable to sleep at night because your mind is troubled all the time - these days [OSQ] Rather much [facility] (I/We) worried magdalena er (my/our) food would run out before (I/we) got money to buy more. Never true [facility] Clinical Notes 10-17-2021 to 10-27-2024October, Hannah Ingram APRN.IMPLEMENTATION ADVISOR - 10/27/2024 8:30 AM EDTMGerard Romero RN - 09/12/2024 1:38 PM EDTTelephone Encounter - Kerrie Bolaños RN - 08/22/2024 11:08 AM EDTPatient Instructions Note Date & Type Note Facility 10-27-2024 Note HNO ID: [id number] Author: HANNAH LAZARO APRN.CNP Service: ? Author Type: Nurse Practitioner Type: Progress Notes Filed: 10/27/2024 09:02 Note Text: EST PATIENT Last visit: 07/28/24 Hannah Lazaro APRN.CNP Chief Complaint: Actinic keratoses History of Present Ilness: Jennifer Robison is a 79 year old female presents today for a actinic keratoses Follow up Actinic keratoses Location: None Treatment at last apt: Efudex 5% Using as prescribed: Yes Side effects from meds? No Overall Status: Healed No other concerns today /planning or : [...] A skin exam was done of the nose Skin exam normal with the exception of: Clear on exam today Assessment and Plan: 1.Actinic keratoses - resolved s/p efudex BID for 2 weeks - Premalignant nature and relationship to sun exposure were discussed with the patient - Discussed the chronicity of actinic keratoses Sunscreen (SPF 30 or higher). Sun protective [...] and agrees with treatment plan. Follow up: 1 year or sooner if something concerning arises. The documentation for this note was completed by Emilee Mai LPN acting as scribe for Hannah Lazaro APRN.CNP. October 26, 2024 7:04 AM. Emilee Mai LPN I agree with the Chief Complaint, ROS, and Past Histories independently gathered by the clinical office support assistant and the remaining scribed note accurately describes my personal service to the patient. Hannah Lazaro APRN.CNP [facility] 10-01-2024 History of Presen t illness Narrative EST PATIENT Last visit: 07/28/24 Ivteh, Hannah Ingram APRN.CNP Chief Complaint: Actinic keratoses History of Present Ilness: Jennifer Robison is a 79 year old female presents today for a actinic keratoses Follow up Actinic keratoses Location: None Treatment at last apt: Efudex 5% Using as prescribed: Yes Side effects from meds? No Overall Status: Healed No other concerns today /planning or : [...] A skin exam was done of the nose Skin exam normal with the exception of: Clear on exam today Assessment and Plan: 1.Actinic keratoses - resolved s/p efudex BID for 2 weeks - Premalignant nature and relationship to sun exposure were discussed with the patient - Discussed the chronicity of actinic keratoses Sunscreen (SPF 30 or higher). Sun protective [...] and agrees with treatment plan. Follow up: 1 year or sooner if something concerning arises. The documentation for this note was completed by Emilee Mai LPN acting as scribe for Hannah Lazaro APRN.CNP. October 26, 2024 7:04 AM. Emilee Mai LPN I agree with the Chief Complaint, ROS, and Past Histories independently gathered by the clinical office support assistant and the remaining scribed note accurately describes my personal service to the patient. Hannah Lazaro APRN.CNP documented in this encounter [facility] 09-12-2024 Note HNO ID: [id number] Author: GERARD KATE RN Service: ? 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 She has used the cream for 3 weeks before stopping. Advised patient to just apply Vaseline or Aquaphor to area until healed and not to pick at any scabs. Patient verbalizes understanding and has no further questions. Kerrie Bolaños RN [facility] 08-22-2024 Miscellaneous Notes Called and spoke [...] it now documented in this encounter [facility] 08-22-2024 Telephone encounter Note Pts done with applying efudex cream to her nose the area is scabby pt asking how to care for it now [facility] 07-28-2024 Instructions Hannah Lazaro APRN.GORDO - 07/28/2024 11:44 AM EDT Images [...] continue treatment, please contact the office at [phone]. Care of Dry Skin -Avoid long hot [...] dry skin documented in this encounter [facility] 07-28-2024 Note HNO ID: [id number] Author: HANNAH LAZARO APRN.CNP Service: ? Author Type: Nurse Practitioner Type: Progress Notes Filed: 07/28/2024 12:23 Note Text: NEW PATIENT Chief Complaint: full body skin check History of Present Ilness: Jennifer Robison is a 78 year old female presents [...] the exception of: Scaling of the extremities [place] scaly papules of the nose Few scattered brown stuck on papules and plaques on the head, trunk and extremities Regular and symmetric brown macules and papules on the head, trunk and extremities Scattered reticulated light richardson macules in sun distribution Scattered small [place] red papules throughout 0.2 x 0.2 CM [...] instructions provided to patient, understanding verbalized. 2. Ven[place]as angiomas Reassurance on benign nature of lesions [...] sunscreen but must (more content not included)... [facility] 07-28-2024 History of Presen t illness Narrative NEW PATIENT Chief Complaint: full body skin check History of Present Ilness: Jennifer Robison is a 78 year old female presents [...] the exception of: Scaling of the extremities [place] scaly papules of the nose Few scattered brown stuck on papules and plaques on the head, trunk and extremities Regular and symmetric brown macules and papules on the head, trunk and extremities Scattered reticulated light richardson macules in sun distribution Scattered small [place] red papules throughout 0.2 x 0.2 CM [...] instructions provided to patient, understanding verbalized. 2. [place] angiomas Reassurance on benign nature of lesions [...] Dailey LPN acting as scribe for Hannah Lazrao APRN.CNP. July 28, 2024 11:17 AM. Gabby Dailey LPN I agree with the Chief Complaint, ROS, and Past Histories independently gathered by the clinical office support assistant and the remaining scribed note accurately describes my personal service to the patient. Hannah Lazaro APRN.CNP documented in this encounter [facility] 07-25-2024 Evaluation note Diagnosis Onset Date Resolution Essential (primary) hypertension chronic July 25, 2024 8:50am Hyperlipidemia chronic July 8:50am Paroxysmal SVT (supraventricular tachycardia) chronic July 25, 2024 8:50am Diarrhea acute October 16 8:27am Rectal urgency acute October 16, 2024 8:27am Non-specific colitis noneactive October 16, 2024 8:27am [facility] Work Phone: 1(747) 391-295403-06-2025 History of Present illness Narrative* Trevin Rogers Mammo Tech - 07/06/2024 7:30 AM EST Radiology Service Progress Note PATIENT NAME: Jennifer Robison DATE OF SERVICE: July 06, 2024 TIME: [...] PATIENT PRESENTS WITH AN IMPLANTABLE OR ATTACHED WELD TECHNICIAN: No RADIOLOGY DEPARTMENT: Mammography PERIPHERAL IV DATA: Not applicable SIGNED BY: Mere Rios July 06, 2024 7:23 AM [facility]-2025 NoteHNO ID: [id number] Author: TREVIN ROGERS Mammo Tech Service: ? Author Type: Rotary Operator Type: Progress Notes Filed: 07/06/2024 07:23 Note Text: Radiology Service Progress Note PATIENT NAME: Jennifer Robison DATE OF SERVICE: July 06, 2024 TIME: [...] PATIENT PRESENTS WITH AN IMPLANTABLE OR ATTACHED WELD TECHNICIAN: No RADIOLOGY DEPARTMENT: Mammography PERIPHERAL IV DATA: Not applicable SIGNED BY: Trevin Rogers [employer] July 06, 2024 7:23 [facility]03-04-2025 Instructions* Patient Instructions* Anneliese Rosas APRN.CNP - 07/04/2024 11:03 AM EST 1) No change in medications 2) Labs before next appt. [facility] encounter[facility]03-[facility]-2025 NoteHNO ID: [id number] Author: ANNELIESE ROSAS APRN.CNP Service: ? Author Type: Nurse Practitioner Type: Progress Notes Filed: 07/04/2024 11:06 Note Text: This is a 78 year old female who presents today with: Patient presents with: 6 Month Exam HISTORY OF PRESENT ILLNESS: Jennifer Robison is a 78 year old female. Patient [...] or as needed for worsening/no improvement. [facility] History of Present illness Narrative* Anneliese Rosas APRN.GORDO - 07/04/2024 10:40 AM EST This is a 78 year old female who presents today with: Patient presents with: 6 Month Exam HISTORY OF PRESENT ILLNESS: Jennifer Robison is a 78 year old female. Patient [...] or as needed for worsening/no improvement. Anneliese Rosas APRN.CNP [facility]2025 NoteHNO ID: [id number] Author: JOSH MARTIN MA Service: ? Author Type: Drive Tester Type: Progress Notes Filed: 06/29/2024 12:19 Note [...] gaps. Patient requested mammogram, Scheduled 07/06/24 at [place]. Patient under new insurance for 2024 Reason for Outreach Care Gap/HCC or Scheduling Wellness Visits Care Gaps due: Medicare Annual Wellness Visit Follow-up Appointment Flu Vaccine Patient Contacted: Spoke to patient/parent/or legal guardian Patient identified by name and : Yes Care Gap/HCC/Scheduling Wellness actions taken: Patient scheduled/pended orders: Medicare Annual Wellness Visit Follow-up Appointment Breast Cancer Screening 07/04/2024 in [facility] with ANNELIESE ROSAS - Return in about 6 months (around 05/26/2024) 07/06/2024 in [facility] with [facility] - Encounter for screening mammogram for malignant neoplasm of breast [Z12.31] 07/28/2024 in [facility] with HANNAH LAZARO - [facility] [place] 01/04/2025 in [facility] with ANNELIESE ROSAS - Annual Wellness, Please address due care gap Navigation Signature: Josh Martin MA June 29, 2024 11:00 [facility]02-27-2025 History of Present illness Narrative* Josh Martin MA - 06/29/2024 10:59 AM EST POPULATION [...] gaps. Patient requested mammogram, Scheduled 07/06/24 at [place]. Patient under new insurance for 2024 Reason for Outreach Care Gap/HCC or Scheduling Wellness Visits Care Gaps due: Medicare Annual Wellness Visit Follow-up Appointment Flu Vaccine Patient Contacted: Spoke to patient/parent/or legal guardian Patient identified by name and : Yes Care Gap/HCC/Scheduling Wellness actions taken: Patient scheduled/pended orders: Medicare Annual Wellness Visit Follow-up Appointment Breast Cancer Screening 07/04/2024 in [facility] with ANNELIESE ROSAS - Return in about 6 months (around 05/26/2024) 07/06/2024 in [facility] with [facility] - Encounter for screening mammogram formalignant neoplasm of breast [Z12.31] 07/28/2024 [facility] with HANNAH LAZARO - [facility] 01/04/2025 in [facility] with ANNELIESE ROSAS - Annual Wellness, Please address due care gap Navigation Signature: Josh Martin MA June 29, 2024 11:00 AM documented in this encounterMer[facility]02-27-2025 NotePatient Outreach ([facility]) JENNIFER ROBISON ([id number]) 1945 F Date Time Provider Department 06/29/24 JOSH MARTINV During your visit today, we recorded the following information about you: Josh Martin MA 06/29/2024 12:19 PM Signed POPULATION HEALTH [...] gaps. Patient requested mammogram, Scheduled 07/06/24 at [place]. Patient under new insurance for 2024 Reason for Outreach Care Gap/HCC or Scheduling Wellness Visits Care Gaps due: Medicare Annual Wellness Visit Follow-up Appointment Flu Vaccine Patient Contacted: Spoke to patient/parent/or legal guardian Patient identified by name and : Yes Care Gap/HCC/Scheduling Wellness actions taken: Patient scheduled/pended orders: Medicare Annual Wellness Visit Follow-up Appointment Breast Cancer Screening 07/04/2024 in [facility] with ANNELIESE ROSAS - Return in about 6 months (around 05/26/2024) 07/06/2024 in [facility] - Encounter for screening mammogram for malignant neoplasm of breast [Z12.31] 07/28/2024 [facility] with HANNAH LAZARO G - [facility] 01/04/2025 in [facility] with ANNELIESE ROSAS - Annual Wellness, Please address due care gap Navigation Signature: Josh Martin MA June 29, 2024 11:00 AM Allergies As of Date: 06/29/2024 Noted Allergy Reaction PENICILLINS 08/19/2005 POISON VICENTA 08/20/2005 2 - Rash Date Reviewed: 11/24/2023 Reviewed by: Cecilia Walker LPN - Fully Assessed Reason for Visit: Population Health Navigation Outreach [3910] Cmt: Akiko High Risk - Attempt 1 Primary Visit Diagnosis:Encounter for screening mammogram for malignant neoplasm of breast [Z12.31] Order(s):RADHA SCREENING [place] NINO [[id number]] Order #: [id number] FUTURE Prescriptions as of 06/29/2024 - sertraline [...] Colitis [K52.9] 12/18/2022 Encounter Status:Closed by JOSH MARTIN on 06/29/24[facility]08-12-2024 NoteHNO ID: [id number] Author: CHRISSY RIVERA MA Service: ? Author Type: Drive Tester Type: Progress Notes Filed: 12/13/2023 10:21 Note [...] Chrissy Rivera MA December 13, 2023 8:04 [facility]08-12-2024 History of Present illness Narrative* Chrissy Rivera [...] 2023 8:04 AM documented in this encounterMer[facility]08-[facility]-2024 NotePatient Outreach ([facility]) JENNIFER ROBISON ([id number]) 1945 F Date Time Provider Department 12/13/23 CHRISSY RIVERA During your visit today, we [...] 12/18/2022 Encounter Status:Closed by CHRISSY RIVERA on 12/13/23[facility] 11-25-2023 Telephone encounter Note* Telephone Encounter - Aby Gonzalez LPN - 11/25/2023 9:37 AM EDT Patient notified of results, verbalizes understanding of instructions. Aby Gonzalez LPN [facility]07-25-[facility]24 Miscellaneous Notes* Telephone Encounter - Aby Gonzalez LPN - 11/25/2023 9:37 AM EDT Patient notified of results, verbalizes understanding of instructions. Aby Gonzalez LPN * Telephone Encounter - Teo Mendez MD - 11/25/2023 8:17 AM EDT Let [...] follow next time. documented in this encounterMercy Hospital07-25-2024 Telephone encounter Note * Telephone Encounter - Teo Mendez MD - 11/25/2023 8:17 AM EDT Let [...] diet and will follow next time. [facility]07-24-2024 NoteHNO ID: [id number] Author: TEO MENDEZ MD Service: ? 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 Jennifer Robison is a 78 year old female here [...] No history of dysuria, frequency or incontinence 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: Negative for abnormal vaginal bleeding, abnormal vaginal [...] exercise - Personalized prevention plan provided Teo Mendez MD documented in this encounterMercy Hospital07-10-2024 NoteHNO ID: [id number] Author: CHRISSY RIVERA MA Service: ? Author Type: Drive Tester Type: Progress Notes Filed: 11/10/2023 12:36 Note Text: POPULATION HEALTH NAVIGATION OUTREACH Action/Bud Montano [place] Discuss/Due for: Medicare Wellness HCC Score: .1962 Outcome: 1st attempt - Spoke to patient Scheduled Medicare Wellness Reason for Outreach Care Gap/HCC or Scheduling Wellness Visits Care Gaps due: Medicare Annual Wellness Visit Patient Contacted: Spoke to patient/parent/or legal guardian Patient identified by name and : Yes Care Gap/HCC/Scheduling Wellness actions taken: Patient scheduled/pended labs: Medicare Annual Wellness Visit 11/24/2023 in [facility] with TEO MENDEZ - MEDICARE WELLNESS Z00., HCC GAP CLOSURE HCC related Navigation Signature: Chrissy Rivera MA November 10, 2023 8:59 [facility]07-10-2024 History of Present illness Narrative* Chrissy Rivera [...] labs: Medicare Annual Wellness Visit 11/24/2023 in [facility] with TEO MENDEZ - MEDICARE WELLNESS Z00.00, HCC GAP CLOSURE HCC related Navigation Signature: Chrissy Rivera MA November 10, 2023 8:59 AM documented in this encounterMercy Hospital07-10-2024 NotePatient Outreach ([facility]) JENNIFER ROBISON ([id number]) 1945 F Date Time Provider Department 11/10/23 CHRISSY RIVERA NETNAV During your visit today, [...] labs: Medicare Annual Wellness Visit 11/24/2023 in [facility] with TEO MENDEZ - MEDICARE WELLNESS Z00.00, HCC GAP CLOSURE [...] 12/18/2022 Encounter Status:Closed by CHRISSY RIVERA on 11/10/23[facility] 02-04-2023 History of Present illness Narrative* Elba [...] 2023 7:25 AM documented in this encounterMercy Hospital08-24-2023 Miscellaneous Notes* Telephone Encounter - Cecilia Walker LPN - 12/24/2022 3:12 PM EDT I called her and she said she has none. She wanted some sent to the pharmacy. * Telephone Encounter - Teo Mendez MD - 12/24/2022 3:03 PM EDT I [...] every other day. * Telephone Encounter - [place] Carmen Castro - 12/24/2022 2:46 PM EDT Jennifer Robison is calling Teo Mendez MD today to request Medication that was not sent to [facility]. She stated at her last office visit they discussed decreasing the dosage: Disp Refills Start End sertraline (ZOLOFT) 50 mg tablet (Discontinued) 90 tablet 3 10/17/2021 12/18/2022 Sig: Take 1 tablet by mouth once daily. Patient taking differently: Take 50 mg by mouth once daily. Taking 1/2 tablet daily Sent to pharmacy as: sertraline (ZOLOFT) 50 mg tablet Class: Normal Route: ORAL Order: [id number] E-Prescribing Status: Receipt confirmed by pharmacy (10/17/2021 10:08 AM EDT) Patient is requesting this is sent to [facility]. Patient has been identified by name and birthdate. Duration of symptoms: N/A Person calling: self Call patient at: on cell [phone] (home) [phone] (cell) Was an appointment scheduled: No Closing statement: Results or non-symptom based questions: Thank you for [facility], your call will be returned within the next business day. Carmen Meléndez Pss documented in this encounterMercy Hospital08-18-2023 History of Past illness Narrative* Problem Noted Date Diagnosed Date Resolved Date Chest pain 12/18/2022 12/18/2022 12/18/2022 Diarrhea 08/19/2021 12/18/2022 12/18/2022 documented as of this encounter (statuses as of 12/25/2022) [facility] History of Past illness Narrative* Problem Noted Date Diagnosed Date Resolved Date Chest pain 12/18/2022 12/18/2022 12/18/2022 Diarrhea 08/19/2021 12/18/2022 12/18/2022 documented as of this encounter (statuses as of 02/06/2023) [facility]30[facility] History of Present illness Narrative* Elba Coughlin MA - 09/29/2022 10:34 AM EDT POPULATION HEALTH NAVIGATION OUTREACH Action/FYI [facility] StackSearchHART MESSAGE SENT ANNUAL MEDICARE WELLNESS EXAM ADVANCE [...] 2022 10:34 AM documented in this encounterMercy Hospital04-24-2023 History of Present illness Narrative* Elba Coughlin MA - 08/24/2022 7:32 AM EDT POPULATION HEALTH NAVIGATION OUTREACH Action/FYI Lv Zad[employer] message sent ANNUAL MEDICARE WELLNESS EXAM Patient Identified by Name and : NO Outreach Outcome/Action Unable to reach patient: Left message CyberDefenderhart message sent Did you use a PCP flex slot to schedule this appointment? N/A Reason for Outreach Care Gap or Scheduling/Wellness visits Payer: Payor: MMO / Plan: [facility] [place] / Product Type: Indemnity / [...] 2022 7:32 AM documented in this encounterMercy Hospital08-31-2022 History of Present illness Narrative* Beatrice Townsend MD - 12/31/2021 10:09 AM EDT Jennifer Robison is a 76 year old female who [...] L2 SAB0 IAB0 Ectopic0 Multiple0 Live Births0 Day Light Relief Operator History LMP: Postmenopausal Age at Menarche: Age at First : Age at Menopause: Day Light Relief Operator History Comments: Sexual Activity: Not Currently; No [...] external genitalia normal, normal Bartholin's glands, urethra, Crawford's glands, no vulvar lesions, no cervical lesions, [...] which included preparing to see the patient, [id number] patient care, completing clinical documentation, obtaining and/or reviewing separately obtained history, performing a medically appropriate examination, and counseling and educating the patient/family/caregiver Beatrice Kenney MD Monument Setter offered: Patient declines. documented in this encounterMercy Hospital08-08-2022 History of Present illness Narrative* Mandy Gordon RT(R) - 12/08/2021 11:30 AM EDT Radiology Service Progress Note PATIENT NAME: Jennifer Robison DATE OF SERVICE: December 08, 2021 TIME: [...] 2021 11:32 AM documented in this encounterMercy Hospital06-17-2022 History of Present illness Narrative* Teo Mendez MD - 10/17/2021 9:54 AM EDT Patient [...] ICD10: K52.9 - Follow with gi. Teo Mendez RTO in six months and prn. [facility]* Diagnosis Onset Date Resolution Status Paroxysmal SVT (supraventricular tachycardia) acute Essential (primary) hypertension chronic Hyperlipidemia chronic Paroxysmal SVT (supraventricular tachycardia) acute Essential (primary) hypertension chronic Hyperlipidemia [facility] Work Phone: Evaluation note* Diagnosis Hyperlipidemia, mixed- Primary Mixed hyperlipidemia Essential hypertension Unspecified essential hypertension Stage 3 chronic kidney disease, unspecified whether stage 3a or 3b CKD (HCC) Hyperglycemia Other abnormal glucose Anxiety Anxiety state, unspecified Colitis Other and unspecified noninfectious gastroenteritis and colitis [email or web address]* Diagnosis Encounter for screening mammogram for breast cancer documented in this encounter [facility]* Diagnosis Encounter for screening mammogram for breast cancer documented [facility]* Diagnosis Vaginal burning- Primary Other specified symptom associated with female genital organs Urethral diverticulum [email or web address]* Diagnosis Onset Date Resolution Status CKD (chronic kidney disease) stage 3, GFR 30-59 ml/min chronic Essential (primary) hypertension chronic Paroxysmal SVT (supraventricular tachycardia) [facility] Work Phone: evaluation note* Diagnosis Anxiety Anxiety state, unspecified documented in this encounter [facility] note* Diagnosis Medicare annual wellness visit, subsequent- [...] Screening for depression documented in this encounter [facility] note* Diagnosis Encounter for screening mammogram for malignant neoplasm of breast- Primary Other screening mammogram documented in this encounter [facility] note* Diagnosis Dyslipidemia- Primary Other and unspecified hyperlipidemia Hypertension, essential Unspecified essential hypertension Screening for diabetes mellitus Wellness examination Stage 3a chronic kidney disease (HCC) documented in this encounter [facility] note* Diagnosis Encounter for screening mammogram for malignant neoplasm of breast Other screening mammogram [facility]* Diagnosis Neoplasm of uncertain behavior of skin- Primary Actinic keratosis Lentigines Other dyschromia Angioma of skin Hemangioma of skin and subcutaneous tissue Multiple benign nevi Benign neoplasm of skin, site unspecified Seborrheic keratoses Other seborrheic keratosis Xerosis cutis Other specified disease of sebaceous glands documented in this encounter [facility]* Diagnosis Actinic keratosis- Primary [facility] ([facility] Diagnostic Procedure Only (Routine) - Pending Review Specialty Diagnoses / Procedures Referred By Stephen vance Referred To Contact [facility] Diagnoses Encounter for screening mammogram for breast cancer Procedures RADHA SCREENING SCREENING MAMMOGRAPHY BI 2-VIEW BREAST INC Teo Max MD [address] [place] [address] [facility] [address] [address] Referral ID Status Reason Start Date Expiration Date Visits Requested Visits Authorized [id number] Pending Review Auto-Generat ed Referral 10/15/2021 11/14/2022 1 1 [facility] for referral (narrative)* Diagnostic Procedure Only (Routine) - Closed Specialty Diagnoses / Procedures Referred By Stephen vance Referred To Contact [facility] Diagnoses Encounter for screening mammogram for breast cancer Procedures RADHA SCREENING SCREENING MAMMOGRAPHY BI 2-VIEW BREAST INC Teo Max MD [address] [place] [address] [facility] [address] [place] [address] Referral ID Status Reason Start Date Expiration Date V isits Requested Visits Authorized [id number] Closed Auto-Generate d Referral 10/15/2021 11/14/2022 1 1 [facility] (narrative)No reason for referral information [facility]Community [facility] Work Phone: Reason for visit Narrative* Diagnostic Procedure Only (Routine) - Closed Specialty Diagnoses / Procedures Referred By Darshanzayda t Referred To Contact [facility] Diagnoses Encounter for screening mammogram for breast cancer Procedures RADHA SCREENING SCREENING MAMMOGRAPHY BI 2-VIEW BREAST INC Teo Max MD [address] [place] [address] [facility] [address] [place] [address] Referral ID Status Reason Start Date Expiration Date V isits Requested Visits Authorized [id number] Closed Auto-Generate d Referral 10/15/2021 11/14/2022 1 1 [facility] N[facility]* Diagnostic Procedure Only (Routine) - Closed Specialty Diagnoses / Procedures Referred By Stephen vance Referred To Contact [facility] Diagnoses Encounter for screening mammogram for malignant neoplasm of breast Procedures RADHA SCREENING W MICA SCREENING DIGITAL BREAST TOMOSYNTHESIS BI SCREENING MAMMOGRAPHY BI 2-VIEW BREAST INC Teo Max MD [address] [place] [address] Phone: tel: fax: [facility] [address] [place] [address] Referral ID Status Reason Start Date Expiration Date V isits Requested Visits Authorized [id number] Closed Auto-Generate d Referral 06/29/2024 07/29/2025 1 1 [facility] Chief Complaint and Reason for Visit Chief Complaint 6-7 M FU (MOVED FROM [facility]) 6 wk FU SEE ORDER Reason for [...] 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, 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 Chief Complaint Admit Date 1 Y FU July 25, 2024 8:5 0am Colitis October 16, 2024 8:27 am E ORDERS October 16, 2024 9:24 am INT [facility] October 17, 2024 9:49 am Family History No Family History Records Found Relationship Condition Age at Onset Recorded Date/T nimesh father Cardiac disease Unknown grandmother Cerebrovascular accident (CVA) Unknown grandfather Cerebrovascular accident (CVA) Unknown mother Cardiac disease Unknown Advance Directives No Advanced Directives Records Found Advance Directive Response Recorded Date/ Time Living Will No July 25, 2020 1:37pm Power of Putter In No July 25 1:37pm Advance Directive Response Recorded Date/ Time Living Will No July 25, 2020 12:37pm Power of Putter In No July 25 12:37pm Advance Directive Response Recorded Date/ Time Living Will No July 25, 2020 1:37pm Do you have a Healthcare Power of Putter In? No July 25, 2020 1:37pm Summary Purpose [...] prosecute any alcohol or drug abuse patient.[facility] the event this information is protected by the Federal Confidentiality of Alcohol and Drug Abuse Patient Records regulations: The Federal rules restrict any use of the information to criminally investigate or prosecute any alcohol or drug abuse patient.[facility] HospitalIn the event this information is protected by the Federal Confidentiality of Alcohol and Drug Abuse Patient Records regulations: The Federal rules restrict any use of the information to criminally investigate or prosecute any alcohol or drug abuse patient.[facility] HospitalIn the event this information is protected by the Federal Confidentiality of Alcohol and Drug Abuse Patient Records regulations: The Federal rules restrict any use of the information to criminally investigate or prosecute any alcohol or drug abuse patient.[facility] HospitalIn the event this information is protected by the Federal Confidentiality of Alcohol and Drug Abuse Patient Records regulations: The Federal rules restrict any use of the information to criminally investigate or prosecute any alcohol or drug abuse patient.[facility] HospitalIn the event this information is protected by the Federal Confidentiality of Alcohol and Drug Abuse Patient Records regulations: The Federal rules restrict any use of the information to criminally investigate or prosecute any alcohol or drug abuse patient.[facility] HospitalIn the event this information is protected by the Federal Confidentiality of Alcohol and Drug Abuse Patient Records regulations: The Federal rules restrict any use of the information to criminally investigate or prosecute any alcohol or drug abuse patient.[facility] HospitalIn the event this information is protected by the Federal Confidentiality of Alcohol and Drug Abuse Patient Records regulations: The Federal rules restrict any use of the information to criminally investigate or prosecute any alcohol or drug abuse patient.[facility] HospitalIn the event this information is protected by the Federal Confidentiality of Alcohol and Drug Abuse Patient Records regulations: The Federal rules restrict any use of the information to criminally investigate or prosecute any alcohol or drug abuse patient.[facility] HospitalIn the event this information is protected by the Federal Confidentiality of Alcohol and Drug Abuse Patient Records regulations: The Federal rules restrict any use of the information to criminally investigate or prosecute any alcohol or drug abuse patient.[facility] HospitalIn the event this information is protected by the Federal Confidentiality of Alcohol and Drug Abuse Patient Records regulations: The Federal rules restrict any use of the information to criminally investigate or prosecute any alcohol or drug abuse patient.[facility] HospitalIn the event this information is protected by the Federal Confidentiality of Alcohol and Drug Abuse Patient Records regulations: The Federal rules restrict any use of the information to criminally investigate or prosecute any alcohol or drug abuse patient.[facility] HospitalIn the event this information is protected by the Federal Confidentiality of Alcohol and Drug Abuse Patient Records regulations: The Federal rules restrict any use of the information to criminally investigate or prosecute any alcohol or drug abuse patient.[facility] HospitalIn the event this information is protected by the Federal Confidentiality of Alcohol and Drug Abuse Patient Records regulations: The Federal rules restrict any use of the information to criminally investigate or prosecute any alcohol or drug abuse patient.[facility] HospitalIn the event this information is protected by the Federal Confidentiality of Alcohol and Drug Abuse Patient Records regulations: The Federal rules restrict any use of the information to criminally investigate or prosecute any alcohol or drug abuse patient.[facility] HospitalIn the event this information is protected by the Federal Confidentiality of Alcohol and Drug Abuse Patient Records regulations: The Federal rules restrict any use of the information to criminally investigate or prosecute any alcohol or drug abuse patient.[facility] HospitalIn the event this information is protected by the Federal Confidentiality of Alcohol and Drug Abuse Patient Records regulations: The Federal rules restrict any use of the information to criminally investigate or prosecute any alcohol or drug abuse patient.[facility] HospitalIn the event this information is protected by the Federal Confidentiality of Alcohol and Drug Abuse Patient Records regulations: The Federal rules restrict any use of the information to criminally investigate or prosecute any alcohol or drug abuse patient.[facility] HospitalIn the event this information is protected by the Federal Confidentiality of Alcohol and Drug Abuse Patient Records regulations: The Federal rules restrict any use of the information to criminally investigate or prosecute any alcohol or drug abuse patient.[facility] HospitalIn the event this information is protected by the Federal Confidentiality of Alcohol and Drug Abuse Patient Records regulations: The Federal rules restrict any use of the information to criminally investigate or prosecute any alcohol or drug abuse patient.[facility] HospitalIn the event this information is protected by the Federal Confidentiality of Alcohol and Drug Abuse Patient Records regulations: The Federal rules restrict any use of the information to criminally investigate or prosecute any alcohol or drug abuse patient.[facility] HospitalIn the event this information is protected by the Federal Confidentiality of Alcohol and Drug Abuse Patient Records regulations: The Federal rules restrict any use of the information to criminally investigate or prosecute any alcohol or drug abuse patient.[facility] HospitalIn the event this information is protected by the Federal Confidentiality of Alcohol and Drug Abuse Patient Records regulations: The Federal rules restrict any use of the information to criminally investigate or prosecute any alcohol or drug abuse patient.[facility] Reason for Visit (unrecogniz ed section [...] Date Comments Population Health Navigation Outreach 11/10/2023 [employer],Workbeanah,Chari Reason Comments Medicare Wellness Exam Reason Comments Results Reason Onset Date Comments Population Health Navigation Outreach 12/13/2023 AetnaBud,Chari Reason Onset Date Comments Population Health Navigation Outreach 06/29/2024 [employer] High Risk - Attempt 1 Reason Comments Full Body Skin Check Reason Comments Patient Question Reason Onset Date Comments 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 Reason Comments Actinic Keratosis Care Teams (unrecognized sec tion and content) Screw Supervisor Relationship Specialty Start Date End Date Teo Mendez MD [address] [place] [address] PCP - General Family Practice 06/01/17 Screw Supervisor Relationship Specialty Start Date End Date Teo Mendez MD [address] [place] [address] PCP - General Family Practice 06/01/17 Screw Supervisor Relationship Specialty Start Date End Date Teo Mendez MD [address] [place] [address] PCP - General Family Practice 06/01/17 Screw Supervisor Relationship Specialty Start Date End Date Teo Mendez MD [address] [place] [address] PCP - General Family Practice 06/01/17 Screw Supervisor Relationship Specialty Start Date End Date Teo Mendez MD [address] [place] [address] PCP - General Family Medicine 06/01/17 Team Status: Active Member Role Status Dates No Primary Care Physician Family Provider Active Dr. Teo Mendez MD Primary Care Provider Active Team Status: Inactive Member Role Status Dates Dr. Teo Mendez MD Primary Care Provider, Referring Provider Active Dr. Ildefonso Pulido MD Attending Provider Active Team Status: Inactive Member Role Status Dates Dr. Teo Mendez MD Primary Care Provider Active Dr. Ildefonso Pulido MD Attending Provider Active Screw Supervisor Relationship Specialty Start Date End Date Teo Mendez MD [address] [place] [address] PCP - General Family Medicine 06/01/17 Screw Supervisor Relationship Specialty Start Date End Date Teo Mendez MD [address] [place] [address] PCP - General Family Medicine 06/01/17 Screw Supervisor Relationship Specialty Start Date End Date Teo Mendez MD [address] [facility] [place] [address] PCP - General Family Medicine 06/01/17 Screw Supervisor Relationship Specialty Start Date End Date Teo Mendez MD [address] [facility] [place] [address] PCP - General Family Medicine 06/01/17 Screw Supervisor Relationship Specialty Start Date End Date Teo Mendez MD [address] [place] [address] PCP - General Family Medicine 06/01/17 Screw Supervisor Relationship Specialty Start Date End Date Teo Mendez MD [address] [place] [address] PCP - General Family Medicine 06/01/17 Screw Supervisor Relationship Specialty Start Date End Date Teo Mendez MD [address] [place] [address] PCP - General Family Medicine 06/01/17 Raisa Felix APRN.IMPLEMENTATION ADVISOR [address] [place] [address] Medical Typist Family Medicine 04/10/24 Anneliese Rosas APRN.IMPLEMENTATION ADVISOR [address] [facility] [place] [address] Medical Typist Family Medicine 04/10/24 Screw Supervisor Relationship Specialty Start Date End Date Teo Mendez MD [address] [facility] [place] [address] PCP - General Family Medicine 06/01/17 Raisa Felix APRN.IMPLEMENTATION ADVISOR [address] [facility] [place] [address] Medical Typist Family Medicine 04/10/24 Anneliese Rosas APRN.IMPLEMENTATION ADVISOR [address] [facility] [place] [address] Medical Typist Family Medicine 04/10/24 Screw Supervisor Relationship Specialty Start Date End Date Teo Mendez MD [address] [place] [address] PCP - General Family Medicine 06/01/17 Raisa Felix APRN.IMPLEMENTATION ADVISOR [address] [place] [address] Medical Typist Family Medicine 04/10/24 Anneliese Rosas APRN.IMPLEMENTATION ADVISOR [address] [place] [address] [facility] 04/10/24 Screw Supervisor Relationship Specialty Start Date End Date Teo Mendez MD [address] [facility] [place] [place] [address] PCP - General Family Medicine 06/01/17 Raisa Felix APRN.IMPLEMENTATION ADVISOR [address] [place] [address] Medical Typist Family Medicine 04/10/24 Anneliese Rosas APRN.IMPLEMENTATION ADVISOR [address] [place] [address] Medical Typist Family Medicine 04/10/24 Screw Supervisor Relationship Specialty Start Date End Date Teo Mendez MD [address] [place] [address] PCP - General Family Medicine 06/01/17 Raisa Felix MERCHANDISING SPECIALIST.IMPLEMENTATION ADVISOR [address] [place] [address] Medical Typist Family Medicine 04/10/24 Anneliese Rosas MERCHANDISING SPECIALIST.IMPLEMENTATION ADVISOR [address] [place] [address] Medical Typist Family [facility] 04/10/24 Screw Supervisor Relationship Specialty Start Date End Date Teo Mendez MD [address] [place] [address] PCP - General Family Medicine 06/01/17 Raisa Felix MERCHANDISING SPECIALIST.IMPLEMENTATION ADVISOR [address] [place] [address] Medical Typist Family Medicine 04/10/24 Anneliese Rosas MERCHANDISING SPECIALIST.IMPLEMENTATION ADVISOR [address] [place] [address] [facility] Screw Supervisor Relationship Specialty Start Date End Date Teo Mendez MD [address] [place] [address] PCP - General Family Medicine 06/01/17 Raisa Felix MERCHANDISING SPECIALIST.IMPLEMENTATION ADVISOR [address] [place] [address] [facility] Family Medicine 04/10/24 Anneliese Rosas MERCHANDISING SPECIALIST.IMPLEMENTATION ADVISOR [address] [place] [address] [facility] 04/10/24 Screw Supervisor Relationship Specialty Start Date End Date Teo Mendez MD [address] [facility] [place], [place] [address] PCP - General Family Medicine 06/01/17 Raisa Felix, DORINDA.IMPLEMENTATION ADVISOR [address] [facility], [place] [address] Medical Typist [facility] 04/10/24 Anneliese Rosas MERCHANDISING SPECIALIST.IMPLEMENTATION ADVISOR [address] [facility] [place], [place] [address] [facility] 04/10/24 Team Status: Inactive Member Role Status Dates Dr. Teo Mendez MD Primary Care Provider Active Start: July 25, 2024 End: July 25, 2024 Dr. Teo Mendez MD Referring Provider Active Start: July 25, 2024 End: July 25, 2024 Dr. Ildefonso Pulido MD Attending Provider Active S tart: July 25, 2024 End: July 25, 2024 Team Status: Inactive Member Role Status Dates Dr. Teo Mendez MD Primary Care Provider Active Start: October 16, 2024 End: October 16, 2024 Dr. Teo Mendez MD Referring Provider Active Start: October 16, 2024 End: October 16, 2024 CARMEN Raymond Attending Provider Active S tart: October 16, 2024 End: October 16, 2024 Team Status: Inactive Member Role Status Dates Dr. Teo Mendez MD Primary Care Provider Active Start: October 16, 2024 End: October 16, 2024 CARMEN Raymond Attending Provider Active S tart: October 16, 2024 End: October 16, 2024 CARMEN Raymond Referring Provider Active S tart: October 16, 2024 End: October 16, 2024 Team Status: Active Member Role Status Dates Dr. Teo Mendez MD Primary Care Provider Active Start: October 17, 2024 CARMEN Raymond Attending Provider Active S tart: October 17, 2024 CARMEN Raymond Referring Provider Active S tart: October 17, 2024 Team Status: Inactive Member Role Status Dates Dr. Teo Mendez MD Primary Care Provider Active Start: October 17, 2024 End: October 17, 2024 CARMEN Raymond Attending Provider Active S tart: October 17, 2024 End: October 17, 2024 CARMEN Raymond Referring Provider Active S tart: October 17, 2024 End: October 17, 2024 INFORMATION SOURCE (unrecogn ized section and content) DATE CREATED AUTHOR 10/28/2024 [facility] DATE CREATED AUTHOR AUTHOR'S ORGANIZ ATION 12/02/2024 [facility] FOR RECORDS PERTAINING TO PATIENTS WHO ARE [...] BE BASED ON THE PRIMARY CLINICAL RECORDS. [facility]. provides no warranty or guarantee of the accuracy or completeness of information in this document.
[2024-12-04] MEDS: Lactated Ringers 1,000 ML 15 ML IV (06:40)
--- NOTE | 2024-12-04 06:40 | PCM.PRE.AN2 ---
ASA Classification* ASA Classification ASA Classification: 2 Assessment & Plan Anesthesia* Anesthesia Assessment Anesthesia Assessment: Discussed sedation and/or anesthesia options, risks, benefits, and alternatives with patient/parents/legal guardian/POA. Questions invited. The patient/parents/legal guardian/POA seems to understand and agrees to proceed with anesthesia plan. Reviewed the physical assessment, medical history, allergy history and patient home medications list prior to surgery/procedure/anesthetic and documented any changes. Performed airway and anesthesia risk assessments. Anesthesia Type Anesthesia Type: MAC Anesthesia Focused Assessment* Temperature: 97.0 F Pulse Rate: 79 Blood Pressure: 136/79 Respiratory Rate: 16 Pulse Ox: 100 Airway Assessment Mouth opens: >3 cm Mallampati Score: II Labs Anesthesia Preop lab: CBC WBC 5.9 K/mm3 (4.4-11.0) 10/16/24 09:10/16/24 RBC 3.90 M/mm3 (4.2-5.4) L 10/16/24 09:30 10/16/24 Hgb 12.6 g/dL (12.0-15.0) 10/16/24 09:30 10/16/24 Hct 37.2 % (37-47) 10/16/24 09:30 10/16/24 Plt Count 276 K/mm3 (150-450) 10/16/24 09:30 10/16/24 CHEMISTRY Potassium 4.3 mmol/L (3.3-5.1) 10/16/24 09:30 10/16/24 Sodium 141 mmol/L (133-145) 10/16/24 09:30 10/16/24 Magnesium 2.3 mg/dL (1.6-2.6) 07/15/20 05:50 07/15/20 BUN 24 mg/dL (4-19) H 10/16/24 09:30 10/16/24 Creatinine 0.97 mg/dL (0.70-1.20) 10/16/24 09:30 10/16/24 Glucose 109 mg/dL (70-99) H 10/16/24 09:30 10/16/24 TSH 2.270 uIU/mL (0.300-4.200) 10/16/24 09:30 10/16/24 COAG PT 12.1 SECONDS (11.7-14.9) 07/25/20 13:20 07/25/20 Pre-Assessment Diagnosis/Proposed Procedure Planned Operative Procedure(s): COLONOSCOPY Anesthesia History Anesthesia History - damage assessor: Anesthesia History - damage assessor Hx Hospitalization No 11/28/24 14:07 Any Problems With Anesthesia No 11/28/24 14:07 Cholinesterase deficiency No 11/28/24 14:07 You/Your Family Experience No 11/28/24 14:07 fever (hyperthermia) with Relationship Recent Exposure to Contagious No 12/04/24 06:34 Disease Does patient have nerve No 11/28/24 14:07 stimulator Patient instructed to have device shut off --Does patient have Pacemaker No 12/04/24 06:35 or ICD? When Was Last Pacemaker Check QUESTION #4 FULL TEXT: You/Your Family Experience fever (hyperthermia) with Anesthesia Last Oral Intake Last Oral intake: Last Oral Intake NPO since 00:00 12/04/24 06:35 Meds taken in AM with sips of Yes 12/04/24 06:35 water? Meds patient instructed to amlodipine 12/04/24 06:35 take am of surgery PONV PONV - damage assessor: PONV - damage assessor Female Yes 11/28/24 14:07 HX of Motion Sickness No 11/28/24 14:07 HX of N/V After Surgery No 11/28/24 14:07 Non-Smoker Yes 11/28/24 14:07 Duration of Surgery greater No 11/28/24 14:07 than 60 minutes Number of Risk Factors 2 11/28/24 14:07 PONV Score Moderate Risk 11/28/24 14:07 Height & Weight Height & Weight: Anesthesia: Height & Weight Height 5 ft 7 in 12/04/24 06:35 Weight: 60.3 kg 12/04/24 06:35 Body Mass Index (BMI) 20.8 12/04/24 06:35 Respiratory Assessment Respiratory Assessment - damage assessor: Respiratory Tract Infection Hx - damage assessor Hx Respiratory Tract Infection No 11/28/24 14:07 STOP Sleep Apnea STOP Sleep Apnea - damage assessor: STOP Sleep Apnea - damage assessor Hx Hypertension Yes: CONTROLLED ON MED 11/28/24 14:07 Hx Sleep Apnea No 11/28/24 14:07 CPAP BIPAP Do you snore loudly (louder No 11/28/24 14:07 than talking or can be heard Do you often feel tired/ No 11/28/24 14:07 fatigued/ sleepy during daytime? Has anyone observed you stop No 11/28/24 14:07 breathing during sleep? STOP Results Negative 11/28/24 14:07 QUESTION #5 FULL TEXT : Do you snore loudly (louder than talking or can be heard through closed doors)? 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 Specify any problems Hx of Preganancy in last 3 No 11/28/24 14:07 Months Nurse Filling Out Transfusion VCHRISTIN 11/28/24 14:07 & Questions: Date: 11/28/24 11/28/24 14:07 Time: 14:08 11/28/24 14:07 Patient unable to answer at this time (ie. confused, unrespo /Reproduction History /Reproductive History - damage assessor: /Reproductive Hx- damage assessor Hx Now No 11/28/24 14:07 Gestational Age (in weeks): EDC: Hx Hx Para Hx Section SAB No 11/28/24 14:07 Active Medications Active Medications: Current Medications Generic Name Dose Route Start Last Admin Trade Name Freq PRN Reason Stop Dose Admin Lactated Ringer's 1,000 mls @ 15 mls/hr 12/04/24 06:00 IV .Q48H RUPERT PFSH Medical History Wears glasses History of Clostridium difficile infection Post-menopausal Alcohol use History of renal disease Non-smoker Leg cramps Lymphedema History of Holter monitoring History of echocardiogram History of stress test Hypertension Cardiology follow-up encounter Preop cardiovascular exam Paroxysmal SVT (supraventricular tachycardia) Irritable bowel syndrome with diarrhea CKD (chronic kidney disease) stage 3, GFR 30-59 ml/min Hyperglycemia Anxiety Hyperlipidemia Essential (primary) hypertension Dermatitis Home Medications ?Medication ?Instructions ?Recorded ?Last Taken ?Type amlodipine 10 mg tablet 10 mg PO DAILY #90 TABLETS 06/15/24 12/04/24 Rx lisinopril 20 mg tablet 20 mg PO DAILY dose has been 06/15/24 12/02/24 Rx decreased #90 tabs Allergy/AdvReac Type Severity Reaction Status Date / Time poison geneva extract Allergy Unknown unknown Verified 11/28/24 13:58 Penicillins Allergy Swelling Verified 11/28/24 13:58 garlic AdvReac Severe Diarrhea Verified 11/28/24 13:58 Family History Father Heart disease Grandmother CVA (cerebral vascular accident) Grandfather CVA (cerebral vascular accident) Mother Heart disease Surgical History History of tonsillectomy History of colonoscopy (11/20/14) History of tubal ligation Social History Smoking Status: Never smoker how long ago did patient quit smokin years ago alcohol intake: current alcohol intake frequency: a few times a week Alcohol type: wine and hard liquor substance use type: does not use caffeine: Yes Type: coffee Number of servings: 2 Review of Systems (Anesthesia) ROS Narrative System reviewed and no additional complaints, except as documented.
--- NOTE | 2024-12-04 06:45 | HP.PCM_ITS ---
HPI - General General Date of Admission: 12/04/24 Date of Service: 12/04/24 Chief Complaint: Chronic diarrhea HPI Narrative SAULO ROBISON, is a 79 F who presents regarding concerns of chronic diarrhea with urgency and occasional incontinence. She reports severe BM urgency in AM. Denies abdominal pain and cramping association. She does relate that increased amounts of stress makes everything worse. The diarrhea, urgency and causes incontin ence. She states that her last colonoscopy was done in 2014 without any abnormalities. She takes Imodium for the loose stools and it works. She reports food intolerances to garlic and tomatoes as they give her excess gas. She drinks well water that is filtered inside of her house. She drinks 1 glass of alcohol, usually wine, at least 3 times a week. The only surgery she's ever had was to have her tonsils removed as a child. She goes to an school cleaner for treatments and states that she shows positive for gallbladder issues. She denies difficulty chewing and swallowing, cough, throat clearing, sinus drainage, heartburn, reflux, nausea, emesis, abdominal bloating, constipation, hematochezia, and melena. Upon questioning, her diarrhea is actually soft nonformed stool that plops into the toilet. [facility] Medical History Wears glasses History of Clostridium difficile infection Post-menopausal Alcohol use History of renal disease Non-smoker Leg cramps Lymphedema History of Holter monitoring History of echocardiogram History of stress test Hypertension Cardiology follow-up encounter Preop cardiovascular exam Paroxysmal SVT (supraventricular tachycardia) Irritable bowel syndrome with diarrhea CKD (chronic kidney disease) stage 3, GFR 30-59 ml/min Hyperglycemia Anxiety Hyperlipidemia Essential (primary) hypertension Dermatitis Home Medications ?Medication ?Instructions ?Recorded ?Last Taken ?Type amlodipine 10 mg tablet 10 mg PO DAILY #90 TABLETS 0 06/15/24 12/04/24 Rx lisinopril 20 mg tablet 20 mg PO DAILY dose has been 06/15/24 12/02/24 Rx decreased #90 tabs Allergy/AdvReac Type Severity Reaction Status Date / Time poison geneva extract Allergy Unknown unknown Verified 11/28/24 13:58 Penicillins Allergy Swelling Verified 11/28/24 13:58 garlic AdvReac Severe Diarrhea Verified 11/28/24 13:58 Family History Father Heart disease Grandmother CVA (cerebral vascular accident) Grandfather CVA (cerebral vascular accident) Mother Heart disease Surgical History History of tonsillectomy History of colonoscopy (11/20/14) History of tubal ligation Social History Smoking Status: Never smoker how long ago did patient quit smokin years ago alcohol intake: current alcohol intake frequency: a few times a week Alcohol type: wine and hard liquor substance use type: does not use caffeine: Yes Type: coffee Number of servings: 2 ROS Constitutional Constitutional: Denies fatigue, fever(s), poor appetite, weight gain or weight loss Gastrointestinal Gastrointestinal: Denies belching, bloating, change in bowel habits, change in stool character, chewing difficulty, coffee ground emesis, constipation, cramping, diarrhea, dyspepsia, dysphagia, early satiety, excessive flatus, fecal incontinence, heartburn, hematemesis, hematochezia, hemorrhoids, loose stools, melena, nausea, odynophagia, rectal bleeding, tenesmus, vomiting or weight changes Vital Signs Vital Signs Vital Signs: 12/04/24 06:34 12/04/24 06:35 12/04/24 06:41 Temperature 97.0 F L 97.0 F L Temperature Source Temporal Pulse Rate 79 79 Respiratory Rate 16 16 Respiratory Pattern Normal Blood Pressure 136/79 H 136/79 H Blood Pressure Mean 98 Blood Pressure Source Monitor Blood Pressure Position Sitting Blood Pressure Location Left Arm Pulse Ox 100 100 Oxygen Delivery Method Room Air Weight Weight: 132 lb 15.02 oz Body Mass Index (BMI) 20.8 Physical Exam Const alert, oriented x3, no apparent distress and healthy appearing General Appearance: cooperative GI normal to inspection, nondistended, normoactive bowel sounds, soft to palpation, non-tender and non-distended Percussion: normal to percussion Rectal Exam: deferred Assessment & Plan Assessment/Plan (1) Rectal urgency: (2) Diarrhea: PLAN: Assessment and Plan Assessment and Plan (1) Non-specific colitis: (2) Diarrhea: Status: Acute (3) Rectal urgency: Status: Acute Orders: Orders Allergen, Food Profile 14 Today R15.2 - Fecal urgency, R19.7 - Diarrhea, unspecified ZA Comprehensive Panel Today R15.2 - Fecal urgency, R19.7 - Diarrhea, unspecified CRP Today R15.2 - Fecal urgency, R19.7 - Diarrhea, unspecified ANCA Today R15.2 - Fecal urgency, R19.7 - Diarrhea, unspecified Calprotectin, Stool Today R15.2 - Fecal urgency, R19.7 - Diarrhea, unspecified CBC W/Diff, Automated Today R15.2 - Fecal urgency, R19.7 - Diarrhea, unspecified CDIFF (PCR) Today R15.2 - Fecal urgency, R19.7 - Diarrhea, unspecified Comprehensive Metabolic Profil Today R15.2 - Fecal urgency, R19.7 - Diarrhea, unspecified Erythrocyte Sed Rate Today R15.2 - Fecal urgency, R19.7 - Diarrhea, unspecified IBD Expanded Profile Today R15.2 - Fecal urgency, R19.7 - Diarrhea, unspecified Immunoglobulins G/A/M/E Today R15.2 - Fecal urgency, R19.7 - Diarrhea, unspecified LDH Today R15.2 - Fecal urgency, R19.7 - Diarrhea, unspecified Pancreatic Elastase, Fecal Today R15.2 - Fecal urgency, R19.7 - Diarrhea, unspecified Stool Lactoferrin/WBC Today K58.9 - Irritable bowel syndrome, unspecified, R15.2 - Fecal urgency, R19.7 - Diarrhea, unspecified Thyroid Stim Hormone (TSH) Today R15.2 - Fecal urgency, R19.7 - Diarrhea, unspecified Giardia Lamblia, Stool EIA Today R15.2 - Fecal urgency, R19.7 - Diarrhea, unsp ecified Celiac Disease Profile Today R15.2 - Fecal urgency, R19.7 - Diarrhea, unspecified ENTERIC PATHOGEN PANEL STOOL Today K58.9 - Irritable bowel syndrome, unspecified, R15.2 - Fecal urgency, R19.7 - Diarrhea, unspecified Plan SAULO ROBISON, is a 79 F who presents to the office today for establishment with [facility] regarding concerns of chronic diarrhea with urgency and occasional incontinence. Differential diagnoses include: IBD, IBS-D, EPI, food allergies. Reviewed care plan with her. * blood for allergies, IBD, hormone, celiac * stool for inflammatory, enzyme, enteric markers * schedule colonoscopy * office FU 1wk post colonoscopy
--- NOTE | 2024-12-04 07:00 | COLBX_PTH ---
PATIENT: SAULO ROBISON LOC: EN U#:[id number] AGE/SX: 79/F ROOM: RE12/04/[address]: Dr. Tahir Ceballos DO : 1945 BED: DIS: 12/04/2024 SPEC #: [id number] RECD: 12/04/24 08:46 STATUS: TRUMAN QUINTEN #: [id number] GUNNER: 12/04/24 07:[address]: Tahir Ceballos DEPT: SURGICAL PATHOLOGY RECD BY: Benjamin Alexis ENTERED: 12/04/24 13:11 SP TYPE: COLON BX HARRISON DR: Dr. Teo Sagastume MD Tissues: A - Ileum, NOS B - COLON BIOPSY Procedures: Trichrome (control) Special Stain Group I Surgery Specimen Level IV HEADER OPERATION: Colonoscopy with biopsy PRE-OP DIAGNOSIS: Chronic diarrhea TISSUE SUBMITTED: A- Terminal ileum biopsy, B- Random colon biopsy MICROSCOPIC DIAGNOSIS A. Terminal ileum, biopsy: - No specific pathologic change. B. Colon, random, biopsy: - Mildly increased Intraepithelial lymphocytes with occasional neutrophils - see note. - Trichrome stain is negative for thickening of the subepithelial collagen table. 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 The differential diagnosis includes infection and medication injury. Recommend correlation with clinical, endoscopic, and microbiology findings. MICROSCOPIC DESCRIPTION Slides are reviewed. All matched controls reacted appropriately. These tests were developed and their performance characteristics determined by [facility]. They may not have been cleared or approved by the U.S. Food and Drug Administration. The FDA has determined that such clearance or approval is not necessary.? The above immunohistochemical/dualISH?markers are reviewed by the Pathologist. GROSS DESCRIPTION A. Received in fixative is one container labeled with the patient's name and designated Terminal ileum biopsy. The specimen consists of two irregular fragments of light richardson soft tissue that measure 0.1 and 0.3 cm. The specimen is totally submitted in one cassette. B. Received in fixative is one container labeled with the patient's name and designated Random colon biopsies. The specimen consists of multiple irregular fragments of light richardson soft tissue that in aggregate measure 1.5 x 0.7 x 0.1 cm. The specimen is totally submitted in one cassette. [place] 12/04/2024 CPT:17230u7 ,[id number]
--- NOTE | 2024-12-04 07:39 | OP.PROVAT_ITS ---
12/04/2024 Teo Sagastume Re : Colonoscopy procedure for Jennifer Ngo Tanika This procedure was performed on Wednesday, December 04, 2024. My impressions and recommendations are as follows: Impressions : - Congested mucosa in the recto-sigmoid colon, in the sigmoid colon and in the ascending colon. Biopsied. - Tortuous colon. - The examined portion of the ileum was normal. Biopsied. - The examination was otherwise normal on direct and retroflexion views. Recommendations : - Discharge patient to home. - Resume previous diet. - Continue present medications. - Await pathology results. - No repeat colonoscopy due to age. My findings are described in the full procedure note, which is enclosed. If I can be of further assistance, please feel free to contact me at . Sincerely, Tahir Ceballos, 12/04/2024 7:38:54 AM This report has been signed electronically.
--- NOTE | 2024-12-04 07:39 | OP.COLON_ITS ---
Patient Name: Jennifer Vasquez Procedure Date: 12/04/2024 7:05 AM Date of : 1945 Age: 79 Procedure: Colonoscopy Indications: Clinically significant diarrhea of unexplained origin Providers: Tahir Ceballos DO Referring MD: Teo Sagastume Medicines: Monitored Anesthesia Care Patient Profile: This is a 79 year old female. Refer to note in patient chart for documentation of history and physical. Last Colonoscopy: several years ago. Complications: No immediate complications. Procedure: Pre-Anesthesia Assessment: - Prior to the procedure, a History and Physical was performed, and patient medications and allergies were reviewed. The patient is competent. The risks and benefits of the procedure and the sedation options and risks were discussed with the patient. All questions were answered and informed consent was obtained. Patient identification and proposed procedure were verified by the physician in the pre-procedure area. Mental Status Examination: alert and oriented. Airway Examination: normal oropharyngeal airway and neck mobility. Respiratory Examination: clear to auscultation. CV Examination: normal. Prophylactic Antibiotics: The patient does not require prophylactic antibiotics. Prior Anticoagulants: The patient has taken no anticoagulant or antiplatelet agents. ASA Grade Assessment: II - A patient with mild systemic disease. After reviewing the risks and benefits, the patient was deemed in satisfactory condition to undergo the procedure. The anesthesia plan was to use monitored anesthesia care (MAC). Immediately prior to administration of medications, the patient was re-assessed for adequacy to receive sedatives. The heart rate, respiratory rate, oxygen saturations, blood pressure, adequacy of pulmonary ventilation, and response to care were monitored throughout the procedure. The physical status of the patient was re-assessed after the procedure. After I obtained informed consent, the scope was passed under direct vision. Throughout the procedure, the patient's blood pressure, pulse, and oxygen saturations were monitored continuously. The colonoscope was introduced through the anus and advanced to the terminal ileum. The colonoscopy was performed without difficulty. The patient tolerated the procedure well. The quality of the bowel preparation was good. The terminal ileum, ileocecal valve, appendiceal orifice, and rectum were photographed. Scope In: 7:14:13 AM Scope Withdrawal Time 0 hours 9 minutes 52 seconds Scope Out: 7:31:37 AM Total Procedure Duration Time 0 hours 17 minutes 24 seconds Findings: The perianal and digital rectal examinations were normal. Pertinent negatives include normal sphincter tone, no palpable rectal lesions and no anal lesion or abnormality. An area of mildly congested mucosa was found in the recto-sigmoid colon, in the sigmoid colon and in the ascending colon. Biopsies were taken with a cold forceps for histology. Verification of patient identification for the specimen was done. Estimated blood loss was minimal. The right colon was tortuous. The terminal ileum appeared normal. Biopsies were taken with a cold forceps for histology. Verification of patient identification for the specimen was done. Estimated blood loss was minimal. The exam was otherwise without abnormality on direct and retroflexion views. Impression: - Congested mucosa in the recto-sigmoid colon, in the sigmoid colon and in the ascending colon. Biopsied. - Tortuous colon. - The examined portion of the ileum was normal. Biopsied. - The examination was otherwise normal on direct and retroflexion views. Recommendation: - Discharge patient to home. - Resume previous diet. - Continue present medications. - Await pathology results. - No repeat colonoscopy due to age. Procedure Code(s): --- Professional --- 69570, Colonoscopy, flexible; with biopsy, single or multiple CPT copyright 2021 [employer]. All rights reserved. The codes documented in this report are preliminary and upon airport skilled maintenance supervisor review may be revised to meet current compliance requirements. Tahir Ceballos DO 12/04/2024 7:38:54 AM This report has been signed electronically. Number of Addenda: 0 Note Initiated On: 12/04/2024 7:05 AM
--- NOTE | 2024-12-04 07:40 | PCM.POST.ANE ---
Anesthesia: Postop Eval I Current Vital Signs Temperature: 97.1 F Pulse Rate: 71 Blood Pressure: 104/54 Respiratory Rate: 16 Pulse Ox: 100 Oxygen Delivery Method: Room Air Assessment Airway patent: Yes Spontaneous unlabored respirations: Yes Mental status: Asleep nausea: No Vomiting: No Anesthesia Complication: No Fluid Hydration Crystalloid volume administer (ml): 500 Total IV fluid infused: 500 Progress Note Anesthesia document: Postop Eval 1 completed: Yes
== END 2024-12-04 08:05 | disposition home or self-care (01) ==
LOC: EN 05:49 → AC 05:50
PROVIDERS: PCP Family Medicine; Referring Provider Family Medicine; Visit Provider Internal Medicine Gastroenterology
PROC: 0DJD8ZZ Inspection of Lower Intestinal Tract, Via Natural or Artificial Opening Endoscopic (ICD-10-PCS; CPT 45378; principal; 2024-12-04 06:55)
DX: K58.0 Irritable bowel syndrome with diarrhea (principal); N18.30 Chronic kidney disease, stage 3 unspecified; Q43.8 Other specified congenital malformations of intestine; R15.2 Fecal urgency; E78.5 Hyperlipidemia, unspecified; I12.9 Hypertensive chronic kidney disease with stage 1 through stage 4 chronic kidney disease, or unspecified chronic kidney disease; Z79.899 Other long term (current) drug therapy
CPT/HCPCS: 45380; 88305; 88312; J2405